=== PATIENT | female | born 1995 | race Caucasian/White ===

== ENCOUNTER → 2018-12-22 | Outpatient (CLI) | payer OTHER ==
[2018-12-22 14:37] VITALS: BP 165/109; PULSE 82; RESP 16; TEMP 98.3; BMI 58.0
--- NOTE | 2018-12-22 17:32 | P.HPBAR ---
Bariatric H&P - History & Physicial H&P Date: 12/22/18 History & Physicial: Visit/CC: Initial Visit Patient initial contact: Initial weight: 130.379 kg Initial weight in pounds: 287.44 Height: 4 ft 11 in Initial BMI: 58.0 Last weight: Current weight: 130.379 kg Current weight in pounds: 287.44 Current BMI: 58.0 [place] body weight (based on NIH guidelines): 43.091 kg Excess body weight loss: 0.0% The patient is a 23 year-old F who presents for Bariatric Assessment. Patient is a pleasant 23-year-old female. She has suffered with obesity for much of her life. She has a history of congenital myelomeningocele. Patient has required operative intervention. Developed a large heel wound from pressure which took over one year to heal. Patient became less and less active as a result of that. Currently wheelchair bound. She is able to transfer on her alone. 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 Last revision in second grade. Catheter enters in the right subcostal location. Patient has a history of bicuspid aortic valve. History of hypertension as well. Patient has gone to at least 3 separate bariatric seminars in the past. She is interested in sleeve gastrectomy. She has not interested in gastric bypass because of the long-term risks she states. No history of DVT or dysphagia in the past. Review of Systems The patient denies any acute changes in vision or hearing, no dysphagia or odynophagia, no chest pain or shortness of breath, no dysuria or hematuria, no headache, no runny nose, no rectal bleeding or melena, no unexplained weight loss Past Medical History Past Medical History: Hypertension, Mitral Valve Prolapse (MVP), Musculoskeletal Disorder, Neurologic Disorder, Supraventricular Tachycardia (SVT) Additional Past Medical History / Comment(s): spinabifida History of Any Multi-Drug Resistant Organisms: None Reported Past Surgical History: Orthopedic Surgery Past Anesthesia/Blood Transfusion Reactions: No Reported Reaction Past Psychological History: No Psychological Hx Reported Smoking Status: Never smoker Past Alcohol Use History: None Reported, Rare Past Drug Use History: None Reported Surgical - Exam Vital Signs Temp Pulse Resp BP 98.3 F 82 16 165/109 12/22/18 14:29 12/22/18 14:29 12/22/18 14:29 12/22/18 14:29 Physical exam: General: Well-developed, well-nourished, wheelchair bound HEENT: Normocephalic, sclerae nonicteric Abdomen: Nontender, nondistended, right subcostal scar noted Extremities: Bilateral lower extremity edema Neuro: Alert and oriented Bariatric Assessment & Plan (1) Morbid obesity with BMI of 50.0-59.9, adult Narrative/Plan: Patient remains interested in sleeve gastrectomy at this time. Will require preoperative EGD, preoperative neurosurgical clearance, preoperative cardiac clearance. Risks and benefits of the procedure were discussed in detail with the patient and her mother. Alternative weight loss methods also reviewed in detail. They will consider will be discussed today. We'll see patient At time of upper endoscopy. Status: Acute Bariatric Checklist Checklist: Plan: Checklist: EGD: 1. Hiatal hernia: 2. H. Pylori: HgbA1c: Vitamin D: Smoking: Never smoker Primary care physician referral: Padma Goddard Psychiatry clearance: Cardiology clearance: Sleep study: Diet journal: VTE risk score: VTE risk level: Rehab needs at discharge:
== END ==
LOC: EDBD 14:00 → BARWHC3 14:05
PROVIDERS: ATTEND Surgery
DX: E66.01 Morbid (severe) obesity due to excess calories (principal); Z68.43 Body mass index [BMI] 50.0-59.9, adult
CPT/HCPCS: 99201

== ENCOUNTER 2019-05-24 12:40 | Day surgery (SDC) | payer OTHER ==
[2019-05-20 15:41] VITALS: BMI 56.5
[~2019-05-24 12:40] MED LIST: LACTATED RINGERS 1,000 ML IV SCH; LIDOCAINE 1% 20 ML VIAL (10MG/ML) FOR IV START INTRADERMA PRN
[2019-05-24 13:23] VITALS: RESP 16; TEMP 97.7
[2019-05-24] MEDS ORDERED: LIDOCAINE 1% INJ 10MG/ML (20 ML MDV) ONE (14:01)
[2019-05-24] MEDS ORDERED: PROPOFOL 10 MG/ML 20 ML VIAL IV ONE (14:01)
[2019-05-24] MEDS ORDERED: GLYCOPYRROLATE 0.2 MG/ML 2 ML VIAL ONE (14:01)
[2019-05-24] MEDS ORDERED: KETAMINE 10 MG/ML 20 ML VIAL ONE (14:01)
--- NOTE | 2019-05-24 14:10 | P.GSHP ---
History of Present Illness H&P Date: 05/24/19 Chief Complaint: GERD, obesity Patient here today for upper endoscopy. Patient with history of morbid obesity. Being worked up for sleeve gastrectomy. Denies DVT or dysphagia. Past Medical History Past Medical History: Hypertension, Musculoskeletal Disorder, Neurologic Disorder Additional Past Medical History / Comment(s): states has a bicuspid aortic valve, spinabifida, uses wheelchair, able to transfer, states hx (over 6 yrs ago) of "staph infection" that had I&D and a month of antibiotics IV, not sure if MRSA History of Any Multi-Drug Resistant Organisms: None Reported Past Surgical History: Orthopedic Surgery Additional Past Surgical History / Comment(s): rt heel cord sx, shunt @ , replaced x2 Past Anesthesia/Blood Transfusion Reactions: No Reported Reaction Past Psychological History: No Psychological Hx Reported Smoking Status: Never smoker Past Alcohol Use History: Rare Past Drug Use History: None Reported - Past Family History Mother Family Medical History: No Reported History Medications and Allergies Home Medications Medication Instructions Recorded Confirmed Type Carvedilol 25 mg PO QAM 05/20/19 05/24/19 History Allergies Allergy/AdvReac Type Severity Reaction Status Date / Time latex Allergy Rash/Hives Verified 05/24/19 13:10 morphine AdvReac "panic Verified 05/24/19 13:10 attack" Surgical - Exam Vital Signs Temp Pulse Resp BP Pulse Ox 97.7 F 72 16 147/103 100 05/24/19 13:20 05/24/19 13:20 05/24/19 13:20 05/24/19 13:20 05/24/19 13:20 Physical exam: General: Well-developed, well-nourished HEENT: Normocephalic, sclerae nonicteric Abdomen: Nontender, nondistended Extremities: No edema Neuro: Alert and oriented Assessment and Plan (1) GERD (gastroesophageal reflux disease) Narrative/Plan: Will proceed with upper endoscopy. Current Visit: Yes Status: Acute Code(s): K21.9 - GASTRO-ESOPHAGEAL REFLUX DISEASE WITHOUT ESOPHAGITIS SNOMED Code(s): 016162974
--- NOTE | 2019-05-24 14:16 | P.PCN ---
Date of Procedure: 05/24/19 Procedure(s) Performed: Preoperative Dx: GERD, obesity Postoperative Dx: Gastritis was small erosions Procedure: EGD with Bx Anesthesia: Sedation Endoscopist: Dr. Key Specimens: Antrum Endoscopic Procedure: The patient was on the endoscopy table in the left decubitus position. The Olympus gastroscope was inserted into the oropharynx and passed under direct visualization to the region of the third portion of the duodenum. From that point the scope was slowly withdrawn inspecting all surfaces carefully. There were no neoplastic inflammatory or polypoid lesions throughout the duodenum. The pylorus was widely patent. The stomach was carefully inspected. There was gastritis present primarily in the antrum with a few small erosions. No large ulcerations were seen.. A biopsy of the antrum took place to rule out H. pylori. Retroflexion revealed a normal hiatus. The esophagus was then carefully examined. There were no neoplastic inflammatory or polypoid lesions throughout the visualized esophagus. The patient was then taken to the recovery room in stable condition per anesthesia guidelines. Recommendations: Await biopsy results. Begin empiric antiacid therapy. Follow- up bariatric clinic 3 weeks.
[2019-05-24 14:56] VITALS: BP 146/94; PULSE 60
== END 2019-05-24 14:57 | disposition home or self-care (01) ==
LOC: ORWHC2ENDO 12:40
PROVIDERS: ATTEND Surgery
DX: K29.50 Unspecified chronic gastritis without bleeding (principal); K21.9 Gastro-esophageal reflux disease without esophagitis; E66.9 Obesity, unspecified; Z68.43 Body mass index [BMI] 50.0-59.9, adult; I10 Essential (primary) hypertension; Q23.1 Congenital insufficiency of aortic valve; Q05.9 Spina bifida, unspecified; Z99.3 Dependence on wheelchair; Z86.19 Personal history of other infectious and parasitic diseases; Z98.2 Presence of cerebrospinal fluid drainage device; Z79.899 Other long term (current) drug therapy; Z88.5 Allergy status to narcotic agent; Z91.040 Latex allergy status
CPT/HCPCS: 81025; 88305; 43239; J2001; J2704

== ENCOUNTER → 2019-08-20 | Outpatient (CLI) | payer OTHER ==
[2019-08-20 12:16] LABS: Basophils % (A) 0 %; Eosinophils # (A) 0.1 k/uL (0-0.7); Eosinophils % (A) 1 %; HCT 43.5 % (34.0-46.0); HGB 13.5 gm/dL (11.4-16.0); Hypochromasia Slight; Lymphocytes # (A) 1.9 k/uL (1.0-4.8); Lymphocytes % (A) 26 %; MCH 26.6 pg (25.0-35.0); Mean Platelet Volume 9.1; Monocytes # (A) 0.3 k/uL (0-1.0); Monocytes % (A) 4 %; Neutrophils # (A) 4.9 k/uL (1.3-7.7); Neutrophils % (A) 68 %; Platelet Count 268 k/uL (150-450); RBC 5.06 m/uL (3.80-5.40); RDW 14.2 % (11.5-15.5); WBC 7.2 k/uL (3.8-10.6)
[2019-08-20 20:23] LABS: African American GFR (CKD) 119.6 (60.0-200.0); Albumin 4.5 g/dL (3.80-4.90); Albumin/Globulin Ratio 1.41 (1.60-3.17); Anion Gap 12.5 mmol/L (4.00-12.00); Calcium 9.8 mg/dL (8.7-10.3); Carbon Dioxide 27.5 mmol/L (21.6-31.8); Globulin 3.2 g/dL (1.6-3.3); Non-African American GFR(CKD) 103.2 (60.0-200.0); Potassium 4.6 mmol/L (3.5-5.5); Total Bilirubin 0.4 mg/dL (0.3-1.2); Total Protein 7.7 g/dL (6.2-8.2)
== END | disposition home or self-care (01) ==
LOC: LABWHC1 09:45
PROVIDERS: ATTEND Surgery
DX: Z01.818 Encounter for other preprocedural examination (principal)
CPT/HCPCS: 36415; 80053; 85025

== ENCOUNTER → 2019-08-20 | Outpatient (CLI) | payer OTHER ==
[2019-08-20 08:30] VITALS: BP 163/90; PULSE 69; RESP 16; TEMP 98.4; BMI 57.1
--- NOTE | 2019-08-20 08:54 | P.BASOAP ---
Subjective Progress Note Date: 08/20/19 Principal diagnosis: Morbid obesity Patient returns for recheck after recent EGD in May. Upper endoscopy demonstrated gastritis with small erosions. Otherwise doing well. Since starting on antiacids her upper abdominal burning pain and gassy pain is improved. Weight has been unchanged. Objective - Vital Signs Vital signs: Vital Signs Temp 98.4 F 08/20/19 08:28 Pulse 69 08/20/19 08:28 Resp 16 08/20/19 08:28 BP 163/90 08/20/19 08:28 Pulse Ox Intake & Output 08/19/19 08/20/19 08/20/19 18:59 06:59 18:59 Weight 128.321 kg - Exam Abdomen: Soft, nontender, nondistended Assessment/Plan (1) Morbid obesity with BMI of 50.0-59.9, adult Narrative/Plan: 23-year-old female with morbid obesity. We'll proceed with elective sleeve gastrectomy 09/02. Surgical consent form reviewed with her and her mother in detail. All questions answered. The risks of bleeding, infection, stenosis, stricture, leak, abscess, fistula formation, peritonitis, poor weight loss, reflux, vomiting, conversion to an open procedure, aborting sleeve gastrectomy, MA, PE, DVT, and were discussed. The patient understands and wishes to proceed. Patient does present as a slightly higher risk of postoperative DVT/PE. May require home anticoagulation post discharge. Plan: Date: 08/20/19 Initial Weight: 130.379 kg Initial BMI: 58.0 Current Weight: 128.321 kg Current BMI: 57.1 Type of Surgery: Vertical Sleeve Gastrectomy Total Volume in Band: Previous Volume: Volume Removed: Volume Added: Band Size:
== END | disposition home or self-care (01) ==
LOC: BARWHC3 08:06
PROVIDERS: ATTEND Surgery
DX: E66.01 Morbid (severe) obesity due to excess calories (principal); Z68.43 Body mass index [BMI] 50.0-59.9, adult
CPT/HCPCS: 99211

== ENCOUNTER → 2019-09-01 | Outpatient (CLI) | payer OTHER | END | disposition home or self-care (01) | LOC: LABWHC1 11:53 | PROVIDERS: ATTEND Surgery | DX: Z11.59 Encounter for screening for other viral diseases (principal) ==

== ENCOUNTER 2019-09-03 07:45 | Inpatient (IN) | payer OTHER ==
[~2019-09-03 07:45] MED LIST changes: +ACETAMINOPHEN TAB 500 MG TAB PO ONE; +DEXAMETHASONE SOD PHOSPHATE 10 MG/ML 1 ML VIAL IV ONE; +ENOXAPARIN 40 MG/0.4 ML SYRINGE SQ ONE; -LACTATED RINGERS 1,000 ML IV SCH; -LIDOCAINE 1% 20 ML VIAL (10MG/ML) FOR IV START INTRADERMA PRN; +MIDAZOLAM 2 MG/2 ML VIAL IV PRN; +ONDANSETRON 4 MG/2 ML VIAL IVP ONE; +SCOPOLAMINE 1.5MG/72HR PATCH TRANSDERM ONE; +ceFAZolin 3 GM in SODIUM CHLORIDE 0.9% 100 ML IVPB ONE; +fentaNYL (PF) 50 MCG/ML 2 ML AMP IV PRN
[2019-09-03] MEDS: LACTATED RINGERS 1,000 ML IV SCH (11:19)
[2019-09-03] MEDS ORDERED: LIDOCAINE 1% (10MG/ML) FOR IV START INTRADERMA ONE (11:23)
--- NOTE | 2019-09-03 11:47 | P.GSHP ---
History of Present Illness H&P Date: 09/03/19 Chief Complaint: Morbid obesity 23-year-old female first evaluated for weight loss surgery November last year. Patient has suffered with morbid obesity for most of her life. She is currently wheelchair bound with a history of congenital myelomeningocele. 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 Last revision while in second grade of elementary school. Catheter enters into the right subcostal location. Patient suffers from hypertension. She has no history of previous DVT or dysphagia. No history of tobacco use. Initial BMI 58 currently 55. Past Medical History Past Medical History: GERD/Reflux, Hypertension, Musculoskeletal Disorder, Neurologic Disorder Additional Past Medical History / Comment(s): states has a bicuspid aortic valve, spinabifida, uses wheelchair, able to transfer, states hx (over 6 yrs ago) of "staph infection" that had I&D and a month of antibiotics IV, not sure if MRSA History of Any Multi-Drug Resistant Organisms: None Reported Past Surgical History: Orthopedic Surgery Additional Past Surgical History / Comment(s): rt heel cord sx, CHARGER OPERATOR HELPER shunt @ , replaced x2, recent EGD Past Anesthesia/Blood Transfusion Reactions: No Reported Reaction Smoking Status: Never smoker - Past Family History Mother Family Medical History: No Reported History Medications and Allergies Home Medications Medication Instructions Recorded Confirmed Type Carvedilol 25 mg PO QAM 05/20/19 09/02/19 History Omeprazole [PriLOSEC] 20 mg PO AC-BRKFST #90 cap 05/24/19 09/02/19 Rx Allergies Allergy/AdvReac Type Severity Reaction Status Date / Time latex Allergy Rash/Hives Verified 09/02/19 10:59 morphine AdvReac "panic Verified 09/02/19 10:59 attack" Surgical - Exam Vital Signs Temp Pulse Resp BP Pulse Ox 97.5 F L 65 16 159/77 99 09/03/19 11:06 09/03/19 11:06 09/03/19 11:09/03/19 11:09/03/19 11:06 Physical exam: General: Well-developed, well-nourished HEENT: Normocephalic, sclerae nonicteric Abdomen: Nontender, nondistended Extremities: No edema Neuro: Alert and oriented Assessment and Plan (1) Morbid obesity with BMI of 50.0-59.9, adult Narrative/Plan: 23-year-old female with morbid obesity. Recent EGD in May shows gastritis with erosions. No hernia seen. Preoperative clearance obtained from her neurosurgeon who I spoke with by phone. We'll proceed with sleeve gastrectomy at this time. The risks of bleeding, infection, stenosis, stricture, leak, abs cess, fistula formation, peritonitis, poor weight loss, reflux, vomiting, conversion to an open procedure, aborting sleeve gastrectomy, DC, PE, DVT, and were discussed. Additional risks of CHARGER OPERATOR HELPER shunt related complications reviewed. The patient understands and wishes to proceed. Current Visit: No Status: Acute Code(s): E66.01 - MORBID (SEVERE) OBESITY DUE TO EXCESS CALORIES; Z68.43 - BODY MASS INDEX (BMI) 50.0-59.9, ADULT SNOMED Code(s): 636456546
[2019-09-03] MEDS ORDERED: NEOSTIGMINE 1 MG/ML 10 ML VIAL ONE (12:20)
[2019-09-03] MEDS ORDERED: fentaNYL (PF) 50 MCG/ML 2 ML AMP ONE (12:20)
[2019-09-03] MEDS ORDERED: GLYCOPYRROLATE 0.2 MG/ML 2 ML VIAL ONE (12:20)
[2019-09-03] MEDS ORDERED: MIDAZOLAM 2 MG/2 ML VIAL ONE (12:20)
[2019-09-03] MEDS ORDERED: LIDOCAINE 1% INJ 10MG/ML (20 ML MDV) ONE (12:20)
[2019-09-03] MEDS ORDERED: HYDROmorphone (PF) 1 MG/ML ONE (12:20)
[2019-09-03] MEDS ORDERED: PROPOFOL 10 MG/ML 20 ML VIAL IV ONE (12:20)
[2019-09-03] MEDS ORDERED: ROCURONIUM BROMIDE 10 MG/ML 5 ML VIAL IV ONE (12:20)
[2019-09-03] MEDS ORDERED: KETOROLAC 30 MG/ML 1 ML VIAL ONE (12:20)
[2019-09-03] MEDS ORDERED: BUPIVACAINE (PF) 0.25% 30 ML VIAL SQ ONE ×2 (12:47)
[2019-09-03] MEDS ORDERED: LACTATED RINGERS 1,000 ML IV ONE (13:47)
[2019-09-03] MEDS ORDERED: HYDROmorphone 1 MG/ML 1 ML SYRINGE IVP ONE ×4 (15:23→16:05)
[2019-09-03] MEDS ORDERED: HYOSCYAMINE ORAL DROPS 1.875 MG/15 ML BOTTLE PO PRN (15:25)
[2019-09-03] MEDS ORDERED: diphenhydrAMINE 50 MG/ML 1 ML VIAL IVP PRN (15:25)
[2019-09-03] MEDS ORDERED: NALOXONE 0.4 MG/ML 1 ML VIAL IV PRN (15:25)
[2019-09-03] MEDS ORDERED: HYDROmorphone 0.5 MG/0.5 ML SYRINGE IVP ONE (15:28)
--- NOTE | 2019-09-03 15:33 | P.OP ---
Date of Procedure: 09/03/19 Procedure(s) Performed: PREOPERATIVE DIAGNOSIS: Morbid obesity, hypertension POSTOPERATIVE DIAGNOSIS: Same, upper abdominal adhesions PROCEDURE: Laparoscopic sleeve gastrectomy SURGEON: Yesi EBL: Minimal ANESTHESIA: General COMPLICATIONS: None OPERATIVE PROCEDURE: Patient was placed in the operating table in the supine position. She was placed under general anesthesia at that time. The abdomen was prepped and draped in sterile fashion after the patient was placed in lithotomy. A 5 mm optical trocar was used to enter the abdominal cavity in the left upper quadrant. Upon entry through the peritoneum we were in an area of adhesions. This was surprising since we were well away from the patient's right upper quadrant MASON APPRENTICE shunt scar. Blunt dissection between the peritoneum and the omentum took place. I was able to then visualize a window in the left upper quadrant. A 5 mm trocar was placed there without difficulty. Following that approximately 45-60 minutes of lysis of adhesions took place involving the upper abdomen. There were some adhesions between the descending colon and the left l ateral abdominal wall. The patient's spleen was fairly large with the lower pole extending beneath the rib margin on the left. A supraumbilical 5 mm trocar was placed to assist with the lysis of adhesions and this was later switched to a 15 mm trocar. We were able to place a 5 mm trocar in the right upper quadrant approximate 5 cm medial to the MASON APPRENTICE shunt entrance site. A subcostal 5 mm trocar was used to help elevate the left lobe of the liver. An additional 5 Munoz trocar was placed in the left midabdomen to assist with retraction. There was no small bowel adhesed to the abdominal wall however the transverse colon was noted to be included in the lysis of adhesions and the omentum. The liver was retracted using a medium Bren liver retractor through the right subxiphoid trocar site. The hiatus was inspected. The patient had no visible hiatal hernia At that point I moved to the mid aspect of the greater curvature the stomach. The short gastric vasculature was divided using a LigaSure device proximally. I then switched and divided the short gastrics distally to a point approximately 6-7 cm from the pylorus. The dissection took place up to the left diaphragmatic crura at that point. The posterior short gastrics were likewise divided using the LigaSure device. Once the stomach was fully mobilized the blunt tipped 40-Slovenian bougie dilator was advanced into the stomach and advanced all the way to the prepyloric location. A black echelon 60 stapler was utilized and fired tangentially across the antrum taking care to avoid narrowing at the incisura angularis. Subsequent firings of the stapler took place. A total of 3 green echelon 60 staplers with seam guard took place proximally staying on the outer edge of our dilator. Once we reached the most proximal portion of the stomach a single firing of the gold echelon 60 stapler without seen guard took place. The oral gastric tube was reinserted. The stomach was insufflated with approximately 100 mL of methylene blue. No evidence of leak or obstruction was seen. The distal aspect of the sleeve was then reapproximated to the gastrosplenic and gastrocolic ligament using a short running 2-0 strata fix s uture. This was done to prevent kinking or twisting of the sleeve. Tisseel fibrin glue was then used along the length of the staple line. The stomach remnant was removed from the 15 mm trocar site without difficulty. The fascia at the 15 more site was closed using interrupted 0 Vicryl sutures with the laparoscopic suture passer and Jesus Nilsa technique. The insufflation was evacuated. The skin at all 6 incisions were closed using 4-0 Monocryl sutures. Skin glue was then applied. DISPOSITION: Stable to recovery room
[2019-09-03] MEDS ORDERED: hydrALAZINE HCL 20 MG/ML 1 ML VIAL IVP ONE ×2 (16:26)
[2019-09-03] MEDS ORDERED: ENALAPRILAT 1.25 MG/ML 1 ML VIAL IVP ONE (17:00)
[2019-09-03] MEDS ORDERED: ACETAMINOPHEN IV (For NPO) 1,000 MG in EMPTY BAG 1 BAG IVPB ONE (18:00)
[2019-09-03] MEDS: 0.9% NACL WITH KCL 20 MEQ/L 1,000 ML IV SCH (18:22)
[2019-09-03] MEDS: SIMETHICONE 40 MG/0.6 ML DROPS 2,000 MG/30 ML BOTTLE PO PRN (20:06)
[2019-09-03] MEDS: HYDROmorphone 0.5 MG/0.5 ML SYRINGE IVP PRN (20:07)
[2019-09-03] MEDS: ALBUTEROL NEBULIZED 2.5 MG/3 ML INHALATION SCH (20:32)
[2019-09-03] MEDS ORDERED: hydrALAZINE HCL 25 MG TAB PO STA (20:54)
[2019-09-03] MEDS ORDERED: hydrALAZINE HCL 20 MG/ML 1 ML VIAL IVP PRN (20:59)
[2019-09-03] MEDS ORDERED: ONDANSETRON 4 MG/2 ML VIAL IVP PRN (23:10)
[2019-09-03] MEDS: hydrALAZINE HCL 25 MG TAB PO SCH (23:15)
[2019-09-04] MEDS: 0.9% NACL WITH KCL 20 MEQ/L 1,000 ML IV SCH ×2 (01:09→10:53)
[2019-09-04] MEDS: HYDROmorphone 0.5 MG/0.5 ML SYRINGE IVP PRN ×5 (01:46→21:39)
[2019-09-04] MEDS ORDERED: ENOXAPARIN 40 MG/0.4 ML SYRINGE SQ SCH (02:00)
[2019-09-04] MEDS: SIMETHICONE 40 MG/0.6 ML DROPS 2,000 MG/30 ML BOTTLE PO PRN (02:05)
--- NOTE | 2019-09-04 03:03 | P.CONS ---
History of Present Illness - Reason for Consult Consult date: 09/03/19 - History of Present Illness The patient is a 23-year-old female with a PMH of morbid obesity, hypertension, bicuspid aortic valve, and GERD who was seen as a consult post laparoscopic sleeve gastrectomy earlier today. The patient notes that her pain is currently at a 7 out of 10, located in the left upper quadrant nonradiating, with no clear alleviating or exacerbating features. She also endorsed mild nausea but denied vomiting, or diarrhea. She further denied chest pain, shortness of breath, fever, chills, or headaches. Review of Systems Pertinent positives and negatives as discussed in HPI, a complete review of systems was performed and all other systems are negative. Past Medical History Past Medical History: GERD/Reflux, Hypertension, Musculoskeletal Disorder, Neurologic Disorder Additional Past Medical History / Comment(s): states has a bicuspid aortic valve, spinabifida, uses wheelchair, able to transfer, states hx (over 6 yrs ago) of "staph infection" that had I&D and a month of antibiotics IV, not sure if MRSA History of Any Multi-Drug Resistant Organisms: None Reported Past Surgical History: Orthopedic Surgery Additional Past Surgical History / Comment(s): rt heel cord sx, LEADERSHIP PROGRAM INTERNSHIP shunt @ , replaced x2, recent EGD Past Anesthesia/Blood Transfusion Reactions: No Reported Reaction Past Psychological History: No Psychological Hx Reported Smoking Status: Never smoker Past Alcohol Use History: Rare Past Drug Use History: None Reported - Past Family History Mother Family Medical History: No Reported History Medications and Allergies Home Medications Medication Instructions Recorded Confirmed Type Carvedilol 25 mg PO QAM 05/20/19 09/02/19 History Omeprazole [PriLOSEC] 20 mg PO AC-BRKFST #90 cap 05/24/19 09/02/19 Rx Allergies Allergy/AdvReac Type Severity Reaction Status Date / Time latex Allergy Rash/Hives Verified 09/02/19 10:59 morphine AdvReac "panic Verified 09/02/19 10:59 attack" Physical Exam Vitals: Vital Signs Temp Pulse Pulse Resp BP Pulse Ox 09/03/19 20:42 52 L 09/03/19 20:32 50 L 09/03/19 20:24 97 09/03/19 17:11 88 18 154/77 92 L 09/03/19 17:03 76 16 185/74 99 09/03/19 17:00 81 18 179/104 92 L 09/03/19 16:45 66 16 192/113 66 L 09/03/19 16:29 48 L 16 182/92 99 09/03/19 16:15 56 L 16 206/108 92 L 09/03/19 16:00 66 14 197/97 99 09/03/19 15:45 50 L 16 221/98 100 09/03/19 15:30 55 L 14 175/99 98 09/03/19 15:10 96.9 F L 64 14 148/93 100 09/03/19 11:06 97.5 F L 65 16 159/77 99 Intake and Output 09/03/19 09/03/19 09/03/19 06:59 14:59 22:59 Intake Total 1200 0 Output Total 10 Balance 1190 0 Intake: IV 1200 0 Output: Estimated Blood Loss 10 Other: Weight 124 kg 124 kg General: non toxic, no distress, appears at stated age, morbidly obese Derm: Bilateral laparoscopic incisions, clean and dry, no unusual ecchymoses, warm Head: atraumatic, normocephalic, symmetric Eyes: EOMI, no lid lag, anicteric sclera, pupils equal round reactive to light ENT: Nose and ears atraumatic, no thrush, no pharyngeal erythema Neck: No thyromegaly, no cervical lymphadenopathy, trachea midline, supple Mouth: no lip lesion, mucus membranes moist Cardiovascular: S1S2 reg, no murmur, positive posterior tibial pulse bilateral, no edema, capillary refill less than 2 seconds Lungs: CTA bilateral, no rhonchi, no rales , no accessory muscle use Abdominal: soft, nontender to palpation, no guarding, no appreciable organomegaly, normal bowel sounds Ext: no gross muscle atrophy, muscle strength 5 out of 5 in all 4 extremities grossly, no contractures, Neuro: CN II-XI grossly intact, light touch intact all 4 extremities, finger to nose within normal limits, Psych: Alert, oriented, appropriate affect Assessment and Plan Plan: Status post sleeve gastrectomy -Defer management including pain control to primary surgical service -Continue with pain control Hypertension -Plan to resume home oral medications once confirmed -Continue with hydralazine IV for now
[2019-09-04] MEDS: ALBUTEROL NEBULIZED 2.5 MG/3 ML INHALATION SCH ×4 (08:17→20:36)
[2019-09-04] MEDS ORDERED: SODIUM CHLORIDE 0.9% 1,000 ML IV ONE (08:30)
[2019-09-04] MEDS ORDERED: LISINOPRIL 5 MG TAB PO SCH (09:00)
[2019-09-04] MEDS: LACTATED RINGERS 1,000 ML IV SCH (09:19)
[2019-09-04 09:20] LABS: Basophils % (A) 0 %; Eosinophils # (A) 0.1 k/uL (0-0.7); Eosinophils % (A) 0 %; HCT 29.9 % (34.0-46.0); Hypochromasia Moderate; Lymphocytes # (A) 1.2 k/uL (1.0-4.8); Lymphocytes % (A) 8 %; MCH 28.6 pg (25.0-35.0); MCHC 32.1 g/dL (31.0-37.0); MCV 89.1 fL (80.0-100.0); Mean Platelet Volume 9.1; Monocytes # (A) 0.6 k/uL (0-1.0); Monocytes % (A) 4 %; Neutrophils # (A) 14.2 k/uL (1.3-7.7); Neutrophils % (A) 88 %; Platelet Count 265 k/uL (150-450); RBC 3.35 m/uL (3.80-5.40); WBC 16.2 k/uL (3.8-10.6)
[2019-09-04 09:31] LABS: HGB 9.6 gm/dL (11.4-16.0)
[2019-09-04 09:40] LABS: ALT 44 U/L (4-34); AST 35 U/L (14-36); African American GFR (CKD) >90 (>60 ml/min/1.73 sqM); Albumin 2.8 g/dL (3.5-5.0); Alkaline Phosphatase 60 U/L (38-126); Anion Gap 8 mmol/L; Blood Urea Nitrogen 15 mg/dL (7-17); Calcium 7.3 mg/dL (8.4-10.2); Carbon Dioxide 15 mmol/L (22-30); Chloride 113 mmol/L (98-107); Glucose 121 mg/dL (74-99); Magnesium 1.6 mg/dL (1.6-2.3); Non-African American GFR(CKD) 83 (>60 ml/min/1.73 sqM); Phosphorus 3.9 mg/dL (2.5-4.5); Potassium 4.3 mmol/L (3.5-5.1); Sodium 136 mmol/L (137-145); Total Bilirubin 0.5 mg/dL (0.2-1.3); Total Protein 5.5 g/dL (6.3-8.2)
[2019-09-04 09:43] LABS: INR 1.3 (<1.2); Prothrombin Time 13.1 sec (9.0-12.0)
--- NOTE | 2019-09-04 10:17 | P.PN ---
Subjective Progress Note Date: 09/04/19 Principal diagnosis: Morbid obesity I was contacted this morning by the nursing staff on the fourth floor that the patient developed hypotension. Systolic blood pressure in the 60s. Heart rate at one point was in the low 100s. Patient was treated with IV resuscitation. Then transferred to the ICU. Patient was seen in the ICU shortly after her arrival. Her color was good. She was laying supine. Complaining of mild upper abdominal discomfort that has waxed and waned overnight. He did have some dry heaves last night and notices small amount of blood in the back of her throat when she was doing that on one occasion. Patient was significantly hypertensive last night with systolic over 200 at one point and diastolic approximately 100. Patient was given hydralazine once. Initially it was unclear if the source of hypotension was related to a combination of antihypertensives and IV narcotics or surgical blood loss. Abdominal examination was benign with only minimal upper abdominal and incisional tenderness. No ecchymosis noted. Hemoglobin was 13 as an outpatient. Today's hemoglobin did come back just recently now at 9.6. Patient after being in the ICU has a heart rate in the 70s. Systolic blood pressure high 90s to low 100s. Feels comfortable. Objective - Vital Signs Vital signs: Vital Signs Temp 94.6 F L 09/04/19 08:30 Pulse 73 09/04/19 09:30 Resp 11 L 09/04/19 09:30 BP 96/62 09/04/19 09:20 Pulse Ox 97 09/04/19 09:30 Intake & Output 09/03/19 09/04/19 09/04/19 18:59 06:59 18:59 Intake Total 1200 1520 1999 Output Total 10 250 Balance 1190 1270 1999 Weight 124 kg Intake: IV 1200 1999 Mvi, Adult No.4 with Vit 0 K 10 ml Thiamine 100 mg Folic Acid 1 mg Potassium Chloride 20 meq In Sodium Chloride 0.9% 1, 000 ml @ 100 mls/hr IV . BY DURATION MARGE Rx#: [id number] Sodium Chloride 0.9% 1, 2000 000 ml @ 999 mls/hr IV . Q1H1M ONE Rx#:[id number] Intake, IV Titration 1500 Amount 0.9% NaCl with KCl 20 Meq 1500 /l 1,000 ml @ 100 mls/hr IV .BY DURATION MARGE Rx#: [id number] Oral 20 Output: Urine 250 Estimated Blood Loss 10 Other: # Voids 2 - Exam Abdomen: Soft, nondistended, mild incisional and upper abdominal tenderness, incisions clean and dry - Labs CBC & Chem 7: 09/04/19 08:58 09/04/19 08:58 Labs: Abnormal Lab Results - Last 24 Hours (Table) 09/04/19 09/04/19 09/04/19 Range/Units 08:58 08:58 08:58 WBC 16.2 H (3.8-10.6) k/uL RBC 3.35 L (3.80-5.40) m/uL Hgb 9.6 L D (11.4-16.0) gm/dL Hct 29.9 L (34.0-46.0) % Neutrophils # 14.2 H (1.3-7.7) k/uL PT 13.1 H (9.0-12.0) sec INR 1.3 H (<1.2) Sodium 136 L (137-145) mmol/L Chloride 113 H (98-107) mmol/L Carbon Dioxide 15 L (22-30) mmol/L Glucose 121 H (74-99) mg/dL Calcium 7.3 L (8.4-10.2) mg/dL ALT 44 H (4-34) U/L Total Protein 5.5 L (6.3-8.2) g/dL Albumin 2.8 L (3.5-5.0) g/dL Assessment and Plan (1) Morbid obesity with BMI of 50.0-59.9, adult Narrative/Plan: 23-year-old female post sleeve gastrectomy. This morning with episode of hyp otension and drop in hemoglobin consistent with acute blood loss. Patient stable at this time. We'll repeat hemoglobin at noon which will be 4 hours after the most recent hemoglobin. Would favor observation versus urgent surgical intervention given the patient's stability at this time. Most common source of bleeding in a situation like this is along the staple line of the sleeve gastrectomy. These many times will the self-limited. Patient may require blood transfusion. Hold Lovenox for now. Continue ICU care with bed rest for now. Hold esophagram that had been ordered. Clinical scenario discussed with the patient and her mother along with her family by phone on multiple occasions this morning. Current Visit: No Status: Acute Code(s): E66.01 - MORBID (SEVERE) OBESITY DUE TO EXCESS CALORIES; Z68.43 - BODY MASS INDEX (BMI) 50.0-59.9, ADULT SNOMED Code(s): 624082343
[2019-09-04] MEDS: 1: MVI, ADULT NO.4 WITH VIT K 10 ML, THIAMINE 100 MG, FOLIC ACID 1 MG, POTASSIUM CHLORID IV SCH ×12 (10:52→22:40)
[2019-09-04] MEDS: hydrALAZINE HCL 25 MG TAB PO SCH ×3 (10:53→18:51)
[2019-09-04] MEDS: PANTOPRAZOLE 40 MG/10 ML VIAL IV SCH (10:55)
--- NOTE | 2019-09-04 12:10 | P.CNPUL ---
History of Present Illness Consult date: 09/04/19 Chief complaint: Acute hypotension History of present illness: A 23-year-old morbidly obese female patient with previous history of meningomyelocele and the patient has a FRUIT GROWER shunt in place in addition to known history of tricuspid aortic valve, came into the hospital and the patient underwent a gastric sleeve procedure. The surgery went well without any complications. Earlier this morning, the patient was found to be hypotensive and for that reason the patient got transferred to the intensive care unit. Currently she is receiving a second liter of IV fluids with normal saline. Her systolic blood pressure dropped to the mid 60s and currently it's up to the 90s. Blood work is pending. No significant signs of GI bleed. No chest pain. No shortness of breath. No palpitations. No hemoptysis. No pleurisy. No significant swelling lower extremities. Surgical with that is dry clean and intact. No abdominal pain or tenderness. The patient is currently receiving normal saline at the rate of 100 mL an hour. Her most recent blood pressure is up to 105/76. No significant tachycardia. This surgery was done laparoscopically with minimal blood loss. The blood work that I obtain on this patient showed a white cell count of 16.2. Correlation profile is within normal limits. The patient had a component of non-anion gap metabolic acidosis with a bicarb level of 15 and a gap of 8. I made to order the serum cortisol level that came at 60. TSH is at 1.2. LFTs done on elevated. Lactic gas level is at 1.4. The patient is for the fitting comfortable. No emesis for now. Review of Systems Constitutional: Denies chills, Denies fever Eyes: denies as per HPI, denies blurred vision, denies bulging eye, denies decreased vision, denies diplopia, denies discharge, denies dry eye, denies irritation, denies itching, denies pain, denies photophobia, denies loss of peripheral vision, denies loss of vision, denies tunnel vision/blind spots Ears: deny: decreased hearing, ear discharge, earache, tinnitus Ears, nose, mouth and throat: Reports as per HPI Breasts: absent: as per HPI, change in shape, gynecomastia, masses, nipple discharge, pain, skin changes, swelling Cardiovascular: Reports as per HPI Respiratory: Reports as per HPI Gastrointestinal: Reports as per HPI Genitourinary: Reports as per HPI Menstruation: Reports as per HPI Musculoskeletal: Reports as per HPI Musculoskeletal: absent: ankle pain, ankle stiffness, ankle swelling Integumentary: Reports as per HPI Neurological: Reports as per HPI Psychiatric: Reports as per HPI Endocrine: Reports as per HPI Hematologic/Lymphatic: Reports as per HPI Allergic/Immunologic: Reports as per HPI Past Medical History Past Medical History: GERD/Reflux, Hypertension, Musculoskeletal Disorder, Neurologic Disorder Additional Past Medical History / Comment(s): states has a bicuspid aortic valve, spinabifida, uses wheelchair, able to transfer, states hx (over 6 yrs ago) of "staph infection" that had I&D and a month of antibiotics IV, not sure if MRSA History of Any Multi-Drug Resistant Organisms: None Reported Past Surgical History: Orthopedic Surgery Additional Past Surgical History / Comment(s): rt heel cord sx, FRUIT GROWER shunt @ , replaced x2, recent EGD Past Anesthesia/Blood Transfusion Reactions: No Reported Reaction Past Psychological History: No Psychological Hx Reported Smoking Status: Never smoker Past Alcohol Use History: Rare Past Drug Use History: None Reported - Past Family History Mother Family Medical History: No Reported History Medications and Allergies Home Medications Medication Instructions Recorded Confirmed Type Carvedilol 25 mg PO QAM 05/20/19 09/02/19 History Omeprazole [PriLOSEC] 20 mg PO AC-BRKFST #90 cap 05/24/19 09/02/19 Rx Allergies Allergy/AdvReac Type Severity Reaction Status Date / Time latex Allergy Rash/Hives Verified 09/02/19 10:59 morphine AdvReac "panic Verified 09/02/19 10:59 attack" Physical Exam Vitals: Vital Signs Temp Pulse Pulse Resp BP BP BP 09/04/19 11:26 14 09/04/19 11:00 89 14 105/76 09/04/19 10:30 77 20 111/81 09/04/19 10:00 79 16 109/61 09/04/19 09:30 73 11 L 09/04/19 09:20 73 19 96/62 09/04/19 09:10 80 13 97/54 09/04/19 09:00 72 16 09/04/19 08:50 85 18 91/60 09/04/19 08:40 80 15 09/04/19 08:30 94.6 F L 82 16 96/58 09/04/19 08:00 97.6 F 63/42 09/04/19 07:43 90 20 61/40 47/41 09/04/19 07:40 94.7 F L 93 20 67/48 09/04/19 02:35 98.3 F 60 20 162/95 09/03/19 23:24 09/03/19 20:42 52 L 09/03/19 20:32 50 L 09/03/19 20:24 09/03/19 20:00 94.6 F L 60 20 173/97 09/03/19 17:11 88 18 154/77 09/03/19 17:03 76 16 185/74 09/03/19 17:00 81 18 179/104 09/03/19 16:45 66 16 192/113 09/03/19 16:29 48 L 16 182/92 09/03/19 16:15 56 L 16 206/108 09/03/19 16:00 66 14 197/97 09/03/19 15:45 50 L 16 221/98 09/03/19 15:30 55 L 14 175/99 09/03/19 15:10 96.9 F L 64 14 148/93 Pulse Ox 09/04/19 11:26 09/04/19 11:00 95 09/04/19 10:30 94 L 09/04/19 10:00 95 09/04/19 09:30 97 09/04/19 09:20 97 09/04/19 09:10 98 09/04/19 09:00 96 09/04/19 08:50 100 09/04/19 08:40 100 09/04/19 08:30 100 09/04/19 08:00 09/04/19 07:43 98 09/04/19 07:40 99 09/04/19 02:35 97 09/03/19 23:24 95 09/03/19 20:42 09/03/19 20:32 09/03/19 20:24 97 09/03/19 20:00 96 09/03/19 17:11 92 L 09/03/19 17:03 99 09/03/19 17:00 92 L 09/03/19 16:45 66 L 09/03/19 16:29 99 09/03/19 16:15 92 L 09/03/19 16:00 99 09/03/19 15:45 100 09/03/19 15:30 98 09/03/19 15:10 100 Intake and Output 09/03/19 09/04/19 09/04/19 22:59 06:59 14:59 Intake Total 20 1500 2100 Output Total 250 0 Balance 20 1250 2100 Intake: IV 0 2100 Mvi, Adult No.4 with Vit 100 K 10 ml Thiamine 100 mg Folic Acid 1 mg Potassium Chloride 20 meq In Sodium Chloride 0.9% 1, 000 ml @ 100 mls/hr IV . BY DURATION [facility] Rx#: [id number] Sodium Chloride 0.9% 1, 2000 000 ml @ 999 mls/hr IV . Q1H1M ONE Rx#:[id number] Intake, IV Titration 1500 Amount 0.9% NaCl with KCl 20 Meq 1500 /l 1,000 ml @ 100 mls/hr IV .BY DURATION [facility] Rx#: [id number] Oral 20 0 0 Output: Urine 250 0 Other: # Voids 2 2 Weight 124 kg Gen. appearance, comfortable likely distress Head exam was generally normal. There was no scleral icterus or corneal arcus. Mucous membranes were moist. Neck was supple and without jugular venous distension, thyromegaly, or carotid bruits. Carotids were easily palpable bilaterally. There was no adenopathy. The patient is a FRUIT GROWER shunt in the left posterior ear area. No neck stiffness. She has a Mallampati class IV. Lungs were clear to auscultation and percussion, and with normal diaphragmatic excursion. No wheezes or rales were noted. Breath sounds are diminished in lung bases bilaterally. Heart sounds are regular, positive S1-S2 and there is a systolic ejection murmur grade 2/6 consistent with her history of bicuspid aortic valve, nor and ventricular heave or thrill. Abdomen is obese soft nontender. No direct tenderness rebound tensile guarding. Laparoscopy sites of dry clean and intact. Extremities reveal trace edema and there is no cyanosis or clubbing. Neurologically the patient is awake and alert and there is no focal neurological deficits. Results - Laboratory Findings CBC and BMP: 09/04/19 08:58 09/04/19 08:58 PT/INR, D-dimer PT 13.1 sec (9.0-12.0) H 09/04/19 08:58 INR 1.3 (<1.2) H 09/04/19 08:58 Abnormal lab findings: Abnormal Labs 09/04/19 09/04/19 09/04/19 08:58 08:58 08:58 WBC 16.2 H RBC 3.35 L Hgb 9.6 L D Hct 29.9 L Neutrophils # 14.2 H PT 13.1 H INR 1.3 H Sodium 136 L Chloride 113 H Carbon Dioxide 15 L Glucose 121 H Calcium 7.3 L ALT 44 H Total Protein 5.5 L Albumin 2.8 L - Diagnostic Findings Chest x-ray: image reviewed Assessment and Plan Plan: 1 morbid obesity with a BMI of 55.2. The patient underwent sleeve gastrectomy, laparoscopically with minimal blood loss. Currently she is postop day #1 2 acute hypotension with a drop in hemoglobin of 9.6. According to his surgical note there is no significant blood loss and amount of blood loss was minimal. This is submitted we need to watch for in rule out any possibility of postoperative blood loss related to the surgery itself. Abdomen is soft. She may be hypovolemic and the patient responded nicely to IV fluids. She has surgeries on the case and Dr. Louis unger is closely watching the patient along with a critically care team for now. Serum cortisol is elevated at 60. TSH is within normal limits 3 bicuspid aortic valve 4 history of spina bifida/meningomyelocele and the patient is a FRUIT GROWER shunt in place 5 non-anion gap metabolic acidosis with a serum bicarb of 15 with a gap of 8 Plan Continue IV fluids with normal saline at the rate of 100 mL an hour Repeat electrodes within the next 8 hours to evaluate her electrolytes status and monitor the serum bicarb. Note that this is a non-anion gap metabolic acidosis and the patient lactic acid level is not elevated. Monitor hemoglobin and repeated every 6 hours Lovenox for DVT prophylaxis for subcu every 12 hours She has adequate pain control Incentive spirometer Pulmonary toileting We'll continue to follow.
[2019-09-04 13:03] LABS: Basophils % (A) 0 %; Eosinophils # (A) 0.1 k/uL (0-0.7); Eosinophils % (A) 0 %; HCT 32.8 % (34.0-46.0); HGB 10.5 gm/dL (11.4-16.0); Hypochromasia Moderate; Lymphocytes # (A) 1.8 k/uL (1.0-4.8); Lymphocytes % (A) 10 %; MCH 28.4 pg (25.0-35.0); MCHC 32.1 g/dL (31.0-37.0); MCV 88.4 fL (80.0-100.0); Mean Platelet Volume 9.2; Monocytes # (A) 0.6 k/uL (0-1.0); Monocytes % (A) 4 %; Neutrophils # (A) 15.6 k/uL (1.3-7.7); Neutrophils % (A) 86 %; Platelet Count 343 k/uL (150-450); RBC 3.71 m/uL (3.80-5.40); WBC 18.3 k/uL (3.8-10.6)
[2019-09-04 14:35] LABS: Appearance,Urine Cloudy (Clear); Bacteria,Urine Many /hpf; Bilirubin,Urine Negative (Negative); Blood,Urine Negative (Negative); Color,Urine Light Yellow; Glucose,Urine (UA) Trace (Negative); Ketones,Urine 2+ (Negative); Leukocyte Esterase,Urine Large (Negative); Mucus,Urine Occasional /hpf; Nitrite,Urine Negative (Negative); Protein,Urine Trace (Negative); Specific Gravity,Urine 1.013 (1.001-1.035); Squamous Epithelial Cell,Urine 1 /hpf (0-4); Urobilinogen,Urine <2.0 mg/dL (<2.0); WBC,Urine 79 /hpf (0-5)
[2019-09-04] MEDS: LEVOFLOXACIN 500MG-D5W PMX 500 MG in DEXTROSE/WATER 1 100ML.BAG IVPB SCH (16:30)
[2019-09-04] MEDS: metroNIDAZOLE-NS PMX 500 MG in SALINE 1 100ML.BAG IVPB SCH (17:39)
[2019-09-04 18:18] LABS: Basophils % (A) 0 %; Eosinophils # (A) 0.1 k/uL (0-0.7); Eosinophils % (A) 0 %; HCT 32.2 % (34.0-46.0); HGB 10.3 gm/dL (11.4-16.0); Hypochromasia Slight; Lymphocytes # (A) 1.6 k/uL (1.0-4.8); Lymphocytes % (A) 10 %; MCHC 32.1 g/dL (31.0-37.0); MCV 87.2 fL (80.0-100.0); Mean Platelet Volume 10.2; Monocytes # (A) 0.8 k/uL (0-1.0); Monocytes % (A) 5 %; Neutrophils # (A) 14.1 k/uL (1.3-7.7); Neutrophils % (A) 85 %; Platelet Count 287 k/uL (150-450); RDW 15.1 % (11.5-15.5); WBC 16.7 k/uL (3.8-10.6)
[2019-09-04] MEDS ORDERED: IOPAMIDOL CONTRAST (ORAL USE) VIAL PO PRN (23:25)
[2019-09-05] MEDS: hydrALAZINE HCL 25 MG TAB PO SCH ×5 (00:14→22:42)
[2019-09-05] MEDS: metroNIDAZOLE-NS PMX 500 MG in SALINE 1 100ML.BAG IVPB SCH ×3 (00:24→12:42)
[2019-09-05] MEDS: HYDROmorphone 0.5 MG/0.5 ML SYRINGE IVP PRN ×7 (00:26→22:09)
[2019-09-05 05:27] LABS: Basophils % (A) 0 %; Eosinophils # (A) 0.1 k/uL (0-0.7); Eosinophils % (A) 1 %; HCT 28.1 % (34.0-46.0); HGB 9.1 gm/dL (11.4-16.0); Hypochromasia Moderate; Lymphocytes # (A) 1.9 k/uL (1.0-4.8); Lymphocytes % (A) 14 %; MCH 28.2 pg (25.0-35.0); MCHC 32.4 g/dL (31.0-37.0); MCV 87.2 fL (80.0-100.0); Mean Platelet Volume 8.7; Monocytes # (A) 0.7 k/uL (0-1.0); Monocytes % (A) 5 %; Neutrophils # (A) 11.1 k/uL (1.3-7.7); Neutrophils % (A) 80 %; Platelet Count 239 k/uL (150-450); RBC 3.23 m/uL (3.80-5.40)
[2019-09-05 05:45] LABS: ALT 36 U/L (4-34); AST 25 U/L (14-36); African American GFR (CKD) >90 (>60 ml/min/1.73 sqM); Albumin 3.5 g/dL (3.5-5.0); Alkaline Phosphatase 84 U/L (38-126); Anion Gap 8 mmol/L; Blood Urea Nitrogen 12 mg/dL (7-17); Calcium 8.6 mg/dL (8.4-10.2); Carbon Dioxide 20 mmol/L (22-30); Chloride 109 mmol/L (98-107); Glucose 102 mg/dL (74-99); Non-African American GFR(CKD) >90 (>60 ml/min/1.73 sqM); Potassium 4.2 mmol/L (3.5-5.1); Sodium 137 mmol/L (137-145); Total Bilirubin 0.6 mg/dL (0.2-1.3); Total Protein 6.4 g/dL (6.3-8.2)
[2019-09-05] MEDS: ALBUTEROL NEBULIZED 2.5 MG/3 ML INHALATION SCH ×4 (07:30→20:18)
[2019-09-05] MEDS: PANTOPRAZOLE 40 MG/10 ML VIAL IV SCH (07:51)
--- NOTE | 2019-09-05 09:16 | CT ---
EXAMINATION TYPE: CT abdomen pelvis w con DATE OF EXAM: 09/05/2019 REFERENCE: NONE HISTORY: post sleeve gastrectomy, drop in hb HISTORY: Pain REFERENCE: NONE CT DLP: 2638.2 mGy Automated exposure control for dose reduction was used. TECHNIQUE: Helical acquisition through the abdomen and pelvis was obtained following the oral ingesti on of with Oral Contrast and following intravenous administration of 100 mL of Isovue 370. The data w as reformatted in axial, coronal and sagittal projections. FINDINGS: There is a small left pleural effusion. There is bilateral areas of atelectasis. The heart is not enlarged. There is a ventriculoperitoneal shunt in place on the right. Its tip is coiled in the right upper gissel drant. There is evidence of ascites. There is evidence of a recent gastric sleeve procedure. Adjacent to the spleen is a 5.4 x 12.4 x 6.3 cm lobulated soft tissue density. This may represent hematoma. There are gallstones within the gallbladder. The liver and spleen are normal. Both adrenal glands are normal. Both kidneys demonstrate function and appear morphologically normal. The pancreas is unremarkable. There is no significant retroperitoneal, inguinal or iliac adenopathy. There is a moderate amount of subcutaneous emphysema in the anterior abdominal wall and also small am ount of intraperitoneal air. There is some fluid in the pelvis. There is a Wetzel catheter within the bladder. The uterus is unremarkable. The ovaries are not visualized with certainty. There is no significant diverticular change and there is no radiographic evidence of diverticulitis. The appendix appears normal. Small bowel loops are of normal caliber. IMPRESSION: 1. STATUS POST GASTRIC SLEEVE SURGERY 2 DAYS AGO. THERE REMAINS SOME RESIDUAL FREE AIR WITHIN THE ABD OMINAL CAVITY WELL SUBCUTANEOUS EMPHYSEMA. 2. PROMINENT SOFT TISSUE MASS ADJACENT TO THE GASTRIC SLEEVE. THIS LIKELY REPRESENTS BLOOD. 3. CHOLELITHIASIS. 4. BIBASILAR ATELECTASIS, WORSE ON THE LEFT THAN THE RIGHT. 5. SMALL LEFT-SIDED EFFUSION. 6. ASCITES.
[2019-09-05] MEDS: 1: MVI, ADULT NO.4 WITH VIT K 10 ML, THIAMINE 100 MG, FOLIC ACID 1 MG, POTASSIUM CHLORID IV SCH ×18 (10:38→22:42)
--- NOTE | 2019-09-05 10:41 | P.PN ---
Subjective Progress Note Date: 09/05/19 Principal diagnosis: Morbid obesity Patient did fairly well overnight. She did develop some tachycardia that persisted however. Hemoglobin went from 9.6-10.5-10.1-9.1 today. Urinalysis suggested possible UTI. Patient states she is prone to these in the past. She was started on antibiotics for that reason. Low-grade temp of 100. CAT scan abdomen and pelvis was obtained this morning. Small volume of oral contrast provided. Patient says she did not drink much of it. Films reviewed with radiologist by phone. Patient does have a moderate to large hematoma adjacent to the mid aspect of the sleeve. No active blush seen. Some free fluid in the right and left abdomen as well. Small amount of intraperitoneal air. Patient does have some more extensive air in the subcutaneous tissues and preperitoneal space. This was related to the intraoperative withdrawal of the trocar that was hooked up to the CO2 insufflator. Patient says her pain is better than yesterday. She wants to be more active. Objective - Vital Signs Vital signs: Vital Signs Temp 100.0 F H 09/05/19 08:00 Pulse 113 H 09/05/19 10:00 Resp 16 09/05/19 10:00 BP 135/98 09/05/19 10:00 Pulse Ox 94 L 09/05/19 10:00 Intake & Output 09/04/19 09/05/19 09/05/19 18:59 06:59 18:59 Intake Total 3100 1300 400 Output Total 1155 1195 755 Balance 1945 105 -355 Weight 127 kg Intake: IV 2900 1100 400 0.9% NaCl with KCl 20 Meq 900 400 /l 1,000 ml @ 100 mls/hr IV .BY DURATION [facility] Rx#: [id number] Mvi, Adult No.4 with Vit 900 200 K 10 ml Thiamine 100 mg Folic Acid 1 mg Potassium Chloride 20 meq In Sodium Chloride 0.9% 1, 000 ml @ 100 mls/hr IV . BY DURATION [facility] Rx#: [id number] Sodium Chloride 0.9% 1, 2000 000 ml @ 999 mls/hr IV . Q1H1M ONE Rx#:[id number] Intake, IV Titration 200 200 Amount Levofloxacin 500Mg-D5w 100 Pmx 500 mg In Dextrose/ Water 1 100ml.bag @ 100 mls/hr IVPB Q24H [facility] Rx#: [id number] metroNIDAZOLE-NS PMX 500 100 200 mg In Saline 1 100ml.bag @ 100 mls/hr IVPB Q6HR [facility] Rx#:[id number] Oral 0 Output: Urine 1155 1195 755 Other: Voiding Method Indwelling Catheter Indwelling Catheter Indwelling Catheter - Exam Abdomen: Soft, nondistended, mild upper abdominal tenderness, no ecchymosis, no rebound or guarding - Labs CBC & Chem 7: 09/05/19 05:06 09/05/19 05:06 Labs: Abnormal Lab Results - Last 24 Hours (Table) 09/04/19 09/04/19 09/04/19 Range/Units 12:37 14:09 18:03 WBC 18.3 H 16.7 H (3.8-10.6) k/uL RBC 3.71 L 3.70 L (3.80-5.40) m/uL Hgb 10.5 L 10.3 L (11.4-16.0) gm/dL Hct 32.8 L 32.2 L (34.0-46.0) % Neutrophils # 15.6 H 14.1 H (1.3-7.7) k/uL Chloride (98-107) mmol/L Carbon Dioxide (22-30) mmol/L Glucose (74-99) mg/dL ALT (4-34) U/L Urine Appearance Cloudy H (Clear) Urine Protein Trace H (Negative) Urine Glucose (UA) Trace H (Negative) Urine Ketones 2+ H (Negative) Ur Leukocyte Esterase Large H (Negative) Urine WBC 79 H (0-5) /hpf Urine Bacteria Many H (None) /hpf Urine Mucus Occasional H (None) /hpf 09/05/19 09/05/19 Range/Units 05:06 05:06 WBC 14.0 H (3.8-10.6) k/uL RBC 3.23 L (3.80-5.40) m/uL Hgb 9.1 L (11.4-16.0) gm/dL Hct 28.1 L (34.0-46.0) % Neutrophils # 11.1 H (1.3-7.7) k/uL Chloride 109 H (98-107) mmol/L Carbon Dioxide 20 L (22-30) mmol/L Glucose 102 H (74-99) mg/dL ALT 36 H (4-34) U/L Urine Appearance (Clear) Urine Protein (Negative) Urine Glucose (UA) (Negative) Urine Ketones (Negative) Ur Leukocyte Esterase (Negative) Urine WBC (0-5) /hpf Urine Bacteria (None) /hpf Urine Mucus (None) /hpf Microbiology - Last 24 Hours (Table) 09/04/19 14:09 Urine Culture - Preliminary Urine,Catheterized Assessment and Plan (1) Morbid obesity with BMI of 50.0-59.9, adult Narrative/Plan: 23-year-old female developed hematoma from the mid aspect of the sleeve postop day 1. Continue to hold Lovenox at this time. Begin clear liquids. Esophagram will be ordered for tomorrow. Antibiotic coverage not unreasonable especially given recent UA. No evidence of leak or intra-abdominal infection at this point. Clinical scenario discussed in detail with the patient and her parents. Current Visit: No Status: Acute Code(s): E66.01 - MORBID (SEVERE) OBESITY DUE TO EXCESS CALORIES; Z68.43 - BODY MASS INDEX (BMI) 50.0-59.9, ADULT SNOMED Code(s): 395497727
--- NOTE | 2019-09-05 12:00 | P.PN ---
Subjective Progress Note Date: 09/05/19 On today's evaluation of 09/05/2019, the patient is being seen in follow-up in the intensive care units. She is doing well. No specific complaints. No abdominal pain or tenderness. No abdominal distention. The hemoglobin is stable. Hemodynamically stable. The patient has not required any pressors and she is holding her own blood pressure. Meanwhile, she remains somewhat tachycardic and her heart rate is somewhat between 110 and 120 sinus. Due to concern of surgical complication, CAT scan of the abdomen and pelvis was done with contrast on the CAT scan showed evidence of any recent gastric sleeve procedure and patient had adjacent to the spleen a 5.4 x 12.4 x 6.3 cm lobe with a soft tissue density which is most likely representing a hematoma. There is also small left-sided pleural effusion and some atelectatic changes in lung bases bilaterally. Both adrenal glands are within normal limits. There are gallstones within the gallbladder. The liver and spleen were also within normal limits. The case was discussed with general surgery. We'll going to continue to monitor. The patient's white cell count is at 40 with a hemoglobin of 9.9. There is been a slight drop in hemoglobin compared to yesterday. Surgical wound site is dry clean and intact. Objective - Vital Signs Vital signs: Vital Signs Temp 100.0 F H 09/05/19 08:00 Pulse 111 H 09/05/19 11:00 Resp 18 09/05/19 11:00 BP 143/87 09/05/19 11:00 Pulse Ox 96 09/05/19 11:00 Intake & Output 09/04/19 09/05/19 09/05/19 18:59 06:59 18:59 Intake Total 3100 2321.2 400 Output Total 1155 1195 755 Balance 1945 1126.2 -355 Weight 127 kg Intake: IV 2900 1100 400 0.9% NaCl with KCl 20 Meq 900 400 /l 1,000 ml @ 100 mls/hr IV .BY DURATION [facility] Rx#: [id number] Mvi, Adult No.4 with Vit 900 200 K 10 ml Thiamine 100 mg Folic Acid 1 mg Potassium Chloride 20 meq In Sodium Chloride 0.9% 1, 000 ml @ 100 mls/hr IV . BY DURATION [facility] Rx#: [id number] Sodium Chloride 0.9% 1, 2000 000 ml @ 999 mls/hr IV . Q1H1M ONE Rx#:[id number] Intake, IV Titration 200 1221.2 Amount Levofloxacin 500Mg-D5w 100 Pmx 500 mg In Dextrose/ Water 1 100ml.bag @ 100 mls/hr IVPB Q24H [facility] Rx#: [id number] Mvi, Adult No.4 with Vit 1021.2 K 10 ml Thiamine 100 mg Folic Acid 1 mg Potassium Chloride 20 meq In Sodium Chloride 0.9% 1, 000 ml @ 100 mls/hr IV . BY DURATION [facility] Rx#: [id number] metroNIDAZOLE-NS PMX 500 100 200 mg In Saline 1 100ml.bag @ 100 mls/hr IVPB Q6HR [facility] Rx#:[id number] Oral 0 Output: Urine 1155 1195 755 Other: Voiding Method Indwelling Catheter Indwelling Catheter Indwelling Catheter - Exam Gen. appearance, comfortable likely distress Head exam was generally normal. There was no scleral icterus or corneal arcus. Mucous membranes were moist. Neck was supple and without jugular venous distension, thyromegaly, or carotid bruits. Carotids were easily palpable bilaterally. There was no adenopathy. The patient is a RESEARCH EXECUTIVE shunt in the left posterior ear area. No neck stiffness. She has a Mallampati class IV. Lungs were clear to auscultation and percussion, and with normal diaphragmatic excursion. No wheezes or rales were noted. Breath sounds are diminished in lung bases bilaterally. Heart sounds are regular, positive S1-S2 and there is a systolic ejection murmur grade 2/6 consistent with her history of bicuspid aortic valve, nor and ventricular heave or thrill. Abdomen is obese soft nontender. No direct tenderness rebound tensile guarding. Laparoscopy sites of dry clean and intact. Extremities reveal trace edema and there is no cyanosis or clubbing. Neurologically the patient is awake and alert and there is no focal neurological deficits. - Labs CBC & Chem 7: 09/05/19 05:06 09/05/19 05:06 Labs: Abnormal Lab Results - Last 24 Hours (Table) 09/04/19 09/04/19 09/04/19 Range/Units 12:37 14:09 18:03 WBC 18.3 H 16.7 H (3.8-10.6) k/uL RBC 3.71 L 3.70 L (3.80-5.40) m/uL Hgb 10.5 L 10.3 L (11.4-16.0) gm/dL Hct 32.8 L 32.2 L (34.0-46.0) % Neutrophils # 15.6 H 14.1 H (1.3-7.7) k/uL Chloride (98-107) mmol/L Carbon Dioxide (22-30) mmol/L Glucose (74-99) mg/dL ALT (4-34) U/L Urine Appearance Cloudy H (Clear) Urine Protein Trace H (Negative) Urine Glucose (UA) Trace H (Negative) Urine Ketones 2+ H (Negative) Ur Leukocyte Esterase Large H (Negative) Urine WBC 79 H (0-5) /hpf Urine Bacteria Many H (None) /hpf Urine Mucus Occasional H (None) /hpf 09/05/19 09/05/19 Range/Units 05:06 05:06 WBC 14.0 H (3.8-10.6) k/uL RBC 3.23 L (3.80-5.40) m/uL Hgb 9.1 L (11.4-16.0) gm/dL Hct 28.1 L (34.0-46.0) % Neutrophils # 11.1 H (1.3-7.7) k/uL Chloride 109 H (98-107) mmol/L Carbon Dioxide 20 L (22-30) mmol/L Glucose 102 H (74-99) mg/dL ALT 36 H (4-34) U/L Urine Appearance (Clear) Urine Protein (Negative) Urine Glucose (UA) (Negative) Urine Ketones (Negative) Ur Leukocyte Esterase (Negative) Urine WBC (0-5) /hpf Urine Bacteria (None) /hpf Urine Mucus (None) /hpf Microbiology - Last 24 Hours (Table) 09/04/19 14:09 Urine Culture - Preliminary Urine,Catheterized Assessment and Plan Plan: 1 morbid obesity with a BMI of 55.2. The patient underwent sleeve gastrectomy, laparoscopically with minimal blood loss. Currently she is postop day #2 2 acute development of intra-abdominal hematoma adjacent to the spleen with dimensions 5.4 x 12.4 x 6.3 cm in size causing an acute hypotension with a drop in hemoglobin. Meanwhile, the patient got resuscitated with IV fluids. Hemodynamically stable. Still having some sinus tachycardia. We'll monitor the hemoglobin. General surgeries on the case. No surgical intervention at this point in time. This is likely a surgical complication occurred following gastric sleeve. The serum cortisol was within normal limits. 3 bicuspid aortic valve 4 history of spina bifida/meningomyelocele and the patient is a RESEARCH EXECUTIVE shunt in place 5 non-anion gap metabolic acidosis, improving 6 sinus tachycardia Plan Continue IV fluids with normal saline at the rate of 100 mL an hour Monitor the hemoglobin Monitor sinus tachycardia [place] of antibiotics is questionable Hold Lovenox for now utilize SCDs for DVT prophylaxis She has adequate pain control Incentive spirometer Pulmonary toileting We'll continue to follow.
--- NOTE | 2019-09-05 12:13 | P.PN ---
Subjective Principal diagnosis: hypotension status post gastric sleeve Early this morning patient was found to feel dizzy and faint and her blood pressure dropped in the 40s and 60s systolic. Patient is postop day 1 laparoscopic sleeve gastrectomy. Patient was alert and awake and was transferred to the ICU for closer monitoring. Patient denied chest pain, shortness of breath, patient's temperature was low at 94.6F. During the night patient was hypertensive and she was given a dose of hydralazine. Objective - Vital Signs Vital signs: Vital Signs Temp 94.6 F L 09/04/19 08:30 Pulse 73 09/04/19 09:30 Resp 11 L 09/04/19 09:30 BP 96/62 09/04/19 09:20 Pulse Ox 97 09/04/19 09:30 Intake & Output 09/03/19 09/04/19 09/04/19 18:59 06:59 18:59 Intake Total 1200 1520 2000 Output Total 10 250 Balance 1190 1270 2000 Weight 124 kg Intake: IV 1200 2000 Mvi, Adult No.4 with Vit 0 K 10 ml Thiamine 100 mg Folic Acid 1 mg Potassium Chloride 20 meq In Sodium Chloride 0.9% 1, 000 ml @ 100 mls/hr IV . BY DURATION [facility] Rx#: [id number] Sodium Chloride 0.9% 1, 2000 000 ml @ 999 mls/hr IV . Q1H1M [facility] Rx#:[id number] Intake, IV Titration 1500 Amount 0.9% NaCl with KCl 20 Meq 1500 /l 1,000 ml @ 100 mls/hr IV .BY DURATION [facility] Rx#: [id number] Oral 20 Output: Urine 250 Estimated Blood Loss 10 Other: # Voids 2 - Exam General: [non toxic], [no distress], [appears at stated age] Derm: [warm], [dry] Head: [atraumatic], [normocephalic], [symmetric] Eyes: [EOMI], [no lid lag], [anicteric sclera] Mouth: [no lip lesion], [mucus membranes moist] Cardiovascular: [S1S2 reg], [no murmur], [positive posterior tibial pulse bilateral], Lungs: [CTA bilateral], [no rhonchi, no rales] , [no accessory muscle use] Abdominal: [soft], [ nontender to palpation], [no guarding], [no appreciable organomegaly] Ext: [no gross muscle atrophy], [no edema], [no contractures] Neuro: [ CN II-XI grossly intact], [no focal neuro deficits] Psych: [Alert], [oriented], [appropriate affect] - Labs CBC & Chem 7: 09/04/19 08:58 09/04/19 08:58 Labs: Abnormal Lab Results - Last 24 Hours (Table) 09/04/19 09/04/19 09/04/19 Range/Units 08:58 08:58 08:58 WBC 16.2 H (3.8-10.6) k/uL RBC 3.35 L (3.80-5.40) m/uL Hgb 9.6 L D (11.4-16.0) gm/dL Hct 29.9 L (34.0-46.0) % Neutrophils # 14.2 H (1.3-7.7) k/uL PT 13.1 H (9.0-12.0) sec INR 1.3 H (<1.2) Sodium 136 L (137-145) mmol/L Chloride 113 H (98-107) mmol/L Carbon Dioxide 15 L (22-30) mmol/L Glucose 121 H (74-99) mg/dL Calcium 7.3 L (8.4-10.2) mg/dL ALT 44 H (4-34) U/L Total Protein 5.5 L (6.3-8.2) g/dL Albumin 2.8 L (3.5-5.0) g/dL Assessment and Plan Assessment: -Hypotension rule out acute blood loss anemia versus medication side effect versus sepsis Hemoglobin is currently 9.6 on 08/20/2019 it was 13.5 Trend CBC monitor BP IV fluids -Leukocytosis likely reactive status post surgery rule out infection Check blood culture and UA monitor white blood cell count - Postop day 1 sleeve gastrectomy pain control Surgery recommendations -GERD PPI DVT prophylaxis AM labs Time with Patient: Greater than 30
--- NOTE | 2019-09-05 13:42 | P.PN ---
Subjective Progress Note Date: 09/05/19 Principal diagnosis: hypotension status post gastric sleeve Patient seen and examined at bedside. Patient is awake and alert. States that she feels much better compared to yesterday. Patient denies chest pain, shortness of breath, lightheadedness, or dizziness. Patient does complain of abdominal discomfort. Patient's white blood cell count has decreased from 16.7 to 14.0 Hemoglobin slightly decreased from 10.3 to 9.1. We'll continue to trend CBC. Patient is tachycardic likely from volume depletion. Objective - Vital Signs Vital signs: Vital Signs Temp 98.9 F 09/05/19 12:00 Pulse 110 H 09/05/19 12:00 Resp 18 09/05/19 12:00 BP 121/94 09/05/19 12:00 Pulse Ox 96 09/05/19 12:00 Intake & Output 09/04/19 09/05/19 09/05/19 18:59 06:59 18:59 Intake Total 3100 2321.2 600 Output Total 1155 1195 1205 Balance 1945 1126.2 -605 Weight 127 kg Intake: IV 2900 1100 600 0.9% NaCl with KCl 20 Meq 900 400 /l 1,000 ml @ 100 mls/hr IV .BY DURATION [facility] Rx#: [id number] Mvi, Adult No.4 with Vit 900 200 200 K 10 ml Thiamine 100 mg Folic Acid 1 mg Potassium Chloride 20 meq In Sodium Chloride 0.9% 1, 000 ml @ 100 mls/hr IV . BY DURATION [facility] Rx#: [id number] Sodium Chloride 0.9% 1, 2000 000 ml @ 999 mls/hr IV . Q1H1M [facility] Rx#:[id number] Intake, IV Titration 200 1221.2 Amount Levofloxacin 500Mg-D5w 100 Pmx 500 mg In Dextrose/ Water 1 100ml.bag @ 100 mls/hr IVPB Q24H [facility] Rx#: [id number] Mvi, Adult No.4 with Vit 1021.2 K 10 ml Thiamine 100 mg Folic Acid 1 mg Potassium Chloride 20 meq In Sodium Chloride 0.9% 1, 000 ml @ 100 mls/hr IV . BY DURATION [facility] Rx#: [id number] metroNIDAZOLE-NS PMX 500 100 200 mg In Saline 1 100ml.bag @ 100 mls/hr IVPB Q6HR [facility] Rx#:[id number] Oral 0 Output: Urine 1155 1195 1205 Other: Voiding Method Indwelling Catheter Indwelling Catheter Indwelling Catheter - Exam General: [non toxic], [no distress], [appears at stated age] Derm: [warm], [dry] Head: [atraumatic], [normocephalic], [symmetric] Eyes: [EOMI], [no lid lag], [anicteric sclera] Mouth: [no lip lesion], [mucus membranes moist] Cardiovascular: [S1S2 reg], [no murmur], [positive posterior tibial pulse bilateral], Lungs: [CTA bilateral], [no rhonchi, no rales] , [no accessory muscle use] Abdominal: [soft], [ mild tenderness to palpation], [no guarding], [no appreciable organomegaly] Ext: [no gross muscle atrophy], [no edema], [no contractures] Neuro: [ CN II-XI grossly intact], [no focal neuro deficits] Psych: [Alert], [oriented], [appropriate affect] - Labs CBC & Chem 7: 09/05/19 05:06 09/05/19 05:06 Labs: Abnormal Lab Results - Last 24 Hours (Table) 09/04/19 09/04/19 09/05/19 Range/Units 14:09 18:03 05:06 WBC 16.7 H 14.0 H (3.8-10.6) k/uL RBC 3.70 L 3.23 L (3.80-5.40) m/uL Hgb 10.3 L 9.1 L (11.4-16.0) gm/dL Hct 32.2 L 28.1 L (34.0-46.0) % Neutrophils # 14.1 H 11.1 H (1.3-7.7) k/uL Chloride (98-107) mmol/L Carbon Dioxide (22-30) mmol/L Glucose (74-99) mg/dL ALT (4-34) U/L Urine Appearance Cloudy H (Clear) Urine Protein Trace H (Negative) Urine Glucose (UA) Trace H (Negative) Urine Ketones 2+ H (Negative) Ur Leukocyte Esterase Large H (Negative) Urine WBC 79 H (0-5) /hpf Urine Bacteria Many H (None) /hpf Urine Mucus Occasional H (None) /hpf 09/05/19 Range/Units 05:06 WBC (3.8-10.6) k/uL RBC (3.80-5.40) m/uL Hgb (11.4-16.0) gm/dL Hct (34.0-46.0) % Neutrophils # (1.3-7.7) k/uL Chloride 109 H (98-107) mmol/L Carbon Dioxide 20 L (22-30) mmol/L Glucose 102 H (74-99) mg/dL ALT 36 H (4-34) U/L Urine Appearance (Clear) Urine Protein (Negative) Urine Glucose (UA) (Negative) Urine Ketones (Negative) Ur Leukocyte Esterase (Negative) Urine WBC (0-5) /hpf Urine Bacteria (None) /hpf Urine Mucus (None) /hpf Microbiology - Last 24 Hours (Table) 09/04/19 14:09 Urine Culture - Preliminary Urine,Catheterized Assessment and Plan Assessment: -Hypotension secondary acute blood loss anemia hb is at 9.1 this AM Trend CBC monitor BP IV fluids -Leukocytosis likely reactive status post surgery with evidence of UTI on urinalysis Continue Levaquin Await Urine culture monitor white blood cell count -Sinus tachycardia secondary to above Continue IV fluids - Postop day 2 sleeve gastrectomy pain control Surgery recommendations -GERD PPI DVT prophylaxis AM labs
[2019-09-05] MEDS: LEVOFLOXACIN 500MG-D5W PMX 500 MG in DEXTROSE/WATER 1 100ML.BAG IVPB SCH (15:48)
[2019-09-06] MEDS: HYDROmorphone 0.5 MG/0.5 ML SYRINGE IVP PRN ×7 (01:13→23:01)
[2019-09-06 05:05] LABS: Basophils % (A) 0 %; Eosinophils % (A) 0 %; HCT 24.7 % (34.0-46.0); HGB 8.1 gm/dL (11.4-16.0); Hypochromasia Moderate; Lymphocytes # (A) 1.9 k/uL (1.0-4.8); Lymphocytes % (A) 21 %; MCH 28.7 pg (25.0-35.0); MCHC 32.7 g/dL (31.0-37.0); MCV 87.7 fL (80.0-100.0); Mean Platelet Volume 8.8; Monocytes # (A) 0.7 k/uL (0-1.0); Monocytes % (A) 7 %; Neutrophils # (A) 6.3 k/uL (1.3-7.7); Neutrophils % (A) 70 %; Platelet Count 192 k/uL (150-450); RBC 2.82 m/uL (3.80-5.40); RDW 15.1 % (11.5-15.5)
[2019-09-06 05:15] LABS: ALT 27 U/L (4-34); AST 21 U/L (14-36); African American GFR (CKD) >90 (>60 ml/min/1.73 sqM); Albumin 3.4 g/dL (3.5-5.0); Alkaline Phosphatase 79 U/L (38-126); Anion Gap 7 mmol/L; Blood Urea Nitrogen 13 mg/dL (7-17); Calcium 8.7 mg/dL (8.4-10.2); Carbon Dioxide 21 mmol/L (22-30); Chloride 109 mmol/L (98-107); Glucose 82 mg/dL (74-99); Non-African American GFR(CKD) >90 (>60 ml/min/1.73 sqM); Potassium 4.4 mmol/L (3.5-5.1); Sodium 137 mmol/L (137-145); Total Bilirubin 0.6 mg/dL (0.2-1.3); Total Protein 6.4 g/dL (6.3-8.2)
[2019-09-06] MEDS ORDERED: ACETAMINOPHEN IV (For NPO) 1,000 MG in EMPTY BAG 1 BAG IVPB ONE (05:43)
[2019-09-06] MEDS: hydrALAZINE HCL 25 MG TAB PO SCH (07:31)
[2019-09-06] MEDS: PANTOPRAZOLE 40 MG/10 ML VIAL IV SCH (07:50)
[2019-09-06] MEDS: ALBUTEROL NEBULIZED 2.5 MG/3 ML INHALATION SCH (08:08)
[2019-09-06] MEDS: 1: MVI, ADULT NO.4 WITH VIT K 10 ML, THIAMINE 100 MG, FOLIC ACID 1 MG, POTASSIUM CHLORID IV SCH ×12 (08:45→19:11)
[2019-09-06] MEDS ORDERED: ALBUTEROL NEBULIZED 2.5 MG/3 ML INHALATION PRN (09:04)
[2019-09-06 09:13] VITALS: BMI 56.3
--- NOTE | 2019-09-06 09:57 | P.PN ---
<Maria Isabel Stern Gage - Last Filed: 09/06/19 09:47> Subjective Progress Note Date: 09/06/19 CHIEF COMPLAINT: Morbid obesity HISTORY OF PRESENT ILLNESS: Patient is status post laparoscopic sleeve gastrectomy performed on 09/03/2019. Patient examined this morning at the bedside. Patient is sitting up in the chair. She reports her pain is tolerable. Blood pressure stable. Heartrate low 100s. Temperature 99.4 this morning. WBC 9.0. Hemoglobin 9.1 yesterday, down to 8.1 today. PHYSICAL EXAM: VITAL SIGNS: Reviewed. GENERAL: Well-developed in no acute distress. HEENT: No sclera icterus. Extraocular movements grossly intact. Moist buccal mucosa. Head is atraumatic, normocephalic. ABDOMEN: Soft. Nondistended. Appropriate surgical tenderness. NEUROLOGIC: Alert and oriented. Cranial nerves II through XII grossly intact. ASSESSMENT: 1. Morbid obesity, status post laparoscopic sleeve gastrectomy 2. Postoperative hematoma from the mid aspect of gastric sleeve, an unexpected but potential complication of surgery PLAN: -Clear liquid diet -Await esophagram ordered this morning -Pain control -Monitor vital signs -Monitor hemoglobin Nurse practitioner note has been reviewed by physician. Signing provider agrees with the documented findings, assessment, and plan of care. Objective - Vital Signs Vital signs: Vital Signs Temp 99.4 F 09/06/19 08:00 Pulse 93 09/06/19 09:00 Resp 14 09/06/19 09:00 BP 108/63 09/06/19 09:00 Pulse Ox 95 09/06/19 09:00 Intake & Output 09/05/19 09/06/19 09/06/19 18:59 06:59 18:59 Intake Total 2200 1821.2 100 Output Total 1770 580 180 Balance 430 1241.2 -80 Weight 126.5 kg 126.5 kg Intake: IV 1200 700 0.9% NaCl with KCl 20 Meq 400 300 /l 1,000 ml @ 100 mls/hr IV .BY DURATION [facility] Rx#: [id number] Levofloxacin 500Mg-D5w 100 Pmx 500 mg In Dextrose/ Water 1 100ml.bag @ 100 mls/hr IVPB Q24H [facility] Rx#: [id number] Mvi, Adult No.4 with Vit 700 400 K 10 ml Thiamine 100 mg Folic Acid 1 mg Potassium Chloride 20 meq In Sodium Chloride 0.9% 1, 000 ml @ 100 mls/hr IV . BY DURATION [facility] Rx#: [id number] Intake, IV Titration 1000 1121.2 100 Amount 0.9% NaCl with KCl 20 Meq 1000 100 /l 1,000 ml @ 100 mls/hr IV .BY DURATION [facility] Rx#: [id number] 0.9% NaCl with KCl 20 Meq 100 /l 1,000 ml @ 100 mls/hr IV .BY DURATION [facility] Rx#: [id number] Mvi, Adult No.4 with Vit 1021.2 K 10 ml Thiamine 100 mg Folic Acid 1 mg Potassium Chloride 20 meq In Sodium Chloride 0.9% 1, 000 ml @ 100 mls/hr IV . BY DURATION [facility] Rx#: [id number] Output: Urine 1770 580 180 Other: Voiding Method Indwelling Catheter Indwelling Catheter Indwelling Catheter - Labs CBC & Chem 7: 09/06/19 04:15 09/06/19 04:15 Labs: Abnormal Lab Results - Last 24 Hours (Table) 09/06/19 09/06/19 Range/Units 04:15 04:15 RBC 2.82 L (3.80-5.40) m/uL Hgb 8.1 L (11.4-16.0) gm/dL Hct 24.7 L (34.0-46.0) % Chloride 109 H (98-107) mmol/L Carbon Dioxide 21 L (22-30) mmol/L Albumin 3.4 L (3.5-5.0) g/dL Microbiology - Last 24 Hours (Table) 09/04/19 14:09 Urine Culture - Preliminary Urine,Catheterized Gram Neg Bacilli 09/04/19 12:37 Blood Culture - Preliminary Blood No Growth after 24 hours <Louis Key - Last Filed: 09/06/19 14:51> Subjective As above. Esophagram shows no passage of contrast all the patient was minimally upright and asymptomatic. Continue sips of clears. Repeat esophagogram tomorrow. May transfer out of ICU. Begin heparin 5000 every 12 for DVT prophylaxis. Objective - Vital Signs Vital signs: Vital Signs Temp 99.4 F 09/06/19 08:00 Pulse 93 09/06/19 09:00 Resp 14 09/06/19 09:00 BP 108/63 09/06/19 09:00 Pulse Ox 95 09/06/19 09:00 Intake & Output 09/05/19 09/06/19 09/06/19 18:59 06:59 18:59 Intake Total 2200 1821.2 100 Output Total 1770 580 180 Balance 430 1241.2 -80 Weight 126.5 kg 126.5 kg Intake: IV 1200 700 0.9% NaCl with KCl 20 Meq 400 300 /l 1,000 ml @ 100 mls/hr IV .BY DURATION [facility] Rx#: [id number] Levofloxacin 500Mg-D5w 100 Pmx 500 mg In Dextrose/ Water 1 100ml.bag @ 100 mls/hr IVPB Q24H [facility] Rx#: [id number] Mvi, Adult No.4 with Vit 700 400 K 10 ml Thiamine 100 mg Folic Acid 1 mg Potassium Chloride 20 meq In Sodium Chloride 0.9% 1, 000 ml @ 100 mls/hr IV . BY DURATION [facility] Rx#: [id number] Intake, IV Titration 1000 1121.2 100 Amount 0.9% NaCl with KCl 20 Meq 1000 100 /l 1,000 ml @ 100 mls/hr IV .BY DURATION [facility] Rx#: [id number] 0.9% NaCl with KCl 20 Meq 100 /l 1,000 ml @ 100 mls/hr IV .BY DURATION [facility] Rx#: [id number] Mvi, Adult No.4 with Vit 1021.2 K 10 ml Thiamine 100 mg Folic Acid 1 mg Potassium Chloride 20 meq In Sodium Chloride 0.9% 1, 000 ml @ 100 mls/hr IV . BY DURATION [facility] Rx#: [id number] Output: Urine 1770 580 180 Other: Voiding Method Indwelling Catheter Indwelling Catheter Indwelling Catheter - Labs CBC & Chem 7: 09/06/19 04:15 09/06/19 04:15 Labs: Abnormal Lab Results - Last 24 Hours (Table) 09/05/19 09/06/19 09/06/19 Range/Units 09:06 04:15 04:15 RBC 2.82 L (3.80-5.40) m/uL Hgb 8.1 L (11.4-16.0) gm/dL Hct 24.7 L (34.0-46.0) % Chloride 109 H (98-107) mmol/L Carbon Dioxide 21 L (22-30) mmol/L Albumin 3.4 L (3.5-5.0) g/dL Procalcitonin 0.16 H (0.02-0.09) ng/mL Microbiology - Last 24 Hours (Table) 09/04/19 14:09 Urine Culture - Preliminary Urine,Catheterized Gram Neg Bacilli 09/04/19 12:37 Blood Culture - Preliminary Blood No Growth after 24 hours Assessment and Plan (1) Morbid obesity with BMI of 50.0-59.9, adult Current Visit: No Status: Acute Code(s): E66.01 - MORBID (SEVERE) OBESITY DUE TO EXCESS CALORIES; Z68.43 - BODY MASS INDEX (BMI) 50.0-59.9, ADULT SNOMED Code(s): 937277823
[2019-09-06] MEDS: ACETAMINOPHEN IV (For NPO) 1,000 MG in EMPTY BAG 1 BAG IVPB SCH ×3 (11:00→23:57)
--- NOTE | 2019-09-06 11:23 | FL ---
EXAMINATION TYPE: FL UGI w esophagus DATE OF EXAM: 09/06/2019 COMPARISON: CT 09/05/2019 HISTORY: Post gastric sleeve TECHNIQUE: A single contrast limited UGI study is performed. FINDINGS: Attention directed to the gastroesophageal junction level. 5 intraoperative images, 1 minute 51 seconds fluoroscopy time. Following ingestion of 25 cc Isovue-370, tension was directed under real-time fluoroscopy. There is n o passage of contrast material into the stomach remnant. Delayed imaging shows esophageal contraction s without passage of contrast distally. Postop changes are noted. IMPRESSION: Obstruction at the level of the surgical site. A Red level critical message alert has been initiated for Louis Key MD via the [employer] Critical Results System on 09/06/2019 11:20 AM. This message alert has been sent to Louis Key MD via the preferences provided by the clinician for the receipt of Radiology Critical Findings. Message ID [id number].
--- NOTE | 2019-09-06 13:03 | P.PN ---
Subjective Progress Note Date: 09/06/19 (Delayed charting seen at 1130) Principal diagnosis: Obesity Patient is a 23-year-old female with spina bifida, hypertension, GERD, and obesity who initially presented for laparoscopic sleeve gastrectomy. Patient was noted to have a postoperative hematoma. Patient seen and examined at bedside. She does report some pain in her right upper quadrant, no nausea, no vomiting, no chest pain, no shortness breath, no diarrhea. Her lower extremity edema is chronic. Objective - Vital Signs Vital signs: Vital Signs Temp 99.4 F 09/06/19 08:00 Pulse 93 09/06/19 09:00 Resp 14 09/06/19 09:00 BP 108/63 09/06/19 09:00 Pulse Ox 95 09/06/19 09:00 Intake & Output 09/05/19 09/06/19 09/06/19 18:59 06:59 18:59 Intake Total 2200 1821.2 100 Output Total 1770 580 180 Balance 430 1241.2 -80 Weight 126.5 kg 126.5 kg Intake: IV 1200 700 0.9% NaCl with KCl 20 Meq 400 300 /l 1,000 ml @ 100 mls/hr IV .BY DURATION [facility] Rx#: [id number] Levofloxacin 500Mg-D5w 100 Pmx 500 mg In Dextrose/ Water 1 100ml.bag @ 100 mls/hr IVPB Q24H [facility] Rx#: [id number] Mvi, Adult No.4 with Vit 700 400 K 10 ml Thiamine 100 mg Folic Acid 1 mg Potassium Chloride 20 meq In Sodium Chloride 0.9% 1, 000 ml @ 100 mls/hr IV . BY DURATION [facility] Rx#: [id number] Intake, IV Titration 1000 1121.2 100 Amount 0.9% NaCl with KCl 20 Meq 1000 100 /l 1,000 ml @ 100 mls/hr IV .BY DURATION [facility] Rx#: [id number] 0.9% NaCl with KCl 20 Meq 100 /l 1,000 ml @ 100 mls/hr IV .BY DURATION [facility] Rx#: [id number] Mvi, Adult No.4 with Vit 1021.2 K 10 ml Thiamine 100 mg Folic Acid 1 mg Potassium Chloride 20 meq In Sodium Chloride 0.9% 1, 000 ml @ 100 mls/hr IV . BY DURATION [facility] Rx#: [id number] Output: Urine 1770 580 180 Other: Voiding Method Indwelling Catheter Indwelling Catheter Indwelling Catheter - Exam General: non toxic, no distress, appears at stated age Derm: warm, dry Head: atraumatic, normocephalic, symmetric Eyes: EOMI, no lid lag, anicteric sclera Mouth: no lip lesion, mucus membranes dry Cardiovascular: S1S2 reg, no murmur, positive posterior tibial pulse bilateral, Lungs: Decreased breath sounds bilateral, no rhonchi, no rales , no accessory muscle use Abdominal: soft, tender to palpation right upper quadrant, no guarding, no appreciable organomegaly Ext: no gross muscle atrophy, 1+ edema bilateral lower extremities, no contractures Neuro: CN II-XI grossly intact, no focal neuro deficits Psych: Alert, oriented, appropriate affect , pleasant - Labs CBC & Chem 7: 09/06/19 04:15 09/06/19 04:15 Labs: Abnormal Lab Results - Last 24 Hours (Table) 09/05/19 09/06/19 09/06/19 Range/Units 09:06 04:15 04:15 RBC 2.82 L (3.80-5.40) m/uL Hgb 8.1 L (11.4-16.0) gm/dL Hct 24.7 L (34.0-46.0) % Chloride 109 H (98-107) mmol/L Carbon Dioxide 21 L (22-30) mmol/L Albumin 3.4 L (3.5-5.0) g/dL Procalcitonin 0.16 H (0.02-0.09) ng/mL Microbiology - Last 24 Hours (Table) 09/04/19 14:09 Urine Culture - Preliminary Urine,Catheterized Gram Neg Bacilli 09/04/19 12:37 Blood Culture - Preliminary Blood No Growth after 24 hours Assessment and Plan Assessment: Acute blood loss anemia secondary to hematoma due to laparoscopic sleeve gastrectomy -Serial hemoglobin -No indication for transfusion at this point in time -Surgery recommendations regarding hematoma Hypotension with history of hypertension -Continue to hold oral hydralazine -Stop IV hydralazine with history of recent hypotension -Continue to follow blood pressures Possible urinary tract infection, present on admission -Continue with Levaquin -Await final urine cultures Laparoscopic sleeve gastrectomy with postoperative hematoma -Management per surgical services -Esophagram demonstrates obstruction level of the surgical site Morbid obesity with BMI 56.3 -Status post sleeve gastrectomy DVT prophylaxis: SCDs secondary to acute blood loss anemia Discussed with: Patient, nursing A total of 35 minutes was spent on the care of this complex patient more than 50% of the time was spent in counseling and care coordination.
--- NOTE | 2019-09-06 13:51 | P.PN ---
Subjective Progress Note Date: 09/06/19 Principal diagnosis: Status post sleeve gastrectomy, postoperative day #3. On today's evaluation of 09/05/2019, the patient is being seen in follow-up in the intensive care units. She is doing well. No specific complaints. No abdominal pain or tenderness. No abdominal distention. The hemoglobin is stable. Hemodynamically stable. The patient has not required any pressors and she is holding her own blood pressure. Meanwhile, she remains somewhat tachycardic and her heart rate is somewhat between 110 and 120 sinus. Due to concern of surgical complication, CAT scan of the abdomen and pelvis was done with contrast on the CAT scan showed evidence of any recent gastric sleeve procedure and patient had adjacent to the spleen a 5.4 x 12.4 x 6.3 cm lobe with a soft tissue density which is most likely representing a hematoma. There is also small left-sided pleural effusion and some atelectatic changes in lung bases bilaterally. Both adrenal glands are within normal limits. There are gallstones within the gallbladder. The liver and spleen were also within normal limits. The case was discussed with general surgery. We'll going to continue to monitor. The patient's white cell count is at 40 with a hemoglobin of 9.9. There is been a slight drop in hemoglobin compared to yesterday. Surgical wound site is dry clean and intact. Patient was reevaluated today on 09/06/19, remains in the ICU, patient is on room air, asymptomatic, doing quite well. Her IV fluids are at 100 mL per hour. Her hemoglobin today is 8.1 compared to 9.1 yesterday. She was evaluated by surgery, and the plan is to continue conservative measures. Patient is relatively asymptomatic, denies any nausea vomiting abdominal pain melena or hematemesis. She has some minimal abdominal discomfort in the left upper quadrant. Objective - Vital Signs Vital signs: Vital Signs Temp 99.4 F 09/06/19 08:00 Pulse 93 09/06/19 09:00 Resp 14 09/06/19 09:00 BP 108/63 09/06/19 09:00 Pulse Ox 95 09/06/19 09:00 Intake & Output 09/05/19 09/06/19 09/06/19 18:59 06:59 18:59 Intake Total 2200 1821.2 100 Output Total 1770 580 180 Balance 430 1241.2 -80 Weight 126.5 kg 126.5 kg Intake: IV 1200 700 0.9% NaCl with KCl 20 Meq 400 300 /l 1,000 ml @ 100 mls/hr IV .BY DURATION [facility] Rx#: [id number] Levofloxacin 500Mg-D5w 100 Pmx 500 mg In Dextrose/ Water 1 100ml.bag @ 100 mls/hr IVPB Q24H [facility] Rx#: [id number] Mvi, Adult No.4 with Vit 700 400 K 10 ml Thiamine 100 mg Folic Acid 1 mg Potassium Chloride 20 meq In Sodium Chloride 0.9% 1, 000 ml @ 100 mls/hr IV . BY DURATION [facility] Rx#: [id number] Intake, IV Titration 1000 1121.2 100 Amount 0.9% NaCl with KCl 20 Meq 1000 100 /l 1,000 ml @ 100 mls/hr IV .BY DURATION [facility] Rx#: [id number] 0.9% NaCl with KCl 20 Meq 100 /l 1,000 ml @ 100 mls/hr IV .BY DURATION [facility] Rx#: [id number] [facility], Adult No.4 with Vit 1021.2 K 10 ml Thiamine 100 mg Folic Acid 1 mg Potassium Chloride 20 meq In Sodium Chloride 0.9% 1, 000 ml @ 100 mls/hr IV . BY DURATION [facility] Rx#: [id number] Output: Urine 1770 580 180 Other: Voiding Method Indwelling Catheter Indwelling Catheter Indwelling Catheter - Exam Gen. appearance, revealed 23-year-old female obese in no distress. Very pleasant. Head exam was generally normal. There was no scleral icterus or corneal arcus. Mucous membranes were moist. Neck was supple and without jugular venous distension, thyromegaly, or carotid bruits. Carotids were easily palpable bilaterally. There was no adenopathy. 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 No neck stiffness. She has a Mallampati class IV. Lungs: Clear throughout no crackles or rhonchi or wheezes.. Heart sounds are regular, positive S1-S2 and there is a systolic ejection murmur grade 2/6 consistent with her history of bicuspid aortic valve, nor and ventricular heave or thrill. Abdomen: Obese, soft, slightly tender in the left upper quadrant, no rebound, no guarding. Extremities reveal trace edema and there is no cyanosis or clubbing. Neurologically the patient is awake and alert and there is no focal neurological deficits. - Labs CBC & Chem 7: 09/06/19 04:15 09/06/19 04:15 Labs: Abnormal Lab Results - Last 24 Hours (Table) 09/05/19 09/06/19 09/06/19 Range/Units 09:06 04:15 04:15 RBC 2.82 L (3.80-5.40) m/uL Hgb 8.1 L (11.4-16.0) gm/dL Hct 24.7 L (34.0-46.0) % Chloride 109 H (98-107) mmol/L Carbon Dioxide 21 L (22-30) mmol/L Albumin 3.4 L (3.5-5.0) g/dL Procalcitonin 0.16 H (0.02-0.09) ng/mL Microbiology - Last 24 Hours (Table) 09/04/19 14:09 Urine Culture - Preliminary Urine,Catheterized Gram Neg Bacilli 09/04/19 12:37 Blood Culture - Preliminary Blood No Growth after 24 hours Assessment and Plan Assessment: Impression: Status post laparoscopic sleeve gastrectomy, postoperative day #3. Suspect iatrogenic abdominal hematoma being closely monitored by surgery. No surgical intervention is recommended at this point. History of bicuspid aortic valve. History of spina bifida and PROCESS DESCRIPTION WRITER shunt in place. Sinus tachycardia mostly secondary to blood losses. Recommendation: Continue IV fluid Continue to monitor hemoglobin. Continue pain control. Continue to hold Lovenox and utilize SCDS for DVT prophylaxis. Continue incentive spirometry. Could be transferred to a regular medical floor. If agreeable with surgery. Time with Patient: Less than 30
[2019-09-06] MEDS: LEVOFLOXACIN 500MG-D5W PMX 500 MG in DEXTROSE/WATER 1 100ML.BAG IVPB SCH (17:27)
[2019-09-06 18:32] LABS: HCT 23.8 % (34.0-46.0); HGB 7.4 gm/dL (11.4-16.0); Hypochromasia Slight; MCH 27.1 pg (25.0-35.0); MCHC 30.9 g/dL (31.0-37.0); MCV 87.6 fL (80.0-100.0); Platelet Count 148 k/uL (150-450); RBC 2.72 m/uL (3.80-5.40); RDW 15.6 % (11.5-15.5); WBC 6.7 k/uL (3.8-10.6)
[2019-09-06] MEDS: HEPARIN SODIUM,PORCINE 5,000 UNIT/ML 1 ML VIAL SQ SCH (20:15)
[2019-09-07] MEDS: HYDROmorphone 0.5 MG/0.5 ML SYRINGE IVP PRN ×5 (02:03→20:37)
[2019-09-07 05:04] LABS: Basophils % (A) 0 %; Eosinophils # (A) 0.1 k/uL (0-0.7); Eosinophils % (A) 2 %; HCT 22.4 % (34.0-46.0); Hypochromasia Moderate; Lymphocytes # (A) 1.9 k/uL (1.0-4.8); Lymphocytes % (A) 30 %; MCH 27.3 pg (25.0-35.0); MCHC 30.9 g/dL (31.0-37.0); MCV 88.1 fL (80.0-100.0); Mean Platelet Volume 8.7; Monocytes # (A) 0.4 k/uL (0-1.0); Monocytes % (A) 6 %; Neutrophils # (A) 3.7 k/uL (1.3-7.7); Neutrophils % (A) 59 %; Platelet Count 163 k/uL (150-450); RBC 2.55 m/uL (3.80-5.40); RDW 15.8 % (11.5-15.5); WBC 6.3 k/uL (3.8-10.6)
[2019-09-07 05:07] LABS: ALT 22 U/L (4-34); AST 23 U/L (14-36); African American GFR (CKD) >90 (>60 ml/min/1.73 sqM); Alkaline Phosphatase 63 U/L (38-126); Anion Gap 8 mmol/L; Blood Urea Nitrogen 10 mg/dL (7-17); Carbon Dioxide 20 mmol/L (22-30); Chloride 111 mmol/L (98-107); Glucose 65 mg/dL (74-99); HGB 6.9 gm/dL (11.4-16.0); Non-African American GFR(CKD) >90 (>60 ml/min/1.73 sqM); Potassium 4.3 mmol/L (3.5-5.1); Sodium 139 mmol/L (137-145); Total Bilirubin 0.6 mg/dL (0.2-1.3); Total Protein 5.8 g/dL (6.3-8.2)
[2019-09-07] MEDS: 1: MVI, ADULT NO.4 WITH VIT K 10 ML, THIAMINE 100 MG, FOLIC ACID 1 MG, POTASSIUM CHLORID IV SCH ×12 (05:41→14:42)
[2019-09-07] MEDS: ACETAMINOPHEN IV (For NPO) 1,000 MG in EMPTY BAG 1 BAG IVPB SCH (05:42)
[2019-09-07 05:53] LABS: Basophils % (A) 0 %; Eosinophils # (A) 0.1 k/uL (0-0.7); Eosinophils % (A) 2 %; HCT 24.3 % (34.0-46.0); HGB 7.5 gm/dL (11.4-16.0); Hypochromasia Marked; Lymphocytes # (A) 1.8 k/uL (1.0-4.8); Lymphocytes % (A) 30 %; MCH 27.9 pg (25.0-35.0); MCHC 30.8 g/dL (31.0-37.0); MCV 90.7 fL (80.0-100.0); Mean Platelet Volume 8.5; Monocytes # (A) 0.4 k/uL (0-1.0); Monocytes % (A) 6 %; Neutrophils # (A) 3.6 k/uL (1.3-7.7); Neutrophils % (A) 59 %; Platelet Count 154 k/uL (150-450); RBC 2.68 m/uL (3.80-5.40); RDW 15.4 % (11.5-15.5); WBC 6.1 k/uL (3.8-10.6)
[2019-09-07] MEDS: PANTOPRAZOLE 40 MG/10 ML VIAL IV SCH (09:27)
[2019-09-07] MEDS: HEPARIN SODIUM,PORCINE 5,000 UNIT/ML 1 ML VIAL SQ SCH ×2 (09:27→20:37)
--- NOTE | 2019-09-07 09:48 | P.PN ---
<Maria Isabel Stern Gage - Last Filed: 09/07/19 09:46> Subjective Progress Note Date: 09/07/19 CHIEF COMPLAINT: Morbid obesity HISTORY OF PRESENT ILLNESS: Patient is status post laparoscopic sleeve gastrectomy performed on 09/03/2019. Patient examined this morning at the bedside. Patient is sitting up in the chair. She reports her pain is tolerable. Esophagram completed yesterday revealed obstruction, however patient is tolerating clear liquids without difficulty. Vital signs stable. Afebrile. Hemoglobin 7.5 PHYSICAL EXAM: VITAL SIGNS: Reviewed. GENERAL: Well-developed in no acute distress. HEENT: No sclera icterus. Extraocular movements grossly intact. Moist buccal mucosa. Head is atraumatic, normocephalic. ABDOMEN: Soft. Nondistended. Appropriate surgical tenderness. NEUROLOGIC: Alert and oriented. Cranial nerves II through XII grossly intact. ASSESSMENT: 1. Morbid obesity, status post laparoscopic sleeve gastrectomy 2. Postoperative hematoma from the mid aspect of gastric sleeve, an unexpected but potential complication of surgery PLAN: -Clear liquid diet -Await repeat esophagram ordered this morning -Pain control -Monitor vital signs -Monitor hemoglobin Nurse practitioner note has been reviewed by physician. Signing provider agrees with the documented findings, assessment, and plan of care. Objective - Vital Signs Vital signs: Vital Signs Temp 98.8 F 09/06/19 16:00 Pulse 72 09/07/19 04:57 Resp 16 09/07/19 04:57 BP 145/95 09/07/19 04:57 Pulse Ox 96 09/06/19 23:00 Intake & Output 09/06/19 09/07/19 09/07/19 18:59 06:59 18:59 Intake Total 2421.2 900 Output Total 430 590 Balance 1991.2 310 Weight 126.5 kg 128 kg Intake: IV 100 900 0.9% NaCl with KCl 20 Meq 100 900 /l 1,000 ml @ 100 mls/hr IV .BY DURATION [facility] Rx#: [id number] Intake, IV Titration 2321.2 Amount 0.9% NaCl with KCl 20 Meq 100 /l 1,000 ml @ 100 mls/hr IV .BY DURATION [facility] Rx#: [id number] ACETAMINOPHEN IV (For NPO 100 ) 1,000 mg In Empty Bag 1 bag @ 400 mls/hr IVPB Q6HR [facility] Rx#:[id number] Levofloxacin 500Mg-D5w 100 Pmx 500 mg In Dextrose/ Water 1 100ml.bag @ 100 mls/hr IVPB Q24H [facility] Rx#: [id number] Mvi, Adult No.4 with Vit 2020.2 K 10 ml Thiamine 100 mg Folic Acid 1 mg Potassium Chloride 20 meq In Sodium Chloride 0.9% 1, 000 ml @ 100 mls/hr IV . BY DURATION [facility] Rx#: [id number] Output: Urine 430 590 Other: Voiding Method Indwelling Catheter Indwelling Catheter - Labs CBC & Chem 7: 09/07/19 05:43 09/07/19 04:00 Labs: Abnormal Lab Results - Last 24 Hours (Table) 09/05/19 09/06/19 09/07/19 Range/Units 09:06 18:08 04:00 RBC 2.72 L 2.55 L (3.80-5.40) m/uL Hgb 7.4 L 6.9 L* (11.4-16.0) gm/dL Hct 23.8 L 22.4 L (34.0-46.0) % MCHC 30.9 L 30.9 L (31.0-37.0) g/dL RDW 15.6 H 15.8 H (11.5-15.5) % Plt Count 148 L (150-450) k/uL Chloride (98-107) mmol/L Carbon Dioxide (22-30) mmol/L Creatinine (0.52-1.04) mg/dL Glucose (74-99) mg/dL Calcium (8.4-10.2) mg/dL Total Protein (6.3-8.2) g/dL Albumin (3.5-5.0) g/dL Procalcitonin 0.16 H (0.02-0.09) ng/mL Crossmatch 09/07/19 09/07/19 09/07/19 Range/Units 04:00 05:43 05:44 RBC 2.68 L (3.80-5.40) m/uL Hgb 7.5 L (11.4-16.0) gm/dL Hct 24.3 L (34.0-46.0) % MCHC 30.8 L (31.0-37.0) g/dL RDW (11.5-15.5) % Plt Count (150-450) k/uL Chloride 111 H (98-107) mmol/L Carbon Dioxide 20 L (22-30) mmol/L Creatinine 0.48 L (0.52-1.04) mg/dL Glucose 65 L (74-99) mg/dL Calcium 8.0 L (8.4-10.2) mg/dL Total Protein 5.8 L (6.3-8.2) g/dL Albumin 3.0 L (3.5-5.0) g/dL Procalcitonin (0.02-0.09) ng/mL Crossmatch See Detail Microbiology - Last 24 Hours (Table) 09/04/19 14:09 Urine Culture - Preliminary Urine,Catheterized Morganella morganii 09/04/19 12:37 Blood Culture - Preliminary Blood No Growth after 48 hours <Louis Key - Last Filed: 09/07/19 15:50> Subjective As above. Patient tolerating clear liquids well. Does not want to have the esophagram repeated because of the challenges she had with positioning during esophagram yesterday. She says it was extremely uncomfortable. She denies any nausea or dysphagia despite being on clear liquids currently. Labs noted. Hemoglobin relatively stable in the 7 range. Pain is down to 1-2 out of 10. Tachycardia improved. Continue clear liquids. No further plans for esophagram at this time. Repeat labs tomorrow. Possible discharge tomorrow if CBC stable. Discussed with medical service regarding need for antibiotics postdischarge given recent urine culture results. Objective - Vital Signs Vital signs: Vital Signs Temp 98.2 F 09/07/19 08:00 Pulse 107 H 09/07/19 08:00 Resp 14 09/07/19 08:00 BP 145/96 09/07/19 08:00 Pulse Ox 97 09/07/19 08:00 Intake & Output 09/06/19 09/07/19 09/07/19 18:59 06:59 18:59 Intake Total 2421.2 1900 450 Output Total 430 590 325 Balance 1991.2 1310 125 Weight 126.5 kg 128 kg Intake: IV 100 900 400 0.9% NaCl with KCl 20 Meq 100 900 400 /l 1,000 ml @ 100 mls/hr IV .BY DURATION [facility] Rx#: [id number] Intake, IV Titration 2321.2 1000 Amount 0.9% NaCl with KCl 20 Meq 100 1000 /l 1,000 ml @ 100 mls/hr IV .BY DURATION [facility] Rx#: [id number] ACETAMINOPHEN IV (For NPO 100 ) 1,000 mg In Empty Bag 1 bag @ 400 mls/hr IVPB Q6HR [facility] Rx#:[id number] Levofloxacin 500Mg-D5w 100 Pmx 500 mg In Dextrose/ Water 1 100ml.bag @ 100 mls/hr IVPB Q24H [facility] Rx#: [id number] Mvi, Adult No.4 with Vit 2021.2 K 10 ml Thiamine 100 mg Folic Acid 1 mg Potassium Chloride 20 meq In Sodium Chloride 0.9% 1, 000 ml @ 100 mls/hr IV . BY DURATION [facility] Rx#: [id number] Oral 50 Output: Urine 430 590 325 Other: Voiding Method Indwelling Catheter Indwelling Catheter Indwelling Catheter - Labs CBC & Chem 7: 09/07/19 05:43 09/07/19 04:00 Labs: Abnormal Lab Results - Last 24 Hours (Table) 09/06/19 09/07/19 09/07/19 Range/Units 18:08 04:00 04:00 RBC 2.72 L 2.55 L (3.80-5.40) m/uL Hgb 7.4 L 6.9 L* (11.4-16.0) gm/dL Hct 23.8 L 22.4 L (34.0-46.0) % MCHC 30.9 L 30.9 L (31.0-37.0) g/dL RDW 15.6 H 15.8 H (11.5-15.5) % Plt Count 148 L (150-450) k/uL Chloride 111 H (98-107) mmol/L Carbon Dioxide 20 L (22-30) mmol/L Creatinine 0.48 L (0.52-1.04) mg/dL Glucose 65 L (74-99) mg/dL Calcium 8.0 L (8.4-10.2) mg/dL Total Protein 5.8 L (6.3-8.2) g/dL Albumin 3.0 L (3.5-5.0) g/dL Crossmatch 09/07/19 09/07/19 Range/Units 05:43 05:44 RBC 2.68 L (3.80-5.40) m/uL Hgb 7.5 L (11.4-16.0) gm/dL Hct 24.3 L (34.0-46.0) % MCHC 30.8 L (31.0-37.0) g/dL RDW (11.5-15.5) % Plt Count (150-450) k/uL Chloride (98-107) mmol/L Carbon Dioxide (22-30) mmol/L Creatinine (0.52-1.04) mg/dL Glucose (74-99) mg/dL Calcium (8.4-10.2) mg/dL Total Protein (6.3-8.2) g/dL Albumin (3.5-5.0) g/dL Crossmatch See Detail Microbiology - Last 24 Hours (Table) 09/04/19 12:37 Blood Culture - Preliminary Blood No Growth after 72 hours 09/04/19 14:09 Urine Culture - Preliminary Urine,Catheterized Morganella morganii Assessment and Plan (1) Morbid obesity with BMI of 50.0-59.9, adult Current Visit: Yes Status: Acute Code(s): E66.01 - MORBID (SEVERE) OBESITY DUE TO EXCESS CALORIES; Z68.43 - BODY MASS INDEX (BMI) 50.0-59.9, ADULT SNOMED Code(s): 582084805
--- NOTE | 2019-09-07 11:33 | P.PN ---
Subjective Progress Note Date: 09/07/19 Principal diagnosis: Abdominal pain Patient is feeling better, she has been getting sips of water without any problems, no dysphagia. No pain with swallowing. No nausea or vomiting. No fevers or chills. No significant abdominal pain. Objective - Vital Signs Vital signs: Vital Signs Temp 98.2 F 09/07/19 08:00 Pulse 107 H 09/07/19 08:00 Resp 14 09/07/19 08:00 BP 145/96 09/07/19 08:00 Pulse Ox 97 09/07/19 08:00 Intake & Output 09/06/19 09/07/19 09/07/19 18:59 06:59 18:59 Intake Total 2421.2 900 450 Output Total 430 590 325 Balance 1991.2 310 125 Weight 126.5 kg 128 kg Intake: IV 100 900 400 0.9% NaCl with KCl 20 Meq 100 900 400 /l 1,000 ml @ 100 mls/hr IV .BY DURATION [facility] Rx#: [id number] Intake, IV Titration 2321.2 Amount 0.9% NaCl with KCl 20 Meq 100 /l 1,000 ml @ 100 mls/hr IV .BY DURATION [facility] Rx#: [id number] ACETAMINOPHEN IV (For NPO 100 ) 1,000 mg In Empty Bag 1 bag @ 400 mls/hr IVPB Q6HR [facility] Rx#:[id number] Levofloxacin 500Mg-D5w 100 Pmx 500 mg In Dextrose/ Water 1 100ml.bag @ 100 mls/hr IVPB Q24H [facility] Rx#: [id number] Mvi, Adult No.4 with Vit 2021.2 K 10 ml Thiamine 100 mg Folic Acid 1 mg Potassium Chloride 20 meq In Sodium Chloride 0.9% 1, 000 ml @ 100 mls/hr IV . BY DURATION [facility] Rx#: [id number] Oral 50 Output: Urine 430 590 325 Other: Voiding Method Indwelling Catheter Indwelling Catheter Indwelling Catheter - Exam General: non toxic, no distress, appears at stated age Derm: warm, dry Head: atraumatic, normocephalic, symmetric Eyes: EOMI, no lid lag, anicteric sclera Mouth: no lip lesion, mucus membranes dry Cardiovascular: S1S2 reg, no murmur, positive posterior tibial pulse bilateral, Lungs: Decreased breath sounds bilateral, no rhonchi, no rales , no accessory muscle use Abdominal: soft, tender to palpation right upper quadrant, no guarding, no appreciable organomegaly Ext: no gross muscle atrophy, 1+ edema bilateral lower extremities, no contractures Neuro: CN II-XI grossly intact, no focal neuro deficits Psych: Alert, oriented, appropriate affect , pleasant - Labs CBC & Chem 7: 09/07/19 05:43 09/07/19 04:00 Labs: Abnormal Lab Results - Last 24 Hours (Table) 09/05/19 09/06/19 09/07/19 Range/Units 09:06 18:08 04:00 RBC 2.72 L 2.55 L (3.80-5.40) m/uL Hgb 7.4 L 6.9 L* (11.4-16.0) gm/dL Hct 23.8 L 22.4 L (34.0-46.0) % MCHC 30.9 L 30.9 L (31.0-37.0) g/dL RDW 15.6 H 15.8 H (11.5-15.5) % Plt Count 148 L (150-450) k/uL Chloride (98-107) mmol/L Carbon Dioxide (22-30) mmol/L Creatinine (0.52-1.04) mg/dL Glucose (74-99) mg/dL Calcium (8.4-10.2) mg/dL Total Protein (6.3-8.2) g/dL Albumin (3.5-5.0) g/dL Procalcitonin 0.16 H (0.02-0.09) ng/mL Crossmatch 09/07/19 09/07/19 09/07/19 Range/Units 04:00 05:43 05:44 RBC 2.68 L (3.80-5.40) m/uL Hgb 7.5 L (11.4-16.0) gm/dL Hct 24.3 L (34.0-46.0) % MCHC 30.8 L (31.0-37.0) g/dL RDW (11.5-15.5) % Plt Count (150-450) k/uL Chloride 111 H (98-107) mmol/L Carbon Dioxide 20 L (22-30) mmol/L Creatinine 0.48 L (0.52-1.04) mg/dL Glucose 65 L (74-99) mg/dL Calcium 8.0 L (8.4-10.2) mg/dL Total Protein 5.8 L (6.3-8.2) g/dL Albumin 3.0 L (3.5-5.0) g/dL Procalcitonin (0.02-0.09) ng/mL Crossmatch See Detail Microbiology - Last 24 Hours (Table) 09/04/19 14:09 Urine Culture - Preliminary Urine,Catheterized Morganella morganii 09/04/19 12:37 Blood Culture - Preliminary Blood No Growth after 48 hours Assessment and Plan Plan: Acute blood loss anemia secondary to hematoma due to laparoscopic sleeve gastrec michelle -Serial hemoglobin stable -No indication for transfusion at this point in time -Surgery recommendations regarding hematoma Hypotension with history of hypertension -Continue to hold oral hydralazine -Stop IV hydralazine with history of recent hypotension -Continue to follow blood pressures Possible urinary tract infection, present on admission -Continue with Levaquin -Urine cultures showing Morganella morganii, sensitive to Levaquin Laparoscopic sleeve gastrectomy with postoperative hematoma -Esophagram demonstrates obstruction level of the surgical site, we'll repeat study today per surgery -PPN Morbid obesity with BMI 56.3 -Status post sleeve gastrectomy
--- NOTE | 2019-09-07 13:26 | P.PN ---
Subjective Progress Note Date: 09/07/19 Principal diagnosis: Status post sleeve gastrectomy, postoperative day #4 On today's evaluation of 09/05/2019, the patient is being seen in follow-up in the intensive care units. She is doing well. No specific complaints. No abdominal pain or tenderness. No abdominal distention. The hemoglobin is stable. Hemodynamically stable. The patient has not required any pressors and she is holding her own blood pressure. Meanwhile, she remains somewhat tachycardic and her heart rate is somewhat between 110 and 120 sinus. Due to concern of surgical complication, CAT scan of the abdomen and pelvis was done with contrast on the CAT scan showed evidence of any recent gastric sleeve procedure and patient had adjacent to the spleen a 5.4 x 12.4 x 6.3 cm lobe with a soft tissue density which is most likely representing a hematoma. There is also small left-sided pleural effusion and some atelectatic changes in lung bases bilaterally. Both adrenal glands are within normal limits. There are gallstones within the gallbladder. The liver and spleen were also within normal limits. The case was discussed with general surgery. We'll going to continue to monitor. The patient's white cell count is at 40 with a hemoglobin of 9.9. There is been a slight drop in hemoglobin compared to yesterday. Surgical wound site is dry clean and intact. Patient was reevaluated today on 09/06/19, remains in the ICU, patient is on room air, asymptomatic, doing quite well. Her IV fluids are at 100 mL per hour. Her hemoglobin today is 8.1 compared to 9.1 yesterday. She was evaluated by surgery, and the plan is to continue conservative measures. Patient is relatively asymptomatic, denies any nausea vomiting abdominal pain melena or hematemesis. She has some minimal abdominal discomfort in the left upper quadrant. Reevaluated today on 09/07/19, patient is doing well, her barium swallow yesterday showed blockage but did not show any leak. Patient is still tolerating clear l iquids. And she is hemodynamically stable. Hemoglobin is stable, 7.5 today. Denies any shortness of breath. Plan is to transfer the patient out of the ICU today. And surgery to address her abnormal barium swallow. Objective - Vital Signs Vital signs: Vital Signs Temp 98.2 F 09/07/19 08:00 Pulse 107 H 09/07/19 08:00 Resp 14 09/07/19 08:00 BP 145/96 09/07/19 08:00 Pulse Ox 97 09/07/19 08:00 Intake & Output 09/06/19 09/07/19 09/07/19 18:59 06:59 18:59 Intake Total 2421.2 900 450 Output Total 430 590 325 Balance 1991.2 310 125 Weight 126.5 kg 128 kg Intake: IV 100 900 400 0.9% NaCl with KCl 20 Meq 100 900 400 /l 1,000 ml @ 100 mls/hr IV .BY DURATION [facility] Rx#: [id number] Intake, IV Titration 2321.2 Amount 0.9% NaCl with KCl 20 Meq 100 /l 1,000 ml @ 100 mls/hr IV .BY DURATION [facility] Rx#: [id number] ACETAMINOPHEN IV (For NPO 100 ) 1,000 mg In Empty Bag 1 bag @ 400 mls/hr IVPB Q6HR [facility] Rx#:[id number] Levofloxacin 500Mg-D5w 100 Pmx 500 mg In Dextrose/ Water 1 100ml.bag @ 100 mls/hr IVPB Q24H [facility] Rx#: [id number] Mvi, Adult No.4 with Vit 1.2 K 10 ml Thiamine 100 mg Folic Acid 1 mg Potassium Chloride 20 meq In Sodium Chloride 0.9% 1, 000 ml @ 100 mls/hr IV . BY DURATION [facility] Rx#: [id number] Oral 50 Output: Urine 430 590 325 Other: Voiding Method Indwelling Catheter Indwelling Catheter Indwelling Catheter - Exam Gen. appearance, revealed 23-year-old female obese in no distress. On room air. Head exam was generally normal. There was no scleral icterus or corneal arcus. Mucous membranes were moist. Neck was supple and without jugular venous distension, thyromegaly, or carotid bruits. Carotids were easily palpable bilaterally. Lungs: Clear throughout no crackles or rhonchi or wheezes.. Heart sounds are regular, positive S1-S2 and there is a systolic ejection murmur grade 2/6 consistent with her history of bicuspid aortic valve, nor and ventricular heave or thrill. Abdomen: Obese, soft, slightly tender in the left upper quadrant, no rebound, no guarding. Extremities reveal trace edema and there is no cyanosis or clubbing. Neurologically the patient is awake and alert and there is no focal neurological deficits. - Labs CBC & Chem 7: 09/07/19 05:43 09/07/19 04:00 Labs: Abnormal Lab Results - Last 24 Hours (Table) 09/06/19 09/07/19 09/07/19 Range/Units 18:08 04:00 04:00 RBC 2.72 L 2.55 L (3.80-5.40) m/uL Hgb 7.4 L 6.9 L* (11.4-16.0) gm/dL Hct 23.8 L 22.4 L (34.0-46.0) % MCHC 30.9 L 30.9 L (31.0-37.0) g/dL RDW 15.6 H 15.8 H (11.5-15.5) % Plt Count 148 L (150-450) k/uL Chloride 111 H (98-107) mmol/L Carbon Dioxide 20 L (22-30) mmol/L Creatinine 0.48 L (0.52-1.04) mg/dL Glucose 65 L (74-99) mg/dL Calcium 8.0 L (8.4-10.2) mg/dL Total Protein 5.8 L (6.3-8.2) g/dL Albumin 3.0 L (3.5-5.0) g/dL Crossmatch 09/07/19 09/07/19 Range/Units 05:43 05:44 RBC 2.68 L (3.80-5.40) m/uL Hgb 7.5 L (11.4-16.0) gm/dL Hct 24.3 L (34.0-46.0) % MCHC 30.8 L (31.0-37.0) g/dL RDW (11.5-15.5) % Plt Count (150-450) k/uL Chloride (98-107) mmol/L Carbon Dioxide (22-30) mmol/L Creatinine (0.52-1.04) mg/dL Glucose (74-99) mg/dL Calcium (8.4-10.2) mg/dL Total Protein (6.3-8.2) g/dL Albumin (3.5-5.0) g/dL Crossmatch See Detail Microbiology - Last 24 Hours (Table) 09/04/19 14:09 Urine Culture - Preliminary Urine,Catheterized Morganella morganii 09/04/19 12:37 Blood Culture - Preliminary Blood No Growth after 48 hours Assessment and Plan Assessment: Impression: Status post laparoscopic sleeve gastrectomy, postoperative day #4 Suspect iatrogenic abdominal hematoma being closely monitored by surgery. No surgical intervention is recommended at this point. History of bicuspid aortic valve. History of spina bifida and [employer] shunt in place. Sinus tachycardia mostly secondary to blood losses. Hemoglobin is now stable and the patient is not having any further episodes of sinus tachycardia. Abnormal barium swallow, being addressed by surgery on the case. Recommendation: Continue IV fluid Continue to monitor hemoglobin. Continue pain control. Continue to hold Lovenox and utilize SCDS for DVT prophylaxis. Continue incentive spirometry. Transferred to a regular medical floor, we'll see on when necessary basis Time with Patient: Less than 30
[2019-09-07] MEDS: LEVOFLOXACIN 500MG-D5W PMX 500 MG in DEXTROSE/WATER 1 100ML.BAG IVPB SCH (16:02)
[2019-09-08] MEDS: HYDROmorphone 0.5 MG/0.5 ML SYRINGE IVP PRN ×2 (00:33→06:00)
[2019-09-08] MEDS: 1: MVI, ADULT NO.4 WITH VIT K 10 ML, THIAMINE 100 MG, FOLIC ACID 1 MG, POTASSIUM CHLORID IV SCH ×12 (01:19→11:18)
[2019-09-08 02:50] VITALS: TEMP 99.1
[2019-09-08] MEDS: HEPARIN SODIUM,PORCINE 5,000 UNIT/ML 1 ML VIAL SQ SCH (07:21)
[2019-09-08] MEDS: PANTOPRAZOLE 40 MG/10 ML VIAL IV SCH (07:21)
[2019-09-08 08:32] VITALS: BP 129/79; PULSE 110; RESP 18
[2019-09-08 08:56] LABS: Anisocytosis Slight; Basophils % (A) 0 %; Eosinophils # (A) 0.2 k/uL (0-0.7); Eosinophils % (A) 2 %; HCT 25.8 % (34.0-46.0); HGB 8.2 gm/dL (11.4-16.0); Hypochromasia Slight; Lymphocytes # (A) 1.5 k/uL (1.0-4.8); Lymphocytes % (A) 21 %; MCH 27.7 pg (25.0-35.0); MCHC 31.6 g/dL (31.0-37.0); MCV 87.5 fL (80.0-100.0); Mean Platelet Volume 8.5; Monocytes # (A) 0.4 k/uL (0-1.0); Monocytes % (A) 5 %; Neutrophils # (A) 5.1 k/uL (1.3-7.7); Neutrophils % (A) 70 %; Platelet Count 234 k/uL (150-450); RBC 2.95 m/uL (3.80-5.40); RDW 16.3 % (11.5-15.5); WBC 7.3 k/uL (3.8-10.6)
[2019-09-08 09:12] LABS: ALT 22 U/L (4-34); AST 27 U/L (14-36); African American GFR (CKD) >90 (>60 ml/min/1.73 sqM); Albumin 3.7 g/dL (3.5-5.0); Alkaline Phosphatase 79 U/L (38-126); Anion Gap 10 mmol/L; Blood Urea Nitrogen 7 mg/dL (7-17); Calcium 8.9 mg/dL (8.4-10.2); Carbon Dioxide 22 mmol/L (22-30); Chloride 105 mmol/L (98-107); Glucose 80 mg/dL (74-99); Magnesium 1.7 mg/dL (1.6-2.3); Non-African American GFR(CKD) >90 (>60 ml/min/1.73 sqM); Phosphorus 2.8 mg/dL (2.5-4.5); Potassium 4.3 mmol/L (3.5-5.1); Sodium 137 mmol/L (137-145); Total Protein 6.8 g/dL (6.3-8.2)
--- NOTE | 2019-09-08 10:17 | P.DS ---
<Maria Isabel Stern - Last Filed: 09/08/19 10:07> Providers Expected date of discharge: 09/08/19 Hospital Course: 23-year-old female who underwent laparoscopic sleeve gastrectomy performed on 09/03/[address] Key. Patient developed a hematoma at the mid aspect of the gastric sleeve postoperatively. She did develop hypotension and was transferred to the ICU for further monitoring. Blood pressure improved with fluid resuscitation. Hemoglobin has since remained stable. Esophagram completed revealed obstruction, however patient is tolerating clear liquids without difficulty. Repeat esophagram was ordered but patient refused secondary to pain with positioning during procedure. Her vital signs have been stable. Pain is controlled on oral medications. She is stable for discharge home today. Please see EMR for further hospital course details. Discharge Diagnosis: 1. Morbid obesity, status post laparoscopic sleeve gastrectomy 2. Postoperative hematoma from the mid aspect of gastric sleeve, an unexpected but potential complication of surgery 3. Urinary tract infection Nurse practitioner note has been reviewed by physician. Signing provider agrees with the documented findings, assessment, and plan of care. Plan - Discharge Summary Discharge Rx Participant: Yes New Discharge Prescriptions: New Bisacodyl [Dulcolax] 5 mg PO DAILY PRN #10 tablet. PRN Reason: Constipation Simethicone 40 mg/0.6 ml Drops [Mylicon Drops] 40 mg PO PCHS PRN #30 ml PRN Reason: Gas Omeprazole [PriLOSEC] 40 mg PO DAILY #30 capsule. Ondansetron Odt [Zofran Odt] 4 mg PO Q8HR PRN #9 tab PRN Reason: Nausea oxyCODONE HCL/ACETAMINOPHEN [oxyCODONE HCL/ACETAMINOPHEN 5-325] 1 tab PO Q6H 3 Days #12 tab Continue Carvedilol 25 mg PO QAM Discontinued Omeprazole [PriLOSEC] 20 mg PO -BRKT #90 cap Discharge Medication List Carvedilol 25 mg PO QAM 05/20/19 [History] Bisacodyl [Dulcolax] 5 mg PO DAILY PRN #10 tablet. 09/08/19 [Rx] Omeprazole [PriLOSEC] 40 mg PO DAILY #30 capsule. 09/08/19 [Rx] Ondansetron Odt [Zofran Odt] 4 mg PO Q8HR PRN #9 tab 09/08/19 [Rx] Simethicone 40 mg/0.6 ml Drops [Mylicon Drops] 40 mg PO PCHS PRN #30 ml 09/08/19 [Rx] oxyCODONE HCL/ACETAMINOPHEN [oxyCODONE HCL/ACETAMINOPHEN 5-325] 1 tab PO Q6H 3 Days #12 tab 09/08/19 [Rx] Follow up Appointment(s)/Referral(s): [place], [place] [NON-STAFF] - 1 Week Patient Instructions/Handouts: Urinary Tract Infection in Women (DC), Nutrition after Bariatric Surgery (DC), Laparoscopic Sleeve Gastrectomy (DC) Activity/Diet/Wound Care/Special Instructions: No lifting over 10 pounds You may shower. No soaking or tub baths Very light activity until you are reevaluated at your follow up appointment with your surgeon <Louis Key - Last Filed: 09/08/19 12:51> Providers Date of admission: 09/03/19 10:36 Attending physician: Louis Key Consults: 09/03/19 15:25 Consult Physician Routine Consulting Provider: July Mcdonough Consult Reason/Comments: Medical management Do you want consulting provider notified?: Yes Primary care physician: Physician Nonstaff - Discharge Diagnosis(es) (1) Morbid obesity with BMI of 50.0-59.9, adult Current Visit: Yes Status: Acute Hospital Course: As above. Patient doing well today. Will plan discharge. Follow-up 48 hours for CBC and bariatric clinic visit.
--- NOTE | 2019-09-10 08:35 | CDI ---
Documentation Clarification Form Date: 09/10/19 From: Ary Gamble CCS Phone: If you have a question about this query, please contact Nikki Watt, [place] [employer] at [phone] between 8am and 5pm. Admit Date: 09/03/19 Discharge Date:09/08/19 Patient Name: Ivy Quevedo Visit Number: [id number] ATTENTION: The Clinical Documentation Specialists (CDI) and [facility] Coding Staff appreciate your assistance in clarifying documentation. Please respond to the clarification below the line at the bottom and electronically sign. The CDI & [facility] Coding staff will review the response and follow-up if needed. Please note: Queries are made part of the Legal Health Record. If you have any questions, please contact the author of this message via ITS. Dear Dr. Key, Documentation in the Operative Report included: Following that approximately 45- 60 minutes of lysis of adhesions took place involving the upper abdomen.There were some adhesions between the descending colon and the left lateral abdominal wall. History/Risk factors: Morbid obesity/ BMI 55, HTN, [employer] shunt Pre-Operative Diagnosis: Morbid obesity, hypertension Postoperative Diagnosis: Same, upper abdominal adhesions In order to capture the severity of condition, please specify the following: Significant/extensive adhesions Adhesions are not significant/extensive Other Unable to determine ___significant adhesions _ MTDD
--- NOTE | 2019-09-10 19:55 | CDI ---
Documentation Clarification Form Date: 09/10/2019 07:24:44 PM From: Clare Manjarrez RN CCDS Admit Date: 09/03/2019 10:36:00 AM Patient Name: Ivy Quevedo Visit Number: [id number] Discharge Date: 09/08/2019 01:53:00 PM ATTENTION: The Clinical Documentation Specialists (CDI) and [facility] Coding Staff appreciate your assistance in clarifying documentation. Please respond to the clarification below the line at the bottom and electronically sign. The CDI & [facility] Coding staff will review the response and follow-up if needed. Please note: Queries are made part of the Legal Health Record. If you have any questions, please contact the author of this message via ITS. Dr. Louis Key Esophagram demonstrates obstruction level of the surgical site. In internal medicine progress note 09/05 Esophagram completed yesterday revealed obstruction, however patient is tolerating clear liquids without difficulty. Patients Admitting Diagnosis: Morbid obesity, HTN Post-Operative Diagnosis: Morbid obesity, HTN, Abdominal Adhesions Procedure performed: Laparoscopic sleeve gastrectomy History/Risk Factors: 23-year-old female presented for elective Gastric Sleeve surgery. Medical history of Morbid Obesity with BMI 56.3, HTN and Spinabifida Clinical Indicators: Per Prototype Model Maker Progress Note 09/06 patient is doing well, her barium swallow yesterday showed blockage but did not show any leak. Patient is still tolerating clear liquids. Per SX Progress note 09/06 Patient is tolerating clear liquids well. Denies nausea or dysphagia. 09/05 Esophagram Obstruction at the level of the surgical site Treatment: Pain control, Monitor vital signs. Ordered repeat esophagram patient didnt want to have it due to pain with positioning during the test. Clear liquid diet In order to accurately reflect this patients severity of illness, please clarify if the Obstruction at the surgical site: Obstruction at the surgical site has been ruled out Obstruction at the surgical site is a complication of surgical procedure Obstruction at the surgical site is an expected outcome of the surgical procedure Obstruction at the surgical site is related to co-morbid condition(s) of Other explanation of clinical findings Unable to determine (no explanation for clinical findings) (Last Revision: June 2017) no clinical signs of obstruction MTDD
== END 2019-09-08 13:53 | disposition home or self-care (01) | DRG 620 ==
LOC: 2ORMAIN 10:36 → 4SSUR 16:45 → 2SICU 09-04 08:30 → 4SSUR 09-07 16:51
PROVIDERS: ADMIT Surgery; ATTEND Surgery
PROC: 0DNM4ZZ Release Descending Colon, Percutaneous Endoscopic Approach (ICD-10-PCS; principal; 2019-09-03 11:50)
PROC: 0DNL4ZZ Release Transverse Colon, Percutaneous Endoscopic Approach (ICD-10-PCS; principal; 2019-09-03 11:50)
PROC: 0DB64Z3 Excision of Stomach, Percutaneous Endoscopic Approach, Vertical (ICD-10-PCS; principal; 2019-09-03 11:50)
PROC: BD11YZZ Fluoroscopy of Esophagus using Other Contrast (ICD-10-PCS; 2019-09-06)
DX: E66.01 Morbid (severe) obesity due to excess calories (principal); E87.2 Acidosis; J90 Pleural effusion, not elsewhere classified; Q23.1 Congenital insufficiency of aortic valve; D62 Acute posthemorrhagic anemia; N39.0 Urinary tract infection, site not specified; K91.870 Postprocedural hematoma of a digestive system organ or structure following a digestive system procedure; K95.89 Other complications of other bariatric procedure; Z68.43 Body mass index [BMI] 50.0-59.9, adult; Q05.9 Spina bifida, unspecified; I95.81 Postprocedural hypotension; K21.9 Gastro-esophageal reflux disease without esophagitis; K29.70 Gastritis, unspecified, without bleeding; I10 Essential (primary) hypertension; R00.0 Tachycardia, unspecified; K80.20 Calculus of gallbladder without cholecystitis without obstruction; K66.0 Peritoneal adhesions (postprocedural) (postinfection); E86.9 Volume depletion, unspecified; R60.0 Localized edema; Y83.8 Other surgical procedures as the cause of abnormal reaction of the patient, or of later complication, without mention of misadventure at the time of the procedure; Z71.3 Dietary counseling and surveillance; Z99.3 Dependence on wheelchair; Z98.2 Presence of cerebrospinal fluid drainage device; Z86.19 Personal history of other infectious and parasitic diseases; Z98.890 Other specified postprocedural states; Z79.899 Other long term (current) drug therapy; Z88.5 Allergy status to narcotic agent; Z91.040 Latex allergy status
CPT/HCPCS: 74177; 74240; 80053; 81001; 81025; 82533; 83605; 83735; 84100; 84145; 84443; 85025; 85027; 85610; 86850; 86900; 86901; 87040; 87077; 87086; 87186; 88307; 94640

== ENCOUNTER → 2019-09-10 | Outpatient (CLI) | payer OTHER ==
[2019-09-10 11:09] LABS: Anisocytosis Slight; HCT 27.5 % (34.0-46.0); HGB 8.8 gm/dL (11.4-16.0); Hypochromasia Moderate; MCH 28.3 pg (25.0-35.0); MCHC 32.1 g/dL (31.0-37.0); MCV 87.9 fL (80.0-100.0); Mean Platelet Volume 8.3; Platelet Count 281 k/uL (150-450); RBC 3.13 m/uL (3.80-5.40); RDW 16.5 % (11.5-15.5); WBC 8.5 k/uL (3.8-10.6)
[2019-09-10 11:14] VITALS: BP 128/86; PULSE 80; TEMP 98.6
== END | disposition home or self-care (01) ==
LOC: BARWHC3 10:22
PROVIDERS: ATTEND Surgery
DX: E66.01 Morbid (severe) obesity due to excess calories (principal); I10 Essential (primary) hypertension; Q23.1 Congenital insufficiency of aortic valve; Z68.43 Body mass index [BMI] 50.0-59.9, adult
CPT/HCPCS: 85027; G0463; 99211

== ENCOUNTER 2019-09-14 12:33 | Inpatient (IN) | payer OTHER ==
[2019-09-14] MEDS ORDERED: ONDANSETRON 4 MG/2 ML VIAL IVP STA (13:08)
[2019-09-14] MEDS: SODIUM CHLORIDE 0.9% 1,000 ML IV SCH ×2 (13:08→14:23)
[2019-09-14 13:28] LABS: Anisocytosis Slight; Basophils # (A) 0.1 k/uL (0-0.2); Basophils % (A) 0 %; Eosinophils # (A) 0.1 k/uL (0-0.7); Eosinophils % (A) 0 %; HCT 32.1 % (34.0-46.0); HGB 9.8 gm/dL (11.4-16.0); Hypochromasia Moderate; Lymphocytes % (A) 4 %; MCH 27.1 pg (25.0-35.0); MCHC 30.7 g/dL (31.0-37.0); MCV 88.3 fL (80.0-100.0); Mean Platelet Volume 8.3; Monocytes # (A) 1.1 k/uL (0-1.0); Monocytes % (A) 5 %; Neutrophils # (A) 22.1 k/uL (1.3-7.7); Neutrophils % (A) 90 %; Platelet Count 395 k/uL (150-450); RBC 3.63 m/uL (3.80-5.40); RDW 16.2 % (11.5-15.5); WBC 24.6 k/uL (3.8-10.6)
[2019-09-14] MEDS ORDERED: NALOXONE 0.4 MG/ML 1 ML VIAL IV PRN (13:51)
[2019-09-14] MEDS ORDERED: ACETAMINOPHEN IV (For NPO) 1,000 MG in EMPTY BAG 1 BAG IVPB ONE (13:51)
[2019-09-14] MEDS ORDERED: IOPAMIDOL CONTRAST (ORAL USE) VIAL PO PRN (13:54)
--- NOTE | 2019-09-14 14:00 | P.GSHP ---
History of Present Illness H&P Date: 09/14/19 Chief Complaint: Postop fever 23-year-old female underwent sleeve gastrectomy 09/02. Morning after surgery patient was found to have a hypotensive episode. Patient developed anemia on CBC following that. CAT scan confirmed what appeared to represent a hematoma adjacent to the staple line. Patient was's charge 5 days postop. Patient was tolerating clear liquids at that time. Since she was doing well up until Friday evening. She felt a bubbling sensation in her upper abdomen and developed nausea. Friday and Friday continue to have vague upper abdominal pain with nausea. She did have a few episodes of vomiting Friday evening and also on Friday. Yesterday thought she was doing better today. Today she developed hematemesis 3 times while at home. Pain was more severe today. She describes it as a 9 out of 10 currently. Presents tachycardic with heart rate 132. T-max 100.9 here in the clinic. CBC was checked which demonstrates a stable hemoglobin however her white blood cell count significantly elevated which previously had been totally normal. Patient admits she has not been drinking much over the last few days. - Review of Systems Comment: The patient denies any acute changes in vision or hearing, no dysphagia or odynophagia, no chest pain or shortness of breath, no dysuria or hematuria, no headache, no runny nose, no rectal bleeding or melena, no unexplained weight loss Past Medical History Past Medical History: Hypertension, Musculoskeletal Disorder, Neurologic Disorder Additional Past Medical History / Comment(s): states has a bicuspid aortic valve, spinabifida, uses wheelchair, able to transfer, states hx (over 6 yrs ago) of "staph infection" that had I&D and a month of antibiotics IV, not sure if MRSA History of Any Multi-Drug Resistant Organisms: None Reported Past Surgical History: Bariatric Surgery, Orthopedic Surgery Additional Past Surgical History / Comment(s): rt heel cord sx, shunt @ , replaced x2 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 Past Anesthesia/Blood Transfusion Reactions: No Reported Reaction Smoking Status: Never smoker - Past Family History Mother Family Medical History: No Reported History Medications and Allergies Home Medications Medication Instructions Recorded Confirmed Type Carvedilol 25 mg PO QAM 05/20/19 09/14/19 History Bisacodyl [Dulcolax] 5 mg PO DAILY PRN #10 tablet. 09/08/19 09/14/19 Rx Omeprazole [PriLOSEC] 40 mg PO DAILY #30 capsule. 09/08/19 09/14/19 Rx Ondansetron Odt [Zofran Odt] 4 mg PO Q8HR PRN #9 tab 09/08/19 09/14/19 Rx Simethicone 40 mg/0.6 ml Drops 40 mg PO PCHS PRN #30 ml 09/08/19 09/14/19 Rx [Mylicon Drops] oxyCODONE HCL/ACETAMINOPHEN 1 tab PO Q6H 3 Days #12 tab 09/08/19 09/14/19 Rx [oxyCODONE HCL/ACETAMINOPHEN 5-325] Allergies Allergy/AdvReac Type Severity Reaction Status Date / Time latex Allergy Rash/Hives Verified 09/14/19 12:58 morphine AdvReac "panic Verified 09/14/19 12:58 attack" Surgical - Exam Vital Signs Temp Pulse Resp BP 100.9 F H 132 H 16 114/80 09/14/19 13:00 09/14/19 13:00 09/14/19 13:00 09/14/19 13:00 Physical exam: General: Well-developed, well-nourished HEENT: Normocephalic, sclerae nonicteric Abdomen: Upper abdominal tenderness, incisions clean and dry, left flank ecchymosis Extremities: Mild edema bilaterally, superficial ulceration left sole of foot Neuro: Alert and oriented Results - Labs 09/14/19 13:05 Abnormal Lab Results - Last 24 Hours (Table) 09/14/19 Range/Units 13:05 WBC 24.6 H (3.8-10.6) k/uL RBC 3.63 L (3.80-5.40) m/uL Hgb 9.8 L (11.4-16.0) gm/dL Hct 32.1 L (34.0-46.0) % MCHC 30.7 L (31.0-37.0) g/dL RDW 16.2 H (11.5-15.5) % Neutrophils # 22.1 H (1.3-7.7) k/uL Monocytes # 1.1 H (0-1.0) k/uL Assessment and Plan (1) Postoperative abdominal pain with fever Narrative/Plan: Patient with fevers and vomiting. Rule out leak at this point. Begin broad- spectrum antibiotics. Consult infectious disease. Will admit to the hospital. CT abdomen and pelvis ordered. Patient and mother were informed as to our plans. All questions answered. Current Visit: Yes Status: Acute Code(s): R10.9 - UNSPECIFIED ABDOMINAL PAIN; R50.82 - POSTPROCEDURAL FEVER; G89.18 - OTHER ACUTE POSTPROCEDURAL PAIN SNOMED Code(s): 85726923
[2019-09-14 14:30] LABS: ALT 34 U/L (4-34); AST 42 U/L (14-36); African American GFR (CKD) 79 (>60 ml/min/1.73 sqM); Albumin 3.5 g/dL (3.5-5.0); Albumin/Globulin Ratio 1.1; Alkaline Phosphatase 84 U/L (38-126); Anion Gap 9 mmol/L; Blood Urea Nitrogen 38 mg/dL (7-17); Calcium 8.7 mg/dL (8.4-10.2); Carbon Dioxide 22 mmol/L (22-30); Chloride 107 mmol/L (98-107); Globulin 3.3 g/dL; Glucose 119 mg/dL (74-99); Non-African American GFR(CKD) 68 (>60 ml/min/1.73 sqM); Potassium 3.5 mmol/L (3.5-5.1); Sodium 138 mmol/L (137-145); Total Bilirubin 1.3 mg/dL (0.2-1.3); Total Protein 6.8 g/dL (6.3-8.2)
[2019-09-14] MEDS: ALBUTEROL NEBULIZED 2.5 MG/3 ML INHALATION SCH ×2 (16:03→20:00)
[2019-09-14] MEDS: PIPERACILLIN-TAZOBACTAM 3.375 GM in SODIUM CHLORIDE 0.9% 100 ML IVPB SCH (16:31)
--- NOTE | 2019-09-14 16:51 | CT ---
EXAMINATION TYPE: CT abdomen pelvis w con DATE OF EXAM: 09/14/2019 COMPARISON: 09/05/2019 INDICATION: Gastric sleeve 2 weeks ago. Postop fever, abdominal pain, rectal bleeding. DLP: 2153.3 mGycm, Automated exposure control for dose reduction was used. CONTRAST: 100 mL of Isovue M300. Study performed with Oral Contrast TECHNIQUE: Axial images were obtained from above the diaphragm to the pubic rami in the axial plane a t 5 mm thick sections. Reconstructed images are reviewed on the computer in the coronal plane. FINDINGS: Limited CT sections are obtained the lung bases. The lung bases are clear. CT ABDOMEN: Anterior to the pancreas and near the left midline there is a heterogenous structure whic h appears to have communication with the upper gastric sleeve area. Multiple air-fluid levels and pun ctate amounts of air are scattered within this area. No definite wall formation is evident. This appe ars to be displacing loops of small bowel. Gastric leak is primary within the differential. A small a mount of free air is adjacent to the spleen. This could be postsurgical. Liver: Normal Spleen: Normal. Minimal fluid is adjacent to the spleen. Pancreas: Slightly atrophic. Adrenal glands: The adrenal glands are normal. Gallbladder: Gallstones are present. Kidneys: No masses are evident. No hydronephrosis is present. No cysts are present. Delayed images were obtained through the kidneys, which remain unremarkable. Aorta: Normal Inferior vena cava: Normal. CT PELVIS: Small bowel loops are slightly prominent and fluid-filled. More distal ileum has a more normal calibe r. Colon contains some fluid. Colon is nondilated. Study is with limited oral contrast Appendix: Not visualized. No suspicious tubular structures or inflammatory changes are evident. Urinary bladder: Normal. Genitourinary structures: Uterus and adnexa appear normal Osseous structures: No suspicious lytic or sclerotic lesions. Hip pins are present on the left. Report attempted to Dr. Key by Dr. Nieto by telephone at 1615 hours 09/14/2019 x2. Called to floor, patient's nurse Courtney, [address] on way to surgery. IMPRESSIONS: 1. 9.8 x 10.5 cm heterogenous collection anterior to the pancreas left of midline communicating with the stomach superiorly compatible with a leak. Abscess formation is not identified. There is scatter ed air within this structure. 2. Small amount of free air is adjacent to the spleen which could be related to the recent gastric [place] rgery. 3. Cholelithiasis. 4. Small bowel ileus. 5. Report was called to Dr. Key by Dr. Nieto by telephone at 1615 hours 09/14/2019
[2019-09-14] MEDS ORDERED: IV FLUID CONTINUATION 990 ML IV ONE (17:04)
--- NOTE | 2019-09-14 17:15 | P.PN ---
Progress Note - Text Progress Note Date: 09/14/19 Patient's CAT scan reviewed. Results reviewed with the patient and family. The hematoma previously identified postoperatively has a significant volume of air within it and there is also evidence of contrast extravasation that appears to be closer to the proximal extent of the sleeve. Options reviewed with the patient and her family. We'll proceed with exploratory laparotomy with drain placement and repair of gastric leak. Risks of bleeding, infection, ongoing leak, fistula, abscess, stricture, peritonitis, possible need for tertiary care evaluation reviewed. They understand and wish to proceed.
[2019-09-14] MEDS ORDERED: ROCURONIUM 10 MG/ML (5 ML VIAL) IV ONE (17:22)
[2019-09-14] MEDS ORDERED: fentaNYL (PF) 50 MCG/ML 2 ML AMP ONE (17:22)
[2019-09-14] MEDS ORDERED: GLYCOPYRROLATE 0.2 MG/ML 2 ML VIAL ONE (17:22)
[2019-09-14] MEDS ORDERED: PROPOFOL 10 MG/ML 20 ML VIAL IV ONE (17:22)
[2019-09-14] MEDS ORDERED: ONDANSETRON 4 MG/2 ML VIAL ONE (17:22)
[2019-09-14] MEDS ORDERED: ACETAMINOPHEN IV (For NPO) 1,000 MG/100 ML VIAL ONE (17:22)
[2019-09-14] MEDS ORDERED: MIDAZOLAM 2 MG/2 ML VIAL ONE (17:22)
[2019-09-14] MEDS ORDERED: HYDROmorphone (PF) 1 MG/ML ONE (17:22)
[2019-09-14] MEDS ORDERED: NEOSTIGMINE 1 MG/ML 10 ML VIAL ONE (17:22)
[2019-09-14] MEDS ORDERED: LACTATED RINGERS 1,000 ML IV ONE ×3 (18:15→19:44)
[2019-09-14] MEDS: HYDROmorphone 1 MG/ML 1 ML SYRINGE IVP ONE ×5 (20:15→21:00)
--- NOTE | 2019-09-14 20:48 | P.OP ---
Date of Procedure: 09/14/19 Procedure(s) Performed: PREOPERATIVE DIAGNOSIS: Gastric sleeve leak with perigastric hematoma POSTOPERATIVE DIAGNOSIS: Same PROCEDURE: Exploratory laparotomy, drainage perigastric infected hematoma, nasogastric tube placement, perigastric drain placement 2 SURGEON: Yesi EBL: See anesthesia records ANESTHESIA: General COMPLICATIONS: None OPERATIVE PROCEDURE: Patient brought in place never table in the supine position. The patient was placed under general anesthesia at that time. Wetzel catheter was placed preoperatively. Abdomen was prepped and draped sterilely. Midline incision was made from the subxiphoid region to the supra umbilical location. We stayed superior to our previous supraumbilical incision scar. Dissection through the subcutaneous tissues took place using blunt dissection and electrocautery. The fascia was divided in the midline using electrocautery. Entrance into the peritoneal cavity occurred. Some of the adhesions that were previously lysed were once again divided using both blunt dissection and cautery. The liver was retracted anteriorly bluntly. I was able to bluntly retract the transverse colon inferiorly and posteriorly. In doing so I identified and encountered a large infected hematoma. Liquid and semisolid old blood was evacuated at that time. Irrigation took place. The fluid pocket was malodorous. Prior to entering into this infected hematoma the patient had some cloudy serous fluid in the remainder of the abdominal cavity. During the procedure a total of 8 L of saline was utilized to irrigate and cleanse the patient's abdomen. I was able to visualize the staple line of the stomach. Unfortunately my view of the apex of our staple line was quite limited. Despite utilizing the Bookwalter retractor there was a very small window of view at the apex of the staple line. I had anesthesia pass a nasogastric tube with my hand at the hiatus. I was able to feed the nasogastric tube into the sleeve to the point that the tip was beyond our staple line in the antrum. This was performed without significant difficulty and no hesitation was identified to suggest significant stricture or narrowing. I then instilled methylene blue through the nasogastric tube. I was able to visualize methylene blue collecting near the angle of His. I could not visualize the exact location given our limited view. After adequate irrigation 2 drains were brought into the abdomen from the left upper quadrant. The more inferior drain was passed along the staple line and then into the hematoma space. The hematoma was actually present along the mid aspect of the sleeve and in the retrocolic location. The superior drain was passed along the length of the sleeve up to the apex of the staple line and was in closest proximity to the leak site. The patient's OVERNIGHT HOUSEPERSON shunt was identified and preserved during the procedure. The midline fascia was then reapproximated using 3 separate double-stranded #1 PDS sutures. The subcutaneous tissues were irrigated with an additional 500 mL of saline. 2-0 Vicryl sutures were used to reapproximate the subcutaneous tissues. The skin was reapproximated using kinjal leaving 3 separate wick site openings. Telfa fab were placed. Sterile dressings were then applied. DISPOSITION: Stable to recovery room. Family was updated as to the patient's current condition and operative findings. Also discussed the case with Dr. Alas and Dr. Mejia postoperatively.
[2019-09-14 22:00] LABS: Glucose,Whole Blood 130 mg/dL (75-99)
[2019-09-14] MEDS: 0.9% NACL WITH KCL 20 MEQ/L 1,000 ML IV SCH ×2 (22:50→23:17)
[2019-09-14] MEDS: HYDROmorphone 1 MG/ML 1 ML SYRINGE IVP PRN (22:51)
[2019-09-14] MEDS: FLUCONAZOLE IN NACL,ISO-OSM 200 MG in SALINE 1 100ML.BAG IVPB SCH (23:17)
--- NOTE | 2019-09-15 00:21 | P.CONS ---
History of Present Illness - Reason for Consult Consult date: 09/14/19 post operative medical management Requesting physician: Louis Key - Chief Complaint abd pain , intraabd hematoma post op - History of Present Illness 23 year old female morbidly obese, s/p recent bariatric surgery Gastric sleeve 09/03/2019 prior to discharge post operatively , patient was diagnosed with CAT scan confirmed what appeared to represent a hematoma adjacent to the staple line. at home, initially she tolerated PO intake with clear liquids but then she started experiencing abd pain in the epigastric region along with nausea and vomiting , pain continued to get progressively worse for which she decided to come to the hospital due to severe pain 9/10 in severity in the epigastric region. patient admits to chills, but denies any fevers. she otherwise denies any chest pain , toruble breathing , or GI bleeding. she feels tired and dehydrated as she has not been eating or drinking anything over past few days. in the ED, she was found to have stable hemoglobin compared to discharge, but significantly elevated white count and elevated creatinine General surgery evaluated the patient and took her to the OR for Ex-lap, based on findings of CT abd suggestive of gastric leak patient tolerated procedure well, hematoma was drained and repair of gastric leak performed patient has not been taking any medication s for about 2 weeks now, she stopped coreg which she has been taking for many years abruptly patient reports skin sloughing and ulceration over the sole of her left foot, that she has been home medicating Review of Systems Pertinent positives as noted in HPI. All other systems were reviewed and are neg ative Past Medical History Past Medical History: Hypertension, Musculoskeletal Disorder, Neurologic Disorder Additional Past Medical History / Comment(s): states has a bicuspid aortic valve, spinabifida, uses wheelchair, able to transfer, states hx (over 6 yrs ago) of "staph infection" that had I&D and a month of antibiotics IV, not sure if MRSA History of Any Multi-Drug Resistant Organisms: None Reported Past Surgical History: Bariatric Surgery, Orthopedic Surgery Additional Past Surgical History / Comment(s): rt heel cord sx, shunt @ , replaced x2 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 Past Anesthesia/Blood Transfusion Reactions: No Reported Reaction Smoking Status: Never smoker - Past Family History Mother Family Medical History: No Reported History Medications and Allergies Home Medications Medication Instructions Recorded Confirmed Type Carvedilol 25 mg PO QAM 05/20/19 09/14/19 History Bisacodyl [Dulcolax] 5 mg PO DAILY PRN #10 tablet. 09/08/19 09/14/19 Rx Omeprazole [PriLOSEC] 40 mg PO DAILY #30 capsule. 09/08/19 09/14/19 Rx Ondansetron Odt [Zofran Odt] 4 mg PO Q8HR PRN #9 tab 09/08/19 09/14/19 Rx Simethicone 40 mg/0.6 ml Drops 40 mg PO PCHS PRN #30 ml 09/08/19 09/14/19 Rx [Mylicon Drops] oxyCODONE HCL/ACETAMINOPHEN 1 tab PO Q6H 3 Days #12 tab 09/08/19 09/14/19 Rx [oxyCODONE HCL/ACETAMINOPHEN 5-325] Allergies Allergy/AdvReac Type Severity Reaction Status Date / Time latex Allergy Rash/Hives Verified 09/14/19 12:58 morphine AdvReac "panic Verified 09/14/19 12:58 attack" Physical Exam Vitals: Vital Signs Temp Pulse Pulse Resp BP BP Pulse Ox 09/14/19 17:06 111 H 20 117/68 97 09/14/19 15:45 114 H 09/14/19 15:00 100.9 F H 114 H 18 114/56 97 09/14/19 14:28 100.9 F H 116 H 16 119/78 96 09/14/19 14:27 99.9 F H 132 H 98/59 09/14/19 13:00 100.9 F H 132 H 16 114/80 Intake and Output 09/14/19 09/14/19 09/14/19 06:59 14:59 22:59 Intake Total 2990 Output Total 640 Balance 2350 Intake: IV 2990 Output: Urine 600 Estimated Blood Loss 40 Other: Voiding Method Toilet Weight 122.016 kg 122.27 kg Constitutional: No acute distress, seems to be tired just arrived from OR 15 min ago, cooperative , NG tube in place Eyes: Anicteric sclerae, moist conjunctiva, Pupils equal round reactive to light ENMT: NC/AT Oropharynx clear, no erythema, or exudates Neck: Supple, FROM, no masses, or JVD No carotid bruits No thyromegaly Lungs: Clear to auscultation Clear to percussion Normal respiratory effort, no accessory muscle use Cardiovascular: Heart regular in rate and rhythm, No murmurs, gallops, or rubs No peripheral edema Abdominal: abd binder in place limiting exam, bowel sounds negative, abd tender to the touch due to post operative, FIDE drains in place Skin: Normal temperature, tone, texture, turgor superficial ulceration of the sole of the left foot , due to pressure ulceration during prior hospitalization , no evidence of infection , no erythema , no induration , no drainage Extremities: No digital cyanosis No clubbing Pedal pulses intact and symmetrical Radial pulses intact and symmetrical No calf tenderness Psychiatric: Alert and oriented to person, place and time Appropriate affect fair judgement Neuro Muscles Strength 5/5 in bialteral upper extremities , however bilateral lower extremities 2-3/5 at baseline Sensation to light touch grossly present throughout Cranial nerves II-XII grossly intact No focal sensory deficits Lymphatics: no palpable cervical or supraclavicular , or inguinal lymph nodes Results CBC & Chem 7: 09/14/19 13:05 09/14/19 14:15 Labs: Abnormal Lab Results - Last 24 Hours (Table) 09/14/19 09/14/19 Range/Units 13:05 14:15 WBC 24.6 H (3.8-10.6) k/uL RBC 3.63 L (3.80-5.40) m/uL Hgb 9.8 L (11.4-16.0) gm/dL Hct 32.1 L (34.0-46.0) % MCHC 30.7 L (31.0-37.0) g/dL RDW 16.2 H (11.5-15.5) % Neutrophils # 22.1 H (1.3-7.7) k/uL Monocytes # 1.1 H (0-1.0) k/uL BUN 38 H (7-17) mg/dL Creatinine 1.13 H (0.52-1.04) mg/dL Glucose 119 H (74-99) mg/dL AST 42 H (14-36) U/L Assessment and Plan Assessment: post gastric sleeve POD 12 , complicated with gastric leak and perigastric hematoma s/p Exploratory laparotomy, drainage perigastric infected hematoma, nasogastric tube placement, perigastric drain placement POD zero management per General surgery currently on zosyn, flagyl, and fluconazol Acute kidney injury , most likely 2/2 prerenal ATN, due to decrease PO intake avoid nephrotoxic meds IVF hydration monitor urine output history of hypertension , controlled now off medication patient stopped Coreg 12 days ago post operative anemia , complicated by hematoma, stable now close monitoring of hemoglobin PPI IV Daily follow up CBC and renal function local wound care of her left foot superficial ulcer follow up blood culture ,and intraoperative cultures Thank you for allowing us to participate in the care of this patient. Do not hesitate to contact us with questions. Someone can be reached from the [facility] hospitalist group at all hours of the day at [phone].
[2019-09-15] MEDS ORDERED: SODIUM CHLORIDE 0.9% 500 ML 500 ML IV ONE ×2 (01:46→01:47)
[2019-09-15] MEDS: HEPARIN SODIUM,PORCINE 5,000 UNIT/ML 1 ML VIAL SQ SCH ×3 (01:51→15:14)
[2019-09-15] MEDS: HYDROmorphone 1 MG/ML 1 ML SYRINGE IVP PRN ×5 (01:51→21:05)
[2019-09-15] MEDS: metroNIDAZOLE-NS PMX 500 MG in SALINE 1 100ML.BAG IVPB SCH ×3 (01:52→15:14)
[2019-09-15] MEDS: ONDANSETRON 4 MG/2 ML VIAL IVP PRN ×2 (02:08→17:56)
[2019-09-15 02:15] LABS: Amorphous Sediment,Urine Rare /hpf; Appearance,Urine Clear (Clear); Bilirubin,Urine 1+ (Negative); Blood,Urine Small (Negative); Color,Urine Yellow; Glucose,Urine (UA) Negative (Negative); Hyaline Casts,Urine 4 /lpf (0-2); Ketones,Urine 1+ (Negative); Leukocyte Esterase,Urine Negative (Negative); Mucus,Urine Rare /hpf; Nitrite,Urine Negative (Negative); Protein,Urine 1+ (Negative); RBC,Urine 5 /hpf (0-5); Squamous Epithelial Cell,Urine <1 /hpf (0-4); WBC,Urine 5 /hpf (0-5)
[2019-09-15 02:16] LABS: Specific Gravity,Urine >1.050 (1.001-1.035)
[2019-09-15] MEDS: PIPERACILLIN-TAZOBACTAM 3.375 GM in SODIUM CHLORIDE 0.9% 100 ML IVPB SCH ×3 (03:29→17:54)
[2019-09-15 05:13] LABS: Basophils % (A) 0 %; Eosinophils # (A) 0.1 k/uL (0-0.7); Eosinophils % (A) 1 %; HCT 33.3 % (34.0-46.0); HGB 10.1 gm/dL (11.4-16.0); Hypochromasia Marked; Lymphocytes # (A) 0.6 k/uL (1.0-4.8); Lymphocytes % (A) 4 %; MCH 27.9 pg (25.0-35.0); MCHC 30.2 g/dL (31.0-37.0); MCV 92.3 fL (80.0-100.0); Mean Platelet Volume 8.6; Monocytes # (A) 0.7 k/uL (0-1.0); Monocytes % (A) 5 %; Neutrophils # (A) 14.3 k/uL (1.3-7.7); Neutrophils % (A) 90 %; Platelet Count 353 k/uL (150-450); RBC 3.61 m/uL (3.80-5.40); RDW 15.9 % (11.5-15.5); WBC 15.8 k/uL (3.8-10.6)
[2019-09-15] MEDS: 0.9% NACL WITH KCL 20 MEQ/L 1,000 ML IV SCH (05:16)
[2019-09-15 05:19] LABS: African American GFR (CKD) >90 (>60 ml/min/1.73 sqM); Anion Gap 10 mmol/L; Blood Urea Nitrogen 33 mg/dL (7-17); Calcium 7.5 mg/dL (8.4-10.2); Carbon Dioxide 16 mmol/L (22-30); Chloride 113 mmol/L (98-107); Magnesium 1.8 mg/dL (1.6-2.3); Non-African American GFR(CKD) 89 (>60 ml/min/1.73 sqM); Potassium 4.2 mmol/L (3.5-5.1); Sodium 139 mmol/L (137-145)
[2019-09-15 05:43] LABS: Glucose,Whole Blood 118 mg/dL (75-99)
[2019-09-15] MEDS ORDERED: SODIUM CHLORIDE 0.9% 1,000 ML IV ONE (05:51)
[2019-09-15] MEDS ORDERED: Magnesium Replacement Protocol 1 EACH MISC MISCELLANE PRN (05:54)
[2019-09-15] MEDS: ACETAMINOPHEN IV (For NPO) 1,000 MG in EMPTY BAG 1 BAG IVPB SCH ×3 (06:12→17:55)
[2019-09-15] MEDS: MAGNESIUM SULFATE-D5W PMX 1 GM in DEXTROSE/WATER 1 100ML.BAG IVPB SCH ×2 (06:49→12:00)
[2019-09-15] MEDS: ALBUTEROL NEBULIZED 2.5 MG/3 ML INHALATION SCH ×4 (08:08→20:20)
[2019-09-15] MEDS: PANTOPRAZOLE 40 MG/10 ML VIAL IV SCH (08:18)
[2019-09-15] MEDS ORDERED: HYDROmorphone 1 MG/ML 1 ML SYRINGE IVP STA (08:26)
[2019-09-15] MEDS: KETOROLAC 30 MG/ML 1 ML VIAL IVP SCH ×2 (09:44→15:14)
[2019-09-15] MEDS: SODIUM CHLORIDE 0.9% 1,000 ML IV SCH ×3 (09:44→21:01)
--- NOTE | 2019-09-15 09:57 | P.PN ---
<Maria Isabel Stern Gage - Last Filed: 09/15/19 09:46> Subjective Progress Note Date: 09/15/19 CHIEF COMPLAINT: fever HISTORY OF PRESENT ILLNESS: 23-year-old female who is status post exploratory laparotomy, drainage of perigastric infected hematoma, NG tube placement, and perigastric drain placement 2. POD #1. Patient examined this morning at the bedside. Mother present. She reports pain 10/10. Her dilaudid was increased this morning to 1mg every 2 hours. She is receiving IV Tylenol. Urine output has been marginal. She received 2L in fluid boluses. Blood pressure stable. HR elevated. She is afebrile this morning. PHYSICAL EXAM: VITAL SIGNS: Reviewed. GENERAL: Well-developed in no acute distress. HEENT: No sclera icterus. Extraocular movements grossly intact. Moist buccal mucosa. Head is atraumatic, normocephalic. ABDOMEN: Soft. Nondistended. Abdominal dressing clean dry and intact. FIDE drains 2 with bilious output. NG to LIS. Abdominal binder noted. NEUROLOGIC: Alert and oriented. Cranial nerves II through XII grossly intact. ASSESSMENT: 1. Gastric sleeve leak with perigastric hematoma, status post exploratory laparotomy, drainage of perigastric infected hematoma, NG tube placement, and perigastric drain placement 2 PLAN: -Continue NG to LIS -Monitor FIDE drain output -Continue IV fluids at 150cc/hr. Monitor urine output. -Pain control. Continue Dilaudid and IV tylenol. Add Toradol 15mg Q6 hours -Continue antibiotics. Monitor WBC Nurse practitioner note has been reviewed by physician. Signing provider agrees with the documented findings, assessment, and plan of care. Objective - Vital Signs Vital signs: Vital Signs Temp 98.6 F 09/15/19 08:00 Pulse 120 H 09/15/19 09:00 Resp 22 09/15/19 09:00 BP 113/76 09/15/19 09:00 Pulse Ox 92 L 09/15/19 09:00 Intake & Output 09/14/19 09/15/19 09/15/19 18:59 06:59 18:59 Intake Total 1989 3325 1475 Output Total 1190 320 Balance 1989 2135 1155 Weight 122.27 kg 124.9 kg Intake: IV 1989 3125 1475 .9 1000 1000 0.9% NaCl with KCl 20 Meq 525 375 /l 1,000 ml @ 150 mls/hr IV .Q6H40M [facility] Rx#: [id number] metroNIDAZOLE-NS PMX 500 100 mg In Saline 1 100ml.bag @ 100 mls/hr IVPB Q8HR [facility] Rx#:[id number] Intake, IV Titration 200 Amount Fluconazole in NaCl,Iso- 100 Osm 200 mg In Saline 1 100ml.bag @ 100 mls/hr IVPB Q24H [facility] Rx#: [id number] Piperacillin-Tazobactam 3 100 .375 gm In Sodium Chloride 0.9% 100 ml @ 25 mls/hr IVPB Q8HR [facility] Rx# :[id number] Output: Drainage 220 190 Left Lower Abdomen 100 120 Left Upper Abdomen 120 70 Urine 930 130 Estimated Blood Loss 40 Other: Voiding Method Toilet Indwelling Catheter - Labs CBC & Chem 7: 09/15/19 04:44 09/15/19 04:44 Labs: Abnormal Lab Results - Last 24 Hours (Table) 09/14/19 09/14/19 09/14/19 Range/Units 13:05 14:15 21:58 WBC 24.6 H (3.8-10.6) k/uL RBC 3.63 L (3.80-5.40) m/uL Hgb 9.8 L (11.4-16.0) gm/dL Hct 32.1 L (34.0-46.0) % MCHC 30.7 L (31.0-37.0) g/dL RDW 16.2 H (11.5-15.5) % Neutrophils # 22.1 H (1.3-7.7) k/uL Lymphocytes # (1.0-4.8) k/uL Monocytes # 1.1 H (0-1.0) k/uL Chloride (98-107) mmol/L Carbon Dioxide (22-30) mmol/L BUN 38 H (7-17) mg/dL Creatinine 1.13 H (0.52-1.04) mg/dL Glucose 119 H (74-99) mg/dL POC Glucose (mg/dL) 130 H (75-99) mg/dL Calcium (8.4-10.2) mg/dL AST 42 H (14-36) U/L Ur Specific [place] (1.001-1.035) Urine Protein (Negative) Urine Ketones (Negative) Urine Blood (Negative) Urine Bilirubin (Negative) Amorphous Sediment (None) /hpf Hyaline Casts (0-2) /lpf Urine Mucus (None) /hpf 09/15/19 09/15/19 09/15/19 Range/Units 02:00 04:44 04:44 WBC 15.8 H (3.8-10.6) k/uL RBC 3.61 L (3.80-5.40) m/uL Hgb 10.1 L (11.4-16.0) gm/dL Hct 33.3 L (34.0-46.0) % MCHC 30.2 L (31.0-37.0) g/dL RDW 15.9 H (11.5-15.5) % Neutrophils # 14.3 H (1.3-7.7) k/uL Lymphocytes # 0.6 L (1.0-4.8) k/uL Monocytes # (0-1.0) k/uL Chloride 113 H (98-107) mmol/L Carbon Dioxide 16 L (22-30) mmol/L BUN 33 H (7-17) mg/dL Creatinine (0.52-1.04) mg/dL Glucose (74-99) mg/dL POC Glucose (mg/dL) (75-99) mg/dL Calcium 7.5 L (8.4-10.2) mg/dL AST (14-36) U/L Ur Specific [place] >1.050 H (1.001-1.035) Urine Protein 1+ H (Negative) Urine Ketones 1+ H (Negative) Urine Blood Small H (Negative) Urine Bilirubin 1+ H (Negative) Amorphous Sediment Rare H (None) /hpf Hyaline Casts 4 H (0-2) /lpf Urine Mucus Rare H (None) /hpf 09/15/19 Range/Units 05:40 WBC (3.8-10.6) k/uL RBC (3.80-5.40) m/uL Hgb (11.4-16.0) gm/dL Hct (34.0-46.0) % MCHC (31.0-37.0) g/dL RDW (11.5-15.5) % Neutrophils # (1.3-7.7) k/uL Lymphocytes # (1.0-4.8) k/uL Monocytes # (0-1.0) k/uL Chloride (98-107) mmol/L Carbon Dioxide (22-30) mmol/L BUN (7-17) mg/dL Creatinine (0.52-1.04) mg/dL Glucose (74-99) mg/dL POC Glucose (mg/dL) 118 H (75-99) mg/dL Calcium (8.4-10.2) mg/dL AST (14-36) U/L Ur Specific [place] (1.001-1.035) Urine Protein (Negative) Urine Ketones (Negative) Urine Blood (Negative) Urine Bilirubin (Negative) Amorphous Sediment (None) /hpf Hyaline Casts (0-2) /lpf Urine Mucus (None) /hpf <Louis Key - Last Filed: 09/15/19 20:26> Subjective As above. Pain improving. FIDE output brownish colored appears like old blood. Slight bile tinge. PICC line placed today begin TPN. Continue antibiotics. Continue analgesics. Urine output improving. Objective - Vital Signs Vital signs: Vital Signs Temp 98.3 F 09/15/19 16:00 Pulse 90 09/15/19 19:00 Resp 20 09/15/19 19:00 BP 118/79 09/15/19 19:00 Pulse Ox 96 09/15/19 19:00 Intake & Output 09/15/19 09/15/19 09/16/19 06:59 18:59 06:59 Intake Total 3325 4325 150 Output Total 1190 905 260 Balance 2135 3420 -110 Weight 124.9 kg 124.9 kg Intake: IV 3125 4325 150 .9 1000 2000 0.9% NaCl with KCl 20 Meq 525 525 /l 1,000 ml @ 150 mls/hr IV .Q6H40M [facility] Rx#: [id number] ACETAMINOPHEN IV (For NPO 100 ) 1,000 mg In Empty Bag 1 bag @ 400 mls/hr IVPB Q6HR [facility] Rx#:[id number] Magnesium Sulfate-D5w Pmx 100 1 gm In Dextrose/Water 1 100ml.bag @ 100 mls/hr IVPB Q1H [facility] Rx#: [id number] Piperacillin-Tazobactam 3 200 .375 gm In Sodium Chloride 0.9% 100 ml @ 25 mls/hr IVPB Q8HR [facility] Rx# :[id number] Sodium Chloride 0.9% 1, 1200 150 000 ml @ 150 mls/hr IV . Q6H40M [facility] Rx#:[id number] metroNIDAZOLE-NS PMX 500 200 mg In Saline 1 100ml.bag @ 100 mls/hr IVPB Q8HR [facility] Rx#:[id number] Intake, IV Titration 200 Amount Fluconazole in NaCl,Iso- 100 Osm 200 mg In Saline 1 100ml.bag @ 100 mls/hr IVPB Q24H [facility] Rx#: [id number] Piperacillin-Tazobactam 3 100 .375 gm In Sodium Chloride 0.9% 100 ml @ 25 mls/hr IVPB Q8HR [facility] Rx# :[id number] Output: Drainage 220 490 230 Left Lower Abdomen 100 225 110 Left Upper Abdomen 120 265 120 Urine 930 415 30 Estimated Blood Loss 40 Other: Voiding Method Indwelling Catheter Indwelling Catheter - Labs CBC & Chem 7: 09/15/19 04:44 09/15/19 04:44 Labs: Abnormal Lab Results - Last 24 Hours (Table) 09/14/19 09/15/19 09/15/19 Range/Units 21:58 02:00 04:44 WBC 15.8 H (3.8-10.6) k/uL RBC 3.61 L (3.80-5.40) m/uL Hgb 10.1 L (11.4-16.0) gm/dL Hct 33.3 L (34.0-46.0) % MCHC 30.2 L (31.0-37.0) g/dL RDW 15.9 H (11.5-15.5) % Neutrophils # 14.3 H (1.3-7.7) k/uL Lymphocytes # 0.6 L (1.0-4.8) k/uL Chloride (98-107) mmol/L Carbon Dioxide (22-30) mmol/L BUN (7-17) mg/dL POC Glucose (mg/dL) 130 H (75-99) mg/dL Calcium (8.4-10.2) mg/dL Ur Specific [place] >1.050 H (1.001-1.035) Urine Protein 1+ H (Negative) Urine Ketones 1+ H (Negative) Urine Blood Small H (Negative) Urine Bilirubin 1+ H (Negative) Amorphous Sediment Rare H (None) /hpf Hyaline Casts 4 H (0-2) /lpf Urine Mucus Rare H (None) /hpf 09/15/19 09/15/19 09/15/19 Range/Units 04:44 05:40 11:56 WBC (3.8-10.6) k/uL RBC (3.80-5.40) m/uL Hgb (11.4-16.0) gm/dL Hct (34.0-46.0) % MCHC (31.0-37.0) g/dL RDW (11.5-15.5) % Neutrophils # (1.3-7.7) k/uL Lymphocytes # (1.0-4.8) k/uL Chloride 113 H (98-107) mmol/L Carbon Dioxide 16 L (22-30) mmol/L BUN 33 H (7-17) mg/dL POC Glucose (mg/dL) 118 H 118 H (75-99) mg/dL Calcium 7.5 L (8.4-10.2) mg/dL Ur Specific [place] (1.001-1.035) Urine Protein (Negative) Urine Ketones (Negative) Urine Blood (Negative) Urine Bilirubin (Negative) Amorphous Sediment (None) /hpf Hyaline Casts (0-2) /lpf Urine Mucus (None) /hpf 09/15/19 Range/Units 17:54 WBC (3.8-10.6) k/uL RBC (3.80-5.40) m/uL Hgb (11.4-16.0) gm/dL Hct (34.0-46.0) % MCHC (31.0-37.0) g/dL RDW (11.5-15.5) % Neutrophils # (1.3-7.7) k/uL Lymphocytes # (1.0-4.8) k/uL Chloride (98-107) mmol/L Carbon Dioxide (22-30) mmol/L BUN (7-17) mg/dL POC Glucose (mg/dL) 102 H (75-99) mg/dL Calcium (8.4-10.2) mg/dL Ur Specific [place] (1.001-1.035) Urine Protein (Negative) Urine Ketones (Negative) Urine Blood (Negative) Urine Bilirubin (Negative) Amorphous Sediment (None) /hpf Hyaline Casts (0-2) /lpf Urine Mucus (None) /hpf Microbiology - Last 24 Hours (Table) 09/14/19 16:27 Blood Culture - Preliminary Blood No Growth after 24 hours Assessment and Plan (1) Postoperative abdominal pain with fever Current Visit: Yes Status: Acute Code(s): R10.9 - UNSPECIFIED ABDOMINAL PAIN; R50.82 - POSTPROCEDURAL FEVER; G89.18 - OTHER ACUTE POSTPROCEDURAL PAIN SNOMED Code(s): 82530572
[2019-09-15] MEDS ORDERED: LIDOCAINE 1% INJ 10MG/ML (20 ML MDV) ONE (10:16)
[2019-09-15] MEDS ORDERED: LIDOCAINE 1% INJ 10MG/ML (20 ML MDV) SQ ONE (10:52)
--- NOTE | 2019-09-15 11:30 | XR ---
EXAMINATION TYPE: XR chest 1V portable DATE OF EXAM: 09/15/2019 COMPARISON: None HISTORY: Status post PICC line placement TECHNIQUE: frontal view of the chest is obtained on 2 images. FINDINGS: Left-sided PICC line is present with the tip near the level of the cavoatrial junction. Ca lcified retroperitoneal shunt tubing is present. Lung volumes are low. Heart is enlarged. There is no evident pneumothorax or pleural effusion. Subsegmental basilar atelectatic changes are present. Drai n is present in the upper abdomen. There are overlying leads. NG tube is in place. Distal tip courses towards left upper quadrant. IMPRESSION: No evident complication status post PICC line placement.
[2019-09-15 11:58] LABS: Glucose,Whole Blood 118 mg/dL (75-99)
--- NOTE | 2019-09-15 12:14 | CONS ---
CONSULTATION PULMONARY/CRITICAL CARE CONSULTATION: DATE OF SERVICE: 09/15/2019 This is a 23-year-old female who underwent a gastric sleeve procedure on September 02. She apparently also had some issues following surgery including hypotension. The patient also had postoperative anemia. Apparently, a CT scan revealed a hematoma adjacent to the staple line. Subsequent to that, the patient was discharged I believe on September 07. Anyway, the patient was readmitted to the hospital on September 13. She underwent surgery and she is postop day #1 status post exploratory laparotomy, drainage of hematoma, the hematoma was perigastric, NG tube placement, and perigastric drain placement. Currently, other than pain, the patient is resting relatively comfortably. She is on 2 L. She is getting saline with 20 of KCl at 150 am an hour. She also received a 1 L fluid bolus overnight because of hypotension. I did speak to Dr. Key on the phone last night and we agreed to house the patient here in the intensive care unit for a day or so. Currently, she does not look too bad and she is again her only complaint is pain. MEDICAL HISTORY: Includes hypertension, she also has a history of bicuspid aortic valve, spina bifida, but she does use a wheelchair. She has had a previous staph infection and some other minor medical issues. SURGICAL HISTORY: Includes bariatric surgery as mentioned above, right heel surgery, and a recent sleeve gastrectomy on September 02. SOCIAL HISTORY: Negative tobacco, alcohol or illicit drug use. FAMILY HISTORY: Noncontributory. Parents are healthy. HOME MEDICATIONS: Include Coreg, Dulcolax, Prilosec, Zofran, Mylicon tablets, and oxycodone/Tylenol. ALLERGIES: LATEX and MORPHINE. REVIEW OF SYSTEMS: CONSTITUTIONAL: Negative. NEUROLOGIC: Negative. HEENT: Negative. CARDIOVASCULAR: Negative. PULMONARY: Negative. GI: Abdominal pain : Negative. RHEUMATOLOGIC: Negative. IMMUNOLOGIC: Negative. ENDOCRINOLOGIC: Negative. DERMATOLOGIC: Negative. Current vital signs reviewed. Temperature 98.8, heart rate 117 and sinus, respiratory rate 20, blood pressure 104/84 mean 90, saturations 96%. Appears in no acute distress. Resting comfortably. No signs or symptoms of respiratory difficulty. HEENT: Examination is grossly unremarkable. Nasal O2 in place. NECK: Supple. CARDIOVASCULAR: Examination reveals tachycardia. Heart rate about 112-115 beats per minute. It is regular. S1, S2 normal. No murmur. LUNGS: Reveal clear breath sounds. She does not take real deep breaths. No distinct wheezes, rhonchi, or crackles. ABDOMEN: Soft. Tender on palpation. No bowel sounds. EXTREMITIES: Reveal some edema. SKIN: Without rash. NEUROLOGIC: Examination is nonfocal. LAB DATA: Reviewed. White count 15.8, hemoglobin 10.1, hematocrit 33.3, platelet count 353,000. Sodium, potassium normal. Chloride is 113, CO2 is 16, anion gap is 10. BUN and creatinine were 33 and 0.91. The pattern here is consistent with a hyperchloremic non- anion gap metabolic acidosis. AST is 42. Urine screen was negative. Urine was yellow and clear, graded specific gravity is greater than 1.050 but 1+ protein, ketones are small positive 1+ bilirubin. This urine is consistent with dehydration. Microbiology is negative. The abdominal, pelvic CT shows 9.8 x 10.5 cm heterogeneous collection anterior to the pancreas left of the midline, communicating with the stomach superiorly compatible with a leak. Abscess formation is not identified. There is scattered air within the structure. There is a small amount of free air which is adjacent to the spleen. There is cholelithiasis, small bowel ileus. This is all reported to Dr. Key which is why he took her back to the operating room. MEDICATIONS: Reviewed. Currently, the patient is on Tylenol IV as needed, albuterol updrafts, Benadryl, fluconazole, subcu heparin, Dilaudid, magnesium replacement, Reglan, metronidazole, Narcan, Zofran, Protonix, and Zosyn. ASSESSMENT: 1. Postoperative day #1 status post exploratory laparotomy with perigastric hematoma drainage, placement of NG tube, perigastric drain placement. This is subsequent to a gastric sleeve procedure on September 02. 2. Rule out peritonitis secondary to gastric sleeve leak. 3. History of spina bifida. 4. History of bicuspid aortic valve. 5. Prior history of staph infection. 6. History of hypertension. PLAN: Currently, the patient is receiving 2 L nasal cannula. She appears to be relatively stable. Blood pressure was low throughout the night. She did receive 2 fluid boluses of 1 L each. She is currently on 0.9 at 20 of KCl at 150 am an hour. She appears relatively stable and has no major complaints today for pain at the surgical site. MMODL / IJN: [id number] /
--- NOTE | 2019-09-15 13:04 | P.PN ---
Subjective Progress Note Date: 09/15/19 Patient is complaining of abdominal pain. She is rating her pain as 10 out of 10 in severity. She denies nausea or vomiting. Objective - Vital Signs Vital signs: Vital Signs Temp 98.6 F 09/15/19 12:00 Pulse 110 H 09/15/19 12:00 Resp 28 H 09/15/19 12:00 BP 110/74 09/15/19 12:00 Pulse Ox 98 09/15/19 12:00 Intake & Output 09/14/19 09/15/19 09/15/19 18:59 06:59 18:59 Intake Total 1989 3325 3125 Output Total 1190 475 Balance 1989 2135 2650 Weight 122.27 kg 124.9 kg Intake: IV 1989 312 3125 .9 1000 2000 0.9% NaCl with KCl 20 Meq 525 525 /l 1,000 ml @ 150 mls/hr IV .Q6H40M [facility] Rx#: [id number] Magnesium Sulfate-D5w Pmx 100 1 gm In Dextrose/Water 1 100ml.bag @ 100 mls/hr IVPB Q1H [facility] Rx#: [id number] Piperacillin-Tazobactam 3 100 .375 gm In Sodium Chloride 0.9% 100 ml @ 25 mls/hr IVPB Q8HR [facility] Rx# :[id number] Sodium Chloride 0.9% 1, 300 000 ml @ 150 mls/hr IV . Q6H40M [facility] Rx#:[id number] metroNIDAZOLE-NS PMX 500 100 mg In Saline 1 100ml.bag @ 100 mls/hr IVPB Q8HR [facility] Rx#:[id number] Intake, IV Titration 200 Amount Fluconazole in NaCl,Iso- 100 Osm 200 mg In Saline 1 100ml.bag @ 100 mls/hr IVPB Q24H [facility] Rx#: [id number] Piperacillin-Tazobactam 3 100 .375 gm In Sodium Chloride 0.9% 100 ml @ 25 mls/hr IVPB Q8HR [facility] Rx# :[id number] Output: Drainage 220 295 Left Lower Abdomen 100 150 Left Upper Abdomen 120 145 Urine 930 180 Estimated Blood Loss 40 Other: Voiding Method Toilet Indwelling Catheter Indwelling Catheter - Exam General: The patient is awake and alert, in no distress Eye: there is normal conjunctiva bilaterally. Neck: The neck is supple, there is no JVD. Cardiovascular: Normal S1-S2, no S3-S4, no murmurs. Respiratory: Lungs clear to auscultation bilaterally Gastrointestinal: Abdomen is severely tender to palpation. Abdominal binder in place. Musculoskeletal: There is no pedal edema. Neurological:. Speech is normal. Skin: Skin is warm and dry - Labs CBC & Chem 7: 09/15/19 04:44 09/15/19 04:44 Labs: Abnormal Lab Results - Last 24 Hours (Table) 09/14/19 09/14/19 09/14/19 Range/Units 13:05 14:15 21:58 WBC 24.6 H (3.8-10.6) k/uL RBC 3.63 L (3.80-5.40) m/uL Hgb 9.8 L (11.4-16.0) gm/dL Hct 32.1 L (34.0-46.0) % MCHC 30.7 L (31.0-37.0) g/dL RDW 16.2 H (11.5-15.5) % Neutrophils # 22.1 H (1.3-7.7) k/uL Lymphocytes # (1.0-4.8) k/uL Monocytes # 1.1 H (0-1.0) k/uL Chloride (98-107) mmol/L Carbon Dioxide (22-30) mmol/L BUN 38 H (7-17) mg/dL Creatinine 1.13 H (0.52-1.04) mg/dL Glucose 119 H (74-99) mg/dL POC Glucose (mg/dL) 130 H (75-99) mg/dL Calcium (8.4-10.2) mg/dL AST 42 H (14-36) U/L Ur Specific [place] (1.001-1.035) Urine Protein (Negative) Urine Ketones (Negative) Urine Blood (Negative) Urine Bilirubin (Negative) Amorphous Sediment (None) /hpf Hyaline Casts (0-2) /lpf Urine Mucus (None) /hpf 09/15/19 09/15/19 09/15/19 Range/Units 02:00 04:44 04:44 WBC 15.8 H (3.8-10.6) k/uL RBC 3.61 L (3.80-5.40) m/uL Hgb 10.1 L (11.4-16.0) gm/dL Hct 33.3 L (34.0-46.0) % MCHC 30.2 L (31.0-37.0) g/dL RDW 15.9 H (11.5-15.5) % Neutrophils # 14.3 H (1.3-7.7) k/uL Lymphocytes # 0.6 L (1.0-4.8) k/uL Monocytes # (0-1.0) k/uL Chloride 113 H (98-107) mmol/L Carbon Dioxide 16 L (22-30) mmol/L BUN 33 H (7-17) mg/dL Creatinine (0.52-1.04) mg/dL Glucose (74-99) mg/dL POC Glucose (mg/dL) (75-99) mg/dL Calcium 7.5 L (8.4-10.2) mg/dL AST (14-36) U/L Ur Specific [place] >1.050 H (1.001-1.035) Urine Protein 1+ H (Negative) Urine Ketones 1+ H (Negative) Urine Blood Small H (Negative) Urine Bilirubin 1+ H (Negative) Amorphous Sediment Rare H (None) /hpf Hyaline Casts 4 H (0-2) /lpf Urine Mucus Rare H (None) /hpf 09/15/19 09/15/19 Range/Units 05:40 11:56 WBC (3.8-10.6) k/uL RBC (3.80-5.40) m/uL Hgb (11.4-16.0) gm/dL Hct (34.0-46.0) % MCHC (31.0-37.0) g/dL RDW (11.5-15.5) % Neutrophils # (1.3-7.7) k/uL Lymphocytes # (1.0-4.8) k/uL Monocytes # (0-1.0) k/uL Chloride (98-107) mmol/L Carbon Dioxide (22-30) mmol/L BUN (7-17) mg/dL Creatinine (0.52-1.04) mg/dL Glucose (74-99) mg/dL POC Glucose (mg/dL) 118 H 118 H (75-99) mg/dL Calcium (8.4-10.2) mg/dL AST (14-36) U/L Ur Specific [place] (1.001-1.035) Urine Protein (Negative) Urine Ketones (Negative) Urine Blood (Negative) Urine Bilirubin (Negative) Amorphous Sediment (None) /hpf Hyaline Casts (0-2) /lpf Urine Mucus (None) /hpf Assessment and Plan Assessment: post gastric sleeve POD 12 , complicated with gastric leak and perigastric hematoma s/p Exploratory laparotomy, drainage perigastric infected hematoma, nasogastric tube placement, perigastric drain placement POD #1 management per General surgery Antibiotic per infectious disease. Acute kidney injury: Resolved with IV fluid hydration, most likely 2/2 prerenal ATN, due to decrease PO intake avoid nephrotoxic meds IVF hydration monitor urine output history of hypertension , controlled now off medication patient stopped Coreg 12 days ago post operative anemia , complicated by hematoma, stable now close monitoring of hemoglobin PPI IV Daily follow up CBC and renal function local wound care of her left foot superficial ulcer follow up blood culture ,and intraoperative cultures
--- NOTE | 2019-09-15 13:34 | CDI ---
Documentation Clarification Form Date: 09/15/2019 01:22:12 PM From: Rupal Gomez CCS, CCDS Admit Date: 09/14/2019 02:51:00 PM Patient Name: Ivy Quevedo Visit Number: [id number] Discharge Date: ATTENTION: The Clinical Documentation Specialists (CDI) and [facility] Coding Staff appreciate your assistance in clarifying documentation. Please respond to the clarification below the line at the bottom and electronically sign. The CDI & [facility] Coding staff will review the response and follow-up if needed. Please note: Queries are made part of the Legal Health Record. If you have any questions, please contact the author of this message via ITS. Dr. Jose G Venegas or Dr. Cynthia Samuels: Postoperative Anemia is documented in the 09/13 Medical Management Consult without further specificity. History/Risk Factors: Morbid obesity, BMI >50, Hypertension, Spinabifida. Clinical indicators: Patient had a gastric sleeve on 09/03/2019, developed a postoperative hematoma which was monitored, patient discharged to home. Developed hematemesis, nausea, vomiting & tachycardia. Readmitted 09/13 with a postoperative infected hematoma requiring exploratory laparotomy, drainage of perigastric infected hematoma, NGT placement & perigastric drain placement. Also diagnosed with anemia & ZACHARY/ATN. Hemoglobin 09/13: 9.8*, 09/14: 10.1* Hematocrit 09/13: 32.1*, 09/14: 33.3* Treatment: Surgery as above, H/H, IV Zofran, IV fluid 1,000 mls @ 999/hr x4, IV Kcl, IV Zosyn, IV Lactated Ringers, IV Dilaudid, IV Fluconazole/NaCl, IV Flagyl, In order to capture the severity of condition, please clarify the type of anemia and etiology if known:. Acute blood loss anemia Acute on chronic blood loss anemia Chronic blood loss anemia, please specify chronic condition: Nutritional anemia Unable to determine Other, please specify (Last Form Revision: May 2019) MTDD
--- NOTE | 2019-09-15 14:37 | IR ---
EXAMINATION TYPE: IR cvc insert >=5 years DATE OF EXAM: 09/15/2019 COMPARISON: NONE HISTORY: Postop gastric leak, infection FINDINGS: Maximal barrier technique was utilized. Hand hygiene obtained with soap and water and alco hol-based hand rub. The skin overlying the left basilic vein was localized with ultrasound and noted to be compressible and patent by ultrasound. An ultrasound image was obtained and submitted on [facility]. Sterile technique utilized with the ultrasound machine. The skin overlying was prepped an d draped and Lidocaine used for local anesthesia. A skin rosalba was made with a scalpel. Access was g ained to the vein under direct ultrasound guidance with a 21-gauge needle and a 0.018 inch wire was a dvanced. Access site was dilated with a peel-away sheath and the catheter tailored to length. María ter advanced centrally and a post procedure chest x-ray verified placement with the tip in the right atrium. Catheter was fixed to the skin and a sterile dressing placed. Hemostasis achieved and the c atheter was aspirated and flushed with sterile saline. The patient remained in stable condition. IMPRESSION: STATUS POST ULTRASOUND GUIDED PICC LINE PLACEMENT, READY FOR USE. THIS PROCEDURE WAS PER FORMED BY THE UNDERSIGNED.
--- NOTE | 2019-09-15 16:04 | CONS ---
CONSULTATION Mrs. Quevedo is a 23-year-old female who underwent gastric sleeve bypass on September 02. Postoperatively she had an episode of hypotension, subsequently improved, went home and came back with severe persistent abdominal pain for about 48 hours with some hematemesis. Cardiology consultation was requested because of episode of tachycardia. The patient has a known history of bicuspid aortic valve. She is followed by Dr. Koehler in that regard, but has no other cardiac history. Her activity is limited because of prior surgery on her leg and deformities. She has usual dyspnea on exertion. She has some peripheral edema. She has no chest pain. No dizziness. No palpitation. No syncope in the past. Reviewing the rhythm strip, she is in sinus mechanism with episode of sinus tachycardia. She has some episodes of hypotension that have resolved. She was taken back to the operating room by Dr. Key and was found to have a perigastric hematoma with gastric sleeve leak, and she had drainage. Her coronary risk factors are positive for hypertension. She is not diabetic. She is not a smoker. MEDICATION: Her medications in the past included carvedilol 25 mg daily, Prilosec, Zofran. PAST MEDICAL HISTORY: Her past medical history is remarkable for history of spina bifida, status post surgical intervention, history of surgery on her lower extremities and JAVA ENGINEER shunt. REVIEW OF SYSTEMS: RESPIRATORY SYSTEM: She has no documented history of asthma, emphysema, bronchitis. GI SYSTEM: She had hematemesis, as noted, and the abdominal pain. SYSTEM: No dysuria or hematuria. NERVOUS SYSTEM: No history of stroke or seizure. PHYSICAL EXAMINATION: She is a 23-year-old female. NG tube in place. Alert, oriented, in no apparent distress. Blood pressure running in the 100 to 110s with a heart rate in the 110s to 120s, sinus. Afebrile. HEAD: Normocephalic. Eyes: Sclerae nonicteric. NECK: Good carotid upstroke. No bruit. No jugular venous distention. LUNGS: Clear to auscultation. HEART: Regular rate and rhythm. S1, S2. No S3, with systolic murmur 2/6 at the left upper sternal border. No diastolic murmur. No rub. ABDOMEN: Soft, obese. Drain in place. Mild tenderness. EXTREMITIES: Deformities noted. Mild edema noted as well. LAB DATA: Lab data revealed a BUN and creatinine of 33 and 0.91, hemoglobin 10.1, white blood cells of 15.8. Chest x-ray performed today revealed no evidence of infiltrate. IMPRESSION: 1. Status post gastric sleeve bypass and subsequent perigastric hematoma and leak. 2. Episode of sinus tachycardia and episode of hypotension related to the infectious process after surgery and pain. 3. History of bicuspid aortic valve with no evidence to suggest a complication. 4. History of spina bifida and subsequent surgery. 5. History of JAVA ENGINEER shunt. RECOMMENDATIONS: From the cardiac standpoint, I will continue observation. I will obtain echocardiogram with Doppler. I do not see any evidence of malignant arrhythmia. Depending on her progress, further recommendations will be made. Thank you for this consult. Will follow with you. VILMAL / IJN: [id number] /
--- NOTE | 2019-09-15 16:17 | P.CONS ---
History of Present Illness - Reason for Consult Consult date: 09/14/19 Abdominal infection Requesting physician: Louis Key - Chief Complaint Fever and vomiting 2 days - History of Present Illness Patient is a 23-year-old female who is status post sleeve gastrectomy on 09/03/2019 patient to apparently did have a hypertensive episode of post surgery and has developed anemia she did have a CT with evidence of hematoma adjacent to the staple line patient subsequently discharged home 5 days postop and was doing okay until a few days ago and the patient started having a abdominal pain which was mostly sudden onset insulin-dependent more often excruciating and shop almost 10 out of 10 in severity with some nausea and did have an episode of hematemesis the patient also having a fever with these symptoms the patient has been evaluated by her surgeon she was noticed to have temperature and tachycardia she has been admitted directly to the hospital, CT of abdominal pelvis has been completed with evidence of 9.8 x 10.5 cm het erogeneous collection anterior to the pancreas community with the stomach superiorly with concern for a leak and abscess formation patient is scheduled for surgical aspiration this afternoon infection disease was consulted for further management of antibiotic therapy, workup so far includes patient white count 24.6 patient also noticed to be tachycardic and a fever 100.9F Review of Systems Positive point has been mentioned in the HPI rest of the systems are negative Past Medical History Past Medical History: Hypertension, Musculoskeletal Disorder, Neurologic Disorder Additional Past Medical History / Comment(s): states has a bicuspid aortic valve, spinabifida, uses wheelchair, able to transfer, states hx (over 6 yrs ago) of "staph infection" that had I&D and a month of antibiotics IV, not sure if MRSA History of Any Multi-Drug Resistant Organisms: None Reported Past Surgical History: Bariatric Surgery, Orthopedic Surgery Additional Past Surgical History / Comment(s): rt heel cord sx, shunt @ , replaced x2 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 Past Anesthesia/Blood Transfusion Reactions: No Reported Reaction Smoking Status: Never smoker - Past Family History Mother Family Medical History: No Reported History Medications and Allergies Home Medications Medication Instructions Recorded Confirmed Type Carvedilol 25 mg PO QAM 05/20/19 09/14/19 History Bisacodyl [Dulcolax] 5 mg PO DAILY PRN #10 tablet. 09/08/19 09/14/19 Rx Omeprazole [PriLOSEC] 40 mg PO DAILY #30 capsule. 09/08/19 09/14/19 Rx Ondansetron Odt [Zofran Odt] 4 mg PO Q8HR PRN #9 tab 09/08/19 09/14/19 Rx Simethicone 40 mg/0.6 ml Drops 40 mg PO PCHS PRN #30 ml 09/08/19 09/14/19 Rx [Mylicon Drops] oxyCODONE HCL/ACETAMINOPHEN 1 tab PO Q6H 3 Days #12 tab 09/08/19 09/14/19 Rx [oxyCODONE HCL/ACETAMINOPHEN 5-325] Allergies Allergy/AdvReac Type Severity Reaction Status Date / Time latex Allergy Rash/Hives Verified 09/14/19 12:58 morphine AdvReac "panic Verified 09/14/19 12:58 attack" Physical Exam Vitals: Vital Signs Temp Pulse Resp BP Pulse Ox 09/14/19 14:28 100.9 F H 116 H 16 119/78 96 09/14/19 14:27 99.9 F H 132 H 98/59 09/14/19 13:00 100.9 F H 132 H 16 114/80 Intake and Output 09/14/19 09/14/19 09/14/19 06:59 14:59 22:59 Other: Weight 122.016 kg GENERAL DESCRIPTION: Young female up in the chair, no distress. No tachypnea or accessory muscle of respiration use. HEENT: Shows Pallor , no scleral icterus. Oral mucous membrane is dry. No pharyngeal erythema or thrush NECK: Trachea central, no thyromegaly. LUNGS: Unlabored breathing. Clear to auscultation anteriorly. No wheeze or crackle. HEART: S1, S2, regular rate and rhythm. No loud murmur ABDOMEN: Soft, mild epigastric tenderness , no guarding or rigidity, no organomegaly EXTREMITIES: No edema of feet. SKIN: No rash, no masses palpable. NEUROLOGICAL: The patient is awake, alert, oriented x3, mood and affect normal. Results CBC & Chem 7: 09/15/19 04:44 09/15/19 04:44 Labs: Abnormal Lab Results - Last 24 Hours (Table) 09/14/19 09/14/19 Range/Units 13:05 14:15 WBC 24.6 H (3.8-10.6) k/uL RBC 3.63 L (3.80-5.40) m/uL Hgb 9.8 L (11.4-16.0) gm/dL Hct 32.1 L (34.0-46.0) % MCHC 30.7 L (31.0-37.0) g/dL RDW 16.2 H (11.5-15.5) % Neutrophils # 22.1 H (1.3-7.7) k/uL Monocytes # 1.1 H (0-1.0) k/uL BUN 38 H (7-17) mg/dL Creatinine 1.13 H (0.52-1.04) mg/dL Glucose 119 H (74-99) mg/dL AST 42 H (14-36) U/L Assessment and Plan Assessment: 1- patient present hospital with sepsis in this patient did have fever tachycardia and elevated white count in this patient who did have recent sleeve gastrectomy and high clinical suspicious for infected hematoma in this patient who did have a postoperative bleed after surgery and will need to cover for the enteric gram-negative more likely aerobes in addition to the yeast (1) Sepsis Current Visit: Yes Status: Acute Code(s): A41.9 - SEPSIS, UNSPECIFIED ORGANISM SNOMED Code(s): 46524621 (2) Intra-abdominal abscess Current Visit: Yes Status: Acute Code(s): K65.1 - PERITONEAL ABSCESS SNOMED Code(s): 54716758 Plan: 1- blood cultures 2 2-Zosyn 3.375 g every 8 hours and Diflucan 200 IV daily 3-IV fluids We will follow on clinical condition and cultures to further adjust medication if needed Thank you for this consultation will follow this patient with you Time with Patient: Greater than 30
[2019-09-15 17:55] LABS: Glucose,Whole Blood 102 mg/dL (75-99)
[2019-09-15 20:37] LABS: Glucose,Whole Blood 102 mg/dL (75-99)
[2019-09-15] MEDS: FLUCONAZOLE IN NACL,ISO-OSM 200 MG in SALINE 1 100ML.BAG IVPB SCH (20:57)
[2019-09-15] MEDS: METOCLOPRAMIDE 5 MG/ML 2 ML VIAL IVP PRN (21:03)
[2019-09-15] MEDS: diphenhydrAMINE 50 MG/ML 1 ML VIAL IVP PRN (22:16)
--- NOTE | 2019-09-15 23:02 | PN ---
PROGRESS NOTE DATE OF SERVICE: 09/15/2019 REASON FOR FOLLOWUP: Intraabdominal abscess. INTERVAL HISTORY: The patient is currently afebrile. The patient is status post extensive surgery last night. The patient has tolerated it. She is admitted to the ICU for a course of observation. No chest pain, shortness of breath or cough. Abdominal pain is currently controlled. No nausea. No vomiting. PHYSICAL EXAMINATION: Blood pressure 125/74 with a pulse of 93, temperature 98.3. She is 96% on 2 L nasal cannula. General description is a young female lying in bed in no distress. RESPIRATORY SYSTEM: Unlabored breathing. Clear to auscultation anteriorly. HEART: S1, S2. Regular rate and rhythm. ABDOMEN: Soft. Mildly tender. No guarding or rigidity. LABS: Hemoglobin is 10.1, white count 15.8. BUN of 33, creatinine 0.91. Blood culture so far negative. DIAGNOSTIC IMPRESSION AND PLAN: Patient with a fever and possibly infected hematoma, status post drainage. The patient is currently covered with Zosyn and Diflucan; to continue while monitoring her clinical course closely. Continue with supportive care. MMODL / IJN: [id number] /
[2019-09-15 23:44] LABS: Glucose,Whole Blood 99 mg/dL (75-99)
[2019-09-16] MEDS: ACETAMINOPHEN IV (For NPO) 1,000 MG in EMPTY BAG 1 BAG IVPB SCH (00:22)
[2019-09-16] MEDS: HEPARIN SODIUM,PORCINE 5,000 UNIT/ML 1 ML VIAL SQ SCH ×3 (00:23→16:26)
[2019-09-16] MEDS: KETOROLAC 30 MG/ML 1 ML VIAL IVP SCH ×4 (00:23→17:58)
[2019-09-16] MEDS: metroNIDAZOLE-NS PMX 500 MG in SALINE 1 100ML.BAG IVPB SCH ×3 (00:24→16:26)
[2019-09-16] MEDS: PIPERACILLIN-TAZOBACTAM 3.375 GM in SODIUM CHLORIDE 0.9% 100 ML IVPB SCH ×3 (00:25→16:00)
[2019-09-16] MEDS: HYDROmorphone 1 MG/ML 1 ML SYRINGE IVP PRN ×6 (02:25→22:18)
[2019-09-16] MEDS: ONDANSETRON 4 MG/2 ML VIAL IVP PRN (02:38)
[2019-09-16] MEDS: METOCLOPRAMIDE 5 MG/ML 2 ML VIAL IVP PRN (04:44)
[2019-09-16] MEDS: SODIUM CHLORIDE 0.9% 1,000 ML IV SCH ×3 (04:45→19:50)
[2019-09-16 05:59] LABS: Glucose,Whole Blood 92 mg/dL (75-99)
[2019-09-16 07:03] LABS: Anisocytosis Slight; HCT 26.2 % (34.0-46.0); Hypochromasia Marked; MCH 26.2 pg (25.0-35.0); MCHC 28.5 g/dL (31.0-37.0); MCV 91.8 fL (80.0-100.0); Platelet Count 271 k/uL (150-450); RBC 2.85 m/uL (3.80-5.40); RDW 16.3 % (11.5-15.5)
[2019-09-16 07:06] LABS: African American GFR (CKD) >90 (>60 ml/min/1.73 sqM); Anion Gap 4 mmol/L; Blood Urea Nitrogen 25 mg/dL (7-17); Calcium 7.1 mg/dL (8.4-10.2); Carbon Dioxide 19 mmol/L (22-30); Chloride 120 mmol/L (98-107); Glucose 82 mg/dL (74-99); Non-African American GFR(CKD) >90 (>60 ml/min/1.73 sqM); Potassium 3.8 mmol/L (3.5-5.1); Sodium 143 mmol/L (137-145)
[2019-09-16 07:29] LABS: HGB 7.5 gm/dL (11.4-16.0)
[2019-09-16] MEDS ORDERED: DEXTROSE 5%-0.45% NACL 1,000 ML IV SCH (07:30)
[2019-09-16] MEDS: PANTOPRAZOLE 40 MG/10 ML VIAL IV SCH (07:41)
--- NOTE | 2019-09-16 08:00 | ECHOF ---
Referral Reason:bicuspid aortic valve MEASUREMENTS -------- HEIGHT: 149.9 cm WEIGHT: 124.7 kg BP: 96/66 RVIDd: 2.9 cm (< 3.3) IVSd: 1.3 cm (0.6 - 1.1) LVIDd: 4.1 cm (3.9 - 5.3) LVPWd: 1.3 cm (0.6 - 1.1) IVSs: 1.9 cm LVIDs: 2.4 cm LVPWs: 1.8 cm LA Diam: 3.2 cm (2.7 - 3.8) Ao Diam: 3.0 cm (2.0 - 3.7) AV Cusp: 2.3 cm (1.5 - 2.6) MV EXCURSION: 20.174 mm (> 18.000) MV EF SLOPE: 47 mm/s (70 - 150) EPSS: 1.1 cm MV E Neftali: 0.81 m/s MV DecT: 218 ms MV A Neftali: 0.95 m/s MV E/A Ratio: 0.85 AV maxP.27 mmHg AV meanP.15 mmHg RAP: 5.00 mmHg RVSP: 30.88 mmHg FINDINGS -------- This was a technically adequate study. The left ventricular size is normal. There is mild concentric left ventricular hypertrophy. Overa ll left ventricular systolic function is normal with, an EF between 60 - 65 %. The right ventricle is normal in size. The left atrial size is normal. The right atrium is normal in size. Interatrial and interventricular septum intact. The aortic valve is bicuspid. Trace amount of aortic regurgitation. Peak/mean gradient across th e Aortic Valve is 17.27mmHg / 12.15mmHg. The mitral valve is normal. Mild tricuspid regurgitation present. Right ventricular systolic pressure is normal at < 35 mmHg. There is no pulmonic regurgitation present. The aortic root size is normal. There is no pericardial effusion. CONCLUSIONS -------- 1. This was a technically adequate study. 2. The left ventricular size is normal. 3. There is mild concentric left ventricular hypertrophy. 4. Overall left ventricular systolic function is normal with, an EF between 60 - 65 %. 5. The right ventricle is normal in size. 6. The left atrial size is normal. 7. The right atrium is normal in size. 8. Interatrial and interventricular septum intact. 9. The aortic valve is bicuspid. 10. Trace amount of aortic regurgitation. 11. Peak/mean gradient across the Aortic Valve is 17.27mmHg / 12.15mmHg. 12. The mitral valve is normal. 13. Mild tricuspid regurgitation present. 14. Right ventricular systolic pressure is normal at < 35 mmHg. 15. There is no pulmonic regurgitation present. 16. The aortic root size is normal. 17. There is no pericardial effusion. ANIMAL CONTROL SUPERVISOR: Johanna Pedroza RDCS
[2019-09-16] MEDS: ALBUTEROL NEBULIZED 2.5 MG/3 ML INHALATION SCH ×4 (08:05→19:29)
--- NOTE | 2019-09-16 09:19 | PN ---
PROGRESS NOTE Mrs. Quevedo is a 23-year-old female who was admitted to the hospital post gastric sleeve surgery done about 10 days ago and had abdominal pain and bleed from the anastomotic site. Cardiology consultation was requested because of episode of tachycardia. The patient has a history of bicuspid aortic valve, but no history of significant aortic regurgitation or stenosis according to her. She is feeling well this morning. Her breathing is stable. She is denying any chest pain. Hemodynamically, she is stable. She is on no vasopressors. She continues to be on her antibiotics and has been seen by the Infectious Disease service. PHYSICAL EXAMINATION: Blood pressure 107/70 with a heart rate in the high 90s, afebrile. LUNGS: Clear. HEART: Regular rate and rhythm, S1, S2. No S3 with systolic murmur heard at the base, ejection type, no diastolic murmur, no rub. ABDOMEN: Soft. The dressing in place. Mild tenderness. EXTREMITIES: Trace to 1+ edema. There were deformities noted. LAB DATA: Revealed BUN and creatinine 25 and 0.71, potassium 3.8. Chloride of 120. IMPRESSION: 1. Status post exploratory laparotomy with evidence of hematoma infection following gastric sleeve surgery. 2. Sinus tachycardia, improved related to the infectious process and the surgery. 3. History of bicuspid aortic valve, stable. 4. History of CURRENCY COUNTER shunt. 5. History of spina bifida. RECOMMENDATION: From the cardiac standpoint, I will review the results for echocardiogram. If there is no significant abnormality, then no further cardiac workup will be needed. MMODL / IJN: [id number] /
--- NOTE | 2019-09-16 09:59 | P.PN ---
<SternMaria Isabel Gage - Last Filed: 09/16/19 09:53> Subjective Progress Note Date: 09/16/19 CHIEF COMPLAINT: fever HISTORY OF PRESENT ILLNESS: 23-year-old female who is status post exploratory laparotomy, drainage of perigastric infected hematoma, NG tube placement, and perigastric drain placement 2. POD #2. Patient examined this morning at the bedside. Mother present. Patient states her pain has improved. Currently rating 2/10. NG with minimal drainage. FIDE drains continue to have significant output. Patient is passing flatus. Patients hemoglobin 7.5 today, down from 10.1. She did receive a few liters in boluses yesterday secondary to decreased urine output. WBC 8.0. PHYSICAL EXAM: VITAL SIGNS: Reviewed. GENERAL: Well-developed in no acute distress. HEENT: No sclera icterus. Extraocular movements grossly intact. Moist buccal mucosa. Head is atraumatic, normocephalic. ABDOMEN: Soft. Nondistended. Abdominal dressing clean dry and intact. FIDE drains 2 with brown bile tinged output. NG to LIS. Abdominal binder noted. NEUROLOGIC: Alert and oriented. Cranial nerves II through XII grossly intact. ASSESSMENT: 1. Gastric sleeve leak with perigastric hematoma, status post exploratory laparotomy, drainage of perigastric infected hematoma, NG tube placement, and perigastric drain placement 2 PLAN: -Continue NG to LIS -Monitor FIDE drain output -Begin TPN today. Continue IVF. Total IVF to equal 125cc/hr -Pain control. Continue current regimen -Continue antibiotics. Monitor WBC -Monitor hemoglobin -Dressing changed at the bedside with RN. Nurse practitioner note has been reviewed by physician. Signing provider agrees with the documented findings, assessment, and plan of care. Objective - Vital Signs Vital signs: Vital Signs Temp 98.3 F 09/16/19 08:00 Pulse 109 H 09/16/19 09:00 Resp 19 09/16/19 09:00 BP 119/79 09/16/19 09:00 Pulse Ox 97 09/16/19 09:00 Intake & Output 09/15/19 09/16/19 09/16/19 18:59 06:59 18:59 Intake Total 4325 2100 600 Output Total 905 1225 110 Balance 3420 875 490 Weight 124.9 kg 130.2 kg Intake: IV 4325 2100 600 .9 2000 0.9% NaCl with KCl 20 Meq 525 /l 1,000 ml @ 150 mls/hr IV .Q6H40M [facility] Rx#: [id number] ACETAMINOPHEN IV (For NPO 100 100 ) 1,000 mg In Empty Bag 1 bag @ 400 mls/hr IVPB Q6HR [facility] Rx#:[id number] Magnesium Sulfate-D5w Pmx 100 1 gm In Dextrose/Water 1 100ml.bag @ 100 mls/hr IVPB Q1H [facility] Rx#: [id number] Piperacillin-Tazobactam 3 200 100 50 .375 gm In Sodium Chloride 0.9% 100 ml @ 25 mls/hr IVPB Q8HR [facility] Rx# :[id number] Sodium Chloride 0.9% 1, 1200 1800 450 000 ml @ 150 mls/hr IV . Q6H40M [facility] Rx#:[id number] metroNIDAZOLE-NS PMX 500 200 100 100 mg In Saline 1 100ml.bag @ 100 mls/hr IVPB Q8HR [facility] Rx#:[id number] Output: Drainage 490 780 10 Left Lower Abdomen 225 260 10 Left Upper Abdomen 265 520 Urine 415 445 100 Other: Voiding Method Indwelling Catheter Indwelling Catheter - Labs CBC & Chem 7: 09/16/19 04:31 09/16/19 04:31 Labs: Abnormal Lab Results - Last 24 Hours (Table) 09/15/19 09/15/19 09/15/19 Range/Units 11:56 17:54 20:35 RBC (3.80-5.40) m/uL Hgb (11.4-16.0) gm/dL Hct (34.0-46.0) % MCHC (31.0-37.0) g/dL RDW (11.5-15.5) % Chloride (98-107) mmol/L Carbon Dioxide (22-30) mmol/L BUN (7-17) mg/dL POC Glucose (mg/dL) 118 H 102 H 102 H (75-99) mg/dL Calcium (8.4-10.2) mg/dL Magnesium (1.6-2.3) mg/dL 09/16/19 09/16/19 09/16/19 Range/Units 04:31 04:31 04:31 RBC 2.85 L (3.80-5.40) m/uL Hgb 7.5 L D (11.4-16.0) gm/dL Hct 26.2 L (34.0-46.0) % MCHC 28.5 L (31.0-37.0) g/dL RDW 16.3 H (11.5-15.5) % Chloride 120 H (98-107) mmol/L Carbon Dioxide 19 L (22-30) mmol/L BUN 25 H (7-17) mg/dL POC Glucose (mg/dL) (75-99) mg/dL Calcium 7.1 L (8.4-10.2) mg/dL Magnesium 2.4 H (1.6-2.3) mg/dL Microbiology - Last 24 Hours (Table) 09/14/19 16:27 Blood Culture - Preliminary Blood No Growth after 24 hours <Louis Key - Last Filed: 09/16/19 17:06> Subjective As above. Patient says her pain is improved. Hemoglobin dropped noted. Likely partly on the basis of fluid resuscitation. Better urine output. Discussed case with advanced GI endoscopy at [facility]. Some of the current endoscopic therapies relayed to the patient and her mother. They are suggesting earlier intervention endoscopically than previous. Discussed options of transfer to [facility] to initiate their involvement. I will discuss further with the bariatric surgeon at [facility] this evening. Continue TPN and antibiotics. Recheck labs tomorrow. Objective - Vital Signs Vital signs: Vital Signs Temp 98.3 F 09/16/19 16:00 Pulse 98 09/16/19 16:00 Resp 12 09/16/19 16:00 BP 123/87 09/16/19 16:00 Pulse Ox 95 09/16/19 16:00 Intake & Output 09/15/19 09/16/19 09/16/19 18:59 06:59 18:59 Intake Total 4325 2100 1905 Output Total 905 1225 925 Balance 3420 875 980 Weight 124.9 kg 130.2 kg 130.2 kg Intake: IV 4325 2100 1905 .9 2000 0.9% NaCl with KCl 20 Meq 525 /l 1,000 ml @ 150 mls/hr IV .Q6H40M [facility] Rx#: [id number] ACETAMINOPHEN IV (For NPO 100 100 ) 1,000 mg In Empty Bag 1 bag @ 400 mls/hr IVPB Q6HR [facility] Rx#:[id number] Magnesium Sulfate-D5w Pmx 100 1 gm In Dextrose/Water 1 100ml.bag @ 100 mls/hr IVPB Q1H [facility] Rx#: [id number] Mvi, Adult No.4 with Vit 180 K 10 ml Trace (Conc-1Ml/ Dose) 1 ml Sodium Acetate 30 meq Potassium Acetate 20 meq Potassium Phosphate 10 mmol Calcium Gluconate 2 gm In Amino Acid 5%-D15w 1,000 ml @ 30 mls/hr IV .Q24H [facility] Rx #:[id number] Piperacillin-Tazobactam 3 200 100 150 .375 gm In Sodium Chloride 0.9% 100 ml @ 25 mls/hr IVPB Q8HR [facility] Rx# :[id number] Potassium Phosphate 10 200 mmol In Sodium Chloride 0 .9% 100 ml @ 50 mls/hr IV Q2H [facility] Rx#:[id number] Sodium Chloride 0.9% 1, 1200 1800 1175 000 ml @ 150 mls/hr IV . Q6H40M [facility] Rx#:[id number] metroNIDAZOLE-NS PMX 500 200 100 200 mg In Saline 1 100ml.bag @ 100 mls/hr IVPB Q8HR [facility] Rx#:[id number] Output: Drainage 490 780 535 Left Lower Abdomen 225 260 150 Left Upper Abdomen 265 520 385 Urine 415 445 390 Other: Voiding Method Indwelling Catheter Indwelling Catheter Indwelling Catheter - Labs CBC & Chem 7: 09/16/19 04:31 09/16/19 04:31 Labs: Abnormal Lab Results - Last 24 Hours (Table) 09/15/19 09/15/19 09/16/19 Range/Units 17:54 20:35 04:31 RBC (3.80-5.40) m/uL Hgb (11.4-16.0) gm/dL Hct (34.0-46.0) % MCHC (31.0-37.0) g/dL RDW (11.5-15.5) % Chloride (98-107) mmol/L Carbon Dioxide (22-30) mmol/L BUN (7-17) mg/dL POC Glucose (mg/dL) 102 H 102 H (75-99) mg/dL Calcium (8.4-10.2) mg/dL Phosphorus (2.5-4.5) mg/dL Magnesium 2.4 H (1.6-2.3) mg/dL 09/16/19 09/16/19 09/16/19 Range/Units 04:31 04:31 04:31 RBC 2.85 L (3.80-5.40) m/uL Hgb 7.5 L D (11.4-16.0) gm/dL Hct 26.2 L (34.0-46.0) % MCHC 28.5 L (31.0-37.0) g/dL RDW 16.3 H (11.5-15.5) % Chloride 120 H (98-107) mmol/L Carbon Dioxide 19 L (22-30) mmol/L BUN 25 H (7-17) mg/dL POC Glucose (mg/dL) (75-99) mg/dL Calcium 7.1 L (8.4-10.2) mg/dL Phosphorus 2.0 L (2.5-4.5) mg/dL Magnesium (1.6-2.3) mg/dL 09/16/19 Range/Units 11:47 RBC (3.80-5.40) m/uL Hgb (11.4-16.0) gm/dL Hct (34.0-46.0) % MCHC (31.0-37.0) g/dL RDW (11.5-15.5) % Chloride (98-107) mmol/L Carbon Dioxide (22-30) mmol/L BUN (7-17) mg/dL POC Glucose (mg/dL) 71 L (75-99) mg/dL Calcium (8.4-10.2) mg/dL Phosphorus (2.5-4.5) mg/dL Magnesium (1.6-2.3) mg/dL Microbiology - Last 24 Hours (Table) 09/14/19 16:27 Blood Culture - Preliminary Blood No Growth after 24 hours Assessment and Plan (1) Postoperative abdominal pain with fever Current Visit: Yes Status: Acute Code(s): R10.9 - UNSPECIFIED ABDOMINAL PAIN; R50.82 - POSTPROCEDURAL FEVER; G89.18 - OTHER ACUTE POSTPROCEDURAL PAIN SNOMED Code(s): 45408541
[2019-09-16 10:13] LABS: Glucose,Whole Blood 81 mg/dL (75-99)
--- NOTE | 2019-09-16 11:07 | PN ---
PROGRESS NOTE This is a very pleasant 23-year-old female with spina bifida. She is postop day #2, status post exploratory laparotomy with perigastric hematoma drainage, placement of an NG tube and perigastric drain placement. This is subsequent to a gastric sleeve procedure she had on September 02. We were concerned about peritonitis from her gastric sleeve leak. In addition, she has a history of hypertension, prior history of staph infection, and bicuspid aortic valve, in addition to her spina bifida. Currently, she is doing well. She is on O2 at 2 L and saline at 150 mL an hour. Feeling much better today than she did yesterday. She really denies all pain and any other complaints. Current vital signs show temperature 98.3, heart rate 100, respiratory rate 18, blood pressure 119/88 mean 98 2 L saturation 96%. There is no acute distress. HEENT: Examination is grossly unremarkable. Nasal O2 noted. NECK: Supple, full range of motion. No adenopathy. Neck veins are flat. CARDIOVASCULAR: Examination reveals regular rhythm and rate. Heart rate 100 beats per minute. S1, S2 normal. LUNGS: Relatively clear. Breath sounds equal. No wheezes, rhonchi, or significant crackles. ABDOMEN: Soft, but obese. EXTREMITIES: Noted to be abnormal and that they are both somewhat edematous with the external rotation of both lower extremities. There is also a nonhealing wound on the left foot. SKIN: Without rash. NEUROLOGIC: Examination is difficult to assess but appears to be stable. LABS: Reviewed. White count 8, hemoglobin 7.5, hematocrit 26.2, platelet count 371,000. Sodium 143, potassium 3.8, chloride 120, CO2 is 19, anion gap is 4. BUN and creatinine were 25 and 0.71. Calcium 7.1, magnesium 2.4. No X-ray to report. Microbiology is negative. Medications are reviewed. ASSESSMENT: 1. Postoperative day #2, status post exploratory laparotomy with perigastric hematoma drainage, placement of NG tube and perigastric drain placement, secondary to leak at a recent gastric sleeve procedure secondary to a leak from a recent gastric sleeve procedure. 2. Gastric sleeve procedure, September 03, 2019. 3. Rule out peritonitis secondary to gastric sleeve leak. 4. History of spina bifida. 5. History of bicuspid aortic valve. 6. History of staph infection. 7. History of hypertension. PLAN: The patient is doing well. Only on a couple L. She is receiving some saline fluids. No pain today. Respiratory status is stable. Blood pressure is better. Heart rate better. We will continue to follow. RENE / LADARIUS: [id number] /
[2019-09-16 11:49] LABS: Glucose,Whole Blood 71 mg/dL (75-99)
[2019-09-16] MEDS: POTASSIUM PHOSPHATE 10 MMOL in SODIUM CHLORIDE 0.9% 100 ML IV SCH ×2 (11:52→14:10)
[2019-09-16] MEDS ORDERED: MVI, ADULT NO.4 WITH VIT K 10 ML, TRACE (CONC-1ML/DOSE) 1 ML, SODIUM ACETATE 30 MEQ, PO... IV ONE ×7 (12:00)
--- NOTE | 2019-09-16 12:46 | P.PN ---
Subjective Patient is doing a lot better today. Pain is well controlled compared to yesterday. NG tube to the case. Objective - Vital Signs Vital signs: Vital Signs Temp 98.5 F 09/16/19 12:00 Pulse 103 H 09/16/19 12:00 Resp 21 09/16/19 12:00 BP 116/81 09/16/19 12:00 Pulse Ox 98 09/16/19 12:00 Intake & Output 09/15/19 09/16/19 09/16/19 18:59 06:59 18:59 Intake Total 4325 2100 1075 Output Total 905 1225 472 Balance 3420 875 603 Weight 124.9 kg 130.2 kg 130.2 kg Intake: IV 4325 2100 1075 .9 2000 0.9% NaCl with KCl 20 Meq 525 /l 1,000 ml @ 150 mls/hr IV .Q6H40M [facility] Rx#: [id number] ACETAMINOPHEN IV (For NPO 100 100 ) 1,000 mg In Empty Bag 1 bag @ 400 mls/hr IVPB Q6HR [facility] Rx#:[id number] Magnesium Sulfate-D5w Pmx 100 1 gm In Dextrose/Water 1 100ml.bag @ 100 mls/hr IVPB Q1H [facility] Rx#: [id number] Mvi, Adult No.4 with Vit 30 K 10 ml Trace (Conc-1Ml/ Dose) 1 ml Sodium Acetate 30 meq Potassium Acetate 20 meq Potassium Phosphate 10 mmol Calcium Gluconate 2 gm In Amino Acid 5%-D15w 1,000 ml @ 30 mls/hr IV .Q24H [facility] Rx #:[id number] Piperacillin-Tazobactam 3 200 100 100 .375 gm In Sodium Chloride 0.9% 100 ml @ 25 mls/hr IVPB Q8HR [facility] Rx# :[id number] Potassium Phosphate 10 50 mmol In Sodium Chloride 0 .9% 100 ml @ 50 mls/hr IV Q2H [facility] Rx#:[id number] Sodium Chloride 0.9% 1, 1200 1800 795 000 ml @ 150 mls/hr IV . Q6H40M [facility] Rx#:[id number] metroNIDAZOLE-NS PMX 500 200 100 100 mg In Saline 1 100ml.bag @ 100 mls/hr IVPB Q8HR [facility] Rx#:[id number] Output: Drainage 490 780 290 Left Lower Abdomen 225 260 140 Left Upper Abdomen 265 520 150 Urine 415 445 182 Other: Voiding Method Indwelling Catheter Indwelling Catheter Indwelling Catheter - Exam General: The patient is awake and alert, in no distress Eye: there is normal conjunctiva bilaterally. Neck: The neck is supple, there is no JVD. Cardiovascular: Normal S1-S2, no S3-S4, no murmurs. Respiratory: Lungs clear to auscultation bilaterally Gastrointestinal: Abdomen is soft and nontender. Abdominal binder in place. Musculoskeletal: There is no pedal edema. Neurological:. Speech is normal. Skin: Skin is warm and dry - Labs CBC & Chem 7: 09/16/19 04:31 09/16/19 04:31 Labs: Abnormal Lab Results - Last 24 Hours (Table) 09/15/19 09/15/19 09/16/19 Range/Units 17:54 20:35 04:31 RBC (3.80-5.40) m/uL Hgb (11.4-16.0) gm/dL Hct (34.0-46.0) % MCHC (31.0-37.0) g/dL RDW (11.5-15.5) % Chloride (98-107) mmol/L Carbon Dioxide (22-30) mmol/L BUN (7-17) mg/dL POC Glucose (mg/dL) 102 H 102 H (75-99) mg/dL Calcium (8.4-10.2) mg/dL Phosphorus (2.5-4.5) mg/dL Magnesium 2.4 H (1.6-2.3) mg/dL 09/16/19 09/16/19 09/16/19 Range/Units 04:31 04:31 04:31 RBC 2.85 L (3.80-5.40) m/uL Hgb 7.5 L D (11.4-16.0) gm/dL Hct 26.2 L (34.0-46.0) % MCHC 28.5 L (31.0-37.0) g/dL RDW 16.3 H (11.5-15.5) % Chloride 120 H (98-107) mmol/L Carbon Dioxide 19 L (22-30) mmol/L BUN 25 H (7-17) mg/dL POC Glucose (mg/dL) (75-99) mg/dL Calcium 7.1 L (8.4-10.2) mg/dL Phosphorus 2.0 L (2.5-4.5) mg/dL Magnesium (1.6-2.3) mg/dL 09/16/19 Range/Units 11:47 RBC (3.80-5.40) m/uL Hgb (11.4-16.0) gm/dL Hct (34.0-46.0) % MCHC (31.0-37.0) g/dL RDW (11.5-15.5) % Chloride (98-107) mmol/L Carbon Dioxide (22-30) mmol/L BUN (7-17) mg/dL POC Glucose (mg/dL) 71 L (75-99) mg/dL Calcium (8.4-10.2) mg/dL Phosphorus (2.5-4.5) mg/dL Magnesium (1.6-2.3) mg/dL Microbiology - Last 24 Hours (Table) 09/14/19 16:27 Blood Culture - Preliminary Blood No Growth after 24 hours Assessment and Plan Assessment: This is a 23-year-old female who underwent gastric sleeve approximately 2 weeks ago who presented from her surgeon office to the hospital with worsening abdominal pain and was found to have complicated gastric leak and perigastric hematoma s/p Exploratory laparotomy, drainage perigastric infected hematoma, nasogastric tube placement, perigastric drain placement POD #2 management per General surgery Antibiotic per infectious disease. - Acute kidney injury: Resolved with IV fluid hydration, most likely 2/2 p rerenal ATN, due to decrease PO intake avoid nephrotoxic meds IVF hydration monitor urine output - history of hypertension , controlled now off medication patient stopped Coreg recently. We will continue to monitor. - Acute on chronic post operative anemia , complicated by hematoma, hemoglobin trending down. Today 7.5. Transfuse as needed for hemoglobin less than 7. PPI IV Daily follow up CBC and renal function local wound care of her left foot superficial ulcer follow up blood culture ,and intraoperative cultures
[2019-09-16 17:51] LABS: Glucose,Whole Blood 88 mg/dL (75-99)
[2019-09-16] MEDS: BENZOCAINE/MENTHOL LOZENG 1 EACH LOZENGE MUCOUS MEM PRN (17:58)
[2019-09-16] MEDS: FLUCONAZOLE IN NACL,ISO-OSM 200 MG in SALINE 1 100ML.BAG IVPB SCH (19:50)
--- NOTE | 2019-09-16 23:11 | PN ---
PROGRESS NOTE DATE OF SERVICE: 09/16/2019 REASON FOR FOLLOWUP: Infected abdominal hematoma/abscess. INTERVAL HISTORY: The patient is currently afebrile. The patient is breathing comfortably. The patient denies having any chest pain or shortness of breath or cough. Abdominal pain is currently controlled, improved. No nausea, no vomiting. Has not passed any gas or bowel movement. PHYSICAL EXAMINATION: Blood pressure 114/77 with a pulse of 107, temperature 98.4. She is 94% on room air. General description is a young female lying in bed in no distress. RESPIRATORY SYSTEM: Unlabored breathing. Clear to auscultation anteriorly. HEART: S1, S2. Regular rate and rhythm. ABDOMEN: Soft. Mildly tender. No guarding or rigidity. LABS: Hemoglobin 7.5, white count 8.0. BUN of 25, creatinine 0.71. Blood culture has been negative. DIAGNOSTIC IMPRESSION AND PLAN: Patient with sepsis. Source is abdominal infected hematoma, status post drainage. Patient seems to be clinically responding to Zosyn and Diflucan; to continue while monitoring her clinical course closely. Continue with supportive care. MMODL / IJN: [id number] /
[2019-09-17 00:04] LABS: Glucose,Whole Blood 107 mg/dL (75-99)
[2019-09-17] MEDS: HEPARIN SODIUM,PORCINE 5,000 UNIT/ML 1 ML VIAL SQ SCH ×4 (00:38→23:43)
[2019-09-17] MEDS: diphenhydrAMINE 50 MG/ML 1 ML VIAL IVP PRN (00:38)
[2019-09-17] MEDS: KETOROLAC 30 MG/ML 1 ML VIAL IVP SCH ×6 (00:39→23:43)
[2019-09-17] MEDS: PIPERACILLIN-TAZOBACTAM 3.375 GM in SODIUM CHLORIDE 0.9% 100 ML IVPB SCH ×4 (00:39→23:38)
[2019-09-17] MEDS: metroNIDAZOLE-NS PMX 500 MG in SALINE 1 100ML.BAG IVPB SCH ×4 (00:39→23:42)
[2019-09-17] MEDS: HYDROmorphone 1 MG/ML 1 ML SYRINGE IVP PRN ×8 (00:40→22:17)
[2019-09-17 05:04] LABS: Anisocytosis Slight; Basophils % (A) 0 %; Eosinophils # (A) 0.2 k/uL (0-0.7); Eosinophils % (A) 3 %; HCT 23.3 % (34.0-46.0); Hypochromasia Marked; Lymphocytes # (A) 1.3 k/uL (1.0-4.8); Lymphocytes % (A) 19 %; MCH 27.4 pg (25.0-35.0); MCHC 30.1 g/dL (31.0-37.0); MCV 90.9 fL (80.0-100.0); Mean Platelet Volume 8.3; Monocytes # (A) 0.2 k/uL (0-1.0); Monocytes % (A) 4 %; Neutrophils # (A) 4.8 k/uL (1.3-7.7); Neutrophils % (A) 73 %; Platelet Count 308 k/uL (150-450); RBC 2.56 m/uL (3.80-5.40); RDW 16.4 % (11.5-15.5); WBC 6.6 k/uL (3.8-10.6)
[2019-09-17 05:07] LABS: Ionized Calcium 5.2 mg/dL (4.5-5.3)
[2019-09-17 05:14] LABS: ALT 23 U/L (4-34); AST 33 U/L (14-36); African American GFR (CKD) >90 (>60 ml/min/1.73 sqM); Albumin 2.1 g/dL (3.5-5.0); Alkaline Phosphatase 55 U/L (38-126); Anion Gap 3 mmol/L; Blood Urea Nitrogen 17 mg/dL (7-17); Calcium 7.7 mg/dL (8.4-10.2); Carbon Dioxide 22 mmol/L (22-30); Chloride 117 mmol/L (98-107); Glucose 105 mg/dL (74-99); Magnesium 2.2 mg/dL (1.6-2.3); Non-African American GFR(CKD) >90 (>60 ml/min/1.73 sqM); Phosphorus 1.8 mg/dL (2.5-4.5); Potassium 3.4 mmol/L (3.5-5.1); Sodium 142 mmol/L (137-145); Total Bilirubin 0.5 mg/dL (0.2-1.3); Total Protein 4.8 g/dL (6.3-8.2)
[2019-09-17] MEDS ORDERED: Phosphorus Replacement Protoco 1 EACH MISC MISCELLANE PRN (05:25)
[2019-09-17] MEDS ORDERED: Potassium Replacement Protocol 1 EACH MISC MISCELLANE PRN (05:26)
[2019-09-17] MEDS: POTASSIUM CHLORIDE 20 MEQ in WATER FOR INJECTION 1 100ML.BAG IVPB SCH ×2 (05:42→08:18)
[2019-09-17] MEDS: POTASSIUM PHOSPHATE 10 MMOL in SODIUM CHLORIDE 0.9% 250 ML IV SCH ×2 (05:57→08:26)
[2019-09-17] MEDS: SODIUM CHLORIDE 0.9% 1,000 ML IV SCH ×2 (05:58→17:47)
[2019-09-17 06:43] LABS: Glucose,Whole Blood 110 mg/dL (75-99)
--- NOTE | 2019-09-17 07:48 | PN ---
PROGRESS NOTE Ms Quevedo is a 23-year-old female with known history of bicuspid aortic valve who underwent a gastric sleeve surgery by Dr. Key, was readmitted with recurrent abdominal pain and had a leak and hematoma. She underwent repeat surgery. She had episode of sinus tachycardia. She is feeling better today. Her breathing has been stable. She denies any dizziness or palpitation. She denies any chest discomfort. She continues to have an NG tube, but she had back status. Her echocardiogram revealed bicuspid aortic valve with a peak gradient of 17 mmHg across the aortic valve and trace aortic regurgitation. She continues to be on TPN and antibiotics. PHYSICAL EXAMINATION: Blood pressure 106/70 with the heart rate in 90s. LUNGS: Clear. HEART: Regular rate and rhythm. S1, S2. No S3 with systolic ejection murmur heard at the base. No diastolic murmur. No rub. ABDOMEN: Soft. Dressing in place. Hypoactive bowel sounds. EXTREMITIES: Trace to 1+ edema. LAB DATA: Lab data revealed hemoglobin of 7. BUN and creatinine of 17 and 0.61. IMPRESSION: 1. Status post gastric sleeve procedure with suture leak with hematoma. 2. History of spina bifida. 3. History of bicuspid aortic valve, stable. RECOMMENDATION: From the cardiac standpoint, she is doing well. I would not recommend any further cardiac workup at this time. I will see on as-needed basis. Please feel free to call us for any question. MMODL / IJN: [id number] /
[2019-09-17] MEDS: PANTOPRAZOLE 40 MG/10 ML VIAL IV SCH (08:23)
[2019-09-17] MEDS: ALBUTEROL NEBULIZED 2.5 MG/3 ML INHALATION SCH ×4 (08:27→19:35)
--- NOTE | 2019-09-17 09:25 | CDI ---
Documentation Clarification Form Date: 09/15/2019 01:22:00 PM From: Rupal Gomez CCS, CCDS Admit Date: 09/14/2019 02:51:00 PM Patient Name: Ivy Quevedo Visit Number: [id number] Discharge Date: ATTENTION: The Clinical Documentation Specialists (CDI) and [facility] Coding Staff appreciate your assistance in clarifying documentation. Please respond to the clarification below the line at the bottom and electronically sign. The CDI & [facility] Coding staff will review the response and follow-up if needed. Please note: Queries are made part of the Legal Health Record. If you have any questions, please contact the author of this message via ITS. Dr. Cynthia Samuels: Postoperative Anemia is documented in the 09/13 Medical Management Consult without further specificity. Per the 09/15 Attending Progress Note: Acute on Chronic Postoperative anemia, complicated by hematoma. History/Risk Factors: Morbid obesity, BMI >50, Hypertension, Spinabifida. Clinical indicators: Patient had a gastric sleeve on 09/03/2019, developed a postoperative hematoma which was monitored, patient discharged to home. Developed hematemesis, nausea, vomiting & tachycardia. Readmitted 09/13 with a postoperative infected hematoma requiring exploratory laparotomy, drainage of perigastric infected hematoma, NGT placement & perigastric drain placement. Also diagnosed with anemia & ZACHARY/ATN. Hemoglobin 09/13: 9.8*, 09/14: 10.1* Hematocrit 09/13: 32.1*, 09/14: 33.3* Treatment: Surgery as above, H/H, IV Zofran, IV fluid 1,000 mls @ 999/hr x4, IV Kcl, IV Zosyn, IV Lactated Ringers, IV Dilaudid, IV Fluconazole/NaCl, IV Flagyl, In order to capture the severity of condition, please clarify the type of anemia and etiology if known:. Acute on chronic blood loss anemia o Chronic blood loss anemia, please specify chronic condition: Unable to determine Other, please specify (Last Form Revision: May 2019) MTDD
[2019-09-17] MEDS: METOCLOPRAMIDE 5 MG/ML 2 ML VIAL IVP PRN (09:47)
--- NOTE | 2019-09-17 10:30 | PN ---
PROGRESS NOTE PULMONARY/CRITICAL CARE PROGRESS NOTE: DATE OF SERVICE: 09/17/2019 This is a 23-year-old female with spina bifida. She is postop day #3, status post exploratory laparotomy with perigastric hematoma drainage, placement of an NG tube, and perigastric drain placement. She is doing well. She had a gastric sleeve procedure done on September 02. There was concern afterwards about a sleeve leak. The patient went to the OR to repair that process. Currently, she is on 2 L nasal cannula. She does not really need it. She uses a nasal O2 to hold in the NG tube. She is getting saline at 95 mL an hour and TPN at 30 mL an hour. The patient could be transferred out to the general medical floor. She has no major complaints. She is feeling much improved. No fever or chills. No chest pain or chest discomfort. Some slight discomfort at the surgical site. Current vital signs are reviewed. Temperature 98.1, heart rate is 92, respiratory rate 19, blood pressure 106/76 mean 86, saturations are 98%. Appears in no acute distress. HEENT: Examination is grossly unremarkable. NECK: Supple. Full range of motion. No adenopathy. Neck veins are flat. CARDIOVASCULAR: Examination reveals regular rhythm and rate. Heart rate about 90 beats per minute. S1, S2 normal. Lungs clear breath sounds equal. She does not take deep breaths. ABDOMEN: Soft. No bowel sounds. EXTREMITIES: Reveal chronic changes consistent with her history of spina bifida. There is a wound on the left foot. SKIN: Without rash. NEUROLOGIC: Examination is brief but nonfocal. LABS: Reviewed. White count 6.6, hemoglobin 7.0, hematocrit 23.3, platelet count 308,000. Sodium 142, potassium 3.4, chloride is 117, CO2 is 22, anion gap is 3. BUN and creatinine were 17 and 0.61. Calcium 7.7, albumin 2.1. Microbiology is negative. No chest x-ray to report. Medications are reviewed. ASSESSMENT: 1. Postoperative day #3, status post exploratory laparotomy with perigastric hematoma drainage, placement of an NG tube and perigastric drain placement secondary to a leak from a recent gastric sleeve secondary procedure done on September 02. 2. Status post gastric sleeve, September 03, 2019. 3. Rule out peritonitis secondary to gastric sleeve leak. 4. History of spina bifida. 5. History of bicuspid aortic valve. 6. History of staph infection. 7. History of hypertension. PLAN: Overall, the patient seems to be doing very well. She is only on 2 L. She is using the nasal O2 primarily to hold the NG tube in place. She is getting her saline IV and also TPN at 30 mL an hour. She deep breathing, coughing, clearing of secretions and using the incentive spirometer every hour. From my perspective, the patient could be discharged to the general medical floor. MMODL / IJN: [id number] /
--- NOTE | 2019-09-17 11:05 | P.PN ---
<Maria Isabel Stern - Last Filed: 09/17/19 11:03> Subjective Progress Note Date: 09/17/19 CHIEF COMPLAINT: fever HISTORY OF PRESENT ILLNESS: 23-year-old female who is status post exploratory laparotomy, drainage of perigastric infected hematoma, NG tube placement, and perigastric drain placement 2. POD #3. Patient examined this morning at the bedside. Mother present. Patient reports her pain is well controlled. Rating 3/10. NG tube with very minimal bilious fluid. FIDE drains have decreased in amount of drainage. Hemoglobin 7.0. Blood pressure stable. HR 90s. PHYSICAL EXAM: VITAL SIGNS: Reviewed. GENERAL: Well-developed in no acute distress. HEENT: No sclera icterus. Extraocular movements grossly intact. Moist buccal mucosa. Head is atraumatic, normocephalic. ABDOMEN: Soft. Nondistended. Abdominal dressing clean dry and intact. FIDE drains 2 with brown bile tinged output. NG to LIS. NEUROLOGIC: Alert and oriented. Cranial nerves II through XII grossly intact. ASSESSMENT: 1. Gastric sleeve leak with perigastric hematoma, status post exploratory laparotomy, drainage of perigastric infected hematoma, NG tube placement, and perigastric drain placement 2 PLAN: -Continue NG to LIS -Monitor FIDE drain output -Continue TPN -Pain control. Continue current regimen -Continue antibiotics. Monitor WBC -Monitor hemoglobin -Possible transfer to [facility] in [place] on Friday Nurse practitioner note has been reviewed by physician. Signing provider agrees with the documented findings, assessment, and plan of care. Objective - Vital Signs Vital signs: Vital Signs Temp 98.1 F 09/17/19 04:00 Pulse 96 09/17/19 09:00 Resp 18 09/17/19 09:00 BP 103/80 09/17/19 09:00 Pulse Ox 95 09/17/19 09:00 Intake & Output 09/16/19 09/17/19 09/17/19 18:59 06:59 18:59 Intake Total 2054 1825 355 Output Total 935 555 325 Balance 1120 1270 30 Weight 130.2 kg 130.5 kg Intake: IV 2054 1625 355 Mvi, Adult No.4 with Vit 210 360 60 K 10 ml Trace (Conc-1Ml/ Dose) 1 ml Sodium Acetate 30 meq Potassium Acetate 20 meq Potassium Phosphate 10 mmol Calcium Gluconate 2 gm In Amino Acid 5%-D15w 1,000 ml @ 30 mls/hr IV .Q24H [facility] Rx #:[id number] Piperacillin-Tazobactam 3 175 25 .375 gm In Sodium Chloride 0.9% 100 ml @ 25 mls/hr IVPB Q8HR [facility] Rx# :[id number] Potassium Phosphate 10 200 100 100 mmol In Sodium Chloride 0 .9% 100 ml @ 50 mls/hr IV Q2H [facility] Rx#:[id number] Sodium Chloride 0.9% 1, 1270 1140 95 000 ml @ 150 mls/hr IV . Q6H40M [facility] Rx#:[id number] metroNIDAZOLE-NS PMX 500 200 100 mg In Saline 1 100ml.bag @ 100 mls/hr IVPB Q8HR [facility] Rx#:[id number] Intake, IV Titration 200 Amount Fluconazole in NaCl,Iso- 100 Osm 200 mg In Saline 1 100ml.bag @ 100 mls/hr IVPB Q24H [facility] Rx#: [id number] Potassium Chloride 20 meq 100 In Water For Injection 1 100ml.bag @ 50 mls/hr IVPB Q2H [facility] Rx#: [id number] Output: Drainage 535 140 Left Lower Abdomen 150 60 Left Upper Abdomen 385 80 Urine 400 555 185 Other: Voiding Method Indwelling Catheter Indwelling Catheter - Labs CBC & Chem 7: 09/17/19 04:50 09/17/19 04:50 Labs: Abnormal Lab Results - Last 24 Hours (Table) 09/16/19 09/17/19 09/17/19 Range/Units 11:47 00:02 04:50 RBC 2.56 L (3.80-5.40) m/uL Hgb 7.0 L (11.4-16.0) gm/dL Hct 23.3 L (34.0-46.0) % MCHC 30.1 L (31.0-37.0) g/dL RDW 16.4 H (11.5-15.5) % Potassium (3.5-5.1) mmol/L Chloride (98-107) mmol/L Glucose (74-99) mg/dL POC Glucose (mg/dL) 71 L 107 H (75-99) mg/dL Calcium (8.4-10.2) mg/dL Phosphorus (2.5-4.5) mg/dL Total Protein (6.3-8.2) g/dL Albumin (3.5-5.0) g/dL 09/17/19 09/17/19 Range/Units 04:50 06:41 RBC (3.80-5.40) m/uL Hgb (11.4-16.0) gm/dL Hct (34.0-46.0) % MCHC (31.0-37.0) g/dL RDW (11.5-15.5) % Potassium 3.4 L (3.5-5.1) mmol/L Chloride 117 H (98-107) mmol/L Glucose 105 H (74-99) mg/dL POC Glucose (mg/dL) 110 H (75-99) mg/dL Calcium 7.7 L (8.4-10.2) mg/dL Phosphorus 1.8 L (2.5-4.5) mg/dL Total Protein 4.8 L (6.3-8.2) g/dL Albumin 2.1 L (3.5-5.0) g/dL Microbiology - Last 24 Hours (Table) 09/14/19 16:27 Blood Culture - Preliminary Blood No Growth after 48 hours <Louis Key - Last Filed: 09/17/19 12:32> Subjective As above. Patient still having upper abdominal pain although since improved from preop and about the same as yesterday. Says she is comfortable. White blood cell count remains normal. Hemodynamically stable. Hemoglobin 7.0. Continue to watch hemoglobin. He discussed the case with Dr. Bryan at [facility] yesterday evening. Family and I reviewed that conversation this morning. Tentatively plan transfer to [facility] Friday or Friday with the plan for bariatric endoscopy team to evaluate for possible endoscopic interv ention. Continue antibiotics. Continue TPN. Continue nasogastric tube. Reevaluate in a.m. Objective - Vital Signs Vital signs: Vital Signs Temp 98.1 F 09/17/19 04:00 Pulse 96 09/17/19 09:00 Resp 18 09/17/19 09:00 BP 103/80 09/17/19 09:00 Pulse Ox 95 09/17/19 09:00 Intake & Output 09/16/19 09/17/19 09/17/19 18:59 06:59 18:59 Intake Total 20545 355 Output Total 935 555 325 Balance 1120 1270 30 Weight 130.2 kg 130.5 kg Intake: IV 2054 1625 355 Mvi, Adult No.4 with Vit 210 360 60 K 10 ml Trace (Conc-1Ml/ Dose) 1 ml Sodium Acetate 30 meq Potassium Acetate 20 meq Potassium Phosphate 10 mmol Calcium Gluconate 2 gm In Amino Acid 5%-D15w 1,000 ml @ 30 mls/hr IV .Q24H [facility] Rx #:[id number] Piperacillin-Tazobactam 3 175 25 .375 gm In Sodium Chloride 0.9% 100 ml @ 25 mls/hr IVPB Q8HR [facility] Rx# :[id number] Potassium Phosphate 10 200 100 100 mmol In Sodium Chloride 0 .9% 100 ml @ 50 mls/hr IV Q2H [facility] Rx#:[id number] Sodium Chloride 0.9% 1, 1270 1140 95 000 ml @ 150 mls/hr IV . Q6H40M [facility] Rx#:[id number] metroNIDAZOLE-NS PMX 500 200 100 mg In Saline 1 100ml.bag @ 100 mls/hr IVPB Q8HR [facility] Rx#:[id number] Intake, IV Titration 200 Amount Fluconazole in NaCl,Iso- 100 Osm 200 mg In Saline 1 100ml.bag @ 100 mls/hr IVPB Q24H [facility] Rx#: [id number] Potassium Chloride 20 meq 100 In Water For Injection 1 100ml.bag @ 50 mls/hr IVPB Q2H [facility] Rx#: [id number] Output: Drainage 535 140 Left Lower Abdomen 150 60 Left Upper Abdomen 385 80 Urine 400 555 185 Other: Voiding Method Indwelling Catheter Indwelling Catheter Indwelling Catheter - Labs CBC & Chem 7: 09/17/19 04:50 09/17/19 04:50 Labs: Abnormal Lab Results - Last 24 Hours (Table) 09/17/19 09/17/19 09/17/19 Range/Units 00:02 04:50 04:50 RBC 2.56 L (3.80-5.40) m/uL Hgb 7.0 L (11.4-16.0) gm/dL Hct 23.3 L (34.0-46.0) % MCHC 30.1 L (31.0-37.0) g/dL RDW 16.4 H (11.5-15.5) % Potassium 3.4 L (3.5-5.1) mmol/L Chloride 117 H (98-107) mmol/L Glucose 105 H (74-99) mg/dL POC Glucose (mg/dL) 107 H (75-99) mg/dL Calcium 7.7 L (8.4-10.2) mg/dL Phosphorus 1.8 L (2.5-4.5) mg/dL Total Protein 4.8 L (6.3-8.2) g/dL Albumin 2.1 L (3.5-5.0) g/dL 09/17/19 09/17/19 Range/Units 06:41 12:27 RBC (3.80-5.40) m/uL Hgb (11.4-16.0) gm/dL Hct (34.0-46.0) % MCHC (31.0-37.0) g/dL RDW (11.5-15.5) % Potassium (3.5-5.1) mmol/L Chloride (98-107) mmol/L Glucose (74-99) mg/dL POC Glucose (mg/dL) 110 H 112 H (75-99) mg/dL Calcium (8.4-10.2) mg/dL Phosphorus (2.5-4.5) mg/dL Total Protein (6.3-8.2) g/dL Albumin (3.5-5.0) g/dL Microbiology - Last 24 Hours (Table) 09/14/19 16:27 Blood Culture - Preliminary Blood No Growth after 48 hours Assessment and Plan (1) Postoperative abdominal pain with fever Current Visit: Yes Status: Acute Code(s): R10.9 - UNSPECIFIED ABDOMINAL PAIN; R50.82 - POSTPROCEDURAL FEVER; G89.18 - OTHER ACUTE POSTPROCEDURAL PAIN SNOMED Code(s): 93373286
[2019-09-17] MEDS ORDERED: MVI, ADULT NO.4 WITH VIT K 10 ML, TRACE (CONC-1ML/DOSE) 1 ML, SODIUM ACETATE 30 MEQ, PO... IV SCH ×7 (12:00)
[2019-09-17] MEDS ORDERED: FAT EMULSION 20% 250 ML IV SCH (12:00)
[2019-09-17 12:29] LABS: Glucose,Whole Blood 112 mg/dL (75-99)
[2019-09-17 13:19] VITALS: BMI 58.1
--- NOTE | 2019-09-17 13:30 | P.PN ---
Subjective Progress Note Date: 09/17/19 Patient was seen and examined in the ICU at the bedside on 09/16. She reported excellent control of her pain, with only 1 out of 10 discomfort brought on with moving. She otherwise denied any additional complaints including fever, chills, chest pain, shortness of breath, nausea, or vomiting. Objective - Vital Signs Vital signs: Vital Signs Temp 98.1 F 09/17/19 04:00 Pulse 96 09/17/19 09:00 Resp 18 09/17/19 09:00 BP 103/80 09/17/19 09:00 Pulse Ox 95 09/17/19 09:00 Intake & Output 09/16/19 09/17/19 09/17/19 18:59 06:59 18:59 Intake Total 2054 1825 355 Output Total 935 555 325 Balance 1120 1270 30 Weight 130.2 kg 130.5 kg Intake: IV 2054 1625 355 Mvi, Adult No.4 with Vit 210 360 60 K 10 ml Trace (Conc-1Ml/ Dose) 1 ml Sodium Acetate 30 meq Potassium Acetate 20 meq Potassium Phosphate 10 mmol Calcium Gluconate 2 gm In Amino Acid 5%-D15w 1,000 ml @ 30 mls/hr IV .Q24H [facility] Rx #:[id number] Piperacillin-Tazobactam 3 175 25 .375 gm In Sodium Chloride 0.9% 100 ml @ 25 mls/hr IVPB Q8HR [facility] Rx# :[id number] Potassium Phosphate 10 200 100 100 mmol In Sodium Chloride 0 .9% 100 ml @ 50 mls/hr IV Q2H [facility] Rx#:[id number] Sodium Chloride 0.9% 1, 1270 1140 95 000 ml @ 150 mls/hr IV . Q6H40M [facility] Rx#:[id number] metroNIDAZOLE-NS PMX 500 200 100 mg In Saline 1 100ml.bag @ 100 mls/hr IVPB Q8HR [facility] Rx#:[id number] Intake, IV Titration 200 Amount Fluconazole in NaCl,Iso- 100 Osm 200 mg In Saline 1 100ml.bag @ 100 mls/hr IVPB Q24H [facility] Rx#: [id number] Potassium Chloride 20 meq 100 In Water For Injection 1 100ml.bag @ 50 mls/hr IVPB Q2H [facility] Rx#: [id number] Output: Drainage 535 140 Left Lower Abdomen 150 60 Left Upper Abdomen 385 80 Urine 400 555 185 Other: Voiding Method Indwelling Catheter Indwelling Catheter - Exam General: Non-toxic, in no acute distress, appears stated age, morbidly obese HEENT: NC/AT, anicteric sclerae, moist conjunctiva, no lid-lag, PERRLA Cardiovascular: S1/S2 wnl, no murmurs, rubs, or gallops Lungs: Clear to auscultation, normal respiratory effort, no accessory muscle use Abdominal: Soft, abdominal binder in place, mid-line incision clean and dry with drains in place, non-tender, no guarding Skin: Warm, dry Extremities: vandana 3+ pedal edema to knees Psychiatric: Alert and oriented to person, place and time, appropriate affect Neuro: CN II-XII grossly intact, no focal deficits noted - Labs CBC & Chem 7: 09/17/19 04:50 09/17/19 04:50 Labs: Abnormal Lab Results - Last 24 Hours (Table) 09/16/19 09/16/19 09/17/19 Range/Units 04:31 11:47 00:02 RBC (3.80-5.40) m/uL Hgb (11.4-16.0) gm/dL Hct (34.0-46.0) % MCHC (31.0-37.0) g/dL RDW (11.5-15.5) % Potassium (3.5-5.1) mmol/L Chloride (98-107) mmol/L Glucose (74-99) mg/dL POC Glucose (mg/dL) 71 L 107 H (75-99) mg/dL Calcium (8.4-10.2) mg/dL Phosphorus 2.0 L (2.5-4.5) mg/dL Total Protein (6.3-8.2) g/dL Albumin (3.5-5.0) g/dL 09/17/19 09/17/19 09/17/19 Range/Units 04:50 04:50 06:41 RBC 2.56 L (3.80-5.40) m/uL Hgb 7.0 L (11.4-16.0) gm/dL Hct 23.3 L (34.0-46.0) % MCHC 30.1 L (31.0-37.0) g/dL RDW 16.4 H (11.5-15.5) % Potassium 3.4 L (3.5-5.1) mmol/L Chloride 117 H (98-107) mmol/L Glucose 105 H (74-99) mg/dL POC Glucose (mg/dL) 110 H (75-99) mg/dL Calcium 7.7 L (8.4-10.2) mg/dL Phosphorus 1.8 L (2.5-4.5) mg/dL Total Protein 4.8 L (6.3-8.2) g/dL Albumin 2.1 L (3.5-5.0) g/dL Microbiology - Last 24 Hours (Table) 09/14/19 16:27 Blood Culture - Preliminary Blood No Growth after 48 hours Assessment and Plan Plan: Status post exploratory laparotomy with drainage of perigastric infected hematoma, perigastric drain placement in setting of gastric sleeve surgery -Management including pain control as per the general surgery service -Infectious disease following: Currently on Zosyn, Flagyl, fluconazole Acute on chronic anemia, likely acutely worsened in setting of hematoma -Monitor hemoglobin for now -Likely transfuse if less than 7 Hypokalemia and hypophosphatemia -Replace and monitor Hypertension -Patient currently off Coreg with normal BP -Continue to monitor ZACHARY, now resolved
[2019-09-17] MEDS: MVI, ADULT NO.4 WITH VIT K 10 ML, TRACE (CONC-1ML/DOSE) 1 ML, SODIUM ACETATE 30 MEQ, PO... IV SCH ×7 (14:57)
--- NOTE | 2019-09-17 16:29 | PN ---
PROGRESS NOTE DATE OF SERVICE: 09/17/2019 REASON FOR FOLLOWUP: Abdominal abscess. INTERVAL HISTORY: The patient is currently afebrile. The patient is breathing comfortably. The patient denies having any chest pain or shortness of breath or cough. No nausea, vomiting. Abdominal pain is currently controlled. Still has the NG and did not have any bowel movement. PHYSICAL EXAMINATION: Blood pressure 100/80 with a pulse of 96, temperature 98.1. She is 95% on room air. General description is a young female lying in bed in no distress. RESPIRATORY SYSTEM: Unlabored breathing. Clear to auscultation anteriorly. HEART: S1, S2. Regular rate and rhythm. ABDOMEN: Soft. No tenderness. LABS: Hemoglobin is 7, white count 6.6, BUN of 17, creatinine 0.61. Blood culture has been negative. DIAGNOSTIC IMPRESSION AND PLAN: Patient with an abdominal abscess/infected hematoma, status post surgical drainage. Patient is covered with Zosyn and Diflucan; to continue. She is afebrile. White count normal. Will monitor clinical course closely. Continue with supportive care. MMODL / IJN: [id number] /
[2019-09-17 17:09] LABS: Glucose,Whole Blood 116 mg/dL (75-99)
[2019-09-17] MEDS: FLUCONAZOLE IN NACL,ISO-OSM 200 MG in SALINE 1 100ML.BAG IVPB SCH (21:38)
[2019-09-18] MEDS: HYDROmorphone 1 MG/ML 1 ML SYRINGE IVP PRN ×10 (00:02→23:33)
[2019-09-18 00:53] LABS: Glucose,Whole Blood 135 mg/dL (75-99)
[2019-09-18] MEDS: diphenhydrAMINE 50 MG/ML 1 ML VIAL IVP PRN (05:34)
[2019-09-18 05:38] LABS: Glucose,Whole Blood 130 mg/dL (75-99)
[2019-09-18] MEDS: KETOROLAC 30 MG/ML 1 ML VIAL IVP SCH ×4 (05:54→23:31)
[2019-09-18] MEDS: SODIUM CHLORIDE 0.9% 1,000 ML IV SCH ×2 (05:55→15:54)
[2019-09-18] MEDS: PANTOPRAZOLE 40 MG/10 ML VIAL IV SCH (07:47)
[2019-09-18] MEDS: PIPERACILLIN-TAZOBACTAM 3.375 GM in SODIUM CHLORIDE 0.9% 100 ML IVPB SCH ×3 (07:47→23:32)
[2019-09-18] MEDS: HEPARIN SODIUM,PORCINE 5,000 UNIT/ML 1 ML VIAL SQ SCH ×3 (07:47→23:31)
[2019-09-18] MEDS: metroNIDAZOLE-NS PMX 500 MG in SALINE 1 100ML.BAG IVPB SCH ×3 (07:47→23:32)
[2019-09-18] MEDS: ALBUTEROL NEBULIZED 2.5 MG/3 ML INHALATION SCH ×4 (08:37→19:47)
[2019-09-18 09:13] LABS: ALT 22 U/L (4-34); AST 34 U/L (14-36); African American GFR (CKD) >90 (>60 ml/min/1.73 sqM); Albumin 2.2 g/dL (3.5-5.0); Alkaline Phosphatase 57 U/L (38-126); Anion Gap 4 mmol/L; Blood Urea Nitrogen 10 mg/dL (7-17); Calcium 7.4 mg/dL (8.4-10.2); Carbon Dioxide 24 mmol/L (22-30); Chloride 114 mmol/L (98-107); Glucose 113 mg/dL (74-99); Magnesium 1.8 mg/dL (1.6-2.3); Non-African American GFR(CKD) >90 (>60 ml/min/1.73 sqM); Phosphorus 2.4 mg/dL (2.5-4.5); Potassium 3.5 mmol/L (3.5-5.1); Sodium 142 mmol/L (137-145); Total Bilirubin 0.4 mg/dL (0.2-1.3); Total Protein 5.1 g/dL (6.3-8.2)
[2019-09-18 09:42] LABS: Anisocytosis Slight; Basophils % (A) 1 %; Eosinophils # (A) 0.2 k/uL (0-0.7); Eosinophils % (A) 3 %; HCT 23.5 % (34.0-46.0); HGB 7.1 gm/dL (11.4-16.0); Hypochromasia Marked; Lymphocytes # (A) 1.5 k/uL (1.0-4.8); Lymphocytes % (A) 21 %; MCH 27.5 pg (25.0-35.0); MCHC 30.1 g/dL (31.0-37.0); MCV 91.1 fL (80.0-100.0); Mean Platelet Volume 8.3; Monocytes # (A) 0.3 k/uL (0-1.0); Monocytes % (A) 5 %; Neutrophils # (A) 4.7 k/uL (1.3-7.7); Neutrophils % (A) 68 %; Platelet Count 335 k/uL (150-450); RBC 2.58 m/uL (3.80-5.40); RDW 16.5 % (11.5-15.5); WBC 6.9 k/uL (3.8-10.6)
[2019-09-18] MEDS ORDERED: POTASSIUM PHOSPHATE 10 MMOL in SODIUM CHLORIDE 0.9% 100 ML IV ONE (11:00)
[2019-09-18 11:52] LABS: Glucose,Whole Blood 119 mg/dL (75-99)
--- NOTE | 2019-09-18 12:49 | P.PN ---
Subjective Progress Note Date: 09/18/19 23 yo female admitted fir gastric sleeve leak with hematoma POD#4. No significant events overnight, pain is well controlled, no nausea or vomiting, remains NPO, NGT in place with minimal output. No bowel movements since surgery but is passing gas. No fevers or chills. Hgb dropped to 7.0 yesterday, no active bleeding Objective - Vital Signs Vital signs: Vital Signs Temp 99.7 F H 09/18/19 07:00 Pulse 108 H 09/18/19 08:00 Resp 16 09/18/19 08:00 BP 117/82 09/18/19 07:00 Pulse Ox 96 09/18/19 07:00 Intake & Output 09/17/19 09/18/19 09/18/19 18:59 06:59 18:59 Intake Total 385 1150 Output Total 575 300 300 Balance -190 850 -300 Weight 130.5 kg Intake: IV 385 Mvi, Adult No.4 with Vit 90 K 10 ml Trace (Conc-1Ml/ Dose) 1 ml Sodium Acetate 30 meq Potassium Acetate 20 meq Potassium Phosphate 10 mmol Calcium Gluconate 2 gm In Amino Acid 5%-D15w 1,000 ml @ 30 mls/hr IV .Q24H [facility] Rx #:[id number] Potassium Phosphate 10 100 mmol In Sodium Chloride 0 .9% 100 ml @ 50 mls/hr IV Q2H [facility] Rx#:[id number] Sodium Chloride 0.9% 1, 95 000 ml @ 150 mls/hr IV . Q6H40M [facility] Rx#:[id number] metroNIDAZOLE-NS PMX 500 100 mg In Saline 1 100ml.bag @ 100 mls/hr IVPB Q8HR [facility] Rx#:[id number] Intake, IV Titration 1150 Amount Fluconazole in NaCl,Iso- 100 Osm 200 mg In Saline 1 100ml.bag @ 100 mls/hr IVPB Q24H [facility] Rx#: [id number] Piperacillin-Tazobactam 3 100 .375 gm In Sodium Chloride 0.9% 100 ml @ 25 mls/hr IVPB Q8HR [facility] Rx# :[id number] Sodium Chloride 0.9% 1, 950 000 ml @ 95 mls/hr IV . [id number] [facility] Rx#:[id number] Output: Drainage 140 Left Lower Abdomen 60 Left Upper Abdomen 80 Urine 435 300 300 Other: Voiding Method Indwelling Catheter Indwelling Catheter Indwelling Catheter - Exam General: Non-toxic, in no acute distress, appears stated age, morbidly obese HEENT: NC/AT, anicteric sclerae, moist conjunctiva, no lid-lag, PERRLA Cardiovascular: S1/S2 wnl, no murmurs, rubs, or gallops Lungs: Clear to auscultation, normal respiratory effort, no accessory muscle use Abdominal: minimal tenderness to surgical site, soft, abdominal binder in place, mid-line incision clean and dry with drains in place, no guarding Skin: Warm, dry Extremities: vandana 2+ pedal edema to knees Psychiatric: Alert and oriented to person, place and time, appropriate affect Neuro: CN II-XII grossly intact, no focal deficits noted - Labs CBC & Chem 7: 09/18/19 08:33 09/18/19 08:33 Labs: Abnormal Lab Results - Last 24 Hours (Table) 09/17/19 09/18/19 09/18/19 Range/Units 17:06 00:52 05:37 RBC (3.80-5.40) m/uL Hgb (11.4-16.0) gm/dL Hct (34.0-46.0) % MCHC (31.0-37.0) g/dL RDW (11.5-15.5) % Chloride (98-107) mmol/L Creatinine (0.52-1.04) mg/dL Glucose (74-99) mg/dL POC Glucose (mg/dL) 116 H 135 H 130 H (75-99) mg/dL Calcium (8.4-10.2) mg/dL Phosphorus (2.5-4.5) mg/dL Total Protein (6.3-8.2) g/dL Albumin (3.5-5.0) g/dL 09/18/19 09/18/19 09/18/19 Range/Units 08:33 08:33 11:50 RBC 2.58 L (3.80-5.40) m/uL Hgb 7.1 L (11.4-16.0) gm/dL Hct 23.5 L (34.0-46.0) % MCHC 30.1 L (31.0-37.0) g/dL RDW 16.5 H (11.5-15.5) % Chloride 114 H (98-107) mmol/L Creatinine 0.47 L (0.52-1.04) mg/dL Glucose 113 H (74-99) mg/dL POC Glucose (mg/dL) 119 H (75-99) mg/dL Calcium 7.4 L (8.4-10.2) mg/dL Phosphorus 2.4 L (2.5-4.5) mg/dL Total Protein 5.1 L (6.3-8.2) g/dL Albumin 2.2 L (3.5-5.0) g/dL Microbiology - Last 24 Hours (Table) 09/14/19 16:27 Blood Culture - Preliminary Blood No Growth after 72 hours Assessment and Plan Plan: # Status post exploratory laparotomy with drainage of infected hematoma -POD#4, pain is well controlled -Management including pain control as per the general surgery service -Infectious disease following: Currently on Flagyl and fluconazole # Acute on chronic anemia -secondary to acute blood loss secondary to post surgical hematoma -Hgb 7.0-->7.1 today -no signs of active bleeding, continue to monitor # Hypokalemia and hypophosphatemia -Replace and monitor # Hypertension -Patient currently off Coreg with normal BP -Continue to monitor ZACHARY, now resolved
--- NOTE | 2019-09-18 13:01 | P.PN ---
Subjective Progress Note Date: 09/18/19 Principal diagnosis: Perigastric hematoma The patient is seen today 09/18/2019 in follow-up on the regular medical floor. She is currently resting comfortably in bed. Awake and alert in no acute distress. States her surgical pain is improved today compared to yesterday. She had undergone a gastric the procedure on September 02. She returned here with ongoing abdominal discomfort and is now status post exploratory laparotomy. Gastric hematoma drainage, placement of an NG tube and perigastric drain placement. Postoperative day #4. No pulmonary complaints. She is maintaining O2 saturations in the 90s on room air. Temp 99.7. Slightly tachycardic at 116. Blood pressure stable. The cultures reveal no growth. White count 6.9. Hemoglobin 7.1. Sodium 142. Potassium 3.5. Creatinine 0.47. She remains on PPN and lipids. She remains on fluconazole and metronidazole along with Zosyn. Objective - Vital Signs Vital signs: Vital Signs Temp 99.7 F H 09/18/19 07:00 Pulse 108 H 09/18/19 08:00 Resp 16 09/18/19 08:00 BP 117/82 09/18/19 07:00 Pulse Ox 96 09/18/19 07:00 Intake & Output 09/17/19 09/18/19 09/18/19 18:59 06:59 18:59 Intake Total 385 1150 Output Total 575 300 300 Balance -190 850 -300 Weight 130.5 kg Intake: IV 385 Mvi, Adult No.4 with Vit 90 K 10 ml Trace (Conc-1Ml/ Dose) 1 ml Sodium Acetate 30 meq Potassium Acetate 20 meq Potassium Phosphate 10 mmol Calcium Gluconate 2 gm In Amino Acid 5%-D15w 1,000 ml @ 30 mls/hr IV .Q24H [facility] Rx #:[id number] Potassium Phosphate 10 100 mmol In Sodium Chloride 0 .9% 100 ml @ 50 mls/hr IV Q2H [facility] Rx#:[id number] Sodium Chloride 0.9% 1, 95 000 ml @ 150 mls/hr IV . Q6H40M [facility] Rx#:[id number] metroNIDAZOLE-NS PMX 500 100 mg In Saline 1 100ml.bag @ 100 mls/hr IVPB Q8HR [facility] Rx#:[id number] Intake, IV Titration 1150 Amount Fluconazole in NaCl,Iso- 100 Osm 200 mg In Saline 1 100ml.bag @ 100 mls/hr IVPB Q24H [facility] Rx#: [id number] Piperacillin-Tazobactam 3 100 .375 gm In Sodium Chloride 0.9% 100 ml @ 25 mls/hr IVPB Q8HR [facility] Rx# :[id number] Sodium Chloride 0.9% 1, 950 000 ml @ 95 mls/hr IV . [id number] [facility] Rx#:[id number] Output: Drainage 140 Left Lower Abdomen 60 Left Upper Abdomen 80 Urine 435 300 300 Other: Voiding Method Indwelling Catheter Indwelling Catheter Indwelling Catheter - Exam GENERAL EXAM: Alert, very pleasant 23-year-old female patient, on room air, comfortable in no apparent distress. HEAD: Normocephalic. EYES: Normal reaction of pupils, equal size. NOSE: NG tube to low intermittent suction Clear with pink turbinates. THROAT: No erythema or exudates. NECK: No masses, no JVD. CHEST: No chest wall deformity. LUNGS: Equal air entry with no crackles, wheeze, rhonchi or dullness. CVS: S1 and S2 normal with no audible murmur, regular rhythm. ABDOMEN: Soft, nondistended. Abdominal dressing clean dry and intact. FIDE drains in place 2. Brown tinged output, normal bowel sounds, no guarding or rigidity. SPINE: No scoliosis or deformity SKIN: No rashes CENTRAL NERVOUS SYSTEM: No focal deficits, tone is normal in all 4 extremities. EXTREMITIES: Chronic changes of spina bifida. There is a wound to the left foot. Pulses intact. - Labs CBC & Chem 7: 09/18/19 08:33 09/18/19 08:33 Labs: Abnormal Lab Results - Last 24 Hours (Table) 09/17/19 09/18/19 09/18/19 Range/Units 17:06 00:52 05:37 RBC (3.80-5.40) m/uL Hgb (11.4-16.0) gm/dL Hct (34.0-46.0) % MCHC (31.0-37.0) g/dL RDW (11.5-15.5) % Chloride (98-107) mmol/L Creatinine (0.52-1.04) mg/dL Glucose (74-99) mg/dL POC Glucose (mg/dL) 116 H 135 H 130 H (75-99) mg/dL Calcium (8.4-10.2) mg/dL Phosphorus (2.5-4.5) mg/dL Total Protein (6.3-8.2) g/dL Albumin (3.5-5.0) g/dL 09/18/19 09/18/19 09/18/19 Range/Units 08:33 08:33 11:50 RBC 2.58 L (3.80-5.40) m/uL Hgb 7.1 L (11.4-16.0) gm/dL Hct 23.5 L (34.0-46.0) % MCHC 30.1 L (31.0-37.0) g/dL RDW 16.5 H (11.5-15.5) % Chloride 114 H (98-107) mmol/L Creatinine 0.47 L (0.52-1.04) mg/dL Glucose 113 H (74-99) mg/dL POC Glucose (mg/dL) 119 H (75-99) mg/dL Calcium 7.4 L (8.4-10.2) mg/dL Phosphorus 2.4 L (2.5-4.5) mg/dL Total Protein 5.1 L (6.3-8.2) g/dL Albumin 2.2 L (3.5-5.0) g/dL Microbiology - Last 24 Hours (Table) 09/14/19 16:27 Blood Culture - Preliminary Blood No Growth after 72 hours Assessment and Plan Assessment: 1 Perigastric hematoma, status post exploratory laparotomy with perigastric hematoma drainage, placement of NG tube, perigastric drain placement secondary to a leak from a recent gastric sleeve surgery. 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 Mejia She is stable from the pulmonary and critical care standpoint Continue current antibiotics The plan is for transfer to [facility] possibly tomorrow for bariatric specialist team I, the cosigning physician, performed a history & physical examination of the patient. Lungs sounds are clear. Maintaining good O2 saturations in the 90s on room air. I discussed the assessment and plan of care with my nurse practitioner, Lilian Leyva. I attest to the above note as dictated by her.
--- NOTE | 2019-09-18 14:12 | P.PN ---
Subjective Progress Note Date: 09/18/19 Principal diagnosis: Gastric leak Patient doing better today. She was able to shower yesterday. T-max 99.7. White blood cell count normal at 6.9, hemoglobin 7.1. She does feel tired at times. FIDE drains both slightly bilious stained and low volume. Says her pain is improving. Objective - Vital Signs Vital signs: Vital Signs Temp 99.7 F H 09/18/19 07:00 Pulse 108 H 09/18/19 08:00 Resp 16 09/18/19 08:00 BP 117/82 09/18/19 07:00 Pulse Ox 96 09/18/19 07:00 Intake & Output 09/17/19 09/18/19 09/18/19 18:59 06:59 18:59 Intake Total 385 1150 1285 Output Total 575 300 310 Balance -190 850 975 Weight 130.5 kg Intake: IV 385 200 Mvi, Adult No.4 with Vit 90 K 10 ml Trace (Conc-1Ml/ Dose) 1 ml Sodium Acetate 30 meq Potassium Acetate 20 meq Potassium Phosphate 10 mmol Calcium Gluconate 2 gm In Amino Acid 5%-D15w 1,000 ml @ 30 mls/hr IV .Q24H [facility] Rx #:[id number] Piperacillin-Tazobactam 3 100 .375 gm In Sodium Chloride 0.9% 100 ml @ 25 mls/hr IVPB Q8HR [facility] Rx# :[id number] Potassium Phosphate 10 100 mmol In Sodium Chloride 0 .9% 100 ml @ 50 mls/hr IV Q2H [facility] Rx#:[id number] Sodium Chloride 0.9% 1, 95 000 ml @ 150 mls/hr IV . Q6H40M [facility] Rx#:[id number] metroNIDAZOLE-NS PMX 500 100 100 mg In Saline 1 100ml.bag @ 100 mls/hr IVPB Q8HR [facility] Rx#:[id number] Intake, IV Titration 1150 1085 Amount Fluconazole in NaCl,Iso- 100 Osm 200 mg In Saline 1 100ml.bag @ 100 mls/hr IVPB Q24H [facility] Rx#: [id number] Mvi, Adult No.4 with Vit 320 K 10 ml Trace (Conc-1Ml/ Dose) 1 ml Potassium Phosphate 30 mmol In Amino Acid 5%-D15w+Lytes* E* 1,000 ml @ 40 mls/hr IV .Q24H [facility] Rx#: [id number] Piperacillin-Tazobactam 3 100 .375 gm In Sodium Chloride 0.9% 100 ml @ 25 mls/hr IVPB Q8HR [facility] Rx# :[id number] Potassium Phosphate 10 100 mmol In Sodium Chloride 0 .9% 100 ml @ 50 mls/hr [facility] Rx#:[id number] Sodium Chloride 0.9% 1, 950 665 000 ml @ 95 mls/hr IV . [id number] [facility] Rx#:[id number] Oral 0 Output: Drainage 140 10 Left Lower Abdomen 60 5 Left Upper Abdomen 80 5 Urine 435 300 300 Other: Voiding Method Indwelling Catheter Indwelling Catheter Indwelling Catheter - Exam Abdomen: Soft, nondistended, mild left upper quadrant tenderness, dressing clean and dry - Labs CBC & Chem 7: 09/18/19 08:33 09/18/19 08:33 Labs: Abnormal Lab Results - Last 24 Hours (Table) 09/17/19 09/18/19 09/18/19 Range/Units 17:06 00:52 05:37 RBC (3.80-5.40) m/uL Hgb (11.4-16.0) gm/dL Hct (34.0-46.0) % MCHC (31.0-37.0) g/dL RDW (11.5-15.5) % Chloride (98-107) mmol/L Creatinine (0.52-1.04) mg/dL Glucose (74-99) mg/dL POC Glucose (mg/dL) 116 H 135 H 130 H (75-99) mg/dL Calcium (8.4-10.2) mg/dL Phosphorus (2.5-4.5) mg/dL Total Protein (6.3-8.2) g/dL Albumin (3.5-5.0) g/dL 09/18/19 09/18/19 09/18/19 Range/Units 08:33 08:33 11:50 RBC 2.58 L (3.80-5.40) m/uL Hgb 7.1 L (11.4-16.0) gm/dL Hct 23.5 L (34.0-46.0) % MCHC 30.1 L (31.0-37.0) g/dL RDW 16.5 H (11.5-15.5) % Chloride 114 H (98-107) mmol/L Creatinine 0.47 L (0.52-1.04) mg/dL Glucose 113 H (74-99) mg/dL POC Glucose (mg/dL) 119 H (75-99) mg/dL Calcium 7.4 L (8.4-10.2) mg/dL Phosphorus 2.4 L (2.5-4.5) mg/dL Total Protein 5.1 L (6.3-8.2) g/dL Albumin 2.2 L (3.5-5.0) g/dL Microbiology - Last 24 Hours (Table) 09/14/19 16:27 Blood Culture - Preliminary Blood No Growth after 72 hours Assessment and Plan (1) Postoperative abdominal pain with fever Narrative/Plan: Patient overall doing fairly well. Continue broad-spectrum antibiotics. Continue TPN. Repeat labs tomorrow. Proceed with transfer to [facility] tomorrow. Current Visit: Yes Status: Acute Code(s): R10.9 - UNSPECIFIED ABDOMINAL PAIN; R50.82 - POSTPROCEDURAL FEVER; G89.18 - OTHER ACUTE POSTPROCEDURAL PAIN SNOMED Code(s): 53849221
[2019-09-18] MEDS: [UNRECOGNIZED DRUG - REMARK] IV SCH ×4 (15:50)
[2019-09-18 16:47] LABS: Glucose,Whole Blood 115 mg/dL (75-99)
[2019-09-18] MEDS: MVI, ADULT NO.4 WITH VIT K 10 ML, TRACE (CONC-1ML/DOSE) 1 ML, SODIUM ACETATE 30 MEQ, PO... IV SCH ×7 (19:52)
[2019-09-18] MEDS: FLUCONAZOLE IN NACL,ISO-OSM 200 MG in SALINE 1 100ML.BAG IVPB SCH (20:22)
--- NOTE | 2019-09-18 23:28 | PN ---
PROGRESS NOTE DATE OF SERVICE: 09/18/2019. REASON FOR FOLLOWUP: Abdominal wall infected hematoma. INTERVAL HISTORY: Patient is currently afebrile. The patient is breathing comfortably. The patient denies having any chest pain or shortness of breath. Abdominal pain is currently controlled. No nausea, no vomiting or diarrhea. PHYSICAL EXAMINATION: Blood pressure 125/84 with a pulse of 93. Temperature is 97.9. She is 100% on room air. General description: The patient is a young female up in the bed in no distress. Respiratory system: Unlabored breathing, clear to auscultation anteriorly. HEART S1, S2. Regular rate and rhythm. Abdomen soft, no tenderness. LABS: Hemoglobin 7.1, white count 6.8. BUN of 20, creatinine 0.47. Blood culture has been negative. DIAGNOSTIC IMPRESSION AND PLAN: Patient with infected abdominal hematoma, status post drainage. The patient is currently on Zosyn and Diflucan. Continue possible transfer to tertiary care for endoscopic repair of the gastric leak. Questions and concerns were answered. MMODL / IJN: [id number] / [id number]
[2019-09-18 23:50] LABS: Glucose,Whole Blood 112 mg/dL (75-99)
[2019-09-19] MEDS: HYDROmorphone 1 MG/ML 1 ML SYRINGE IVP PRN ×9 (01:31→22:07)
[2019-09-19] MEDS: SODIUM CHLORIDE 0.9% 1,000 ML IV SCH ×2 (02:53→12:15)
[2019-09-19] MEDS: METOCLOPRAMIDE 5 MG/ML 2 ML VIAL IVP PRN ×2 (03:13→22:05)
[2019-09-19 05:25] LABS: Glucose,Whole Blood 126 mg/dL (75-99)
[2019-09-19] MEDS: KETOROLAC 30 MG/ML 1 ML VIAL IVP SCH ×2 (05:48→12:14)
[2019-09-19] MEDS: metroNIDAZOLE-NS PMX 500 MG in SALINE 1 100ML.BAG IVPB SCH ×2 (08:10→17:38)
[2019-09-19] MEDS: PIPERACILLIN-TAZOBACTAM 3.375 GM in SODIUM CHLORIDE 0.9% 100 ML IVPB SCH ×2 (08:10→17:39)
[2019-09-19] MEDS: BENZOCAINE/MENTHOL LOZENG 1 EACH LOZENGE MUCOUS MEM PRN (08:10)
[2019-09-19] MEDS: PANTOPRAZOLE 40 MG/10 ML VIAL IV SCH (08:11)
[2019-09-19] MEDS: HEPARIN SODIUM,PORCINE 5,000 UNIT/ML 1 ML VIAL SQ SCH ×2 (08:11→17:38)
[2019-09-19] MEDS: diphenhydrAMINE 50 MG/ML 1 ML VIAL IVP PRN ×2 (08:11→22:06)
[2019-09-19 08:17] LABS: ALT 19 U/L (4-34); AST 30 U/L (14-36); African American GFR (CKD) >90 (>60 ml/min/1.73 sqM); Albumin 2.2 g/dL (3.5-5.0); Alkaline Phosphatase 57 U/L (38-126); Anion Gap 3 mmol/L; Blood Urea Nitrogen 8 mg/dL (7-17); Calcium 7.7 mg/dL (8.4-10.2); Carbon Dioxide 26 mmol/L (22-30); Chloride 112 mmol/L (98-107); Glucose 121 mg/dL (74-99); Magnesium 1.8 mg/dL (1.6-2.3); Non-African American GFR(CKD) >90 (>60 ml/min/1.73 sqM); Phosphorus 3.2 mg/dL (2.5-4.5); Potassium 3.6 mmol/L (3.5-5.1); Sodium 141 mmol/L (137-145); Total Bilirubin 0.3 mg/dL (0.2-1.3); Total Protein 5.1 g/dL (6.3-8.2)
[2019-09-19] MEDS: ALBUTEROL NEBULIZED 2.5 MG/3 ML INHALATION SCH ×4 (08:48→21:03)
[2019-09-19 08:53] LABS: Anisocytosis Slight; Basophils % (A) 0 %; Eosinophils # (A) 0.2 k/uL (0-0.7); Eosinophils % (A) 4 %; HCT 23.3 % (34.0-46.0); Hypochromasia Marked; Lymphocytes # (A) 1.3 k/uL (1.0-4.8); Lymphocytes % (A) 22 %; MCHC 29.9 g/dL (31.0-37.0); MCV 90.3 fL (80.0-100.0); Mean Platelet Volume 8.1; Monocytes # (A) 0.4 k/uL (0-1.0); Monocytes % (A) 7 %; Neutrophils # (A) 3.9 k/uL (1.3-7.7); Neutrophils % (A) 64 %; Platelet Count 337 k/uL (150-450); RBC 2.58 m/uL (3.80-5.40); RDW 16.3 % (11.5-15.5); WBC 6.1 k/uL (3.8-10.6)
--- NOTE | 2019-09-19 10:22 | P.DS ---
Providers Date of admission: 09/14/19 14:51 Expected date of discharge: 09/19/19 Attending physician: Louis Key Consults: 09/14/19 13:51 Consult Physician Routine Consulting Provider: Blanche Alas Consult Reason/Comments: Postop fever Do you want consulting provider notified?: Yes 09/14/19 13:54 Consult Physician Routine Consulting Provider: Fabrizio Weinstein Consult Reason/Comments: Medical management Do you want consulting provider notified?: Yes 09/14/19 20:36 Consult Physician Routine Consulting Provider: Jeyson Mejia Consult Reason/Comments: ICU management Do you want consulting provider notified?: Yes 09/15/19 11:31 Consult Physician Routine Consulting Provider: Ofelia San Consult Reason/Comments: SVT, hypotensive episodes Do you want consulting provider notified?: Yes Primary care physician: Physician Nonstaff - Discharge Diagnosis(es) (1) Postoperative abdominal pain with fever 23-year-old female underwent sleeve gastrectomy on 09/02. Evening of surgery patient developed significant hypertension and subsequent hypotension the following morning. Patient was found to have a significant drop in hemoglobin. CAT scan showed a perigastric hematoma. Patient was monitored in the ICU and was surgically discharged home 5 days postop. Patient did not require blood transfusion. Patient had been doing well at home was tolerating a proximally 16 ounces of liquids daily and was feeling better. 2 days prior to this admission patient said she felt a gas bubble in her upper abdomen with subsequent sharp pain. The 2 days prior to this admission she says her pain was steadily increasing. The morning of this admission the patient had episodes of very foul-smelling hematemesis. Patient was also having some melanotic stools. In the clinic the patient was tachycardic and febrile. White blood cell count significantly elevated. Hemoglobin was stable. Patient went for a CAT scan which demonstrated air and its contrast within her hematoma cavity. He was taken the operating room for exploration. At the time of surgery patient had a leak identified at the apex of her staple line. This could not be well visualized and unfortunately we were unable to surgically repair this leak. The hematoma was evacuated. 2 drains were left. Nasogastric tube was left within the stomach. Nasogastric tube was able to be passed into the stomach without difficulty. Postoperatively the patient was initially watched in the ICU. Pain was controlled. Drains were initially bloody brown in color. They are now more purulent with some bilious stained fluid. Nasogastric tube draining minimal if any output. Patient's white blood cell count returned to normal. No fevers during the postoperative period. Has been maintained on broad-spectrum antibiotics by infectious disease. Has been on TPN through a PICC line and starting postop day 1. Pain has gradually improved. Hemoglobin has trended downwards although has been stable in the low sevens for the last few days. We have been trying to avoid transfusion if possible. Patient has a significant history of spina bifida and is wheelchair bound. Patient has a FUR POLISHER shunt in place as well in the right side of her abdomen with significant abdominal adhesions that made the initial sleeve gastrectomy and the reexploration challenging. Patient's family has been very involved and staying with the patient. They have been informed as to the patient's progress on a daily basis. Last week I spoke with Dr. Bryan and Morro at [facility]. Arrangements have been made for the patient to be transferred there for endoscopic evaluation and management of her sleeve leak. Anticipate discharge today with transfer to [facility]. Current Visit: Yes Status: Acute Plan - Discharge Summary Discharge Rx Participant: Yes New Discharge Prescriptions: No Action Carvedilol 25 mg PO QAM Bisacodyl [Dulcolax] 5 mg PO DAILY PRN #10 tablet. PRN Reason: Constipation Simethicone 40 mg/0.6 ml Drops [Mylicon Drops] 40 mg PO PCHS PRN #30 ml PRN Reason: Gas Omeprazole [PriLOSEC] 40 mg PO DAILY #30 capsule. Ondansetron Odt [Zofran Odt] 4 mg PO Q8HR PRN #9 tab PRN Reason: Nausea oxyCODONE HCL/ACETAMINOPHEN [oxyCODONE HCL/ACETAMINOPHEN 5-325] 1 tab PO Q6H 3 Days #12 tab Discharge Medication List Carvedilol 25 mg PO QAM 05/20/19 [History] Bisacodyl [Dulcolax] 5 mg PO DAILY PRN #10 tablet. 09/08/19 [Rx] Omeprazole [PriLOSEC] 40 mg PO DAILY #30 capsule. 09/08/19 [Rx] Ondansetron Odt [Zofran Odt] 4 mg PO Q8HR PRN #9 tab 09/08/19 [Rx] Simethicone 40 mg/0.6 ml Drops [Mylicon Drops] 40 mg PO PCHS PRN #30 ml 09/08/19 [Rx] oxyCODONE HCL/ACETAMINOPHEN [oxyCODONE HCL/ACETAMINOPHEN 5-325] 1 tab PO Q6H 3 Days #12 tab 09/08/19 [Rx]
[2019-09-19 11:55] LABS: Glucose,Whole Blood 119 mg/dL (75-99)
[2019-09-19] MEDS ORDERED: POTASSIUM CHLORIDE 20 MEQ in WATER FOR INJECTION 1 100ML.BAG IVPB ONE (12:00)
--- NOTE | 2019-09-19 14:19 | P.PN ---
Subjective Progress Note Date: 09/19/19 Principal diagnosis: Perigastric hematoma The patient is seen today 09/18/2019 in follow-up on the regular medical floor. She is currently resting comfortably in bed. Awake and alert in no acute distress. States her surgical pain is improved today compared to yesterday. She had undergone a gastric the procedure on September 02. She returned here with ongoing abdominal discomfort and is now status post exploratory laparotomy. Gastric hematoma drainage, placement of an NG tube and perigastric drain placement. Postoperative day #4. No pulmonary complaints. She is maintaining O2 saturations in the 90s on room air. Temp 99.7. Slightly tachycardic at 116. Blood pressure stable. The cultures reveal no growth. White count 6.9. Hemoglobin 7.1. Sodium 142. Potassium 3.5. Creatinine 0.47. She remains on PPN and lipids. She remains on fluconazole and metronidazole along with Zosyn. The patient is seen today 09/19/2019 in follow-up on the regular medical floor. She is currently sitting up in a chair at the bedside. Awake and alert in no acute distress. Her pain is better controlled. She continues working well with the incentive spirometer. Denies any worsening shortness of breath, cough or congestion. Maintaining good O2 saturations in the upper 90s on room air. She's been afebrile. Hemodynamically stable. Blood culture reveals no growth. White count 6.1. Hemoglobin 7.0. Sodium 141. Potassium 3.6. Creatinine 0.44. Objective - Vital Signs Vital signs: Vital Signs Temp 98.8 F 09/19/19 07:00 Pulse 95 09/19/19 07:05 Resp 18 09/19/19 07:05 BP 126/74 09/19/19 07:00 Pulse Ox 98 09/19/19 07:00 Intake & Output 09/18/19 09/19/19 09/19/19 18:59 06:59 18:59 Intake Total 1285 1380 0 Output Total 390 740 90 Balance 895 640 -90 Weight 130.5 kg Intake: IV 200 200 Piperacillin-Tazobactam 3 100 100 .375 gm In Sodium Chloride 0.9% 100 ml @ 25 mls/hr IVPB Q8HR [facility] Rx# :[id number] metroNIDAZOLE-NS PMX 500 100 100 mg In Saline 1 100ml.bag @ 100 mls/hr IVPB Q8HR [facility] Rx#:[id number] Intake, IV Titration 1085 1180 Amount Fluconazole in NaCl,Iso- 100 Osm 200 mg In Saline 1 100ml.bag @ 100 mls/hr IVPB Q24H [facility] Rx#: [id number] Mvi, Adult No.4 with Vit 320 320 K 10 ml Trace (Conc-1Ml/ Dose) 1 ml Potassium Phosphate 30 mmol In Amino Acid 5%-D15w+Lytes* E* 1,000 ml @ 40 mls/hr IV .Q24H [facility] Rx#: [id number] Potassium Phosphate 10 100 mmol In Sodium Chloride 0 .9% 100 ml @ 50 mls/hr IV ONCE ONE Rx#:[id number] Sodium Chloride 0.9% 1, 665 760 000 ml @ 95 mls/hr IV . [id number] [facility] Rx#:[id number] Oral 0 0 Output: Drainage 90 40 90 Left Lower Abdomen 15 40 90 Left Upper Abdomen 75 Urine 300 700 Other: Voiding Method Indwelling Catheter Indwelling Catheter Indwelling Catheter - Exam GENERAL EXAM: Alert, very pleasant 23-year-old female patient, on room air, comfortable in no apparent distress. HEAD: Normocephalic. EYES: Normal reaction of pupils, equal size. NOSE: NG tube to low intermittent suction Clear with pink turbinates. THROAT: No erythema or exudates. NECK: No masses, no JVD. CHEST: No chest wall deformity. LUNGS: Equal air entry with no crackles, wheeze, rhonchi or dullness. CVS: S1 and S2 normal with no audible murmur, regular rhythm. ABDOMEN: Soft, nondistended. Abdominal dressing clean dry and intact. FIDE drains in place 2. Brown tinged output, normal bowel sounds, no guarding or rigidity. SPINE: No scoliosis or deformity SKIN: No rashes CENTRAL NERVOUS SYSTEM: No focal deficits, tone is normal in all 4 extremities. EXTREMITIES: Chronic changes of spina bifida. There is a wound to the left foot. Pulses intact. - Labs CBC & Chem 7: 09/19/19 08:00 09/19/19 08:00 Labs: Abnormal Lab Results - Last 24 Hours (Table) 09/18/19 09/18/19 09/19/19 Range/Units 16:45 23:48 05:24 RBC (3.80-5.40) m/uL Hgb (11.4-16.0) gm/dL Hct (34.0-46.0) % MCHC (31.0-37.0) g/dL RDW (11.5-15.5) % Chloride (98-107) mmol/L Creatinine (0.52-1.04) mg/dL Glucose (74-99) mg/dL POC Glucose (mg/dL) 115 H 112 H 126 H (75-99) mg/dL Calcium (8.4-10.2) mg/dL Total Protein (6.3-8.2) g/dL Albumin (3.5-5.0) g/dL 09/19/19 09/19/19 09/19/19 Range/Units 08:00 08:00 11:52 RBC 2.58 L (3.80-5.40) m/uL Hgb 7.0 L (11.4-16.0) gm/dL Hct 23.3 L (34.0-46.0) % MCHC 29.9 L (31.0-37.0) g/dL RDW 16.3 H (11.5-15.5) % Chloride 112 H (98-107) mmol/L Creatinine 0.44 L (0.52-1.04) mg/dL Glucose 121 H (74-99) mg/dL POC Glucose (mg/dL) 119 H (75-99) mg/dL Calcium 7.7 L (8.4-10.2) mg/dL Total Protein 5.1 L (6.3-8.2) g/dL Albumin 2.2 L (3.5-5.0) g/dL Microbiology - Last 24 Hours (Table) 09/14/19 16:27 Blood Culture - Preliminary Blood No Growth after 96 hours Assessment and Plan Assessment: 1 Perigastric hematoma, status post exploratory laparotomy with perigastric hematoma drainage, placement of NG tube, perigastric drain placement secondary to a leak from a recent gastric sleeve surgery. 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 Mejia She is stable from the pulmonary and critical care standpoint Continue current antibiotics The plan is for transfer to [facility] for bariatric specialist team I, the cosigning physician, performed a history & physical examination of the patient. Lungs sounds are clear. Maintaining good O2 saturations in the 90s on room air. I discussed the assessment and plan of care with my nurse practitioner, Lilian Leyva. I attest to the above note as dictated by her.
[2019-09-19] MEDS: [UNRECOGNIZED DRUG - REMARK] IV SCH ×4 (14:49)
--- NOTE | 2019-09-19 16:54 | P.PN ---
Subjective Progress Note Date: 09/19/19 23 yo female admitted fir gastric sleeve leak with hematoma POD#5. Pain is well controlled today, denies any nausea or vomiting, no fevers or chills. Remains NPO, on TPN, no bowel movements since surgery but she is passing gas. Hgb has been stable at around 7, with no signs of active bleeding. Objective - Vital Signs Vital signs: Vital Signs Temp 98.5 F 09/19/19 14:44 Pulse 82 09/19/19 14:44 Resp 20 09/19/19 14:44 BP 110/76 09/19/19 14:44 Pulse Ox 98 09/19/19 14:44 Intake & Output 09/18/19 09/19/19 09/19/19 18:59 06:59 18:59 Intake Total 1285 1380 1219.333 Output Total 390 740 260 Balance 895 640 959.333 Weight 130.5 kg Intake: IV 200 200 200 Piperacillin-Tazobactam 3 100 100 100 .375 gm In Sodium Chloride 0.9% 100 ml @ 25 mls/hr IVPB Q8HR [facility] Rx# :[id number] metroNIDAZOLE-NS PMX 500 100 100 100 mg In Saline 1 100ml.bag @ 100 mls/hr IVPB Q8HR [facility] Rx#:[id number] Intake, IV Titration 1085 1180 1019.333 Amount Fluconazole in NaCl,Iso- 100 Osm 200 mg In Saline 1 100ml.bag @ 100 mls/hr IVPB Q24H [facility] Rx#: [id number] Mvi, Adult No.4 with Vit 320 320 919.333 K 10 ml Trace (Conc-1Ml/ Dose) 1 ml Potassium Phosphate 30 mmol In Amino Acid 5%-D15w+Lytes* E* 1,000 ml @ 40 mls/hr IV .Q24H [facility] Rx#: [id number] Potassium Chloride 20 meq 100 In Water For Injection 1 100ml.bag @ 50 mls/hr IVPB ONCE ONE Rx#: [id number] Potassium Phosphate 10 100 mmol In Sodium Chloride 0 .9% 100 ml @ 50 mls/hr IV ONCE ONE Rx#:[id number] Sodium Chloride 0.9% 1, 665 760 000 ml @ 95 mls/hr IV . [id number] [facility] Rx#:[id number] Oral 0 0 Output: Drainage 90 40 260 Left Lower Abdomen 15 40 115 Left Upper Abdomen 75 145 Urine 300 700 Other: Voiding Method Indwelling Catheter Indwelling Catheter Indwelling Catheter - Exam General: Non-toxic, in no acute distress, appears stated age, morbidly obese HEENT: NC/AT, anicteric sclerae, moist conjunctiva, no lid-lag, PERRLA Cardiovascular: S1/S2 wnl, no murmurs, rubs, or gallops Lungs: Clear to auscultation, normal respiratory effort, no accessory muscle use Abdominal: minimal tenderness to surgical site, soft, abdominal binder in place, mid-line incision clean and dry with drains in place, no guarding Skin: Warm, dry Extremities: vandana 2+ pedal edema to knees Psychiatric: Alert and oriented to person, place and time, appropriate affect Neuro: CN II-XII grossly intact, no focal deficits noted - Labs CBC & Chem 7: 09/19/19 08:00 09/19/19 08:00 Labs: Abnormal Lab Results - Last 24 Hours (Table) 09/18/19 09/18/19 09/19/19 Range/Units 16:45 23:48 05:24 RBC (3.80-5.40) m/uL Hgb (11.4-16.0) gm/dL Hct (34.0-46.0) % MCHC (31.0-37.0) g/dL RDW (11.5-15.5) % Chloride (98-107) mmol/L Creatinine (0.52-1.04) mg/dL Glucose (74-99) mg/dL POC Glucose (mg/dL) 115 H 112 H 126 H (75-99) mg/dL Calcium (8.4-10.2) mg/dL Total Protein (6.3-8.2) g/dL Albumin (3.5-5.0) g/dL 09/19/19 09/19/19 09/19/19 Range/Units 08:00 08:00 11:52 RBC 2.58 L (3.80-5.40) m/uL Hgb 7.0 L (11.4-16.0) gm/dL Hct 23.3 L (34.0-46.0) % MCHC 29.9 L (31.0-37.0) g/dL RDW 16.3 H (11.5-15.5) % Chloride 112 H (98-107) mmol/L Creatinine 0.44 L (0.52-1.04) mg/dL Glucose 121 H (74-99) mg/dL POC Glucose (mg/dL) 119 H (75-99) mg/dL Calcium 7.7 L (8.4-10.2) mg/dL Total Protein 5.1 L (6.3-8.2) g/dL Albumin 2.2 L (3.5-5.0) g/dL Microbiology - Last 24 Hours (Table) 09/14/19 16:27 Blood Culture - Preliminary Blood No Growth after 96 hours Assessment and Plan Plan: # Status post exploratory laparotomy with drainage of infected hematoma -POD#5, pain is well controlled -no growth on cultures to date, recommend stopping antibiotics tomorrow -remains NPO, continue TPN for now -diet per surgery recommendation # Acute on chronic anemia -secondary to acute blood loss secondary to post surgical hematoma -Hgb has been stable at around 7.0 -no signs of active bleeding, continue to monitor # Hypokalemia and hypophosphatemia -resolved # Hypertension -Patient currently off Coreg with normal BP -Continue to monitor # ZACHARY -resolved # Morbid Obesity -lifestyle changes
[2019-09-19 18:16] LABS: Glucose,Whole Blood 118 mg/dL (75-99)
[2019-09-19 19:49] VITALS: RESP 18
[2019-09-19] MEDS: FLUCONAZOLE IN NACL,ISO-OSM 200 MG in SALINE 1 100ML.BAG IVPB SCH (19:54)
[2019-09-20] MEDS: HYDROmorphone 1 MG/ML 1 ML SYRINGE IVP PRN ×6 (00:14→09:49)
[2019-09-20] MEDS: metroNIDAZOLE-NS PMX 500 MG in SALINE 1 100ML.BAG IVPB SCH ×2 (00:15→09:22)
[2019-09-20] MEDS: PIPERACILLIN-TAZOBACTAM 3.375 GM in SODIUM CHLORIDE 0.9% 100 ML IVPB SCH ×2 (00:15→09:19)
[2019-09-20] MEDS: HEPARIN SODIUM,PORCINE 5,000 UNIT/ML 1 ML VIAL SQ SCH ×2 (00:43→07:32)
[2019-09-20 00:44] LABS: Glucose,Whole Blood 124 mg/dL (75-99)
[2019-09-20] MEDS: SODIUM CHLORIDE 0.9% 1,000 ML IV SCH (00:44)
[2019-09-20] MEDS ORDERED: ACETAMINOPHEN IV (For NPO) 1,000 MG in EMPTY BAG 1 BAG IVPB PRN (03:19)
[2019-09-20] MEDS ORDERED: ACETAMINOPHEN IV (For NPO) 1,000 MG in EMPTY BAG 1 BAG IVPB SCH (06:00)
[2019-09-20 06:19] LABS: Glucose,Whole Blood 126 mg/dL (75-99)
--- NOTE | 2019-09-20 06:55 | PN ---
PROGRESS NOTE DATE OF SERVICE: 09/19/2019 REASON FOR FOLLOWUP: Infected abdominal hematoma. INTERVAL HISTORY: Patient is currently afebrile. The patient is breathing comfortably. Patient denies having any chest pain. No shortness of breath or cough. Abdominal pain is currently controlled. Still has the NG. No diarrhea. PHYSICAL EXAMINATION: Blood pressure is 127/84 with a pulse of 92, temperature 98.7. She is 100% on room air. General description is a middle-aged female up in the bed in no distress. RESPIRATORY SYSTEM: Unlabored breathing clear to auscultation anteriorly. HEART: S1, S2. Regular rate and rhythm. ABDOMEN: Soft, no tenderness. LABS: Hemoglobin 7, white count 6.1. BUN of 8, creatinine 0.44. DIAGNOSTIC IMPRESSION AND PLAN: Patient with infected abdominal hematoma, status post drainage. Patient to be transferred to tertiary care for repair of the leak. Covered with Zosyn and Diflucan. Afebrile. White count is currently normal. Continue with supportive care. MMODL / IJN: [id number] /
[2019-09-20] MEDS: ALBUTEROL NEBULIZED 2.5 MG/3 ML INHALATION SCH (07:29)
[2019-09-20] MEDS: PANTOPRAZOLE 40 MG/10 ML VIAL IV SCH (07:32)
[2019-09-20 08:08] VITALS: BP 128/68; PULSE 97; TEMP 98.5
--- NOTE | 2019-09-20 08:33 | CDI ---
Documentation Clarification Form Date: 09/21/2019 08:13:06 AM From: Rupal Gomez CCS, CCDS Admit Date: 09/14/2019 02:51:00 PM Patient Name: Ivy Quevedo Visit Number: [id number] Discharge Date: ATTENTION: The Clinical Documentation Specialists (CDI) and [facility] Coding Staff appreciate your assistance in clarifying documentation. Please respond to the clarification below the line at the bottom and electronically sign. The CDI & [facility] Coding staff will review the response and follow-up if needed. Please note: Queries are made part of the Legal Health Record. If you have any questions, please contact the author of this message via ITS. Dr. Louis Key: Per the Infectious Disease Consult on 09/13: "patient presented to the hospital with sepsis in this patient who did have fever tachycardia and elevated white count..." "Intra-abdominal abscess." Subsequent ID Progress Note on 09/15: Sepsis is documented. Per the 09/14 Pulmonary/Critical Care Consult: "Rule out peritonitis." History/Risk Factors: Wheelchair bound with Spinabifida, Hypertension, Bucuspid aortic valve. Clinical Indicators: 09/13 General Surgery H/P: "The patient presented with the following: "Postoperative abdominal pain with fever, 23-year-old female underwent sleeve gastrectomy on 09/02. Evening of surgery patient developed significant hypertension and subsequent hypotension the following morning. Patient was found to have a significant drop in hemoglobin. CAT scan showed a perigastric hematoma. ...discharged home 5 days postop. The morning of this admission the patient had episodes of very foul-smelling hematemesis. Patient was also having some melanotic stools. In the clinic the patient was tachycardic and febrile. White blood cell count significantly elevated." VS 09/13: T 100.9^, P 132^, BP 98/59 09/13 LAB: WBC 24.6^, Hgb 9.8*, Neut 22.1^, BUN 38^, Cr 1.13^, UA: clear, sp gr >1.050^, 1+ protein, 1+ ketones, 1+ bilirubin. Lactic acid: not done Blood cultures 09/13: negative. Treatment: IV Zofran, IV fluid bolus 1,000 mls @ 999/hr, IV Dilaudid, IV Kcl, IV Zosyn, IV Diflucan, IV Lactated Ringers x3, IV Flagyl. In your professional opinion, please clarify if these findings signify one of the following conditions, whether the condition is POA, and cause, if known: Sepsis ruled out Sepsis, please specify cause: Severe Sepsis Septic Shock Other, please specify Unable to determine Present on Admission: Yes or No Link or clarify if there is associated (due to/with): o Organ failure o Shock (Last Revision: June 2017) _Patient with sepsis related to gastric sleeve leak, not severe in nature, no shock or organ failure, was present on admission MTDD
--- NOTE | 2019-09-20 08:46 | P.PN ---
Subjective Progress Note Date: 09/20/19 Principal diagnosis: Infected Hematoma Patient seen and examined at bedside. Abdominal pain is improving. patient continued to continues to pass flatus without a BM. A fever was noted early in the morning, however this was attributed to patient having too many blankets on her Objective - Vital Signs Vital signs: Vital Signs Temp 98.5 F 09/20/19 07:00 Pulse 97 09/20/19 07:00 Resp 18 09/20/19 07:00 BP 128/68 09/20/19 07:00 Pulse Ox 96 09/20/19 07:00 Intake & Output 09/19/19 09/20/19 09/20/19 18:59 06:59 18:59 Intake Total 5736.143 0163 Output Total 900 3390 600 Balance 319.333 -1890 -600 Weight 130.5 kg Intake: IV 200 300 Piperacillin-Tazobactam 3 100 200 .375 gm In Sodium Chloride 0.9% 100 ml @ 25 mls/hr IVPB Q8HR [facility] Rx# :[id number] metroNIDAZOLE-NS PMX 500 100 100 mg In Saline 1 100ml.bag @ 100 mls/hr IVPB Q8HR [facility] Rx#:[id number] Intake, IV Titration 8269.975 6221 Amount ACETAMINOPHEN IV (For NPO 400 ) 1,000 mg In Empty Bag 1 bag @ 400 mls/hr IVPB Q6HR [facility] Rx#:[id number] ACETAMINOPHEN IV (For NPO 800 ) 1,000 mg In Empty Bag 1 bag @ 400 mls/hr IVPB Q6HR [facility] Rx#:[id number] Mvi, Adult No.4 with Vit 919.333 K 10 ml Trace (Conc-1Ml/ Dose) 1 ml Potassium Phosphate 30 mmol In Amino Acid 5%-D15w+Lytes* E* 1,000 ml @ 40 mls/hr IV .Q24H [facility] Rx#: [id number] Potassium Chloride 20 meq 100 In Water For Injection 1 100ml.bag @ 50 mls/hr IVPB ONCE ONE Rx#: [id number] Oral 0 0 Output: Drainage 600 40 Left Lower Abdomen 165 10 Left Upper Abdomen 435 30 Urine 300 3350 600 Uretheral (Wetzel) 1900 Other: Voiding Method Indwelling Catheter Indwelling Catheter - Exam General: [non toxic], [no distress], [appears at stated age] Derm: [warm], [dry] Head: [atraumatic], [normocephalic], [symmetric] Eyes: [EOMI], [no lid lag], [anicteric sclera] Mouth: [no lip lesion], [mucus membranes moist] Cardiovascular: [S1S2 reg], [no murmur], [positive posterior tibial pulse bilateral], Lungs: [CTA bilateral], [no rhonchi, no rales] , [no accessory muscle use] Abdominal: [soft], [ tender to palpation no rebound no guarding], [no guarding], [no appreciable organomegaly] Ext: [no gross muscle atrophy], [no edema], [no contractures] Neuro: [ CN II-XI grossly intact], [no focal neuro deficits] Psych: [Alert], [oriented], [appropriate affect] - Labs CBC & Chem 7: 09/19/19 08:00 09/19/19 08:00 Labs: Abnormal Lab Results - Last 24 Hours (Table) 09/19/19 09/19/19 09/19/19 Range/Units 08:00 11:52 18:14 RBC 2.58 L (3.80-5.40) m/uL Hgb 7.0 L (11.4-16.0) gm/dL Hct 23.3 L (34.0-46.0) % MCHC 29.9 L (31.0-37.0) g/dL RDW 16.3 H (11.5-15.5) % POC Glucose (mg/dL) 119 H 118 H (75-99) mg/dL 09/20/19 09/20/19 Range/Units 00:42 06:18 RBC (3.80-5.40) m/uL Hgb (11.4-16.0) gm/dL Hct (34.0-46.0) % MCHC (31.0-37.0) g/dL RDW (11.5-15.5) % POC Glucose (mg/dL) 124 H 126 H (75-99) mg/dL Microbiology - Last 24 Hours (Table) 09/14/19 16:27 Blood Culture - Preliminary Blood No Growth after 120 hours Assessment and Plan Assessment: 1. Status post exploratory laparotomy with drainage of infected hematoma -POD#6, pain is well controlled -no growth on cultures to date Abx per ID -remains NPO, continue TPN for now -diet per surgery recommendation 2. Acute on chronic anemia -secondary to acute blood loss secondary to post surgical hematoma -Hgb has been stable at around 7.0. AM lCBC pending -no signs of active bleeding, continue to monitor 3. Hypokalemia and hypophosphatemia -resolved 4. Hypertension -Patient currently off Coreg with normal BP -Continue to monitor 5. ZACHARY -resolved 6. Morbid Obesity -lifestyle changes
--- NOTE | 2019-09-20 11:17 | P.PN ---
Progress Note - Text Progress Note Date: 09/20/19 Patient doing about the same today. Low-grade temp last night 100.2 although the patient states that she was covered with multiple blankets and did not feel febrile. Labs were not drawn this morning. Patient was seen as EMS was present in the room preparing her for discharge/transfer to [facility]. No change in pain. Drain output minimal. Still with some air out of the one drain. Feels tired. Please refer to yesterday's discharge summary. No changes since that time.
== END 2019-09-20 09:51 | disposition short-term general hospital (02) | DRG 326 ==
LOC: BARWHC3 12:33 → 4SSUR 14:51 → 2SICU 19:34 → 4SSUR 09-17 15:41
PROVIDERS: ADMIT Surgery; ATTEND Surgery
PROC: 0D9600Z Drainage of Stomach with Drainage Device, Open Approach (ICD-10-PCS; principal; 2019-09-14 16:19)
PROC: 02H633Z Insertion of Infusion Device into Right Atrium, Percutaneous Approach (ICD-10-PCS; 2019-09-15)
DX: K95.81 Infection due to other bariatric procedure (principal); K66.1 Hemoperitoneum; K65.1 Peritoneal abscess; N17.0 Acute kidney failure with tubular necrosis; R65.20 Severe sepsis without septic shock; A41.9 Sepsis, unspecified organism; K91.840 Postprocedural hemorrhage of a digestive system organ or structure following a digestive system procedure; D62 Acute posthemorrhagic anemia; K92.0 Hematemesis; Q23.1 Congenital insufficiency of aortic valve; T80.818A Extravasation of other vesicant agent, initial encounter; T81.49XA Infection following a procedure, other surgical site, initial encounter; K95.89 Other complications of other bariatric procedure; E66.01 Morbid (severe) obesity due to excess calories; E83.39 Other disorders of phosphorus metabolism; E87.6 Hypokalemia; I10 Essential (primary) hypertension; K66.0 Peritoneal adhesions (postprocedural) (postinfection); L97.529 Non-pressure chronic ulcer of other part of left foot with unspecified severity; Q05.9 Spina bifida, unspecified; Z11.59 Encounter for screening for other viral diseases; Y83.2 Surgical operation with anastomosis, bypass or graft as the cause of abnormal reaction of the patient, or of later complication, without mention of misadventure at the time of the procedure; Z79.899 Other long term (current) drug therapy; Z86.19 Personal history of other infectious and parasitic diseases; Z98.2 Presence of cerebrospinal fluid drainage device; Z98.84 Bariatric surgery status; Z99.3 Dependence on wheelchair; Z88.5 Allergy status to narcotic agent; Z91.040 Latex allergy status
CPT/HCPCS: 36415; 36573; 71045; 74177; 80048; 80051; 80053; 81001; 82310; 82330; 82565; 83735; 84100; 84443; 84478; 84520; 84703; 85025; 85027; 86850; 86900; 86901; 87040; 93306; 96360; 96361; 96375; 99211

== ENCOUNTER → 2020-01-04 | Outpatient (CLI) | payer OTHER ==
[2020-01-04 14:43] VITALS: BP 146/92; PULSE 75; RESP 16; TEMP 98.3; BMI 45.4
[2020-01-04 15:57] LABS: HCT 37.9 % (34.0-46.0); HGB 11.8 gm/dL (11.4-16.0); Hypochromasia Moderate; MCH 27.3 pg (25.0-35.0); MCHC 31.3 g/dL (31.0-37.0); MCV 87.2 fL (80.0-100.0); Mean Platelet Volume 8.5; Platelet Count 246 k/uL (150-450); RBC 4.34 m/uL (3.80-5.40); RDW 14.9 % (11.5-15.5); WBC 5.6 k/uL (3.8-10.6)
--- NOTE | 2020-01-04 16:19 | P.BASOAP ---
Subjective Progress Note Date: 01/04/20 Principal diagnosis: Morbid obesity Patient returns today after sleeve gastrectomy 09/02. Postoperatively the patient had evidence of bleeding with hematoma formation and subsequent leak from the staple line proximally. Patient was transferred to [facility] after exploratory laparotomy and drain placement with evacuation hematoma. At [facility] was able to have her sleeve leak controlled endoscopically with subsequent healing. The patient had mild dysphagia following that requiring 2 separate EGDs with dilation. Currently doing well. Tolerating solid foods including meats. Has had good weight loss. Preoperative weight 282, current weight 225. Has heartburn only when she is eating tomato-based foods. No recent labs. Objective - Vital Signs Vital signs: Vital Signs Temp 98.3 F 01/04/20 14:41 Pulse 75 01/04/20 14:41 Resp 16 01/04/20 14:41 BP 146/92 01/04/20 14:41 Pulse Ox Intake & Output 01/03/20 01/04/20 01/04/20 18:59 06:59 18:59 Weight 102.058 kg - Exam Abdomen: Soft, nondistended, midline incision well healed, scars noted, nontender - Labs CBC & Chem 7: 01/04/20 15:32 Assessment/Plan (1) Morbid obesity with BMI of 50.0-59.9, adult Narrative/Plan: Patient has done exceptionally well after transferred to [facility] with minimally invasive treatment of her sleeve leak. Continue increasing activity levels. She remains in a wheelchair currently. She has not tried ambulating with her braces thus far. We'll check a 3 month labs at this time. Follow-up visit 4-6 weeks. Plan: Date: 01/04/20 Initial Weight: 130.379 kg Initial BMI: 58.0 Current Weight: 102.058 kg Current BMI: 45.4 Type of Surgery: Total Volume in Band: Previous Volume: Volume Removed: Volume Added: Band Size:
[2020-01-05 07:06] LABS: Folate, Serum 8.6 ng/mL
[2020-01-05 07:37] LABS: African American GFR (CKD) 118.8 (60.0-200.0); Albumin 4.2 g/dL (3.80-4.90); Albumin/Globulin Ratio 1.62 (1.60-3.17); Anion Gap 14.8 mmol/L (4.00-12.00); BUN/Creat Ratio 17.5 Ratio (12.00-20.00); Calcium 9.1 mg/dL (8.7-10.3); Carbon Dioxide 22.2 mmol/L (21.6-31.8); Globulin 2.6 g/dL (1.6-3.3); Non-African American GFR(CKD) 102.5 (60.0-200.0); Potassium 4.1 mmol/L (3.5-5.5); Total Bilirubin 0.3 mg/dL (0.3-1.2); Total Protein 6.8 g/dL (6.2-8.2)
== END | disposition home or self-care (01) ==
LOC: BARWHC3 14:06
PROVIDERS: ATTEND Surgery
DX: Z48.815 Encounter for surgical aftercare following surgery on the digestive system (principal); E66.01 Morbid (severe) obesity due to excess calories; K90.89 Other intestinal malabsorption; E55.9 Vitamin D deficiency, unspecified; Z98.84 Bariatric surgery status; Z68.42 Body mass index [BMI] 45.0-49.9, adult
CPT/HCPCS: 84425; 80053; 82607; 82746; 83540; 85027; 82306; 36415; G0463; 99211

== ENCOUNTER 2021-04-13 17:47 | Emergency (ER) | payer OTHER ==
[2021-04-13 19:33] VITALS: BP 168/111; RESP 20; TEMP 100.2
[2021-04-13 19:44] VITALS: PULSE 120
--- NOTE | 2021-04-13 19:51 | ED ---
Recheck HPI - General Chief Complaint: Recheck/Abnormal Lab/Rx Stated Complaint: Covid Exposure Time Seen by Provider: 04/13/21 19:37 Source: patient Mode of arrival: wheelchair Limitations: physical limitation - History of Present Illness Initial Comments: 25-year-old female patient presented to the emergency department today requesting COVID test. Rates that her father was recently diagnosed and she is exposed. She denies any current symptoms. States she feels well. Denies cough, congestion, weakness, fatigue, or bodyaches. She has not been va ccinated. Denies any other concerns or need for testing. - Related Data Home Medications Medication Instructions Recorded Confirmed Acetaminophen 40 mg/1.25 ml 40 mg PO DIRECTED PRN 01/04/20 01/04/20 [Tylenol 40 mg/1.25 ml Oral Syringe] Multivitamins, Thera Liquid 5 ml PO DAILY 01/04/20 01/04/20 [Theragran Liquid (formulary)] Omeprazole [PriLOSEC] 20 mg PO DAILY 01/04/20 01/04/20 Ondansetron [Zofran] 4 mg PO Q12HR PRN 01/04/20 01/04/20 Warfarin [Coumadin] 1 mg PO DAILY 01/04/20 01/04/20 diphenhydrAMINE [Benadryl] 25 mg PO QID PRN 01/04/20 01/04/20 Allergies Allergy/AdvReac Type Severity Reaction Status Date / Time latex Allergy Rash/Hives Verified 04/13/21 19:33 morphine AdvReac "panic Verified 04/13/21 19:33 attack" Review of Systems ROS Statement: Those systems with pertinent positive or pertinent negative responses have been documented in the HPI. ROS Other: All systems not noted in ROS Statement are negative. Past Medical History Past Medical History: Hypertension, Musculoskeletal Disorder, Neurologic Disorder Additional Past Medical History / Comment(s): states has a bicuspid aortic valve, spinabifida, uses wheelchair, able to transfer, states hx (over 6 yrs ago) of "staph infection" that had I&D and a month of antibiotics IV, not sure if MRSA History of Any Multi-Drug Resistant Organisms: None Reported Past Surgical History: Bariatric Surgery, Orthopedic Surgery Additional Past Surgical History / Comment(s): rt heel cord sx, shunt @ , replaced x2 sleeve gastrectomy 6-5-20 Past Anesthesia/Blood Transfusion Reactions: No Reported Reaction Past Psychological History: No Psychological Hx Reported Smoking Status: Never smoker Past Alcohol Use History: Rare Past Drug Use History: None Reported - Past Family History Mother Family Medical History: No Reported History General Exam Limitations: physical limitation General appearance: alert, in no apparent distress Respiratory exam: Present: normal lung sounds bilaterally. Absent: respiratory distress, wheezes, rales, rhonchi, stridor Cardiovascular Exam: Present: regular rate, normal rhythm, normal heart sounds. Absent: systolic murmur, diastolic murmur, rubs, gallop, clicks GI/Abdominal exam: Present: soft, normal bowel sounds. Absent: distended, tenderness, guarding, rebound, rigid Neurological exam: Present: alert, oriented X3, CN II-XII intact Psychiatric exam: Present: normal affect, normal mood Skin exam: Present: warm, dry, intact, normal color. Absent: rash Course Vital Signs 04/13/21 19:30 Temperature 100.2 F H Pulse Rate 120 H Respiratory 20 Rate Blood Pressure 168/111 O2 Sat by Pulse 100 Oximetry Medical Decision Making - Medical Decision Making 25 year-old female patient presented to the emergency department for COVID-19 testing. His any symptoms. Declines any other testing. She tested negative. She is discharged from the doctor as needed. Return parameters were discussed in detail. She verbalizes understanding and agrees with this plan. My a ttending is Dr. Caraballo. - Lab Data Lab Results 04/13/21 Range/Units 19:43 Coronavirus (PCR) Not Detected (Not Detectd) Disposition Clinical Impression: Exposure to COVID-19 virus, Encounter for screening laboratory testing for COVID-19 virus Disposition: HOME SELF-CARE Condition: Good Instructions (If sedation given, give patient instructions): Coronavirus Disease 2019 (COVID-19) Additional Instructions: I will call you with your COVID result. If you are positive, review tips below to help you feel better. Tips to help you feel better: -Maintain adequate fluid intake - especially water. -Rest, you are healing your body will require extra sleep. -Eat even if you do not feel like it - broth, jello, toast are fine if you cannot eat full meals. -Take tylenol and motrin alternating (if you have no allergies or have not been instructed to avoid these medications) to help with body aches and fevers. -Obtain over the counter vitamin C, zinc, and vitamin D3. -Take medications as prescribed. Follow-up with your primary care physician for recheck in 1-2 days. Return for any new, worsening, or concerning symptoms. Is patient prescribed a controlled substance at d/c from ED?: No Referrals: Nonstaff,Physician [Primary Care Provider] - 1-2 days Time of Disposition: 19:51
== END 2021-04-13 20:16 | disposition home or self-care (01) ==
LOC: EC 17:47
DX: Z20.822 Contact with and (suspected) exposure to COVID-19 (principal); I10 Essential (primary) hypertension; Z72.89 Other problems related to lifestyle
CPT/HCPCS: 87635; 99282

== ENCOUNTER 2022-01-10 17:42 | Inpatient (IN) | payer OTHER ==
[2022-01-10] MEDS ORDERED: SODIUM CHLORIDE 0.9% 1,000 ML IV ONE ×2 (18:51→20:26)
[2022-01-10] MEDS ORDERED: ONDANSETRON 4 MG/2 ML VIAL IVP STA (18:59)
[2022-01-10] MEDS ORDERED: ACETAMINOPHEN TAB 325 MG TAB PO STA (19:00)
--- NOTE | 2022-01-10 19:03 | ED ---
General Adult HPI - General Chief complaint: Vaginal Bleeding Stated complaint: 9 Weeks,Possible miscarage Time Seen by Provider: 01/10/22 18:48 Source: patient Mode of arrival: ambulatory Limitations: no limitations - History of Present Illness Initial comments: Patient is a 26-year-old female presenting with chief complaint of vaginal bleeding and cramping. Patient is currently 6 weeks . This is her first . She states that symptoms started yesterday, she noted several large clots. She states that today the bleeding is consistent with a normal menstrual cycle. She admits to nausea, no vomiting. She denies any dysuria. She admits to lower back pain and cramping. She has been taking Tylenol which helped with the pain somewhat. She denies any fever, chills, upper abdominal pain, chest pain, difficulty breathing. - Related Data Home Medications Medication Instructions Recorded Confirmed Multivitamins, Thera Liquid 5 ml PO DAILY 01/04/20 01/10/22 [Theragran Liquid (formulary)] Omeprazole [PriLOSEC] 20 mg PO DAILY 01/04/20 01/10/22 Acetaminophen [Tylenol Extra 1,000 mg PO Q6H PRN 01/10/22 01/10/22 Strength] Simethicone [Gas-X] 125 mg PO BID PRN 01/10/22 01/10/22 Previous Rx's Medication Instructions Recorded Acetaminophen-Codeine 300-30mg 2 each PO Q6H PRN #24 tab 01/13/22 [Tylenol w/codeine #3] Allergies Allergy/AdvReac Type Severity Reaction Status Date / Time latex Allergy Rash/Hives Verified 01/10/22 22:37 morphine AdvReac "panic Verified 01/10/22 22:37 attack" Review of Systems ROS Statement: Those systems with pertinent positive or pertinent negative responses have been documented in the HPI. ROS Other: All systems not noted in ROS Statement are negative. Past Medical History Past Medical History: Hypertension, Musculoskeletal Disorder, Neurologic Disorde r Additional Past Medical History / Comment(s): states has a bicuspid aortic valve, spinabifida, uses wheelchair, able to transfer, states hx (over 6 yrs ago) of "staph infection" that had I&D and a month of antibiotics IV, not sure if MRSA History of Any Multi-Drug Resistant Organisms: None Reported Past Surgical History: Bariatric Surgery, Orthopedic Surgery Additional Past Surgical History / Comment(s): rt heel cord sx, shunt @ , replaced x2 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 Past Anesthesia/Blood Transfusion Reactions: No Reported Reaction Past Psychological History: No Psychological Hx Reported Smoking Status: Never smoker Past Alcohol Use History: Rare Past Drug Use History: Marijuana - Past Family History Mother Family Medical History: No Reported History General Exam Limitations: no limitations General appearance: alert, in no apparent distress Head exam: Present: atraumatic, normocephalic, normal inspection Eye exam: Present: normal appearance, PERRL, EOMI. Absent: scleral icterus, c onjunctival injection, periorbital swelling Neck exam: Present: normal inspection Respiratory exam: Present: normal lung sounds bilaterally. Absent: respiratory distress, wheezes, rales, rhonchi, stridor Cardiovascular Exam: Present: regular rate, normal rhythm, normal heart sounds. Absent: systolic murmur, diastolic murmur, rubs, gallop, clicks GI/Abdominal exam: Present: soft, tenderness (pelvic). Absent: distended, guarding, rebound, rigid Neurological exam: Present: alert, oriented X3, CN II-XII intact Psychiatric exam: Present: normal affect, normal mood Skin exam: Present: warm, dry, intact, normal color. Absent: rash Course Vital Signs 01/10/22 01/10/22 01/10/22 18:12 20:36 21:20 Temperature 99.3 F 99.1 F Pulse Rate 111 H 103 H 114 H Respiratory 20 18 16 Rate Blood Pressure 182/103 177/121 204/114 O2 Sat by Pulse 100 99 100 Oximetry 01/10/22 01/10/22 21:42 22:21 Temperature Pulse Rate 110 H 100 Respiratory 16 18 Rate Blood Pressure 175/106 182/111 O2 Sat by Pulse 100 99 Oximetry Medical Decision Making - Medical Decision Making Patient is a 26-year-old female presenting with chief complaint of pelvic pain and vaginal bleeding. Patient is about 6 weeks , this is her first . Patient has history of hypertension, is currently not on medication for this. Patient is found to have ectopic on ultrasound. Hemoglobin is 10.8. HCG Quant 155.4. I discussed this case with Dr. Funes, patient will be admitted for surgery this evening. Patient is agreeable with this plan. I discussed this case with my attending Dr. Aragon. - Lab Data Result diagrams: 01/14/22 05:38 01/14/22 05:38 Lab Results 01/10/22 01/10/22 01/10/22 Range/Units 19:15 19:15 19:15 WBC 11.4 H (3.8-10.6) k/uL RBC 4.30 (3.80-5.40) m/uL Hgb 10.8 L (11.4-16.0) gm/dL Hct 33.8 L (34.0-46.0) % MCV 78.5 L (80.0-100.0) fL MCH 25.1 (25.0-35.0) pg MCHC 32.0 (31.0-37.0) g/dL RDW 14.2 (11.5-15.5) % Plt Count 310 (150-450) k/uL MPV 8.3 Neutrophils % 79 % Lymphocytes % 14 % Monocytes % 4 % Eosinophils % 0 % Basophils % 0 % Neutrophils # 9.1 H (1.3-7.7) k/uL Lymphocytes # 1.6 (1.0-4.8) k/uL Monocytes # 0.5 (0-1.0) k/uL Eosinophils # 0.0 (0-0.7) k/uL Basophils # 0.0 (0-0.2) k/uL Hypochromasia Moderate PT (9.0-12.0) sec INR (<1.2) APTT (22.0-30.0) sec Sodium 141 (137-145) mmol/L Potassium 3.1 L (3.5-5.1) mmol/L Chloride 104 (98-107) mmol/L Carbon Dioxide 21 L (22-30) mmol/L Anion Gap 16 mmol/L BUN 14 (7-17) mg/dL Creatinine 1.82 H (0.52-1.04) mg/dL Est GFR (CKD-EPI)AfAm 43 (>60 ml/min/1.73 sqM) Est GFR (CKD-EPI)NonAf 38 (>60 ml/min/1.73 sqM) Glucose 95 (74-99) mg/dL Calcium 8.7 (8.4-10.2) mg/dL Total Bilirubin 0.3 (0.2-1.3) mg/dL AST 22 (14-36) U/L ALT 19 (4-34) U/L Alkaline Phosphatase 119 (38-126) U/L Total Protein 7.8 (6.3-8.2) g/dL Albumin 4.4 (3.5-5.0) g/dL HCG, Quant 155.4 mIU/mL Urine Color Light Yellow Urine Appearance Turbid H (Clear) Urine pH 7.0 (5.0-8.0) Ur Specific [place] 1.009 (1.001-1.035) Urine Protein 1+ H (Negative) Urine Glucose (UA) Negative (Negative) Urine Ketones Negative (Negative) Urine Blood Large H (Negative) Urine Nitrite Negative (Negative) Urine Bilirubin Negative (Negative) Urine Urobilinogen <2.0 (<2.0) mg/dL Ur Leukocyte Esterase Large H (Negative) Urine RBC 33 H (0-5) /hpf Urine WBC >182 H (0-5) /hpf Urine WBC Clumps Many H (None) /hpf Urine Bacteria Moderate H (None) /hpf Urine Mucus Rare H (None) /hpf Blood Type Blood Type Recheck Bld Type Recheck Status 01/10/22 01/10/22 Range/Units 19:15 19:15 WBC (3.8-10.6) k/uL RBC (3.80-5.40) m/uL Hgb (11.4-16.0) gm/dL Hct (34.0-46.0) % MCV (80.0-100.0) fL MCH (25.0-35.0) pg MCHC (31.0-37.0) g/dL RDW (11.5-15.5) % Plt Count (150-450) k/uL MPV Neutrophils % % Lymphocytes % % Monocytes % % Eosinophils % % Basophils % % Neutrophils # (1.3-7.7) k/uL Lymphocytes # (1.0-4.8) k/uL Monocytes # (0-1.0) k/uL Eosinophils # (0-0.7) k/uL Basophils # (0-0.2) k/uL Hypochromasia PT 11.1 (9.0-12.0) sec INR 1.0 (<1.2) APTT 28.9 (22.0-30.0) sec Sodium (137-145) mmol/L Potassium (3.5-5.1) mmol/L Chloride (98-107) mmol/L Carbon Dioxide (22-30) mmol/L Anion Gap mmol/L BUN (7-17) mg/dL Creatinine (0.52-1.04) mg/dL Est GFR (CKD-EPI)AfAm (>60 ml/min/1.73 sqM) Est GFR (CKD-EPI)NonAf (>60 ml/min/1.73 sqM) Glucose (74-99) mg/dL Calcium (8.4-10.2) mg/dL Total Bilirubin (0.2-1.3) mg/dL AST (14-36) U/L ALT (4-34) U/L Alkaline Phosphatase (38-126) U/L Total Protein (6.3-8.2) g/dL Albumin (3.5-5.0) g/dL HCG, Quant mIU/mL Urine Color Urine Appearance (Clear) Urine pH (5.0-8.0) Ur Specific [place] (1.001-1.035) Urine Protein (Negative) Urine Glucose (UA) (Negative) Urine Ketones (Negative) Urine Blood (Negative) Urine Nitrite (Negative) Urine Bilirubin (Negative) Urine Urobilinogen (<2.0) mg/dL Ur Leukocyte Esterase (Negative) Urine RBC (0-5) /hpf Urine WBC (0-5) /hpf Urine WBC Clumps (None) /hpf Urine Bacteria (None) /hpf Urine Mucus (None) /hpf Blood Type B Positive Blood Type Recheck B Pos Bld Type Recheck Status No Disposition Clinical Impression: Ectopic Disposition: ADMITTED IP TO THIS [facility] Condition: Serious Time of Disposition: 22:23 Decision to Admit Reason: Admit from EC Decision Date: 01/10/22 Decision Time: 22:23
[2022-01-10 19:25] LABS: Basophils % (A) 0 %; Eosinophils % (A) 0 %; HCT 33.8 % (34.0-46.0); HGB 10.8 gm/dL (11.4-16.0); Hypochromasia Moderate; Lymphocytes # (A) 1.6 k/uL (1.0-4.8); Lymphocytes % (A) 14 %; MCH 25.1 pg (25.0-35.0); MCV 78.5 fL (80.0-100.0); Mean Platelet Volume 8.3; Monocytes # (A) 0.5 k/uL (0-1.0); Monocytes % (A) 4 %; Neutrophils # (A) 9.1 k/uL (1.3-7.7); Neutrophils % (A) 79 %; Platelet Count 310 k/uL (150-450); RDW 14.2 % (11.5-15.5); WBC 11.4 k/uL (3.8-10.6)
[2022-01-10 19:29] LABS: Appearance,Urine Turbid (Clear); Bacteria,Urine Moderate /hpf; Bilirubin,Urine Negative (Negative); Blood,Urine Large (Negative); Color,Urine Light Yellow; Glucose,Urine (UA) Negative (Negative); Ketones,Urine Negative (Negative); Leukocyte Esterase,Urine Large (Negative); Mucus,Urine Rare /hpf; Nitrite,Urine Negative (Negative); Protein,Urine 1+ (Negative); RBC,Urine 33 /hpf (0-5); Specific Gravity,Urine 1.009 (1.001-1.035); Urobilinogen,Urine <2.0 mg/dL (<2.0); WBC,Urine >182 /hpf (0-5)
[2022-01-10 19:34] LABS: Partial Thromboplastin Time 28.9 sec (22.0-30.0); Prothrombin Time 11.1 sec (9.0-12.0)
[2022-01-10 19:41] LABS: Albumin 4.4 g/dL (3.5-5.0); Calcium 8.7 mg/dL (8.4-10.2); Potassium 3.1 mmol/L (3.5-5.1); Total Bilirubin 0.3 mg/dL (0.2-1.3); Total Protein 7.8 g/dL (6.3-8.2)
[2022-01-10 19:58] LABS: HCG,Quantitative Serum 155.4 mIU/mL
[2022-01-10] MEDS ORDERED: Potassium Replacement Protocol 1 EACH MISC MISCELLANE PRN (20:26)
[2022-01-10] MEDS ORDERED: cefTRIAXone IN SWFI 1,000 MG/10 ML SYRINGE IVP STA (20:36)
[2022-01-10] MEDS: POTASSIUM CHLORIDE ER 20 MEQ TAB.ER PO SCH ×2 (20:59→22:17)
--- NOTE | 2022-01-10 21:08 | US ---
EXAMINATION TYPE: Transabdominal DATE OF EXAM: 01/10/2022 8:14 PM COMPARISON: NONE CLINICAL HISTORY: 6 weeks preg, bleeding. bleeding with clots and pain that started today. Spotting a bout 4 days ago EXAM PERFORMED: Transvaginal (TV) and Transabdominal (TA) EXAM MEASUREMENTS: GESTATIONAL AGE / DATING Physician Established: Not yet established Dates by LMP: 11/21/21 (7 weeks/1 days) EDC: 08/28/22 Dates by First Scan: No previous this is first scan Dates by Current Scan for: No IUP seen at this time MATERNAL ANATOMY Uterus: 8.2 x 5.1 x 3.9cm Right Ovary: 3.8 x 2.6 x 1.7cm Left Ovary: Not vis Post CDS / Adnexa: Large complex mass see midline to rt adnexa measuring 8.2 x 7.1 x 11.1cm Presence of free fluid: Yes Presence of corpus luteal cyst: No Presence of subchorionic bleed: No GESTATION / SURVEY IUP: No IUP seen at this time Date of LMP: 11/21/21 Beta HcG (if available): 155.4 IMPRESSION: 1. No IUP seen at this time. 2. 11 x 8 x 7 cm right adnexal complex mass. 3. Cul-de-sac fluid. Short interval follow-up beta hCG and ultrasound can further characterize if clinically indicated.
[2022-01-10] MEDS ORDERED: LABETALOL 5 MG/ML VIAL MDV IVP STA (21:14)
[2022-01-10] MEDS: SODIUM CHLORIDE 0.9% 1,000 ML IV SCH (21:42)
[2022-01-10] MEDS ORDERED: NALOXONE 0.4 MG/ML 1 ML VIAL IV PRN (22:18)
--- NOTE | 2022-01-10 22:38 | P.HPOB ---
History of Present Illness H&P Date: 01/10/22 Chief Complaint: vaginal bleeding in 6-year-old presents around 6 weeks gestation complaining of some vaginal bleeding today. She is also having some low pelvic discomfort and pressure. Beta-hCG was 155. Hemoglobin 10.8. Ultrasound showed no intrauterine . There is a 11 x 8 cm complex pelvic mass in the left, likely a blood clot from a ruptured ectopic . Review of Systems All systems: negative Constitutional: Denies chills, Denies fever Eyes: denies blurred vision, denies pain Ears, nose, mouth and throat: Denies headache, Denies sore throat Cardiovascular: Denies chest pain, Denies shortness of breath Respiratory: Denies cough Gastrointestinal: Denies abdominal pain, Denies diarrhea, Denies nausea, Denies vomiting Genitourinary: Denies dysuria, Denies hematuria Musculoskeletal: Denies myalgias Integumentary: Denies pruritus, Denies rash Neurological: Denies numbness, Denies weakness Psychiatric: Denies anxiety, Denies depression Endocrine: Denies fatigue, Denies weight change Past Medical History Past Medical History: Hypertension, Musculoskeletal Disorder, Neurologic Disorder Additional Past Medical History / Comment(s): states has a bicuspid aortic valve, spinabifida, uses wheelchair, able to transfer, states hx (over 6 yrs ago) of "staph infection" that had I&D and a month of antibiotics IV, not sure if MRSA History of Any Multi-Drug Resistant Organisms: None Reported Past Surgical History: Bariatric Surgery, Orthopedic Surgery Additional Past Surgical History / Comment(s): rt heel cord sx, shunt @ , replaced x2 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 Past Anesthesia/Blood Transfusion Reactions: No Reported Reaction Past Psychological History: No Psychological Hx Reported Smoking Status: Never smoker Past Alcohol Use History: Rare Past Drug Use History: Marijuana - Past Family History Mother Family Medical History: No Reported History Medications and Allergies Home Medications Medication Instructions Recorded Confirmed Type Multivitamins, Thera Liquid 5 ml PO DAILY 01/04/20 01/10/22 History [Theragran Liquid (formulary)] Omeprazole [PriLOSEC] 20 mg PO DAILY 01/04/20 01/10/22 History Allergies Allergy/AdvReac Type Severity Reaction Status Date / Time latex Allergy Rash/Hives Verified 01/10/22 18:14 morphine AdvReac "panic Verified 01/10/22 18:14 attack" Exam Osteopathic Statement: *. No significant issues noted on an osteopathic structural exam other than those noted in the History and Physical/Consult. Vital Signs Temp Pulse Resp BP Pulse Ox 01/10/22 22:21 100 18 182/111 99 01/10/22 21:42 110 H 16 175/106 100 01/10/22 21:20 99.1 F 114 H 16 204/114 100 01/10/22 20:36 103 H 18 177/121 99 01/10/22 18:12 99.3 F 111 H 20 182/103 100 Intake and Output 01/10/22 01/10/22 01/10/22 06:59 14:59 22:59 Other: Weight 72.575 kg Heart regular rate and rhythm Lungs: Clear to auscultation bilaterally abdomen: Soft, nontender. Several scars on her abdomen Extremities: Negative Homans sign, significant swelling in her bilateral lower extremities below the knee which she states is normal for her Results Result Diagrams: 01/10/22 19:15 01/10/22 19:15 Abnormal Lab Results - Last 24 Hours (Table) 01/10/22 01/10/22 01/10/22 Range/Units 19:15 19:15 19:15 WBC 11.4 H (3.8-10.6) k/uL Hgb 10.8 L (11.4-16.0) gm/dL Hct 33.8 L (34.0-46.0) % MCV 78.5 L (80.0-100.0) fL Neutrophils # 9.1 H (1.3-7.7) k/uL Potassium 3.1 L (3.5-5.1) mmol/L Carbon Dioxide 21 L (22-30) mmol/L Creatinine 1.82 H (0.52-1.04) mg/dL Urine Appearance Turbid H (Clear) Urine Protein 1+ H (Negative) Urine Blood Large H (Negative) Ur Leukocyte Esterase Large H (Negative) Urine RBC 33 H (0-5) /hpf Urine WBC >182 H (0-5) /hpf Urine WBC Clumps Many H (None) /hpf Urine Bacteria Moderate H (None) /hpf Urine Mucus Rare H (None) /hpf Assessment and Plan (1) Ectopic Current Visit: Yes Status: Acute Code(s): O00.90 - UNSPECIFIED ECTOPIC WITHOUT INTRAUTERINE SNOMED Code(s): 52243918 Plan: 1. Exploratory laparotomy with removal of ectopic , possible unilateral salpingectomy, possible oophorectomy.
[2022-01-10] MEDS ORDERED: ceFAZolin 1,000 MG VIAL ONE (23:09)
[2022-01-10] MEDS ORDERED: SODIUM CHLORIDE 0.9% 100 ML BAG ONE (23:09)
[2022-01-10] MEDS ORDERED: ONDANSETRON 4 MG/2 ML VIAL ONE ×2 (23:09)
[2022-01-10] MEDS ORDERED: NEOSTIGMINE 1 MG/ML 10 ML VIAL ONE (23:09)
[2022-01-10] MEDS ORDERED: GLYCOPYRROLATE 0.2 MG/ML 2 ML VIAL ONE (23:09)
[2022-01-10] MEDS ORDERED: MIDAZOLAM 2 MG/2 ML VIAL ONE (23:09)
[2022-01-10] MEDS ORDERED: PROPOFOL 10 MG/ML 20 ML VIAL IV ONE (23:09)
[2022-01-10] MEDS ORDERED: HYDROmorphone (PF) 1 MG/ML ONE (23:09)
[2022-01-10] MEDS ORDERED: fentaNYL (PF) 50 MCG/ML 2 ML AMP ONE (23:09)
[2022-01-10] MEDS ORDERED: ROCURONIUM 10 MG/ML (5 ML VIAL) IV ONE (23:09)
[2022-01-10] MEDS ORDERED: diphenhydrAMINE 50 MG/ML 1 ML VIAL ONE (23:09)
[2022-01-11] MEDS ORDERED: LABETALOL 200 MG TAB PO ONE (02:35)
[2022-01-11] MEDS ORDERED: SIMETHICONE 80 MG CHEWABLE PO PRN (05:58)
[2022-01-11] MEDS ORDERED: METOCLOPRAMIDE 5 MG/ML 2 ML VIAL IVP PRN (06:01)
[2022-01-11] MEDS ORDERED: Acetaminophen-Codeine 300-30mg TAB PO PRN (06:04)
[2022-01-11] MEDS ORDERED: LACTATED RINGERS 1,000 ML IV SCH (06:15)
[2022-01-11] MEDS: KETOROLAC 15 MG/ML 1 ML VIAL IVP PRN ×3 (06:55→20:15)
--- NOTE | 2022-01-11 08:21 | P.OP ---
Date of Procedure: 01/11/22 (This is a late entry due to computer having down time at time of surgery.) Preoperative Diagnosis: 1. ruptured ectopic Postoperative Diagnosis: 1. pelvic adhesions 2. bladder mass Procedure(s) Performed: Exploratory laparotomy with lysis of adhesions Anesthesia: JOSE MANUEL Surgeon: Shivani Funes Estimated Blood Loss (ml): 20 IV fluids (ml): 500 Urine output (ml): 200 Pathology: none sent Condition: stable Disposition: PACU Operative Findings: The pelvis and abdomen were full of dense bowel adhesions. The left ovary and fallopian tube were covered with adhesions the left cornea rest has adhesions to the left sigmoid colon. The bladder filled quite thickened and a firm 2 cm mass was felt from the superior edge of the bladder. There was no hemoperitoneum. Both adnexa appeared intact. Description of Procedure: Patient is taken the operating room where general anesthesia was obtained without difficulty. She was prepped and draped in normal sterile fashion dorsal supine position. Pfannenstiel skin incision was made the scalpel carried through to the underlying layer fascia with the scalpel. Fascia was incised in midline and carried bilaterally with Michael scissors. The superior aspect of the fascial incision was grasped with [place] clamps elevated and the underlying rectus muscles dissected off with the Mayos. Attention was then turned to inferior aspect of the same incision which in a similar fashion was grasped tented up and the underlying rectus muscles dissected off with the Mayos. The rectus muscles were in the midline with some difficulty the peritoneum was identified and tented up and entered sharply on the right side with the scalpel. This incision was extended superiorly and inferiorly. The [place]ie retractor was then placed. The bowels were attempted to be packed away with moist laparotomy sponges but there was several adhesions. The posterior cul-de-sac was cleaned of adhesions. The right adnexa does have some adhesions to the ovary and fallopian tube but they appeared normal. The left side was very difficult to identify the adnexa at first with the peritoneal and bowel adhesions there. I did call Dr. Corcoran, the general surgeon, to the room for assistance. She assisted in dissecting out the left adnexa area. There was no masses on either side the ovaries and fallopian tubes appeared normal. There is still extensive scar tissue on both sides. Due to the discrepancy between the ultrasound and lab finding in the pelvis I wanted to review the films myself again. The computer system was on downtime and I was unable to do this in the operating room. Dr. Corcoran and I explored the pelvis and did feel that the bladder was quite thickened and hard with a probable 2 cm mass within it. The decision was made to close the pelvis. The fascia was reapproximated with 0 Vicryl in a running fashion. Subcutaneous tissue was closed with 3-0 Vicryl in running fashion and the skin was closed kinjal. Patient tolerated procedure well. Sponge and instrument counts are correct 2. She was taken to recovery in stable condition.
[2022-01-11] MEDS ORDERED: LABETALOL 200 MG TAB PO SCH (09:00)
[2022-01-11] MEDS: SENNOSIDES-DOCUSATE SODIUM 1 EACH TAB PO SCH ×2 (09:18→20:14)
[2022-01-11] MEDS: diphenhydrAMINE 50 MG/ML 1 ML VIAL IVP PRN ×2 (09:19→20:14)
[2022-01-11] MEDS: HYDROmorphone 1 MG/ML 1 ML SYRINGE IVP PRN ×3 (10:23→23:00)
[2022-01-11 10:35] LABS: HCT 26.3 % (34.0-46.0); Hypochromasia Marked; MCH 24.8 pg (25.0-35.0); MCHC 30.7 g/dL (31.0-37.0); MCV 80.9 fL (80.0-100.0); Mean Platelet Volume 8.2; Platelet Count 243 k/uL (150-450); RBC 3.26 m/uL (3.80-5.40); RDW 14.3 % (11.5-15.5); WBC 11.9 k/uL (3.8-10.6)
[2022-01-11 10:40] LABS: HGB 8.1 gm/dL (11.4-16.0)
--- NOTE | 2022-01-11 11:59 | P.GSCN ---
History of Present Illness Consult date: 01/11/22 History of present illness: 26-year-old female in the hospital for abnormal vaginal bleeding. The patient by testing was 6 weeks . According ultrasound there is no intrauterine . According ultrasound there appeared to be an adnexal mass consistent with an ectopic . Last night Dr. Funes explore the patient thinking she had a ruptured ectopic and none was identified. She had a lot of adhesions that required Dr. Nilo Greenberg surgery to assist in lysis. Eventually got down on the bladder and thought they could feel something in the bladder. Or this reason we are asked see the patient. The patient is known to spina bifida closed at . She does have fairly good bladder function however. She has not seen a urologist in years. She is partially wheelchair dependent. She does not have a lot of recurrent infections. She has not had hematuria. There is no history of bladder surgery. As an indwelling catheter with clear urine. The urine on admission look somewhat inflamed but how much of this was vaginal fluid versus urine is indeterminate. Review of Systems All systems: negative - Constitutional Denies fever, Denies weight loss - EENT Eyes: denies blurred vision Ears, nose, mouth and throat: Denies dysphagia - Cardiovascular Denies chest pain, Denies shortness of breath - Respiratory Denies cough, Denies 7 - Gastrointestinal Reports as per HPI - Genitourinary Genitourinary: Denies dysuria, Denies hematuria - Integumentary Denies rash, Denies unusual bruising - Neurological Denies headaches, Denies syncope - Hematologic/Lymphatic Denies easy bleeding, Denies easy bruising Past Medical History Past Medical History: Hypertension, Musculoskeletal Disorder, Neurologic Disorder Additional Past Medical History / Comment(s): states has a bicuspid aortic valve, spinabifida, uses wheelchair, able to transfer, states hx (over 6 yrs ago) of "staph infection" that had I&D and a month of antibiotics IV, not sure if MRSA. History of Any Multi-Drug Resistant Organisms: None Reported Past Surgical History: Bariatric Surgery, Orthopedic Surgery Additional Past Surgical History / Comment(s): rt heel cord sx, shunt @ , replaced x2 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 Past Anesthesia/Blood Transfusion Reactions: No Reported Reaction Past Psychological History: No Psychological Hx Reported Smoking Status: Never smoker Past Alcohol Use History: Rare Past Drug Use History: Marijuana - Past Family History Mother Family Medical History: No Reported History Medications and Allergies Home Medications Medication Instructions Recorded Confirmed Type Multivitamins, Thera Liquid 5 ml PO DAILY 01/04/20 01/10/22 History [Theragran Liquid (formulary)] Omeprazole [PriLOSEC] 20 mg PO DAILY 01/04/20 01/10/22 History Acetaminophen [Tylenol Extra 1,000 mg PO Q6H PRN 01/10/22 01/10/22 History Strength] Simethicone [Gas-X] 125 mg PO BID PRN 01/10/22 01/10/22 History Allergies Allergy/AdvReac Type Severity Reaction Status Date / Time latex Allergy Rash/Hives Verified 01/10/22 22:37 morphine AdvReac "panic Verified 01/10/22 22:37 attack" Surgical - Exam Vital Signs Temp Pulse Resp BP Pulse Ox 99.3 F 111 H 20 182/103 100 01/10/22 18:12 01/10/22 18:12 01/10/22 18:12 01/10/22 18:12 01/10/22 18:12 - General well developed, well nourished, no distress - Eyes PERRL - ENT no hearing loss - Neck trachea midline - Respiratory normal expansion, normal respiratory effort - Cardiovascular Rhythm: regular - Abdomen Abdomen: soft, non tender - Genitourinary Indwelling catheter with clear urine - Integumentary no rash, no growths - Neurologic The patient has diminished lower extremity function, closed lower spinal surgery incision. This is consistent with spina bifida - Musculoskeletal Gait with a walker, also uses wheelchair - Psychiatric oriented to time, oriented to person, oriented to place, speech is normal, memory intact Results - Labs 01/11/22 10:11 01/10/22 19:15 Abnormal Lab Results - Last 24 Hours (Table) 01/10/22 01/10/22 01/10/22 Range/Units 19:15 19:15 19:15 WBC 11.4 H (3.8-10.6) k/uL RBC (3.80-5.40) m/uL Hgb 10.8 L (11.4-16.0) gm/dL Hct 33.8 L (34.0-46.0) % MCV 78.5 L (80.0-100.0) fL MCH (25.0-35.0) pg MCHC (31.0-37.0) g/dL Neutrophils # 9.1 H (1.3-7.7) k/uL Potassium 3.1 L (3.5-5.1) mmol/L Carbon Dioxide 21 L (22-30) mmol/L Creatinine 1.82 H (0.52-1.04) mg/dL Urine Appearance Turbid H (Clear) Urine Protein 1+ H (Negative) Urine Blood Large H (Negative) Ur Leukocyte Esterase Large H (Negative) Urine RBC 33 H (0-5) /hpf Urine WBC >182 H (0-5) /hpf Urine WBC Clumps Many H (None) /hpf Urine Bacteria Moderate H (None) /hpf Urine Mucus Rare H (None) /hpf 01/11/22 Range/Units 10:11 WBC 11.9 H (3.8-10.6) k/uL RBC 3.26 L (3.80-5.40) m/uL Hgb 8.1 L D (11.4-16.0) gm/dL Hct 26.3 L (34.0-46.0) % MCV (80.0-100.0) fL MCH 24.8 L (25.0-35.0) pg MCHC 30.7 L (31.0-37.0) g/dL Neutrophils # (1.3-7.7) k/uL Potassium (3.5-5.1) mmol/L Carbon Dioxide (22-30) mmol/L Creatinine (0.52-1.04) mg/dL Urine Appearance (Clear) Urine Protein (Negative) Urine Blood (Negative) Ur Leukocyte Esterase (Negative) Urine RBC (0-5) /hpf Urine WBC (0-5) /hpf Urine WBC Clumps (None) /hpf Urine Bacteria (None) /hpf Urine Mucus (None) /hpf Microbiology - Last 24 Hours (Table) 01/10/22 19:15 Urine Culture - Preliminary Urine,Clean Catch Diabetes panel 01/10/22 Range/Units 19:15 Sodium 141 (137-145) mmol/L Potassium 3.1 L (3.5-5.1) mmol/L Chloride 104 (98-107) mmol/L Carbon Dioxide 21 L (22-30) mmol/L BUN 14 (7-17) mg/dL Creatinine 1.82 H (0.52-1.04) mg/dL Glucose 95 (74-99) mg/dL Calcium 8.7 (8.4-10.2) mg/dL AST 22 (14-36) U/L ALT 19 (4-34) U/L Alkaline Phosphatase 119 (38-126) U/L Total Protein 7.8 (6.3-8.2) g/dL Albumin 4.4 (3.5-5.0) g/dL Calcium panel 01/10/22 Range/Units 19:15 Calcium 8.7 (8.4-10.2) mg/dL Albumin 4.4 (3.5-5.0) g/dL Pituitary panel 01/10/22 Range/Units 19:15 Sodium 141 (137-145) mmol/L Potassium 3.1 L (3.5-5.1) mmol/L Chloride 104 (98-107) mmol/L Carbon Dioxide 21 L (22-30) mmol/L BUN 14 (7-17) mg/dL Creatinine 1.82 H (0.52-1.04) mg/dL Glucose 95 (74-99) mg/dL Calcium 8.7 (8.4-10.2) mg/dL Adrenal panel 01/10/22 Range/Units 19:15 Sodium 141 (137-145) mmol/L Potassium 3.1 L (3.5-5.1) mmol/L Chloride 104 (98-107) mmol/L Carbon Dioxide 21 L (22-30) mmol/L BUN 14 (7-17) mg/dL Creatinine 1.82 H (0.52-1.04) mg/dL Glucose 95 (74-99) mg/dL Calcium 8.7 (8.4-10.2) mg/dL Total Bilirubin 0.3 (0.2-1.3) mg/dL AST 22 (14-36) U/L ALT 19 (4-34) U/L Alkaline Phosphatase 119 (38-126) U/L Total Protein 7.8 (6.3-8.2) g/dL Albumin 4.4 (3.5-5.0) g/dL - Imaging US - pelvic: report reviewed, image reviewed Assessment and Plan Assessment: Impression: Questionable ectopic . Questionable abnormality in bladder. Recommendations: I reviewed the ultrasound with radiology and we are not convinced that the abnormality seen is something in the bladder. The bladder felt sick and direct palpation but this is fortunately nonspecific. These areas were to clarify whether there is something in the bladder would be do a quick cystoscope at the bedside which can be done later this afternoon. This has been discussed with the patient.
[2022-01-11] MEDS ORDERED: cloNIDine HCL 0.1 MG TAB PO PRN (12:19)
--- NOTE | 2022-01-11 13:57 | P.OP ---
Date of Procedure: 01/10/22 Preoperative Diagnosis: Ruptured ectopic Postoperative Diagnosis: Intraabdominal adhesions Anesthesia: GETA Tile Designer #1: Cindy Corcoran Pathology: none sent Condition: stable Disposition: PACU Description of Procedure: I was asked to assist Dr Funes due to intraabdominal adhesions. The patient was entered throught a pfannenstiel incision with retractor in place. There were dense adhesions noted to the left adnexa. These consisted primarily of epiploic fat from the sigmoid colon. These were taken down. The right adnexa had already been evaluated and found to be unremarkable. There was no abnormal complex mass noted in the left adnexa either. The uterus was smooth and unremarkable. The space between the bladder and pelvis had been dissected earlier in the case. The bladder itself felt very thicked and inflamed. Although the patient had an indwelling elliott, the balloon was not palpable. The OR nurse deflated the balloon and reinflated. I could feel fluid emma g into the balloon, but still did not appreciate the balloon very well by palpation. There was no concerning mass in the pelvis as described by radiology. My recommendation was to have urology evaluate the patient further. See Dr Street dictation for the rest of the procedure
--- NOTE | 2022-01-11 16:06 | P.PCN ---
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 During the exploration Dr. Funes and more a question whether there may be some bladder abnormalities. They wished to bladder evaluation and urologic consultation upon reviewing the films it is indeterminate whether there is any anything going on in the bladder however to clarify this cystoscopy can be done at the bedside which is easiest method to clarify whether there is a bladder mass Description of Procedure: the patient's Wetzel catheters removed. she is placed in a frog position andshe was prepped and draped sterilely. The flexible scope is introduced into the b ladder. The bladder was inspected in its entirety. The ureteral orifices normal. 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 The patient does admit to symptoms consistent with detrusor sphincter dyssynergia. No tumors are seen. At the end of procedure the cystoscope was removed and the patient tolerated procedure well. Impression neurogenic bladder consistent with myelomeningocele without evidence of bladder mass Recommendations: Patient has tolerated her bladder very well over the years. She has minimal incontinence. Nothing further urologic needs to be done during this hospital admission.
--- NOTE | 2022-01-11 16:52 | P.CONS ---
History of Present Illness - Reason for Consult Consult date: 01/11/22 HTN Requesting physician: Shivani Funes - Chief Complaint abd pain - History of Present Illness Patient is a 26-year-old female with a history of spina bifida, hydrocephalus requiring LABORER SHAFT SINKING shunt, prior hypertension not on medicines, and gastric sleeve who presented with abdominal pain. She was ultimately admitted to structures in gynecology as there was concern for possible ectopic . Exploratory laparotomy which did not show any signs of ectopic but did show to give can adhesions, there was concerns for bladder abnormality. Urology was consulted. Throughout the night and today she did have significantly elevated blood pressures with a max of 204/114. She has had issues with hypertension past that have been related. Her sister who is a registered nurse reports that when she had her gastric sleeve her blood pressure was exceedingly high and they had to give her pain medications and blood pressure medications and then she became hypotensive. Patient seen and examined at bedside. She is feeling well. She denies any headaches, shortness of breath, nausea, vomiting. She states that they were not attending to get on this happened. She does not have any intention of attempting to get again anytime soon. We discussed that she has not been monitoring her blood pressures at home, but hadn't taken off her blood pressure medications about 2.5 years ago prior to her gastric sleeve. She is having some urinary frequency at home over the last week. She does have spina bifida and is wheelchair bound at baseline. She has decreased sensation in her lower extremities. Pertinent positives and negatives as discussed in HPI, a complete review of systems was performed and all other systems are negative. Vital signs reviewed General: nontoxic, no distress, appears at stated age Derm: warm, dry Head: atraumatic, normocephalic, symmetric Eyes: EOMI, no lid lag, anicteric sclera, pupils equal round reactive to light ENT: Nose and ears atraumatic, no thrush, no pharyngeal erythema Neck: No thyromegaly, no cervical lymphadenopathy, trachea midline, supple Mouth: no lip lesion, mucus membranes moist Cardiovascular: S1S2 reg, no murmur, positive posterior tibial pulse bilateral, no edema, capillary refill less than 2 seconds Lungs: clear to auscultation bilateral, no rhonchi, no rales, no wheeze, no acc essory muscle use Abdominal: soft, tender to palpation diffusely, no guarding, no appreciable organomegaly, normal bowel sounds Ext: no gross muscle atrophy, no contractures Neuro: CN II-XII grossly intact, Psych: Alert, oriented, appropriate affect Assessment/Plan: Elevated blood pressures with history of hypertension -Patient has been off medications for the last 2-1/2 years. We'll continue to monitor blood pressures. Will use Catapres as needed. Hold labetalol. Pulse is discharge home without any oral medications. - Probable exaggerage HTN response to pain with spinal cord impairment Probable UTI - Rocephin X1 last night - Await culture Probable bladder abnormality - urology recs: plan is for beside cystoscopy today Spontaneous - Management by E[employer]ER Thank you for allowing us to participate in the care of this pleasant patient. Do not hesitate to contact us with questions. Someone can be reached from the [facility] [place] hospitalist group all hours of the day at [phone] or via [employer]. Past Medical History Past Medical History: Hypertension, Musculoskeletal Disorder, Neurologic Disorder Additional Past Medical History / Comment(s): states has a bicuspid aortic valve, spinabifida, uses wheelchair, able to transfer, states hx (over 6 yrs ago) of "staph infection" that had I&D and a month of antibiotics IV, not sure if MRSA, DVT and pulmonary embolism History of Any Multi-Drug Resistant Organisms: None Reported Past Surgical History: Bariatric Surgery, Orthopedic Surgery Additional Past Surgical History / Comment(s): rt heel cord sx, shunt @ , replaced x2 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, multiple leg surgeries Past Anesthesia/Blood Transfusion Reactions: No Reported Reaction Past Psychological History: No Psychological Hx Reported Smoking Status: Never smoker Past Alcohol Use History: Rare Past Drug Use History: Marijuana - Past Family History Mother Family Medical History: No Reported History Medications and Allergies Home Medications Medication Instructions Recorded Confirmed Type Multivitamins, Thera Liquid 5 ml PO DAILY 01/04/20 01/10/22 History [Theragran Liquid (formulary)] Omeprazole [PriLOSEC] 20 mg PO DAILY 01/04/20 01/10/22 History Acetaminophen [Tylenol Extra 1,000 mg PO Q6H PRN 01/10/22 01/10/22 History Strength] Simethicone [Gas-X] 125 mg PO BID PRN 01/10/22 01/10/22 History Allergies Allergy/AdvReac Type Severity Reaction Status Date / Time latex Allergy Rash/Hives Verified 01/10/22 22:37 morphine AdvReac "panic Verified 01/10/22 22:37 attack" Physical Exam Osteopathic Statement: *. No significant issues noted on an osteopathic structural exam other than those noted in the History and Physical/Consult. Vitals: Vital Signs Temp Pulse Pulse Resp BP BP Pulse Ox 01/11/22 14:28 98.7 F 92 16 136/76 01/11/22 13:00 98.7 F 92 16 136/76 01/11/22 03:40 98.1 F 82 16 115/78 99 01/11/22 03:10 83 126/75 100 01/11/22 02:40 95 192/126 100 01/11/22 02:25 89 173/105 100 01/11/22 01:55 98.1 F 91 18 169/124 100 01/11/22 01:50 98.1 F 91 18 100 01/10/22 22:21 100 18 182/111 99 01/10/22 21:42 110 H 16 175/106 100 01/10/22 21:20 99.1 F 114 H 16 204/114 100 01/10/22 20:36 103 H 18 177/121 99 01/10/22 18:12 99.3 F 111 H 20 182/103 100 Intake and Output 01/11/22 01/11/22 01/11/22 06:59 14:59 22:59 Output Total 1500 500 Balance -1500 -500 Output: Urine 1500 500 Uretheral (Wetzel) 500 Other: Voiding Method Toilet Diaper Incontinent Weight 72.575 kg Results CBC & Chem 7: 01/11/22 10:11 01/10/22 19:15 Labs: Abnormal Lab Results - Last 24 Hours (Table) 01/10/22 01/10/22 01/10/22 Range/Units 19:15 19:15 19:15 WBC 11.4 H (3.8-10.6) k/uL RBC (3.80-5.40) m/uL Hgb 10.8 L (11.4-16.0) gm/dL Hct 33.8 L (34.0-46.0) % MCV 78.5 L (80.0-100.0) fL MCH (25.0-35.0) pg MCHC (31.0-37.0) g/dL Neutrophils # 9.1 H (1.3-7.7) k/uL Potassium 3.1 L (3.5-5.1) mmol/L Carbon Dioxide 21 L (22-30) mmol/L Creatinine 1.82 H (0.52-1.04) mg/dL Urine Appearance Turbid H (Clear) Urine Protein 1+ H (Negative) Urine Blood Large H (Negative) Ur Leukocyte Esterase Large H (Negative) Urine RBC 33 H (0-5) /hpf Urine WBC >182 H (0-5) /hpf Urine WBC Clumps Many H (None) /hpf Urine Bacteria Moderate H (None) /hpf Urine Mucus Rare H (None) /hpf 01/11/22 Range/Units 10:11 WBC 11.9 H (3.8-10.6) k/uL RBC 3.26 L (3.80-5.40) m/uL Hgb 8.1 L D (11.4-16.0) gm/dL Hct 26.3 L (34.0-46.0) % MCV (80.0-100.0) fL MCH 24.8 L (25.0-35.0) pg MCHC 30.7 L (31.0-37.0) g/dL Neutrophils # (1.3-7.7) k/uL Potassium (3.5-5.1) mmol/L Carbon Dioxide (22-30) mmol/L Creatinine (0.52-1.04) mg/dL Urine Appearance (Clear) Urine Protein (Negative) Urine Blood (Negative) Ur Leukocyte Esterase (Negative) Urine RBC (0-5) /hpf Urine WBC (0-5) /hpf Urine WBC Clumps (None) /hpf Urine Bacteria (None) /hpf Urine Mucus (None) /hpf Microbiology - Last 24 Hours (Table) 01/10/22 19:15 Urine Culture - Preliminary Urine,Clean Catch
[2022-01-11] MEDS ORDERED: VANCOMYCIN IV PER PHARMACY 1 EACH MISC MISCELLANE PRN (22:10)
[2022-01-11] MEDS ORDERED: VANCOMYCIN 1,500 MG in SODIUM CHLORIDE 0.9% 250 ML IVPB ONE (23:00)
[2022-01-11] MEDS: ONDANSETRON 4 MG/2 ML VIAL IVP PRN (23:39)
[2022-01-12] MEDS: diphenhydrAMINE 50 MG/ML 1 ML VIAL IVP PRN ×4 (02:25→23:44)
[2022-01-12] MEDS: KETOROLAC 15 MG/ML 1 ML VIAL IVP PRN (02:25)
[2022-01-12] MEDS: HYDROmorphone 1 MG/ML 1 ML SYRINGE IVP PRN ×3 (05:15→22:28)
--- NOTE | 2022-01-12 08:14 | P.PN ---
Progress Note - Text Progress Note Date: 01/12/22 Postoperative day #1. Patient is resting without new complaints. Vital signs are stable and she is afebrile. Patient was seen by urology yesterday and did have a bedside cystoscopy which showed no evidence of a bladder mass. Patient's blood pressures markedly improved. Her incision is intact and dry. Beta hCG did decrease significantly yesterday consistent with a spontaneous . Repeat beta hCG today is pending. I impression is that she is doing well postoperatively and appears that this is a spontaneous miscarriage and not an ectopic . When she is cleared from medicine she'll most likely be able to go home tomorrow or the following day from a surgical standpoint.
[2022-01-12 08:28] LABS: Calcium 7.9 mg/dL (8.4-10.2); Potassium 3.5 mmol/L (3.5-5.1)
[2022-01-12 08:45] LABS: HCG,Quantitative Serum 39.6 mIU/mL
[2022-01-12 08:58] LABS: HCT 26.7 % (34.0-46.0); HGB 8.2 gm/dL (11.4-16.0); Hypochromasia Marked; MCH 24.8 pg (25.0-35.0); MCHC 30.8 g/dL (31.0-37.0); MCV 80.6 fL (80.0-100.0); Mean Platelet Volume 8.5; Platelet Count 258 k/uL (150-450); RBC 3.31 m/uL (3.80-5.40); RDW 14.3 % (11.5-15.5); WBC 11.1 k/uL (3.8-10.6)
[2022-01-12] MEDS: SENNOSIDES-DOCUSATE SODIUM 1 EACH TAB PO SCH ×2 (09:41→23:26)
[2022-01-12] MEDS: ONDANSETRON 4 MG/2 ML VIAL IVP PRN ×2 (09:42→22:32)
--- NOTE | 2022-01-12 10:18 | P.PN ---
Subjective Progress Note Date: 01/12/22 the patient underwent urologic evaluation at Dr. Funes's request yesterday. No masses identified in the bladder. Her bladder showed acute and chronic cystitis with severe trabeculation cellule formation. This is consistent with a neurogenic bladder from myelomeningocele. She does have a positive urine culture and is on antibiotics pending culture and sensitivity results. Objective - Vital Signs Vital signs: Vital Signs Temp 98.5 F 01/12/22 09:51 Pulse 93 01/12/22 09:51 Resp 16 01/12/22 09:51 BP 139/81 01/12/22 09:51 Pulse Ox 99 01/12/22 05:00 FiO2 Intake & Output 01/11/22 01/12/22 01/12/22 18:59 06:59 18:59 Output Total 1999 100 Balance -1999 - Output: Urine 1999 100 Uretheral (Wetzel) 500 Other: Voiding Method Toilet Diaper Incontinent # Voids 1 - Labs CBC & Chem 7: 01/12/22 08:05 01/12/22 08:05 Labs: Abnormal Lab Results - Last 24 Hours (Table) 01/11/22 01/12/22 01/12/22 Range/Units 10:11 08:05 08:05 WBC 11.9 H 11.1 H (3.8-10.6) k/uL RBC 3.26 L 3.31 L (3.80-5.40) m/uL Hgb 8.1 L D 8.2 L (11.4-16.0) gm/dL Hct 26.3 L 26.7 L (34.0-46.0) % MCH 24.8 L 24.8 L (25.0-35.0) pg MCHC 30.7 L 30.8 L (31.0-37.0) g/dL Chloride 109 H (98-107) mmol/L Carbon Dioxide 20 L (22-30) mmol/L Creatinine 1.93 H (0.52-1.04) mg/dL Calcium 7.9 L (8.4-10.2) mg/dL Microbiology - Last 24 Hours (Table) 01/10/22 21:20 Blood Culture Gram Stain - Preliminary Blood Blood Culture - Preliminary Coagulase Negative Staph 01/10/22 21:00 Blood Culture Gram Stain - Preliminary Blood 01/10/22 19:15 Urine Culture - Final Urine,Clean Catch 01/10/22 21:20 Blood Culture - Final Blood 01/10/22 21:00 Blood Culture - Final Blood
--- NOTE | 2022-01-12 12:33 | P.PN ---
Subjective Progress Note Date: 01/12/22 Principal diagnosis: abdominal pain Hospital Course: Patient is a 26-year-old female with a history of spina bifida, hydrocephalus requiring DESKTOP ADMINISTRATOR shunt, prior hypertension not on medicines, and gastric sleeve who presented with abdominal pain. She was ultimately admitted to gynecology as there was concern for possible ectopic . Exploratory laparotomy did not show any signs of ectopic but did show to give can adhesions, there was concerns for bladder abnormality. Urology was consulted. Cystoscopy did not show any bladder masses. Patient does have acute on chronic cystitis likely secondary to neurogenic bladder. Medicine was consulted for management of hypertension. Patient had elevated blood pressure up to 204/114. She was given labetalol once, and has when necessary clonidine. Patient was also found to have + 2/2 blood cultures growing coag was negative staph. Since patient has prosthesis in legs and DESKTOP ADMINISTRATOR shunt, we'll repeat blood cultures, keep her on antibiotics and consult infectious disease. Subjective: Patient seen and examined at bedside. No acute events overnight. She continues to have some abdominal tenderness, passing gas, occasional nausea, no vomiting, no bowel movements. She denies any urinary complaints at the moment. Pertinent positives and negatives as discussed above, a complete review of sy stems was performed and all other systems are negative. Vitals Signs Reviewed. General: nontoxic, no distress, appears at stated age Derm: warm, dry Head: atraumatic, normocephalic, symmetric Eyes: EOMI, no lid lag, anicteric sclera, pupils equal round reactive to light ENT: Nose and ears atraumatic Neck: No thyromegaly, Mouth: no lip lesion, mucus membranes moist Cardiovascular: S1S2 reg, no murmur, no edema Lungs: clear to auscultation bilateral, no rhonchi, no rales, no wheeze, no accessory muscle use Abdominal: soft, tender to palpation diffusely, no guarding, no appreciable organomegaly, normal bowel sounds Ext: no gross muscle atrophy, no contractures Neuro: CN II-XII grossly intact, Psych: Alert, oriented, appropriate affect Assessment and Plan: Bacteremia, coag-negative staph -Continue Cefzolin -Since patient has DESKTOP ADMINISTRATOR shunt, prosthesis in legs, consult ID -Repeat cultures pending Elevated blood pressures with history of hypertension -Patient has been off medications for the last 2-1/2 years. We'll continue to monitor blood pressures. Will use Catapres as needed. Hold labetalol. - Probable exaggerage HTN response to pain with spinal cord impairment Probable UTI Acute on chronic cystitis in setting of neurogenic bladder -Urine culture grew >100,000 CFU/mL apparent skin and genital kirsty Probable bladder abnormality, not present -Urology was consulted, cystoscopy showed possible acute on chronic cystitis Spontaneous - Management by DIGITAL DIRECTOR Thank you for allowing us to participate in the care of this pleasant patient. Do not hesitate to contact us with questions. Someone can be reached from the [facility] hospitalist group all hours of the day at [phone] or via [employer]. Objective - Vital Signs Vital signs: Vital Signs Temp 98.5 F 01/12/22 09:51 Pulse 93 01/12/22 09:51 Resp 16 01/12/22 09:51 BP 139/81 01/12/22 09:51 Pulse Ox 99 01/12/22 05:00 FiO2 Intake & Output 01/11/22 01/12/22 01/12/22 18:59 06:59 18:59 Output Total 2000 100 Balance -2000 -100 Output: Urine 1999 100 Uretheral (Wetzel) 500 Other: Voiding Method Toilet Diaper Incontinent # Voids 1 - Labs CBC & Chem 7: 01/12/22 08:05 01/12/22 08:05 Labs: Abnormal Lab Results - Last 24 Hours (Table) 01/12/22 01/12/22 Range/Units 08:05 08:05 WBC 11.1 H (3.8-10.6) k/uL RBC 3.31 L (3.80-5.40) m/uL Hgb 8.2 L (11.4-16.0) gm/dL Hct 26.7 L (34.0-46.0) % MCH 24.8 L (25.0-35.0) pg MCHC 30.8 L (31.0-37.0) g/dL Chloride 109 H (98-107) mmol/L Carbon Dioxide 20 L (22-30) mmol/L Creatinine 1.93 H (0.52-1.04) mg/dL Calcium 7.9 L (8.4-10.2) mg/dL Microbiology - Last 24 Hours (Table) 01/10/22 21:20 Blood Culture Gram Stain - Preliminary Blood Blood Culture - Preliminary Coagulase Negative Staph 01/10/22 21:00 Blood Culture Gram Stain - Preliminary Blood 01/10/22 19:15 Urine Culture - Final Urine,Clean Catch 01/10/22 21:20 Blood Culture - Final Blood 01/10/22 21:00 Blood Culture - Final Blood
[2022-01-12] MEDS: Acetaminophen-Codeine 300-30mg TAB PO PRN (14:58)
[2022-01-12] MEDS ORDERED: VANCOMYCIN 1,500 MG in SODIUM CHLORIDE 0.9% 250 ML IVPB SCH (22:00)
[2022-01-12] MEDS: PANTOPRAZOLE 40 MG TABLET PO SCH (23:45)
[2022-01-13] MEDS: Acetaminophen-Codeine 300-30mg TAB PO PRN ×2 (04:49→21:44)
[2022-01-13] MEDS: diphenhydrAMINE 50 MG/ML 1 ML VIAL IVP PRN ×3 (05:24→20:50)
[2022-01-13] MEDS: ONDANSETRON 4 MG/2 ML VIAL IVP PRN (05:24)
--- NOTE | 2022-01-13 07:22 | P.CONS ---
History of Present Illness - Reason for Consult Consult date: 01/12/22 - History of Present Illness Patient is a 26-year-old female with a past medical he significant for spina bifida hypertension bicuspid aortic valve patient did have a history of the patient at and apparently the patient did have a hardware in both her lower extremity she presented to the ER on 01/10/2022 for evaluation of vaginal bleeding and cramping in this patient is currently 6 weeks patient on presentation to the hospital was if febrile and no fever has been recorded subsequently patient did have white count of 11.4 with repeat is 11.1 today bulimic normal creatinine is mildly elevated urine has been positive patient did have a obstetrical ultrasound no IUP seen at this point 11 X8X 7 cm right adnexal complex mass with question of possible ectopic patient did have exposure report to me concerning for her showed ectopic patient was noticed to have a pelvic condition bladder mass status post lysis of adhesion also has cystoscopy with concern for possible bladder mass patient was noted to have neurogenic bladder secondary to myelo meningocele with mild hypertrophy patient did have a positive blood cultures coming positive with coagulase-negative staph patient was initially on vancomycin antibiotic switched over to cefazolin on the basis sensitivity infectious disease was consulted because of this positive blood culture patient currently denies having any headache or URI symptoms no chest pain or shortness of breath or cough abdominal pain has improved no further cramping no diarrhea Past Medical History Past Medical History: Hypertension, Musculoskeletal Disorder, Neurologic Disorder Additional Past Medical History / Comment(s): states has a bicuspid aortic valve, spinabifida, uses wheelchair, able to transfer, states hx (over 6 yrs ago) of "staph infection" that had I&D and a month of antibiotics IV, not sure if MRSA, DVT and pulmonary embolism History of Any Multi-Drug Resistant Organisms: None Reported Past Surgical History: Bariatric Surgery, Orthopedic Surgery Additional Past Surgical History / Comment(s): rt heel cord sx, shunt @ , replaced x2 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, multiple leg surgeries Past Anesthesia/Blood Transfusion Reactions: No Reported Reaction Past Psychological History: No Psychological Hx Reported Smoking Status: Never smoker Past Alcohol Use History: Rare Past Drug Use History: Marijuana - Past Family History Mother Family Medical History: No Reported History Medications and Allergies Home Medications Medication Instructions Recorded Confirmed Type Multivitamins, Thera Liquid 5 ml PO DAILY 01/04/20 01/10/22 History [Theragran Liquid (formulary)] Omeprazole [PriLOSEC] 20 mg PO DAILY 01/04/20 01/10/22 History Acetaminophen [Tylenol Extra 1,000 mg PO Q6H PRN 01/10/22 01/10/22 History Strength] Simethicone [Gas-X] 125 mg PO BID PRN 01/10/22 01/10/22 History Allergies Allergy/AdvReac Type Severity Reaction Status Date / Time latex Allergy Rash/Hives Verified 01/10/22 22:37 morphine AdvReac "panic Verified 01/10/22 22:37 attack" Physical Exam Vitals: Vital Signs Temp Pulse Resp BP Pulse Ox 01/12/22 14:57 99.1 F 101 H 16 140/83 01/12/22 09:51 98.5 F 93 16 139/81 01/12/22 05:00 98.5 F 94 16 138/88 99 01/11/22 20:15 98.8 F 101 H 16 118/71 100 Intake and Output 01/12/22 01/12/22 01/12/22 06:59 14:59 22:59 Other: Voiding Method Toilet Diaper Incontinent # Voids 1 1 Results CBC & Chem 7: 01/12/22 08:05 01/12/22 08:05 Labs: Abnormal Lab Results - Last 24 Hours (Table) 01/12/22 01/12/22 Range/Units 08:05 08:05 WBC 11.1 H (3.8-10.6) k/uL RBC 3.31 L (3.80-5.40) m/uL Hgb 8.2 L (11.4-16.0) gm/dL Hct 26.7 L (34.0-46.0) % MCH 24.8 L (25.0-35.0) pg MCHC 30.8 L (31.0-37.0) g/dL Chloride 109 H (98-107) mmol/L Carbon Dioxide 20 L (22-30) mmol/L Creatinine 1.93 H (0.52-1.04) mg/dL Calcium 7.9 L (8.4-10.2) mg/dL Microbiology - Last 24 Hours (Table) 10/13/22 21:20 Blood Culture Gram Stain - Preliminary Blood Blood Culture - Preliminary Coagulase Negative Staph 01/10/22 21:00 Blood Culture Gram Stain - Preliminary Blood 01/10/22 19:15 Urine Culture - Final Urine,Clean Catch 01/10/22 21:20 Blood Culture - Final Blood 01/10/22 21:00 Blood Culture - Final Blood Assessment and Plan Plan: 1patient presented to hospital with abdominal cramping and vaginal bleeding this patient has been 6 weeks patient is status post laparotomy status post lysis of adhesion no evidence of any perforation she did have a positive UA and a positive blood cultures with coagulase-negative staph question of possible skin contamination patient to have a hardware in her body especially patient however denies having any headache and no evidence of any inflammation noticed on bilateral lower extremity examination. 2blood culture has been repeated to document clearance of her bacteremia. 3continue with the cefazolin while waiting for repeat blood culture to finalize. 4we will check inflammatory markers. We will follow on clinical condition and cultures to further adjust medication if needed Thank you for this consultation will follow this patient along with you Time with Patient: Greater than 30
[2022-01-13 07:50] LABS: HCG,Quantitative Serum 23.9 mIU/mL
--- NOTE | 2022-01-13 08:04 | P.PN ---
Progress Note - Text Progress Note Date: 01/13/22 Postoperative day #2. Patient continues to do well without new complaints. Vital signs are stable she is afebrile. Her vaginal bleeding has slowed down significantly and her beta hCG is now down to 23. This most definitely is consistent with a spontaneous miscarriage. Patient appears to be tolerating regular diet. She is being followed by medicine for a positive blood culture however this might be a contamination. From a surgical standpoint she is stable for discharge home. If cleared by medicine she may be discharged home today to follow up with Dr. Funes at the end of the week for an incision check and a repeat beta hCG. I did discuss her vaginal bleeding she understands this may continue on and off for the next week or 2 however it appears that her hCG has fallen significantly consistent with a complete .
[2022-01-13] MEDS: SENNOSIDES-DOCUSATE SODIUM 1 EACH TAB PO SCH ×2 (09:06→20:49)
[2022-01-13] MEDS: PANTOPRAZOLE 40 MG TABLET PO SCH (09:07)
[2022-01-13] MEDS: amLODIPine 5 MG TAB PO SCH (10:34)
--- NOTE | 2022-01-13 11:17 | P.PN ---
Subjective Progress Note Date: 01/13/22 Principal diagnosis: abdominal pain Hospital Course: Patient is a 26-year-old female with a history of spina bifida, hydrocephalus requiring CHEMICAL DEPENDENCY NURSE shunt, prior hypertension not on medicines, and gastric sleeve who presented with abdominal pain. She was ultimately admitted to gynecology as there was concern for possible ectopic . Exploratory laparotomy did not show any signs of ectopic but did show to give can adhesions, there was concerns for bladder abnormality. Urology was consulted. Cystoscopy did not show any bladder masses. Patient does have acute on chronic cystitis likely secondary to neurogenic bladder. Medicine was consulted for management of hypertension. Patient had elevated blood pressure up to 204/114. She was given labetalol once, and has when necessary clonidine. Now started on amlodipine. Patient was also found to have + 2/2 blood cultures growing coag was negative staph. ID consulted. Remains on abx. Repeat cultures pending. Cr and Renal function worsening. Renal consulted. Subjective: Patient seen and examined at bedside. No acute events overnight. She continues to have some abdominal tenderness, no vomiting, no bowel movements. She denies any urinary complaints at the moment. She claims that she is making adequate amount of urine. Pertinent positives and negatives as discussed above, a complete review of systems was performed and all other systems are negative. Vitals Signs Reviewed. General: nontoxic, no distress, appears at stated age Derm: warm, dry Head: atraumatic, normocephalic, symmetric Eyes: EOMI, no lid lag, anicteric sclera, pupils equal round reactive to light ENT: Nose and ears atraumatic Neck: No thyromegaly, Mouth: no lip lesion, mucus membranes moist Cardiovascular: S1S2 reg, no murmur, no edema Lungs: clear to auscultation bilateral, no rhonchi, no rales, no wheeze, no accessory muscle use Abdominal: soft, tender to palpation diffusely, no guarding, no appreciable organomegaly, normal bowel sounds Ext: no gross muscle atrophy, no contractures Neuro: CN II-XII grossly intact, Psych: Alert, oriented, appropriate affect Assessment and Plan: ZACHARY - FeNa was 1% - possible pre-renal and intrinstic, possible ATN - I&Os - urine eosinophils pending - renal consult Bacteremia, coag-negative staph -Continue Cefzolin -Since patient has CHEMICAL DEPENDENCY NURSE shunt, prosthesis in legs, consult ID -Repeat cultures pending, NGTD in 24 hours -inflammatory markers pending Elevated blood pressures with history of hypertension -Patient has been off medications for the last 2-1/2 years. - Probable exaggerage HTN response to pain with spinal cord impairment - started on amlodpine Probable UTI Acute on chronic cystitis in setting of neurogenic bladder -Urine culture grew >100,000 CFU/mL apparent skin and genital kirsty Probable bladder abnormality, not present -Urology was consulted, cystoscopy showed possible acute on chronic cystitis Spontaneous - Management by MACHINE ROOM OPERATOR Patient not yet ready for discharge. Thank you for allowing us to participate in the care of this pleasant patient. Do not hesitate to contact us with questions. Someone can be reached from the [facility] hospitalist group all hours of the day at [phone] or via [employer]. Objective - Vital Signs Vital signs: Vital Signs Temp 98 F 01/13/22 09:04 Pulse 79 01/13/22 09:04 Resp 16 01/13/22 09:04 BP 150/88 01/13/22 09:04 Pulse Ox 98 01/13/22 04:00 FiO2 Intake & Output 01/12/22 01/13/22 01/13/22 18:59 06:59 18:59 Output Total 275 Balance -275 Output: Urine 275 Other: # Voids 1 1 1 - Labs CBC & Chem 7: 01/12/22 08:05 01/13/22 07:00 Labs: Abnormal Lab Results - Last 24 Hours (Table) 01/13/22 01/13/22 Range/Units 07:00 07:00 Creatinine 2.48 H (0.52-1.04) mg/dL C-Reactive Protein 18.0 H (<1.0) mg/dL Procalcitonin 0.27 H (0.02-0.09) ng/mL Microbiology - Last 24 Hours (Table) 01/12/22 08:20 Blood Culture - Preliminary Blood No Growth after 24 hours 01/12/22 08:20 Blood Culture - Preliminary Blood No Growth after 24 hours 01/10/22 21:20 Blood Culture Gram Stain - Preliminary Blood Blood Culture - Preliminary Coagulase Negative Staph
[2022-01-13 11:35] LABS: Appearance,Urine Cloudy (Clear); Bacteria,Urine Few /hpf; Bilirubin,Urine Negative (Negative); Blood,Urine Moderate (Negative); Color,Urine Light Yellow; Glucose,Urine (UA) Negative (Negative); Ketones,Urine Negative (Negative); Leukocyte Esterase,Urine Large (Negative); Nitrite,Urine Negative (Negative); PH, Urine 6.5 (5.0-8.0); Protein,Urine 1+ (Negative); RBC,Urine 33 /hpf (0-5); Specific Gravity,Urine 1.011 (1.001-1.035); Squamous Epithelial Cell,Urine 4 /hpf (0-4); Urobilinogen,Urine <2.0 mg/dL (<2.0); WBC,Urine >182 /hpf (0-5)
[2022-01-13] MEDS: IBUPROFEN 600 MG TAB PO PRN (16:37)
[2022-01-13] MEDS: ONDANSETRON 4 MG TAB PO PRN (16:37)
[2022-01-13] MEDS: SODIUM CHLORIDE 0.9% 1,000 ML IV SCH (20:14)
[2022-01-14] MEDS: ONDANSETRON 4 MG TAB PO PRN (00:10)
[2022-01-14] MEDS: diphenhydrAMINE 50 MG/ML 1 ML VIAL IVP PRN ×4 (02:26→21:33)
[2022-01-14] MEDS: ZOLPIDEM 5 MG TAB PO PRN ×2 (02:26→21:34)
[2022-01-14] MEDS: IBUPROFEN 600 MG TAB PO PRN (02:26)
--- NOTE | 2022-01-14 05:03 | P.PN ---
Progress Note - Text Progress Note Date: 01/14/22 Postoperative day #3. Patient continues to rest without new complaints. She is afebrile. Blood pressures still are intermittently elevated. Her incision is intact and dry. Medicine is following her for a worsening kidney function with elevated creatinine. From a surgical standpoint she continues to well stable for discharge. Patient will continue inpatient for non-MOBILE DEVELOPER concerns and until medicine feels she is stable for discharge. Per previous notes beta-hCG continues to trend appropriately and will repeat one more time today.
[2022-01-14 06:19] LABS: Basophils % (A) 1 %; Eosinophils # (A) 0.3 k/uL (0-0.7); Eosinophils % (A) 5 %; HCT 24.2 % (34.0-46.0); HGB 7.3 gm/dL (11.4-16.0); Hypochromasia Marked; Lymphocytes # (A) 1.5 k/uL (1.0-4.8); Lymphocytes % (A) 24 %; MCH 24.5 pg (25.0-35.0); MCHC 30.1 g/dL (31.0-37.0); MCV 81.4 fL (80.0-100.0); Mean Platelet Volume 7.9; Monocytes # (A) 0.4 k/uL (0-1.0); Monocytes % (A) 6 %; Neutrophils # (A) 3.8 k/uL (1.3-7.7); Neutrophils % (A) 61 %; Platelet Count 249 k/uL (150-450); RBC 2.97 m/uL (3.80-5.40); RDW 13.8 % (11.5-15.5); WBC 6.3 k/uL (3.8-10.6)
[2022-01-14 07:09] LABS: HCG,Quantitative Serum 15.4 mIU/mL
[2022-01-14] MEDS: PANTOPRAZOLE 40 MG TABLET PO SCH (08:32)
[2022-01-14] MEDS: amLODIPine 5 MG TAB PO SCH (08:32)
[2022-01-14] MEDS: SENNOSIDES-DOCUSATE SODIUM 1 EACH TAB PO SCH ×2 (08:33→20:22)
[2022-01-14] MEDS: Acetaminophen-Codeine 300-30mg TAB PO PRN ×2 (08:51→21:32)
[2022-01-14] MEDS ORDERED: HYDROmorphone 2 MG TAB PO PRN (09:36)
--- NOTE | 2022-01-14 09:59 | US ---
EXAMINATION TYPE: US kidneys/renal and bladder DATE OF EXAM: 01/14/2022 COMPARISON: NONE CLINICAL HISTORY: ZACHARY. Recent exploratory pelvic surgery. EXAM MEASUREMENTS: Right Kidney: 10.4 x 5.2 x 5.7 cm Left Kidney: 11.9 x 5.9 x 5.7 cm Right Kidney: Hydronephrosis with increased cortical echogenicity Left Kidney: Hydronephrosis is moderate. Echogenic focus superior pole with irregular shadowing not similar to stone shadowing. 1.5 x 1.2 x 2.2cm Bladder: Limited but no abnormalities visualized. Patient had recent horizontal cut surgery to pelvi s which is covered currently, limiting visualization. Bilateral Jets seen: No IMPRESSION: There are some limitations present bilateral hydronephrosis is moderate. There may be underlying medi bradley renal disease. Indeterminate echogenic focus upper pole left kidney, CT scan could be performed f or better evaluation.
[2022-01-14] MEDS ORDERED: LACTATED RINGERS 1,000 ML IV SCH (10:00)
--- NOTE | 2022-01-14 10:49 | P.PN ---
Subjective Progress Note Date: 01/14/22 Principal diagnosis: abdominal pain Hospital Course: Patient is a 26-year-old female with a history of spina bifida, hydrocephalus requiring SLD EDUCATIONAL AIDE shunt, prior hypertension not on medicines, and gastric sleeve who presented with abdominal pain. She was ultimately admitted to gynecology as there was concern for possible ectopic . Exploratory laparotomy did not show any signs of ectopic but did show to give can adhesions, there was concerns for bladder abnormality. Urology was consulted. Cystoscopy did not show any bladder masses. Patient does have acute on chronic cystitis likely secondary to neurogenic bladder. Medicine was consulted for management of hypertension. Patient had elevated blood pressure up to 204/114. She was given labetalol once, and has when necessary clonidine. Now started on amlodipine. Patient was also found to have + 2/2 blood cultures growing coag was negative staph. ID consulted. Remains on abx. Repeat cultures NGTD. Cr and Renal function worsening. Renal consulted. Renal ultrasound shows moderate bilateral hydronephrosis. Subjective: Patient seen and examined at bedside. No acute events overnight. She continues to have some abdominal tenderness, no vomiting, no bowel movements. She denies any urinary complaints at the moment. She claims that she is making adequate amount of urine. Pertinent positives and negatives as discussed above, a complete review of systems was performed and all other systems are negative. Vitals Signs Reviewed. General: nontoxic, no distress, appears at stated age Derm: warm, dry Head: atraumatic, normocephalic, symmetric Eyes: EOMI, no lid lag, anicteric sclera, pupils equal round reactive to light ENT: Nose and ears atraumatic Neck: No thyromegaly, Mouth: no lip lesion, mucus membranes moist Cardiovascular: S1S2 reg, no murmur, no edema Lungs: clear to auscultation bilateral, no rhonchi, no rales, no wheeze, no accessory muscle use Abdominal: soft, tender to palpation diffusely, no guarding, no appreciable organomegaly, normal bowel sounds Ext: no gross muscle atrophy, no contractures Neuro: CN II-XII grossly intact, Psych: Alert, oriented, appropriate affect Assessment and Plan: ZACHARY - FeNa was 1% - possible pre-renal and intrinstic, possible ATN -Renal ultrasound shows bilateral hydronephrosis, moderate -ZACHARY felt to have a post obstructive component - I&Os - urine eosinophils negative - renal consult -Currently on lactated Ringer to match I's and O's Bacteremia, coag-negative staph -Continue Cefzolin -Since patient has SLD EDUCATIONAL AIDE shunt, prosthesis in legs, consult ID -Repeat cultures pending, NGTD so far -inflammatory markers elevated Hypertension -Patient has been off medications for the last 2-1/2 years. - Probable exaggerage HTN response to pain with spinal cord impairment - started on amlodpine Probable UTI Acute on chronic cystitis in setting of neurogenic bladder -Urine culture grew >100,000 CFU/mL apparent skin and genital kirsty Probable bladder abnormality, not present -Urology was consulted, cystoscopy showed possible acute on chronic cystitis Spontaneous - Management by CEMENTER MACHINE JOINER Patient not yet ready for discharge. Thank you for allowing us to participate in the care of this pleasant patient. Do not hesitate to contact us with questions. Someone can be reached from the [facility] [place] hospitalist group all hours of the day at [phone] or via [employer]. Objective - Vital Signs Vital signs: Vital Signs Temp 97.9 F 01/14/22 08:00 Pulse 103 H 01/14/22 08:00 Resp 16 01/14/22 08:00 BP 158/90 01/14/22 08:00 Pulse Ox 98 01/13/22 04:00 FiO2 Intake & Output 01/13/22 01/14/22 01/14/22 18:59 06:59 18:59 Intake Total 200 900 Output Total 900 950 Balance -700 -50 Intake: Oral 200 900 Output: Urine 900 950 Other: # Voids 1 - Labs CBC & Chem 7: 01/14/22 05:38 01/14/22 05:38 Labs: Abnormal Lab Results - Last 24 Hours (Table) 01/13/22 01/13/22 01/14/22 Range/Units 07:00 10:30 05:38 RBC (3.80-5.40) m/uL Hgb (11.4-16.0) gm/dL Hct (34.0-46.0) % MCH (25.0-35.0) pg MCHC (31.0-37.0) g/dL Creatinine 2.66 H (0.52-1.04) mg/dL Procalcitonin 0.27 H (0.02-0.09) ng/mL Urine Appearance Cloudy H (Clear) Urine Protein 1+ H (Negative) Urine Blood Moderate H (Negative) Ur Leukocyte Esterase Large H (Negative) Urine RBC 33 H (0-5) /hpf Urine WBC >182 H (0-5) /hpf Urine WBC Clumps Moderate H (None) /hpf Urine Bacteria Few H (None) /hpf 01/14/22 Range/Units 05:38 RBC 2.97 L (3.80-5.40) m/uL Hgb 7.3 L (11.4-16.0) gm/dL Hct 24.2 L (34.0-46.0) % MCH 24.5 L (25.0-35.0) pg MCHC 30.1 L (31.0-37.0) g/dL Creatinine (0.52-1.04) mg/dL Procalcitonin (0.02-0.09) ng/mL Urine Appearance (Clear) Urine Protein (Negative) Urine Blood (Negative) Ur Leukocyte Esterase (Negative) Urine RBC (0-5) /hpf Urine WBC (0-5) /hpf Urine WBC Clumps (None) /hpf Urine Bacteria (None) /hpf Microbiology - Last 24 Hours (Table) 01/12/22 08:20 Blood Culture - Preliminary Blood No Growth after 48 hours 01/12/22 08:20 Blood Culture - Preliminary Blood No Growth after 48 hours 01/13/22 07:00 Blood Culture - Preliminary Blood No Growth after 24 hours 01/10/22 21:00 Blood Culture Gram Stain - Final Blood Blood Culture - Final Aerococcus species 01/10/22 21:20 Blood Culture Gram Stain - Final Blood Blood Culture - Final Coagulase Negative Staph Aerococcus species 01/13/22 10:30 Urine Culture - Preliminary Urine,Clean Catch
[2022-01-14] MEDS: AMPICILLIN-SULBACTAM 3 GM in SODIUM CHLORIDE 0.9% 100 ML IVPB SCH ×2 (12:20→23:34)
--- NOTE | 2022-01-14 12:25 | P.NPCON ---
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 Patient was admitted to the hospital with complaints of abdominal pain and possible miscarriage. There was concern for possible ectopic and patient had explorative laparotomy on 01/10/2022. There was no evidence of ectopic however patient had significant agitation switch were lysed. A possible bladder mass was noted and therefore urology was consulted. Patient had a cystoscopy performed on 01/11/2022 which showed no mass. Patient was noted to have a neurogenic bladder with marketed hypertrophy and diverticular formation. Patient had a Wetzel catheter initially postoperatively but this was removed after 2 days. Patient states she has been voiding. Blood pressure has not been low, in fact it is on the high side. Review of medications shows patient had been on Toradol and Motrin which are now discontinued. Patient was also on vancomycin which is also currently discontinued. Urine culture did not grow any specific organism. Serum creatinine was 1.8 on initial admission and increased to 2.6 today. Previous creatinine 0.8 on 01/04/2020. Patient has not received any IV contrast during this admission. Urine eosinophils was positive and reported as 2 This morning patient states she feels quite well. She denies any significant complaints. She is complaining of some nausea but no significant vomiting or diarrhea. Review of Systems As per HPI, other systems negative Past Medical History Past Medical History: Hypertension, Musculoskeletal Disorder, Neurologic Disorder Additional Past Medical History / Comment(s): states has a bicuspid aortic valve, spinabifida, uses wheelchair, able to transfer, states hx (over 6 yrs ago) of "staph infection" that had I&D and a month of antibiotics IV, not sure if MRSA, DVT and pulmonary embolism History of Any Multi-Drug Resistant Organisms: None Reported Past Surgical History: Bariatric Surgery, Orthopedic Surgery Additional Past Surgical History / Comment(s): rt heel cord sx, shunt @ , replaced x2 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, multiple leg surgeries Past Anesthesia/Blood Transfusion Reactions: No Reported Reaction Past Psychological History: No Psychological Hx Reported Smoking Status: Never smoker Past Alcohol Use History: Rare Past Drug Use History: Marijuana - Past Family History Mother Family Medical History: No Reported History Medications and Allergies Home Medications Medication Instructions Recorded Confirmed Type Multivitamins, Thera Liquid 5 ml PO DAILY 01/04/20 01/10/22 History [Theragran Liquid (formulary)] Omeprazole [PriLOSEC] 20 mg PO DAILY 01/04/20 01/10/22 History Acetaminophen [Tylenol Extra 1,000 mg PO Q6H PRN 01/10/22 01/10/22 History Strength] Simethicone [Gas-X] 125 mg PO BID PRN 01/10/22 01/10/22 History Acetaminophen-Codeine 300-30mg 2 each PO Q6H PRN #24 tab 01/13/22 Rx [Tylenol w/codeine #3] Allergies Allergy/AdvReac Type Severity Reaction Status Date / Time latex Allergy Rash/Hives Verified 01/10/22 22:37 morphine AdvReac "panic Verified 01/10/22 22:37 attack" Physical Exam Vitals: Vital Signs Temp Pulse Resp BP 01/14/22 08:00 97.9 F 103 H 16 158/90 01/13/22 22:05 98.9 F 99 18 143/88 01/13/22 16:00 98.6 F 96 16 159/101 Intake and Output 01/13/22 01/14/22 01/14/22 22:59 06:59 14:59 Intake Total 900 Output Total 875 450 200 Balance 25 -450 -200 Intake: Oral 900 Output: Urine 875 450 200 Other: # Voids 1 Patient is comfortable awake alert oriented 3. Not in any acute distress Examination of the heart S1 and S2 Examination of the lungs bilateral breath sounds are heard Abdomen is soft nontender Examination lower extremities shows trace edema bilaterally Mild weakness of the lower extremities noted. Results - Lab Results Most recent lab results Calcium 7.9 mg/dL (8.4-10.2) L 01/12/22 08:05 Magnesium 2.0 mg/dL (1.6-2.3) 01/12/22 08:05 01/14/22 05:38 01/14/22 05:38 Assessment and Plan Assessment: 1. Acute kidney injury currently nonoliguric, associated with obstructive uropathy as well as at this time I would replace the Wetzel catheter possible acute interstitial nephritis related to NSAIDs. Urine eosinophils was positive however patient does have significant pyuria. Ultrasound shows bilateral hydronephrosis which is moderate. At this time I would replace the Wetzel catheter and if renal function does not improve patient will need a short course of steroids for possible acute interstitial nephritis. Her vancomycin level has been ordered as patient had been maintained on vancomycin. Possible underlying component of vancomycin toxicity. 2. Bilateral hydronephrosis with history of spina bifida with tendency towards some difficulty in emptying the bladder. Urology is on consult 3. Hypertension currently maintained on amlodipine 4. Coagulase-negative staph bacteremia, possible contamination 5. Spontaneous Plan: Re insert Wetzel catheter Repeat labs in a.m. Check vancomycin level Continue off of IV fluids Continue with current dose of amlodipine Avoid any nephrotoxic agents Accurate I's and O's next Thank you for the consultation. We'll continue to follow the patient with you during her hospitalization
--- NOTE | 2022-01-14 12:34 | CT ---
EXAMINATION TYPE: CT abdomen pelvis wo con DATE OF EXAM: 01/14/2022 HISTORY: abnormal kidney US CT DLP: 1060.1 mGycm. Automated Exposure Control for Dose Reduction was Utilized. TECHNIQUE: CT scan of the abdomen and pelvis is performed without oral or IV contrast. COMPARISON: Renal ultrasound January 14, 2022. CT abdomen and pelvis 2019. FINDINGS: Within the limitations of a non-contrast study, the following observations are made. LUNG BASES: No significant abnormality is appreciated. LIVER/GB: No significant abnormality is appreciated. PANCREAS: No significant abnormality is seen. SPLEEN: No significant abnormality is seen. ADRENALS: No significant abnormality is seen. KIDNEYS: Confirmation of moderate to severe bilateral hydronephrosis with nondependent air in the william dder and along the left ureter into the left collecting system. Mild to moderately distended bladder with lobulated contour and presence of outpouchings or diverticulum inferiorly. BOWEL: Gastric sleeve changes in the epigastric region are redemonstrated. No suspicious small or lar ge bowel dilatation. Focal eventration in the anterior abdominal wall along the course of a vertical oriented scar. No hernia defect. Normal appendix. GENITAL ORGANS: Anteverted uterus. LYMPH NODES: No greater than 1cm abdominal or pelvic lymph nodes are appreciated. OSSEOUS STRUCTURES: Persistent spina bifida defect in the lower lumbar spine with posterior CSF exten maya having peripheral calcification measuring 7.0 x 3.7 cm size image 61 consistent with at least my elocele. OTHER: Horizontal fat stranding and subcutaneous air consistent with recent laparotomy overlies the a nterior pelvic wall. IMPRESSION: 1. Moderate to severe bilateral hydronephrosis confirmed. No renal calculi bilaterally. Nondependent air likely causes echogenic focus on ultrasound. Air is presumed position product of recent catheteri zation. Correlate clinically. 2. Underlying spinal dysraphism. At least Lumbosacral myelocele is felt present. Abnormal distention of bladder suspicious for dysfunction noted. Correlate clinically advised. Lumbosacral MRI follow-up should be considered based on clinical correlation.
[2022-01-14] MEDS: ONDANSETRON 4 MG/2 ML VIAL IVP PRN ×2 (15:32→21:33)
[2022-01-15] MEDS: ONDANSETRON 4 MG/2 ML VIAL IVP PRN ×3 (03:20→23:30)
[2022-01-15] MEDS: diphenhydrAMINE 50 MG/ML 1 ML VIAL IVP PRN ×4 (03:20→22:36)
--- NOTE | 2022-01-15 06:30 | P.PN ---
Progress Note - Text Progress Note Date: 01/15/22 Postoperative day #4. Continues to well from a surgical standpoint. Plan is to continue to follow with medicine and we'll repeat hCG tomorrow morning if still inpatient.
--- NOTE | 2022-01-15 07:11 | P.PN ---
Subjective Progress Note Date: 01/13/22 Principal diagnosis: Bacteremia Patient is a 26-year-old female past medical history significant for spina bifid presenting to the hospital with abdominal cramping and did have vaginal bleeding, patient also have a significantly positive UA with subsequent blood cultures coming positive with coagulase-negative staph patient also have a history of the patient and hardware in the lower extremity. On today's evaluation that is 01/13/2022, the patient denies having any fever or any chills patient is breathing comfortably on room air patient lower abdominal pain has decreased in intensity denies having any nausea no vomiting or diarrhea Objective - Vital Signs Vital signs: Vital Signs Temp 98 F 01/13/22 09:04 Pulse 79 01/13/22 09:04 Resp 16 01/13/22 09:04 BP 150/88 01/13/22 09:04 Pulse Ox 98 01/13/22 04:00 FiO2 Intake & Output 01/12/22 01/13/22 01/13/22 18:59 06:59 18:59 Other: # Voids 1 1 - Exam GENERAL DESCRIPTION: Middle-aged female lying in bed, no distress. No tachypnea or accessory muscle of respiration use. LUNGS: Unlabored breathing. Clear to auscultation anteriorly. No wheeze or crackle. HEART: S1, S2, regular rate and rhythm. No loud murmur ABDOMEN: Soft, no tenderness , guarding or rigidity, no organomegaly EXTREMITIES: No edema of feet. - Labs CBC & Chem 7: 01/14/22 05:38 01/15/22 06:12 Labs: Abnormal Lab Results - Last 24 Hours (Table) 01/13/22 Range/Units 07:00 Creatinine 2.48 H (0.52-1.04) mg/dL C-Reactive Protein 18.0 H (<1.0) mg/dL Microbiology - Last 24 Hours (Table) 01/10/22 21:20 Blood Culture Gram Stain - Preliminary Blood Blood Culture - Preliminary Coagulase Negative Staph 01/10/22 21:00 Blood Culture Gram Stain - Preliminary Blood Assessment and Plan (1) Bacteremia Current Visit: Yes Status: Acute Code(s): R78.81 - BACTEREMIA SNOMED Code(s): 5975725 Plan: 1patient presented to hospital with abdominal cramping and vaginal bleeding this patient has been 6 weeks patient is status post laparotomy status post lysis of adhesion no evidence of any perforation she did have a positive UA and a positive blood cultures with coagulase-negative staph question of possible skin contamination patient to have a hardware in her body especially BANANA HANDLER shunt patient however denies having any headache and no evidence of any inflammation noticed on bilateral lower extremity examination. 2blood culture has been repeated to document clearance of her bacteremia. 3Pt to continue with the cefazolin while waiting for repeat blood culture to finalize. 4repeat UA and cultures Time with Patient: Less than 30
--- NOTE | 2022-01-15 07:14 | P.PN ---
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 Blood cultures now changed to Aerococus On today's evaluation that is 01/14/2022, the patient remains to be afebrile patient complaining of some lower abdominal cramping and did have some vaginal bleeding patient denies having any chest pain or shortness of breath or cough no headache and no flank pain Objective - Vital Signs Vital signs: Vital Signs Temp 97.9 F 01/14/22 08:00 Pulse 103 H 01/14/22 08:00 Resp 16 01/14/22 08:00 BP 158/90 01/14/22 08:00 Pulse Ox 98 01/13/22 04:00 FiO2 Intake & Output 01/13/22 01/14/22 01/14/22 18:59 06:59 18:59 Intake Total 200 900 Output Total 900 950 Balance -700 -50 Intake: Oral 200 900 Output: Urine 900 950 Other: # Voids 1 - Exam GENERAL DESCRIPTION: Middle-aged female lying in bed, no distress. No tachypnea or accessory muscle of respiration use. LUNGS: Unlabored breathing. Clear to auscultation anteriorly. No wheeze or certified master safecracker ckle. HEART: S1, S2, regular rate and rhythm. No loud murmur ABDOMEN: Soft, no tenderness , guarding or rigidity, no organomegaly EXTREMITIES: No edema of feet. - Labs CBC & Chem 7: 01/14/22 05:38 01/15/22 06:12 Labs: Abnormal Lab Results - Last 24 Hours (Table) 01/13/22 01/14/22 01/14/22 Range/Units 10:30 05:38 05:38 RBC 2.97 L (3.80-5.40) m/uL Hgb 7.3 L (11.4-16.0) gm/dL Hct 24.2 L (34.0-46.0) % MCH 24.5 L (25.0-35.0) pg MCHC 30.1 L (31.0-37.0) g/dL Creatinine 2.66 H (0.52-1.04) mg/dL Urine Appearance Cloudy H (Clear) Urine Protein 1+ H (Negative) Urine Blood Moderate H (Negative) Ur Leukocyte Esterase Large H (Negative) Urine RBC 33 H (0-5) /hpf Urine WBC >182 H (0-5) /hpf Urine WBC Clumps Moderate H (None) /hpf Urine Bacteria Few H (None) /hpf Microbiology - Last 24 Hours (Table) 01/12/22 08:20 Blood Culture - Preliminary Blood No Growth after 48 hours 01/12/22 08:20 Blood Culture - Preliminary Blood No Growth after 48 hours 01/13/22 07:00 Blood Culture - Preliminary Blood No Growth after 24 hours 01/10/22 21:00 Blood Culture Gram Stain - Final Blood Blood Culture - Final Aerococcus species 01/10/22 21:20 Blood Culture Gram Stain - Final Blood Blood Culture - Final Coagulase Negative Staph Aerococcus species 01/13/22 10:30 Urine Culture - Preliminary Urine,Clean Catch Assessment and Plan (1) Bacteremia Current Visit: Yes Status: Acute Code(s): R78.81 - BACTEREMIA SNOMED Code(s): 6133929 Plan: 1patient with Aerococcus bacteremia source is likely urinary unfortunately initially identified as coagulase-negative staph, patient did have a s ignificantly positive UA and also have evidence of bilateral hydronephrosis likely complicated UTI. 2we will discontinue cefazolin. 3switch antibiotic therapy to Unasyn 3 g every 6 hours 4-blood culture has been repeated which are negative so far. Time with Patient: Less than 30
[2022-01-15] MEDS: amLODIPine 5 MG TAB PO SCH (08:57)
[2022-01-15] MEDS: PANTOPRAZOLE 40 MG TABLET PO SCH (08:57)
[2022-01-15] MEDS: SENNOSIDES-DOCUSATE SODIUM 1 EACH TAB PO SCH ×2 (08:57→22:41)
[2022-01-15 09:16] LABS: Calcium 8.5 mg/dL (8.4-10.2); Potassium 3.8 mmol/L (3.5-5.1)
--- NOTE | 2022-01-15 10:03 | P.PN ---
Subjective Progress Note Date: 01/15/22 The patient has a neurogenic bladder with urinary retention. A elliott catheter has been inserted. Recommend leaving the elliott catheter in for one week. If retention persists, teach patient CIC techniques 3-4 times daily and to record amount. Plan is to monitor renal function and anticipate discharge in the next 24-48 hours. Patient is being treated with antibiotics for a UTI, ID following. Objective - Vital Signs Vital signs: Vital Signs Temp 98.2 F 01/15/22 00:00 Pulse 104 H 01/15/22 00:00 Resp 16 01/15/22 00:00 BP 147/57 01/15/22 06:21 Pulse Ox 99 01/15/22 00:00 FiO2 Intake & Output 01/14/22 01/15/22 01/15/22 18:59 06:59 18:59 Intake Total 3100 Output Total 2000 5400 200 Balance -1999 -2300 -200 Intake: Intake, IV Titration 100 Amount Ampicillin-Sulbactam 3 gm 100 In Sodium Chloride 0.9% 100 ml @ 200 mls/hr IVPB Q12H [facility] Rx#:[id number] Oral 3000 Output: Urine 2000 5400 200 Uretheral (Elliott) 1000 5400 200 Other: Voiding Method Indwelling Catheter Indwelling Catheter - Exam - General no distress - Eyes normal ocular movement - ENT normal nares, normal mucosa - Respiratory normal expansion, normal respiratory effort - Abdomen soft, no tenderness - Labs CBC & Chem 7: 01/14/22 05:38 01/15/22 06:12 Labs: Abnormal Lab Results - Last 24 Hours (Table) 01/15/22 Range/Units 06:12 Chloride 108 H (98-107) mmol/L Carbon Dioxide 20 L (22-30) mmol/L Creatinine 2.09 H (0.52-1.04) mg/dL Glucose 103 H (74-99) mg/dL Microbiology - Last 24 Hours (Table) 01/13/22 07:00 Blood Culture - Preliminary Blood No Growth after 48 hours 01/13/22 10:30 Urine Culture - Final Urine,Clean Catch 01/12/22 08:20 Blood Culture - Preliminary Blood No Growth after 48 hours 01/12/22 08:20 Blood Culture - Preliminary Blood No Growth after 48 hours Assessment and Plan (1) Neurogenic bladder Current Visit: Yes Status: Acute Code(s): N31.9 - NEUROMUSCULAR DYSFUNCTION OF BLADDER, UNSPECIFIED SNOMED Code(s): 988237957 (2) Urinary retention Current Visit: Yes Status: Acute Code(s): R33.9 - RETENTION OF URINE, UNSPECIFIED SNOMED Code(s): 602834263 Plan: Impression and plan of care have been directed as dictated by the signing physician. Yennifer Zamudio nurse practitioner acting as scribe for signing physician. Yennifer Zamudio [facility] Palliative Care/Urology [facility] [id number] Email: [email or web address] I personally performed and participated in history, physical Exam and decision making. I agree with the assessment and plan of the MEETING MANAGER. I personally performed and participated in the history, physical, the decision making, I agree with the assessment and plan of MEETING MANAGER chronic retention, secondary to her myelomeningocele, Elliott can be removed prior to discharge, the patient's son retention recommend performing CIC 3-4 X Time with Patient: Less than 30
--- NOTE | 2022-01-15 12:24 | P.PN ---
Subjective Progress Note Date: 01/15/22 Patient seen and examined at bedside. Patient denied chest pain or shortness of breath. Patient admits to some nausea and itching from antibiotics. Benadryl and Zofran are helping. Objective - Vital Signs Vital signs: Vital Signs Temp 98.2 F 01/15/22 00:00 Pulse 104 H 01/15/22 00:00 Resp 16 01/15/22 00:00 BP 147/57 01/15/22 06:21 Pulse Ox 99 01/15/22 00:00 FiO2 Intake & Output 01/14/22 01/15/22 01/15/22 18:59 06:59 18:59 Intake Total 3100 Output Total 1999 5400 1000 Balance -1999 -2300 -1000 Intake: Intake, IV Titration 100 Amount Ampicillin-Sulbactam 3 gm 100 In Sodium Chloride 0.9% 100 ml @ 200 mls/hr IVPB Q12H [facility] Rx#:[id number] Oral 3000 Output: Urine 1999 5400 1000 Uretheral (Elliott) 1000 5400 1000 Other: Voiding Method Indwelling Catheter Indwelling Catheter - Exam General: [non toxic], [no distress], [appears at stated age] Derm: [warm], [dry] Head: [atraumatic], [normocephalic], [symmetric] Eyes: [EOMI], [no lid lag], [anicteric sclera] Mouth: [no lip lesion], [mucus membranes moist] Cardiovascular: [S1S2 reg], [no murmur], [positive posterior tibial pulse bilateral], Lungs: [CTA bilateral], [no rhonchi, no rales] , [no accessory muscle use] Abdominal: [soft], [ nontender to palpation], [no guarding], [no appreciable organomegaly] Ext: [no gross muscle atrophy], [no edema], [no contractures] Neuro: [ CN II-XI grossly intact], [no focal neuro deficits] Psych: [Alert], [oriented], [appropriate affect] - Labs CBC & Chem 7: 01/14/22 05:38 01/15/22 06:12 Labs: Abnormal Lab Results - Last 24 Hours (Table) 01/15/22 Range/Units 06:12 Chloride 108 H (98-107) mmol/L Carbon Dioxide 20 L (22-30) mmol/L Creatinine 2.09 H (0.52-1.04) mg/dL Glucose 103 H (74-99) mg/dL Microbiology - Last 24 Hours (Table) 01/12/22 08:20 Blood Culture - Preliminary Blood No Growth after 72 hours 01/12/22 08:20 Blood Culture - Preliminary Blood No Growth after 72 hours 01/13/22 07:00 Blood Culture - Preliminary Blood No Growth after 48 hours 01/13/22 10:30 Urine Culture - Final Urine,Clean Catch Assessment and Plan Assessment: ZACHARY improving -Renal ultrasound shows bilateral hydronephrosis, moderate -ZACHARY felt to have a post obstructive component - I&Os - urine eosinophils negative - urology following as well and nephrology - patient currently has a elliott Bacteremia, coag-negative staph -Continue Cefzolin -Since 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 - Probable exaggerage HTN response to pain with spinal cord impairment - started on amlodpine Probable UTI Acute on chronic cystitis in setting of neurogenic bladder -Urine culture grew >100,000 CFU/mL apparent skin and genital kirsty Probable bladder abnormality, not present -Urology was consulted, cystoscopy showed possible acute on chronic cystitis Spontaneous - Management by CREDIT COMPLIANCE OFFICER DC planning tomorrow Thank you for allowing us to participate in the care of this pleasant patient. Do not hesitate to contact us with questions. Someone can be reached from the [facility] hospitalist group all hours of the day at [phone] or via perfect serve.
--- NOTE | 2022-01-15 12:40 | P.PN ---
Subjective Patient is seen for follow-up for acute kidney injury. It appears to be mostly obstructive in nature as ultrasound from yesterday showed evidence of significant hydronephrosis bilaterally. A Wetzel catheter was placed and 1000 mL of urine was obtained. CAT scan was also done which showed SEVERE bilateral hydronephrosis. Serum creatinine has improved to 2.0 from 2.6 yesterday. Patient has had good urine output. Overall she states she is feeling better with possible plans for discharge today. Objective - Vital Signs Vital signs: Vital Signs Temp 98.2 F 01/15/22 00:00 Pulse 104 H 01/15/22 00:00 Resp 16 01/15/22 00:00 BP 147/57 01/15/22 06:21 Pulse Ox 99 01/15/22 00:00 FiO2 Intake & Output 01/14/22 01/15/22 01/15/22 18:59 06:59 18:59 Intake Total 3100 Output Total 2000 5400 1000 Balance -2000 -2300 -1000 Intake: Intake, IV Titration 100 Amount Ampicillin-Sulbactam 3 gm 100 In Sodium Chloride 0.9% 100 ml @ 200 mls/hr IVPB Q12H [facility] Rx#:[id number] Oral 3000 Output: Urine 2000 5400 1000 Uretheral (Wetzel) 1000 5400 1000 Other: Voiding Method Indwelling Catheter Indwelling Catheter - Exam Patient is awake, comfortable, not in any acute distress Examination of the heart S1 and S2 Examination of the lungs bilateral breath sounds are heard Abdomen is soft nontender Examination of the lower extremities shows no significant edema - Labs CBC & Chem 7: 01/14/22 05:38 01/15/22 06:12 Labs: Abnormal Lab Results - Last 24 Hours (Table) 01/15/22 Range/Units 06:12 Chloride 108 H (98-107) mmol/L Carbon Dioxide 20 L (22-30) mmol/L Creatinine 2.09 H (0.52-1.04) mg/dL Glucose 103 H (74-99) mg/dL Microbiology - Last 24 Hours (Table) 01/12/22 08:20 Blood Culture - Preliminary Blood No Growth after 72 hours 01/12/22 08:20 Blood Culture - Preliminary Blood No Growth after 72 hours 01/13/22 07:00 Blood Culture - Preliminary Blood No Growth after 48 hours 01/13/22 10:30 Urine Culture - Final Urine,Clean Catch Assessment and Plan Assessment: 1. Acute kidney injury currently nonoliguric, associated with obstructive uropathy. There was concern for possible acute interstitial nephritis as urine eosinophils was positive however given the significant obstructive uropathy and improvement in renal function with Wetzel catheter placement I will hold off on steroids. Continue to avoid nonsteroidal anti-inflammatory agents as well. 2. Bilateral hydronephrosis with history of spina bifida with tendency towards some difficulty in emptying the bladder. Urology is on consult 3. Hypertension currently maintained on amlodipine 4. Aerococcus species bacteremia 5. Spontaneous Plan: Patient can be discharged from nephrology standpoint with self-catheterization at least 4 times per day. She will need to follow-up with urology as outpatient as well as nephrology. Repeat labs as outpatient in 2-3 days post discharge. Continue to avoid NSAIDs. Follow-up as outpatient in 4-5 days
[2022-01-15] MEDS: AMPICILLIN-SULBACTAM 3 GM in SODIUM CHLORIDE 0.9% 100 ML IVPB SCH ×2 (14:00→23:30)
[2022-01-15] MEDS: Acetaminophen-Codeine 300-30mg TAB PO PRN (23:30)
[2022-01-16] MEDS: ZOLPIDEM 5 MG TAB PO PRN (01:19)
[2022-01-16] MEDS: diphenhydrAMINE 50 MG/ML 1 ML VIAL IVP PRN (04:16)
[2022-01-16 05:30] LABS: Basophils % (A) 1 %; Eosinophils # (A) 0.4 k/uL (0-0.7); Eosinophils % (A) 5 %; HCT 27.5 % (34.0-46.0); HGB 8.4 gm/dL (11.4-16.0); Hypochromasia Marked; Lymphocytes # (A) 2.3 k/uL (1.0-4.8); Lymphocytes % (A) 30 %; MCH 24.3 pg (25.0-35.0); MCHC 30.6 g/dL (31.0-37.0); MCV 79.5 fL (80.0-100.0); Mean Platelet Volume 7.9; Monocytes # (A) 0.4 k/uL (0-1.0); Monocytes % (A) 5 %; Neutrophils # (A) 4.3 k/uL (1.3-7.7); Neutrophils % (A) 57 %; Platelet Count 417 k/uL (150-450); RBC 3.46 m/uL (3.80-5.40); RDW 13.7 % (11.5-15.5); WBC 7.5 k/uL (3.8-10.6)
[2022-01-16 05:40] LABS: Albumin 3.2 g/dL (3.5-5.0); Calcium 8.3 mg/dL (8.4-10.2); Potassium 3.5 mmol/L (3.5-5.1); Total Bilirubin 0.4 mg/dL (0.2-1.3); Total Protein 6.2 g/dL (6.3-8.2)
[2022-01-16 05:57] LABS: HCG,Quantitative Serum 7.3 mIU/mL
--- NOTE | 2022-01-16 06:23 | P.PN ---
Progress Note - Text Progress Note Date: 01/16/22 Postoperative day #5. Patient is tolerating regular diet, incision is intact and dry, from a surgical standpoint is having normal postoperative course. The hCG today is 7 just need 1 more done as an outpatient when she sees Dr. Funes. Creatinine is markedly improved and she does still have an indwelling catheter but apparently the plan today is to teach her self-catheterization. If she is able to master this then she should be able to be discharged home on assuming from the medicine standpoint. Plan today is to continue routine postoperative care and follow with medicine.
[2022-01-16] MEDS: PANTOPRAZOLE 40 MG TABLET PO SCH (08:57)
--- NOTE | 2022-01-16 09:49 | P.PN ---
Subjective Progress Note Date: 01/16/22 Patient seen for follow up regarding her neurogenic bladder with urinary retention and hydronephrosis. A elliott catheter has been placed and she as had good urine output. Her serum creatinine has improved markedly and is 1.48 today. She reports feeling well and ready to be discharged. Her significant oth er is at the bedside. They are both agreeable to be taught how to self catherterize by nursing staff. Objective - Vital Signs Vital signs: Vital Signs Temp 97.9 F 01/16/22 04:00 Pulse 100 01/16/22 04:00 Resp 16 01/16/22 04:00 BP 141/79 01/16/22 04:00 Pulse Ox 99 01/16/22 04:00 FiO2 Intake & Output 01/15/22 01/16/22 01/16/22 18:59 06:59 18:59 Output Total 1500 800 400 Balance -1500 -800 -400 Output: Urine 1500 800 400 Uretheral (Elliott) 1500 400 Other: Voiding Method Indwelling Catheter Indwelling Catheter Indwelling Catheter - Exam - General no distress - Eyes normal ocular movement - ENT normal nares, normal mucosa - Respiratory normal expansion, normal respiratory effort - Abdomen soft, no tenderness - Genitourinary Genitourinary Comment(s): Elliott Catheter present draining clear, yellow urine - Labs CBC & Chem 7: 01/16/22 05:06 01/16/22 05:06 Labs: Abnormal Lab Results - Last 24 Hours (Table) 01/16/22 01/16/22 Range/Units 05:06 05:06 RBC 3.46 L (3.80-5.40) m/uL Hgb 8.4 L (11.4-16.0) gm/dL Hct 27.5 L (34.0-46.0) % MCV 79.5 L (80.0-100.0) fL MCH 24.3 L (25.0-35.0) pg MCHC 30.6 L (31.0-37.0) g/dL Creatinine 1.48 H (0.52-1.04) mg/dL Calcium 8.3 L (8.4-10.2) mg/dL Alkaline Phosphatase 131 H (38-126) U/L Total Protein 6.2 L (6.3-8.2) g/dL Albumin 3.2 L (3.5-5.0) g/dL Microbiology - Last 24 Hours (Table) 01/13/22 07:00 Blood Culture - Preliminary Blood No Growth after 72 hours 01/12/22 08:20 Blood Culture - Preliminary Blood No Growth after 72 hours 01/12/22 08:20 Blood Culture - Preliminary Blood No Growth after 72 hours Assessment and Plan (1) Neurogenic bladder Status: Acute Code(s): N31.9 - NEUROMUSCULAR DYSFUNCTION OF BLADDER, UNSPECIFIED SNOMED Code(s): 439751548 (2) Urinary retention Status: Acute Code(s): R33.9 - RETENTION OF URINE, UNSPECIFIED SNOMED Code(s ): 334830947 Plan: The patient is cleared from a urology stand point to be discharged home today. Nursing staff has been instructed to remove the elliott catheter and teach the patient and her significant other how to self CIC before discharge. The patient was instructed to self catheterize herself four times a day and to record the amount of urine drained. She is to follow up with Dr. Head in the office in two weeks. Impression and plan of care have been directed as dictated by the signing physician. Yennifer Zamudio nurse practitioner acting as scribe for signing physician. Thank you for this consultation Yennifer Zamudio [facility] Palliative Care/Urology [facility] [id number] Email: [email or web address] I personally performed and participated in history, physical Exam and decision making. I agree with the assessment and plan of the HAIRSPRING SETTER. I personally performed and participated in the history, physical, the decision making, I agree with the assessment and plan of HAIRSPRING SETTER Time with Patient: Less than 30
[2022-01-16] MEDS: amLODIPine 5 MG TAB PO SCH (09:57)
[2022-01-16] MEDS: SENNOSIDES-DOCUSATE SODIUM 1 EACH TAB PO SCH (09:57)
[2022-01-16 11:01] VITALS: BP 137/87; PULSE 95; RESP 17; TEMP 98.4
--- NOTE | 2022-01-16 13:51 | P.PN ---
Subjective Patient seen and examined at bedside. Patient denied chest pain or shortness of breath. Patient admits to some nausea and itching from antibiotics. Benadryl and Zofran are helping. No acute changes overnight. Elliott removed. Objective - Vital Signs Vital signs: Vital Signs Temp 98.4 F 01/16/22 08:00 Pulse 95 01/16/22 08:00 Resp 17 01/16/22 08:00 BP 137/87 01/16/22 08:00 Pulse Ox 100 01/16/22 08:00 FiO2 Intake & Output 01/15/22 01/16/22 01/16/22 18:59 06:59 18:59 Output Total 1500 800 800 Balance -1500 -800 -800 Output: Urine 1500 800 800 Uretheral (Elliott) 1500 400 Other: Voiding Method Indwelling Catheter Indwelling Catheter Indwelling Catheter - Exam General: [non toxic], [no distress], [appears at stated age] Derm: [warm], [dry] Head: [atraumatic], [normocephalic], [symmetric] Eyes: [EOMI], [no lid lag], [anicteric sclera] Mouth: [no lip lesion], [mucus membranes moist] Cardiovascular: [S1S2 reg], [no murmur], [positive posterior tibial pulse bilateral], Lungs: [CTA bilateral], [no rhonchi, no rales] , [no accessory muscle use] Abdominal: [soft], [ nontender to palpation], [no guarding], [no appreciable organomegaly] Ext: [no gross muscle atrophy], [no edema], [no contractures] Neuro: [ CN II-XI grossly intact], [no focal neuro deficits] Psych: [Alert], [oriented], [appropriate affect]. - Labs CBC & Chem 7: 01/16/22 05:06 01/16/22 05:06 Labs: Abnormal Lab Results - Last 24 Hours (Table) 01/16/22 01/16/22 Range/Units 05:06 05:06 RBC 3.46 L (3.80-5.40) m/uL Hgb 8.4 L (11.4-16.0) gm/dL Hct 27.5 L (34.0-46.0) % MCV 79.5 L (80.0-100.0) fL MCH 24.3 L (25.0-35.0) pg MCHC 30.6 L (31.0-37.0) g/dL Creatinine 1.48 H (0.52-1.04) mg/dL Calcium 8.3 L (8.4-10.2) mg/dL Alkaline Phosphatase 131 H (38-126) U/L Total Protein 6.2 L (6.3-8.2) g/dL Albumin 3.2 L (3.5-5.0) g/dL Microbiology - Last 24 Hours (Table) 01/12/22 08:20 Blood Culture - Preliminary Blood No Growth after 96 hours 01/12/22 08:20 Blood Culture - Preliminary Blood No Growth after 96 hours 01/13/22 07:00 Blood Culture - Preliminary Blood No Growth after 72 hours Assessment and Plan Assessment: ZACHARY improving -Renal ultrasound shows bilateral hydronephrosis, moderate -ZACHARY felt to have a post obstructive component - I&Os - urine eosinophils negative - urology following as well and nephrology - patient currently has a elliott Bacteremia, coag-negative staph -Continue Cefzolin -Since patient has VIDEO MANAGER shunt, prosthesis in legs -Repeat cultures NGTD so far -inflammatory markers elevated -antibiotics per ID recs Hypertension -Patient has been off medications for the last 2-1/2 years. - Probable exaggerage HTN response to pain with spinal cord impairment - started on amlodpine Probable UTI Acute on chronic cystitis in setting of neurogenic bladder -Urine culture grew >100,000 CFU/mL apparent skin and genital kirsty Probable bladder abnormality, not present -Urology was consulted, cystoscopy showed possible acute on chronic cystitis Spontaneous - Management by ACCOUNTS EXECUTIVE DC planning today Patient is medically stable for discharge Thank you for allowing us to participate in the care of this pleasant patient. Do not hesitate to contact us with questions. Someone can be reached from the [facility] Phys[facility] hospitalist group all hours of the day at [phone] or via perfect serve.
--- NOTE | 2022-01-16 17:13 | P.PN ---
Subjective Patient is seen for follow-up for acute kidney injury. It appears to be mostly obstructive in nature as ultrasound from yesterday showed evidence of significant hydronephrosis bilaterally. A Wetzel catheter was placed and 1000 mL of urine was obtained. CAT scan was also done which showed SEVERE bilateral hydronephrosis. Serum creatinine has improved to 1.4 from 2.6 yesterday. Patient has had good urine output. Overall she states she is feeling better with possible plans for discharge today. Patient will be trained for self-catheterization at home. Objective - Vital Signs Vital signs: Vital Signs Temp 98.4 F 01/16/22 08:00 Pulse 95 01/16/22 08:00 Resp 17 01/16/22 08:00 BP 137/87 01/16/22 08:00 Pulse Ox 100 01/16/22 08:00 FiO2 Intake & Output 01/15/22 01/16/22 01/16/22 18:59 06:59 18:59 Output Total 1500 800 800 Balance -1500 -800 -800 Output: Urine 1500 800 800 Uretheral (Wetzel) 1500 400 Other: Voiding Method Indwelling Catheter Indwelling Catheter Indwelling Catheter - Exam Patient is awake, comfortable, not in any acute distress Examination of the heart S1 and S2 Examination of the lungs bilateral breath sounds are heard Abdomen is soft nontender Examination of the lower extremities shows no significant edema CHEMIST INORGANIC exam shows patient is moving all 4 extremities. Some weakness noted in bilateral lower extremities. - Labs CBC & Chem 7: 01/16/22 05:06 01/16/22 05:06 Labs: Abnormal Lab Results - Last 24 Hours (Table) 01/16/22 01/16/22 Range/Units 05:06 05:06 RBC 3.46 L (3.80-5.40) m/uL Hgb 8.4 L (11.4-16.0) gm/dL Hct 27.5 L (34.0-46.0) % MCV 79.5 L (80.0-100.0) fL MCH 24.3 L (25.0-35.0) pg MCHC 30.6 L (31.0-37.0) g/dL Creatinine 1.48 H (0.52-1.04) mg/dL Calcium 8.3 L (8.4-10.2) mg/dL Alkaline Phosphatase 131 H (38-126) U/L Total Protein 6.2 L (6.3-8.2) g/dL Albumin 3.2 L (3.5-5.0) g/dL Microbiology - Last 24 Hours (Table) 01/12/22 08:20 Blood Culture - Preliminary Blood No Growth after 96 hours 01/12/22 08:20 Blood Culture - Preliminary Blood No Growth after 96 hours 01/13/22 07:00 Blood Culture - Preliminary Blood No Growth after 72 hours Assessment and Plan Assessment: 1. Acute kidney injury currently nonoliguric, associated with obstructive uropathy. There was concern for possible acute interstitial nephritis as urine eosinophils was positive however given the significant obstructive uropathy and improvement in renal function with Wetzel catheter placement I will hold off on steroids. Continue to avoid nonsteroidal anti-inflammatory agents as well. 2. Bilateral hydronephrosis with history of spina bifida with tendency towards some difficulty in emptying the bladder. Urology is on consult 3. Hypertension currently maintained on amlodipine 4. Aerococcus species bacteremia 5. Spontaneous Plan: Patient can be discharged from nephrology standpoint with self-catheterization at least 4 times per day. She will need to follow-up with urology as outpatient as well as nephrology. Repeat labs as outpatient in 2-3 days post discharge. Continue to avoid NSAIDs. Follow-up as outpatient in 4-5 days
--- NOTE | 2022-01-18 07:52 | P.DS ---
Providers Date of admission: 01/10/22 22:19 Expected date of discharge: 01/16/22 Attending physician: Shivani Funes Consults: 01/11/22 08:29 Consult Physician Routine Consulting Provider: Perez Head Consult Reason/Comments: bladder mass Do you want consulting provider notified?: Already Contacted 01/11/22 09:40 Consult Physician Routine Consulting Provider: Rocael Gomez Consult Reason/Comments: elevated blood pressure Do you want consulting provider notified?: Yes 01/12/22 08:22 Consult Physician Routine Consulting Provider: Blanche Alas Consult Reason/Comments: Coag negative staph bacteremia, 2/2 bottles, patient has a DICTAPHONE TRANSCRIBER shunt Do you want consulting provider notified?: Yes 01/13/22 09:25 Consult Physician Routine Consulting Provider: Santosh Holland Consult Reason/Comments: ZACHARY Do you want consulting provider notified?: Yes Primary care physician: Tere Breaux MD Hospital Course: Please see dictated H&P and operative note per Dr. Funes on this patient's admission. In brief summary this is a 26-year-old 1 para 0 female admitted to the emergency department with abdominal pain, beta hCG of 155, and a large complex mass on imaging. Patient subsequently underwent a exploratory laparotomy for suspected ectopic . Again please see dictated operative note for this surgery. Findings at the time of surgery did not show an evidence of an ectopic , however she did have dense pelvic and abdominal adhesions required intraoperative consultation with general surgery. No evidence of an ectopic was found. Patient was also having vaginal bleeding. She subsequently was admitted and beta hCG was followed serially and beta hCG fell down to almost 0 prior to discharge. These findings were consistent with probable complete . Medicine was consult to do the patient's complex medical problems and please see their progress notes and consultations. Patient did have some acute renal injury that required urology and nephrology. This appeared to be resolving at the time of discharge. Patient was felt to be stable for discharge home follow up with Dr. Funes for an incision check in about 1 week. Procedures: Exploratory laparotomy with lysis of adhesions. Patient also had a bedside cystoscopy per Dr. Mclean Patient Condition at Discharge: Good Plan - Discharge Summary Discharge Rx Participant: Yes New Discharge Prescriptions: New Acetaminophen-Codeine 300-30mg [Tylenol w/codeine #3] 2 each PO Q6H PRN #24 tab PRN Reason: SEVERE PAIN Amoxic-Pot Clav 875-125Mg [Augmentin 875-125] 1 tab PO BID 10 Days #20 tab No Action Omeprazole [PriLOSEC] 20 mg PO DAILY Multivitamins, Thera Liquid [Theragran Liquid (formulary)] 5 ml PO DAILY Simethicone [Gas-X] 125 mg PO BID PRN PRN Reason: Gi Upset Acetaminophen [Tylenol Extra Strength] 1,000 mg PO Q6H PRN PRN Reason: Fever And/ Or Pain Discharge Medication List Multivitamins, Thera Liquid [Theragran Liquid (formulary)] 5 ml PO DAILY 01/03 [History] Omeprazole [PriLOSEC] 20 mg PO DAILY 01/04/20 [History] Acetaminophen [Tylenol Extra Strength] 1,000 mg PO Q6H PRN 01/10/22 [History] Simethicone [Gas-X] 125 mg PO BID PRN 01/10/22 [History] Acetaminophen-Codeine 300-30mg [Tylenol w/codeine #3] 2 each PO Q6H PRN #24 tab 01/13/22 [Rx] Amoxic-Pot Clav 875-125Mg [Augmentin 875-125] 1 tab PO BID 10 Days #20 tab 01/16/22 [Rx] Follow up Appointment(s)/Referral(s): Shivani Funes DO [Doctor of Osteopathic Medicine] - 1 Week Nonstaff,Physician [REFERRING] - 1-2 days Perez Head MD [STAFF PHYSICIAN] - 2 Weeks Patient Instructions/Handouts: Miscarriage (DC), How to Catheterize Yourself (Woman) (GEN), Exploratory Laparotomy (DC) Activity/Diet/Wound Care/Special Instructions: No heavy lifting or strenuous activity for 6 weeks. No intercourse or anything per vagina for 7 days. Please call if any fever, chills, excessive vaginal bleeding, and/or abdominal pain. Please see Dr. Funes the end of next week for an incision check and repeat beta hCG. Discharge Disposition: HOME SELF-CARE Plan of Treatment: Self catheterize (CIC) four times a day and record amount of urine drained
== END 2022-01-16 12:56 | disposition home or self-care (01) | DRG 818 ==
LOC: EC 17:42 → 4FBP 22:19
PROVIDERS: ADMIT Obstetrics & Gynecology; ATTEND Obstetrics & Gynecology
PROC: 0DNW0ZZ Release Peritoneum, Open Approach (ICD-10-PCS; principal; 2022-01-11)
PROC: 0TJB8ZZ Inspection of Bladder, Via Natural or Artificial Opening Endoscopic (ICD-10-PCS; 2022-01-11)
DX: O20.8 Other hemorrhage in early pregnancy (principal); N17.9 Acute kidney failure, unspecified; R78.81 Bacteremia; O16.1 Unspecified maternal hypertension, first trimester; Q23.1 Congenital insufficiency of aortic valve; Q05.4 Unspecified spina bifida with hydrocephalus; N30.00 Acute cystitis without hematuria; R35.0 Frequency of micturition; O99.841 Bariatric surgery status complicating pregnancy, first trimester; O99.891 Other specified diseases and conditions complicating pregnancy; N73.6 Female pelvic peritoneal adhesions (postinfective); N31.9 Neuromuscular dysfunction of bladder, unspecified; N30.20 Other chronic cystitis without hematuria; N36.44 Muscular disorders of urethra; N39.3 Stress incontinence (female) (male); B95.7 Other staphylococcus as the cause of diseases classified elsewhere; R33.8 Other retention of urine; R79.89 Other specified abnormal findings of blood chemistry; Z3A.01 Less than 8 weeks gestation of pregnancy; Z79.899 Other long term (current) drug therapy; Z91.040 Latex allergy status; Z88.5 Allergy status to narcotic agent; Z98.2 Presence of cerebrospinal fluid drainage device; Z99.3 Dependence on wheelchair; Z86.14 Personal history of Methicillin resistant Staphylococcus aureus infection; Z86.711 Personal history of pulmonary embolism; Z86.718 Personal history of other venous thrombosis and embolism; Z28.310 Unvaccinated for COVID-19
CPT/HCPCS: 36415; 74176; 76770; 76801; 76817; 80048; 80053; 80202; 81001; 82565; 82570; 83735; 84145; 84300; 84702; 85025; 85027; 85610; 85730; 86140; 86900; 86901; 87040; 87086; 87205; 96361; 96374; 96375; 99285

== ENCOUNTER 2024-09-07 13:03 | Inpatient (IN) | payer OTHER ==
[2024-09-07] MEDS: SODIUM CHLORIDE 0.9% 500 ML 500 ML IV ONE (13:40)
[2024-09-07] MEDS: HYDROmorphone 0.5 MG/0.5 ML SYRINGE IVP STA (13:43)
[2024-09-07 14:24] LABS: ALT 10 U/L (4-34); AST 18 U/L (14-36); African American GFR (CKD) >90 (>60 ml/min/1.73 sqM); Albumin 3.6 g/dL (3.5-5.0); Alkaline Phosphatase 148 U/L (38-126); Anion Gap 18 mmol/L; Blood Urea Nitrogen 14 mg/dL (7-17); Calcium 9.2 mg/dL (8.4-10.2); Carbon Dioxide 20 mmol/L (22-30); Chloride 100 mmol/L (98-107); Glucose 55 mg/dL (74-99); Non-African American GFR(CKD) 80 (>60 ml/min/1.73 sqM); Potassium 3.7 mmol/L (3.5-5.1); Sodium 138 mmol/L (137-145); Total Bilirubin 0.5 mg/dL (0.2-1.3); Total Protein 7.3 g/dL (6.3-8.2)
[2024-09-07 14:32] LABS: Basophils # (A) 0.04 10*3/uL (0.00-0.10); Basophils % (A) 0.2 %; Eosinophils # (A) 0.01 10*3/uL (0.04-0.35); Eosinophils % (A) 0.1 %; Lymphocytes # (A) 1.42 10*3/uL (0.90-5.00); Lymphocytes % (A) 7.9 %; MCH 24.4 pg (27.0-32.0); MCHC 30.9 g/dL (32.0-37.0); Mean Platelet Volume 10.3 fL (9.5-12.2); Monocytes # (A) 0.88 10*3/uL (0.20-1.00); Monocytes % (A) 4.9 %; Neutrophils # (A) 15.59 10*3/uL (1.80-7.70); Neutrophils % (A) 86.4 %; Platelet Count 483 10*3/uL (140-440); RBC 4.05 10*6/uL (4.10-5.20); RDW 18.6 % (11.5-14.5); WBC 18.03 10*3/uL (4.50-10.00)
--- NOTE | 2024-09-07 14:35 | XR ---
EXAMINATION TYPE: XR ankle complete RT DATE OF EXAM: 09/07/2024 2:14 PM COMPARISON: None. CLINICAL INDICATION: Female, 28 years old with history of FALL/PAIN, pain TECHNIQUE: 3 view(s) obtained. FINDINGS: Ankle mortise is intact. No acute fracture or dislocation is evident. There is an old open reduction internal fixation of the distal tibia. Soft tissues appear normal. Follow up exams can be performed 7-10 days from acute trauma for continued pain. IMPRESSION: 1. No acute osseous abnormality right ankle [facility], , 09/07/2024 2:33 PM
[2024-09-07 14:38] LABS: HGB 9.9 g/dL (12.0-15.0)
--- NOTE | 2024-09-07 14:49 | XR ---
EXAMINATION TYPE: XR Hip Complete RT DATE OF EXAM: 09/07/2024 2:14 PM COMPARISON: None. CLINICAL INDICATION: Female, 28 years old with history of FALL/PAIN, pain TECHNIQUE: 2 view(s) obtained. FINDINGS: Femoral head articulates with the acetabulum. Joint space is preserved. No acute fracture or dislocat ion evident. Follow up exams can be performed 7-10 days from acute trauma for continued pain. IMPRESSION: 1. No acute osseous abnormality right hip [facility], , 09/07/2024 2:46 PM
--- NOTE | 2024-09-07 14:50 | XR ---
EXAMINATION TYPE: XR knee complete RT DATE OF EXAM: 09/07/2024 2:14 PM COMPARISON: None. CLINICAL INDICATION: Female, 28 years old with history of FALL/PAIN, pain TECHNIQUE: 3 view(s) obtained. FINDINGS: Tibial plateau and femoral condylar spurring is present laterally. Mild spurring is present medial ti bial plateau and femoral condyle. There is mild diffuse narrowing of the medial lateral compartment j oint spaces. Patellofemoral joint space narrowing is present. Posterior superior spurring is present. Minimal joint effusion is not excluded. No large joint effusion is identified. No acute fracture or dislocation evident. Follow up exams can be performed 7-10 days from acute traum a for continued pain. IMPRESSION: 1. There may be a minimal joint effusion present. 2. Moderate degenerative joint changes. [facility], , 09/07/2024 2:48 PM
[2024-09-07] MEDS ORDERED: VANCOMYCIN IV PER PHARMACY 1 EACH MISC MISCELLANE PRN (16:10)
[2024-09-07] MEDS ORDERED: NALOXONE 0.4 MG/ML 1 ML VIAL IV PRN (16:12)
[2024-09-07] MEDS ORDERED: ACETAMINOPHEN TAB 325 MG TAB PO PRN (16:12)
[2024-09-07] MEDS ORDERED: HYDROmorphone 0.5 MG/0.5 ML SYRINGE IVP PRN (16:12)
--- NOTE | 2024-09-07 16:27 | ED ---
General Adult HPI - General Chief complaint: Extremity Injury, Lower Stated complaint: Fall-R knee/ankle injury Time Seen by Provider: 09/07/24 13:17 Source: patient, RN notes reviewed, old records reviewed Mode of arrival: wheelchair Limitations: physical limitation - History of Present Illness Initial comments: 28-year-old female history of spina bifida and recent admission for sacral decubitus ulcer and cutaneous lesions. Patient is presenting with fall with right lower extremity injury, right hip knee and ankle injury she also states that she has had some subjective fever and chills. She is currently on oral antibiotics after recent admission to this hospital. - Related Data Home Medications Medication Instructions Recorded Confirmed Acetaminophen [Tylenol Extra 1,000 mg PO Q6H PRN 01/10/22 08/18/24 Strength] Previous Rx's Medication Instructions Recorded Ascorbic Acid [Vitamin C] 500 mg PO DAILY 14 Days #14 tab 08/24/24 Cephalexin [Keflex] 500 mg PO Q8HR 14 Days #42 cap 08/24/24 Ferrous Sulfate [Iron (65 MG 325 mg PO BID-W/MEALS 14 Days #28 08/24/24 Elemental)] tab metroNIDAZOLE [Flagyl] 500 mg PO TID 14 Days #42 tab 08/24/24 Allergies Allergy/AdvReac Type Severity Reaction Status Date / Time latex Allergy Rash/Hives Verified 09/07/24 13:13 morphine AdvReac "panic Verified 09/07/24 13:13 attack" Review of Systems ROS Statement: Those systems with pertinent positive or pertinent negative responses have been documented in the HPI. ROS Other: All systems not noted in ROS Statement are negative. Past Medical History Past Medical History: Deep Vein Thrombosis (DVT), Hypertension, Musculoskeletal Disorder, Neurologic Disorder Additional Past Medical History / Comment(s): states has a bicuspid aortic valve, spinabifida, uses wheelchair, able to transfer, states hx (over 6 yrs ago) of "staph infection" that had I&D and a month of antibiotics IV, not sure if MRSA, DVT and pulmonary embolism History of Any Multi-Drug Resistant Organisms: None Reported Past Surgical History: Bariatric Surgery, Orthopedic Surgery Additional Past Surgical History / Comment(s): rt heel cord sx, shunt @ , replaced x2, 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, multiple leg surgeries Past Anesthesia/Blood Transfusion Reactions: No Reported Reaction Past Psychological History: No Psychological Hx Reported Smoking Status: Never smoker Past Alcohol Use History: None Reported Past Drug Use History: Marijuana - Past Family History Mother Family Medical History: No Reported History General Exam Limitations: physical limitation General appearance: alert, in distress Head exam: Present: atraumatic, normocephalic Eye exam: Present: normal appearance, PERRL ENT exam: Present: mucous membranes dry Respiratory exam: Present: normal lung sounds bilaterally. Absent: respiratory distress, wheezes Cardiovascular Exam: Present: normal rhythm, tachycardia GI/Abdominal exam: Present: soft. Absent: distended, tenderness Extremities exam: Present: pedal edema Back exam: Present: other (Right gluteal sacral decub stage IV) Neurological exam: Present: alert, oriented X3 Psychiatric exam: Present: anxious Course Vital Signs 09/07/24 13:11 Temperature 98.9 F Pulse Rate 117 H Respiratory 18 Rate Blood Pressure 147/88 O2 Sat by Pulse 100 Oximetry Medical Decision Making - Medical Decision Making Was pt. sent in by a medical professional or institution (, PA, SENIOR ART DIRECTOR, urgent care, hospital, or assisted...) When possible be specific @ -No Did you speak to anyone other than the patient for history (EMS, parent, family, police, friend...)? What history was obtained from this source @ -No Did you review nursing and triage notes (agree or disagree)? Why? @ -I reviewed and agree with nursing and triage notes Were old charts reviewed (outside hosp., previous admission, EMS record, old EKG, old radiological studies, urgent care reports/EKG's, assisted records)? Report findings @ -No old charts were reviewed Differential Weakness: Hypoglycemia, shock, sepsis, hyponatremia, anemia, infection, AR, ETOH, adverse medicine reaction, overdose, stroke, this is not meant to be an all-inclusive list. EKG interpreted by me (3pts min.). @ -As above X-rays interpreted by me (1pt min.). @ -X-ray of the right hip right knee and right ankle are negative for CT interpreted by me (1pt min.). @ -None done U/S interpreted by me (1pt. min.). @ -None done What testing was considered but not performed or refused? (CT, X-rays, U/S, labs)? Why? @ -None What meds were considered but not given or refused? Why? @ -None Did you discuss the management of the patient with other professionals (professionals i.e. , PA, SENIOR ART DIRECTOR, lab, RT, psych nurse, social director, mold tooler, teacher, navy airspace officer, skilled nursing case manager)? Give summary @Case discussed with sound physician group, will admit Was smoking cessation discussed for >3mins.? @ -No Was critical care preformed (if so, how long)? @ -No Were there social determinants of health that impacted care today? How? (Homelessness, low income, unemployed, alcoholism, drug addiction, transportation, low edu. Level, literacy, decrease access to med. care, retirement, rehab)? @ -No Was there de-escalation of care discussed even if they declined (Discuss DNR or withdrawal of care, Hospice)? DNR status @ -No What co-morbidities impacted this encounter? (DM, HTN, Smoking, COPD, CAD, Cancer, CVA, ARF, Chemo, Hep., AIDS, mental health diagnosis, sleep apnea, morbid obesity)? @ -None Was patient admitted / discharged? Hospital course, mention meds given and route, prescriptions, significant lab abnormalities, going to OR and other pertinent info. @ -[Patient readmitted for IV antibiotics for right gluteal sacral ulcer, leukocytosis, tachycardia. Undiagnosed new problem with uncertain prognosis? @ -No Drug Therapy requiring intensive monitoring for toxicity (Heparin, Nitro, Insulin, Cardizem)? @ -No Were any procedures done? @ -No Diagnosis/symptom? @Sacral decubitus ulcer Acute, or Chronic, or Acute on Chronic? @Acute Uncomplicated (without systemic symptoms) or Complicated (systemic symptoms)? @ -Complicated Side effects of treatment? @ -No Exacerbation, Progression, or Severe Exacerbation? @ -No Poses a threat to life or bodily function? How? (Chest pain, USA, AR, pneumonia, PE, COPD, DKA, ARF, appy, cholecystitis, CVA, Diverticulitis, Homicidal, Suicidal, threat to staff... and all critical care pts) @ -Yes, sepsis - Lab Data Result diagrams: 09/07/24 13:37 09/07/24 13:37 Lab Results 09/07/24 09/07/24 09/07/24 Range/Units 13:37 13:37 15:12 WBC 18.03 H (4.50-10.00) 10*3/uL RBC 4.05 L (4.10-5.20) 10*6/uL Hgb 9.9 L D (12.0-15.0) g/dL Hct 32.0 L (37.2-46.3) % MCV 79.0 L (80.0-97.0) fL MCH 24.4 L (27.0-32.0) pg MCHC 30.9 L (32.0-37.0) g/dL Plt Count 483 H (140-440) 10*3/uL MPV 10.3 (9.5-12.2) fL Immature Gran % (Auto) 0.5 % Neutrophils % 86.4 % Lymphocytes % 7.9 % Monocytes % 4.9 % Eosinophils % 0.1 % Basophils % 0.2 % Immature Gran # 0.09 H (0.00-0.04) 10*3/uL Neutrophils # 15.59 H (1.80-7.70) 10*3/uL Lymphocytes # 1.42 (0.90-5.00) 10*3/uL Monocytes # 0.88 (0.20-1.00) 10*3/uL Eosinophils # 0.01 L (0.04-0.35) 10*3/uL Basophils # 0.04 (0.00-0.10) 10*3/uL Sodium 138 (137-145) mmol/L Potassium 3.7 (3.5-5.1) mmol/L Chloride 100 (98-107) mmol/L Carbon Dioxide 20 L (22-30) mmol/L Anion Gap 18 mmol/L BUN 14 (7-17) mg/dL Creatinine 0.97 (0.52-1.04) mg/dL Est GFR (CKD-EPI)AfAm >90 (>60 ml/min/1.73 sqM) Est GFR (CKD-EPI)NonAf 80 (>60 ml/min/1.73 sqM) Glucose 55 L (74-99) mg/dL Plasma Lactic Acid Ulices 1.3 (0.7-2.0) mmol/L Calcium 9.2 (8.4-10.2) mg/dL Total Bilirubin 0.5 (0.2-1.3) mg/dL AST 18 (14-36) U/L ALT 10 (4-34) U/L Alkaline Phosphatase 148 H (38-126) U/L Total Protein 7.3 (6.3-8.2) g/dL Albumin 3.6 (3.5-5.0) g/dL Disposition Clinical Impression: Pressure ulcer of buttock, Sepsis Disposition: ADMITTED IP TO THIS HOSP Condition: Stable Is patient prescribed a controlled substance at d/c from ED?: No Referrals: None,Stated [Primary Care Provider] - 1-2 days Time of Disposition: 16:27
[2024-09-07] MEDS ORDERED: DEXTROSE 50% SYRINGE 50 ML IVP PRN ×2 (17:37)
--- NOTE | 2024-09-07 17:53 | P.HPIM ---
History of Present Illness H&P Date: 09/07/24 Chief Complaint: Fall Patient is a 28 year old female with past medical history of spina bifida, hypertension, bicuspid aortic valve presented to the ED after a fall. She repo rts that her right leg just gave out and she fell. She denies hitting her head or losing consciosuness. She reports injuring her right lower extremity during the fall with pain on right hip, knee and ankle.Associated with that she also experienced subjective fever and chills. Patient was recently admitted to this hospital for sepsis secondary to infected right gluteal decubitus ulcer and undergone sharp excisional debridement and was discharged on metronidazole and cephalexin for 14 days. She is currently on oral antibiotics prescribed upon discharge. She has not been followed up with wound care center after her discharge. She states that she has not eaten properly today and she has also had surgery in the past to help with weight loss. Denies shortness of breath, cough, chest pain, palpitations, abdominal pain, nausea, vomiting, hematuria, dysuria, hematochezia, melena, headache, slurred speech, numbness, tingling, dizziness, lightheadedness, blurred vision, double vision. ED documentation reviewed. In the ED patient was treated with Dilaudid and 0.9 normal saline. Vitals on admission T 98.9 F, NE 117 bpm, RR 18, BP 147/88, SpO2 100% on room air Right ankle x-ray shows no acute osseous abnormality Right hip x-ray shows no acute osseous abnormality Right knee x-ray shows there may be minimal joint effusion present, moderate degenerative joint changes Labs on admission show WBC 18.03, hemoglobin 9.9, platelet count 483, sodium 138, potassium 3.7, bicarb 23, glucose 55, ALP 148 Review of systems: Pertinent positives and negatives as discussed in HPI, a complete review of systems was performed and all other systems are negative. Physical examination: Vital signs reviewed General: nontoxic, no distress, appears at stated age Derm: coin shaped pressure sore on right stubbs with slight erythema and swelling, no active drainage. About 5 to 6 cm diameter pressure ulcer on the right buttock with erythema, swelling and pus Head: atraumatic, normocephalic, symmetric Eyes: EOMI, anicteric sclera Mouth: no lip lesion, mucus membranes moist Cardiovascular: S1 S2 reg, no murmur Lungs: CTA bilateral, no rhonchi, no rales, no accessory muscle use Abdominal: soft, non-tender to palpation Extremities: Right knee and ankle tender Neuro: Alert, Oriented, Gross neurological examination did not reveal any focal deficits. Psych: well appearing, appropriate affect Assessment/Plan: Patient is a 28 year old female with past medical history of spina bifida, hypertension, bicuspid aortic valve presented to the ED after a fall. Patient admitted to internal medicine service. Active: #. Sepsis #. Infected right gluteal decubitus ulcer #. S/p Sharp excisional debridement on 08/22/24 Received one dose of Rocephin and Vancomycin in the ED Continue Vancomycin Start Zosyn 0.9 normal saline at 75 ml/hr Obtain blood culture Consult wound care Consult ID Consult General surgery #. Hypoglycemia glucose 55 Dextrose PRN Accuchecks Monitor for hypoglycemia Continue telemetry monitoring #. Normocytic anemia Hemoglobin 7.3, MCV 80.3, iron < 6, TIBC 176, percent saturation < 3.41, transferrin 110, ferritin 130, RDW 16.5 Continue home meds ferrous sulfate and ascorbic acid Monitor CBC Transfuse for Hb<7 Chronic: #. Spina bifida #. Hypertension #. Bicuspid aortic valve F: 0.9 normal saline at 75 ml/hr E: Replete as required N: Regular diet A: wheelchair DVT prophylaxis: Lovenox 40 mg SQ daily The patient is admitted with an anticipated more than 2 midnight stay for evaluation of sepsis CODE STATUS: FULL CODE Discussed with: Patient Anticipated discharge place: Pending clinical course Dictation was produced using [employer] dictation software. please excuse any grammatical, word or spelling errors. Ayana Nunez MD PGY-1 IM I have seen and evaluated the patient today. Discussed with the resident and agree with the residents finding and plan as documented in the resident's note. Changes highlighted in blue font. Consider repeat imaging of decubitus ulcer. Past Medical History Past Medical History: Deep Vein Thrombosis (DVT), Hypertension, Musculoskeletal Disorder, Neurologic Disorder Additional Past Medical History / Comment(s): states has a bicuspid aortic valve, spinabifida, uses wheelchair, able to transfer, states hx (over 6 yrs ago) of "staph infection" that had I&D and a month of antibiotics IV, not sure if MRSA, DVT and pulmonary embolism History of Any Multi-Drug Resistant Organisms: None Reported Past Surgical History: Bariatric Surgery, Orthopedic Surgery Additional Past Surgical History / Comment(s): rt heel cord sx, shunt @ , replaced x2, sleeve gastrectomy 6--20, multiple leg surgeries Past Anesthesia/Blood Transfusion Reactions: No Reported Reaction Past Psychological History: No Psychological Hx Reported Smoking Status: Never smoker Past Alcohol Use History: None Reported Past Drug Use History: Marijuana - Past Family History Mother Family Medical History: No Reported History Medications and Allergies Home Medications Medication Instructions Recorded Confirmed Type Omeprazole Magnesium [PriLOSEC OTC] 20 mg PO DAILY 09/07/24 09/07/24 History Simethicone [Gas-X] 125 mg PO HS 09/07/24 09/07/24 History Allergies Allergy/AdvReac Type Severity Reaction Status Date / Time latex Allergy Rash/Hives Verified 09/07/24 17:41 morphine AdvReac "panic Verified 09/07/24 17:41 attack/paranoia" Physical Exam Vitals: Vital Signs Temp Pulse Resp BP Pulse Ox 09/07/24 13:11 98.9 F 117 H 18 147/88 100 Intake and Output 09/07/24 09/07/24 09/07/24 06:59 14:59 22:59 Other: Weight 68.039 kg Results CBC & Chem 7: 09/07/24 13:37 09/07/24 13:37 Labs: Abnormal Lab Results - Last 24 Hours (Table) 09/07/24 09/07/24 Range/Units 13:37 13:37 WBC 18.03 H (4.50-10.00) 10*3/uL RBC 4.05 L (4.10-5.20) 10*6/uL Hgb 9.9 L D (12.0-15.0) g/dL Hct 32.0 L (37.2-46.3) % MCV 79.0 L (80.0-97.0) fL MCH 24.4 L (27.0-32.0) pg MCHC 30.9 L (32.0-37.0) g/dL Plt Count 483 H (140-440) 10*3/uL Immature Gran # 0.09 H (0.00-0.04) 10*3/uL Neutrophils # 15.59 H (1.80-7.70) 10*3/uL Eosinophils # 0.01 L (0.04-0.35) 10*3/uL Carbon Dioxide 20 L (22-30) mmol/L Glucose 55 L (74-99) mg/dL Alkaline Phosphatase 148 H (38-126) U/L
[2024-09-07] MEDS: SODIUM CHLORIDE 0.9% 1,000 ML IV SCH (18:38)
[2024-09-07] MEDS: HYDROmorphone 1 MG/ML 1 ML SYRINGE IVP STA (18:46)
[2024-09-07] MEDS: VANCOMYCIN 1,250 MG in SODIUM CHLORIDE 0.9% 250 ML IVPB ONE (19:16)
[2024-09-07 20:08] LABS: Glucose,Whole Blood 54 mg/dL (70-110)
[2024-09-07 21:06] LABS: Glucose,Whole Blood 79 mg/dL (70-110)
--- NOTE | 2024-09-07 22:09 | P.CONS ---
History of Present Illness - Reason for Consult Consult date: 09/07/24 Sacral decubiti Requesting physician: Jeyson Ribeiro - Chief Complaint Fall pain to the right knee and ankle x 1 day - History of Present Illness Patient is a 28-year-old female with a past medical history sniffing for spina bifida she was recently admitted at this facility with an infected right gluteal pressure ulcer status post surgical debridement culture at that time were positive for Bacteroides Streptococcus and MSSA for the patient was advised to do course of oral Keflex and Flagyl with the patient mention has completed patient now presenting to [facility] with fall and right lower extremity injury patient been complaining of pain to the right knee and ankle area describing the pain to be show moderate intensity without ra diation he did have some chills with the symptoms the patient has been evaluated on presentation to the hospital patient was afebrile he was tachycardic but not hypotensive or hypoxic patient did have white count of 15,000 with a left shift creatinine 0.97 patient did have a x-ray of the knee minimal joint effusion present moderate degenerative changes hip x-ray did not show any bony abnormality ankle x-ray no acute abnormality to the right ankle area patient has been admitted to the hospital she was started on Zosyn and vancomycin infectious disease was consulted for further management of antibiotic therapy Review of Systems Positive point and negatives has been mentioned in the HPI, complete review of systems was performed and all other systems are negative Past Medical History Past Medical History: Deep Vein Thrombosis (DVT), Hypertension, Musculoskeletal Disorder, Neurologic Disorder Additional Past Medical History / Comment(s): states has a bicuspid aortic valve, spinabifida, uses wheelchair, able to transfer, states hx (over 6 yrs ago) of "staph infection" that had I&D and a month of antibiotics IV, not sure if MRSA, DVT and pulmonary embolism History of Any Multi-Drug Resistant Organisms: None Reported Past Surgical History: Bariatric Surgery, Orthopedic Surgery Additional Past Surgical History / Comment(s): rt heel cord sx, shunt @ , replaced x2, 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, multiple leg surgeries Past Anesthesia/Blood Transfusion Reactions: No Reported Reaction Past Psychological History: No Psychological Hx Reported Smoking Status: Never smoker Past Alcohol Use History: None Reported Past Drug Use History: Marijuana - Past Family History Mother Family Medical History: No Reported History Medications and Allergies Home Medications Medication Instructions Recorded Confirmed Type Omeprazole Magnesium [PriLOSEC OTC] 20 mg PO DAILY 09/07/24 09/07/24 History Simethicone [Gas-X] 125 mg PO HS 09/07/24 09/07/24 History Allergies Allergy/AdvReac Type Severity Reaction Status Date / Time latex Allergy Rash/Hives Verified 09/07/24 17:41 morphine AdvReac "panic Verified 09/07/24 17:41 attack/paranoia" Physical Exam Vitals: Vital Signs Temp Pulse Resp BP Pulse Ox 09/07/24 13:11 98.9 F 117 H 18 147/88 100 Intake and Output 09/07/24 09/07/24 09/07/24 06:59 14:59 22:59 Other: Weight 68.039 kg GENERAL DESCRIPTION: Middle-age female lying in bed, no distress. No tachypnea or accessory muscle of respiration use. HEENT: Shows Pallor , no scleral icterus. Oral mucous membrane is dry. NECK: Trachea central, no thyromegaly. LUNGS: Unlabored breathing. Clear to auscultation anteriorly. No wheeze or crackle. HEART: S1, S2, regular rate and rhythm. No loud murmur ABDOMEN: Soft, no tenderness , guarding or rigidity, no organomegaly EXTREMITIES: No edema of feet. SKIN: Right gluteal did have a stage III pressure ulcer wound base looks clean with no slough tissue surrounding redness NEUROLOGICAL: The patient is awake, alert, oriented x3, mood and affect normal. Results CBC & Chem 7: 09/07/24 13:37 09/07/24 13:37 Labs: Abnormal Lab Results - Last 24 Hours (Table) 09/07/24 09/07/24 Range/Units 13:37 13:37 WBC 18.03 H (4.50-10.00) 10*3/uL RBC 4.05 L (4.10-5.20) 10*6/uL Hgb 9.9 L D (12.0-15.0) g/dL Hct 32.0 L (37.2-46.3) % MCV 79.0 L (80.0-97.0) fL MCH 24.4 L (27.0-32.0) pg MCHC 30.9 L (32.0-37.0) g/dL Plt Count 483 H (140-440) 10*3/uL Immature Gran # 0.09 H (0.00-0.04) 10*3/uL Neutrophils # 15.59 H (1.80-7.70) 10*3/uL Eosinophils # 0.01 L (0.04-0.35) 10*3/uL Carbon Dioxide 20 L (22-30) mmol/L Glucose 55 L (74-99) mg/dL Alkaline Phosphatase 148 H (38-126) U/L Assessment and Plan (1) Leukocytosis Current Visit: Yes Status: Acute Code(s): D72.829 - ELEVATED WHITE BLOOD CELL COUNT, UNSPECIFIED SNOMED Code(s): 036127535 (2) Stage III pressure ulcer of buttock Current Visit: No Status: Acute Code(s): L89.303 - PRESSURE ULCER OF UNSPECIFIED BUTTOCK, STAGE 3 SNOMED Code(s): 86047677212723625 Plan: 1patient presented the hospital with a fall injury and pain to the right knee and ankle area x-ray did show some right knee effusion but no abnormality to the right ankle and hip area, patient was recently admitted at this facility with a right total infected pressure ulcer status post surgical debridement culture that was positive for MSSA strep and Bacteroides for the patient has completed her oral antibiotic therapy, currently the right gluteal pressure ulcer base looks clean with no slough tissue surrounding redness 2-patient did have elevated white count but no fever did have tachycardia though meet criteria for SIRS but not very clear focus of infection at this point as mentioned earlier the right gluteal pressure ulcer looks clean questionable urine with versus other etiology 3-we will obtain a UA and a culture and inflammatory markers 4-continue with the vancomycin however switch Zosyn to Unasyn to decrease risk of nephrotoxicity We will follow on clinical condition and cultures to further adjust medication if needed Thank you for this consultation we will follow the patient along with you Dictation was produced using [employer] software. please excuse any grammatical, word or spelling errors. Time with Patient: Greater than 30
[2024-09-07] MEDS: HYDROmorphone 1 MG/ML 1 ML SYRINGE IVP PRN (23:58)
[2024-09-07] MEDS: AMPICILLIN-SULBACTAM 3 GM in SODIUM CHLORIDE 0.9% 100 ML IVPB SCH (23:59)
[2024-09-08] MEDS ORDERED: PIPERACILLIN-TAZOBACTAM 3.375 GM in SODIUM CHLORIDE 0.9% 100 ML IVPB SCH
[2024-09-08] MEDS: diphenhydrAMINE 25 MG CAP PO PRN (02:26)
[2024-09-08 05:20] LABS: HCT 26.5 % (37.2-46.3); MCH 24.4 pg (27.0-32.0); MCHC 30.6 g/dL (32.0-37.0); MCV 79.8 fL (80.0-97.0); Mean Platelet Volume 10.1 fL (9.5-12.2); Platelet Count 350 10*3/uL (140-440); RBC 3.32 10*6/uL (4.10-5.20); RDW 18.6 % (11.5-14.5)
[2024-09-08 05:31] LABS: African American GFR (CKD) >90 (>60 ml/min/1.73 sqM); Anion Gap 10 mmol/L; Blood Urea Nitrogen 9 mg/dL (7-17); Calcium 8.4 mg/dL (8.4-10.2); Carbon Dioxide 21 mmol/L (22-30); Chloride 106 mmol/L (98-107); Non-African American GFR(CKD) 90 (>60 ml/min/1.73 sqM); Potassium 3.7 mmol/L (3.5-5.1); Sodium 137 mmol/L (137-145)
[2024-09-08 05:33] LABS: Glucose 47 mg/dL (74-99)
[2024-09-08 05:36] LABS: HGB 8.1 g/dL (12.0-15.0)
[2024-09-08 05:46] LABS: Glucose,Whole Blood 60 mg/dL (70-110)
[2024-09-08 06:15] LABS: Glucose,Whole Blood 77 mg/dL (70-110)
[2024-09-08 07:30] LABS: Glucose,Whole Blood 75 mg/dL (70-110)
[2024-09-08] MEDS: ENOXAPARIN 40 MG/0.4 ML SYRINGE SQ SCH (08:18)
[2024-09-08] MEDS: ASCORBIC ACID 500 MG TAB PO SCH (08:18)
[2024-09-08] MEDS: FERROUS SULFATE 325 MG TAB PO SCH (08:18)
[2024-09-08] MEDS ORDERED: MINERAL OIL-WHITE PETROLATUM 120 GM JAR TOPICAL PRN (09:59)
--- NOTE | 2024-09-08 10:41 | P.CONS ---
History of Present Illness - Reason for Consult Consult date: 09/08/24 Wound care - History of Present Illness This is a 28-year-old female with history of spina bifida who was recently hospitalized for a infected pressure ulcer to the right buttocks that she underwent a surgical debridement. They have been utilizing absorptive silver to the site. Patient came in for this hospitalization related to a fall. She is not complaining of any discomfort or increased drainage to the right buttocks ulceration. Patient has a stage III pressure ulcer to the right buttocks. With undermining and tunneling noted. The ulceration measures approximately 3 x 6 x 5 cm granulation seen throughout the wound bed with slough and nonviable tissue present. Patient also has a nonhealing ulceration to the right lower extremity that is limited to skin breakdown measuring approximately 2 x 2 x 0.1 cm multi ple open ulcerations to the abdomen and anterior chest that are limited to skin breakdown with slough and nonviable tissue present. Review Of Systems: Constitutional: No fever, no chills, no night sweats. No weight change. No weakness, fatigue or lethargy. No daytime sleepiness. Integumentary:reports wounds, no lesions. No rash or pruritus. No unusual bruising. No change in hair or nails. Physical exam: General Appearance: Alert, cooperative, no distress, appears stated age. Skin: See HPI all other Skin color, texture, tugor normal, no rashes or lesions. Neurologic: Alert oriented x3 Assessment: 1. Stage III pressure ulcer right buttocks 2. Nonhealing ulceration right calf Limited to skin breakdown 3. Nonhealing ulceration other site limited to skin breaks Plan: 1. Right buttocks: Apply negative pressure wound VAC in 125 mmHg of continuous pressure with black foam. Right calf abdomen and chest ulcerations: Apply honey gel and bordered foam. Change Friday. Patient would benefit from advanced wound care and wound care setting. Would happy to see her upon discharge. Thank you for the consultation any questions please contact the wound care center DNP note has been reviewed and discussed with Dr. Aguirre and the impression and plan of care has been directed as dictated. Past Medical History Past Medical History: Deep Vein Thrombosis (DVT), Hypertension, Musculoskeletal Disorder, Neurologic Disorder Additional Past Medical History / Comment(s): states has a bicuspid aortic valve, spinabifida, uses wheelchair, able to transfer, states hx (over 6 yrs ago) of "staph infection" that had I&D and a month of antibiotics IV, not sure if MRSA, DVT and pulmonary embolism History of Any Multi-Drug Resistant Organisms: None Reported Past Surgical History: Bariatric Surgery, Orthopedic Surgery Additional Past Surgical History / Comment(s): rt heel cord sx, shunt @ , replaced x2, 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, multiple leg surgeries Past Anesthesia/Blood Transfusion Reactions: No Reported Reaction Past Psychological History: No Psychological Hx Reported Smoking Status: Never smoker Past Alcohol Use History: None Reported Past Drug Use History: Marijuana - Past Family History Mother Family Medical History: No Reported History Medications and Allergies Home Medications Medication Instructions Recorded Confirmed Type Omeprazole Magnesium [PriLOSEC OTC] 20 mg PO DAILY 09/07/24 09/07/24 History Simethicone [Gas-X] 125 mg PO HS 09/07/24 09/07/24 History Allergies Allergy/AdvReac Type Severity Reaction Status Date / Time latex Allergy Rash/Hives Verified 09/07/24 17:41 morphine AdvReac "panic Verified 09/07/24 17:41 attack/paranoia" Physical Exam Vitals: Vital Signs Temp Pulse Pulse Pulse Resp BP BP 09/08/24 07:20 97.9 F 89 16 128/77 09/08/24 02:00 97.9 F 84 18 151/92 09/08/24 00:11 98.3 F 99 16 154/107 09/07/24 23:03 98.7 F 94 18 157/96 09/07/24 21:52 91 18 142/87 09/07/24 18:38 99 19 148/93 09/07/24 13:11 98.9 F 117 H 18 147/88 Pulse Ox 09/08/24 07:20 100 09/08/24 02:00 98 09/08/24 00:11 100 09/07/24 23:03 100 09/07/24 21:52 99 09/07/24 18:38 100 09/07/24 13:11 100 Intake and Output 09/07/24 09/08/24 09/08/24 22:59 06:59 14:59 Intake Total 740 Output Total 650 Balance 90 Intake: Intake, IV Titration 500 Amount Ampicillin-Sulbactam 3 gm 200 In Sodium Chloride 0.9% 100 ml @ 200 mls/hr IVPB Q6HR [facility] Rx#:[id number] Sodium Chloride 0.9% 1, 300 000 ml @ 75 mls/hr IV . [id number] [facility] Rx#:[id number] Oral 240 Output: Urine 650 Other: # Voids 0 Weight 68.039 kg Results CBC & Chem 7: 09/08/24 04:43 09/08/24 04:43 Labs: Abnormal Lab Results - Last 24 Hours (Table) 09/07/24 09/07/24 09/07/24 Range/Units 13:37 13:37 20:06 WBC 18.03 H (4.50-10.00) 10*3/uL RBC 4.05 L (4.10-5.20) 10*6/uL Hgb 9.9 L D (12.0-15.0) g/dL Hct 32.0 L (37.2-46.3) % MCV 79.0 L (80.0-97.0) fL MCH 24.4 L (27.0-32.0) pg MCHC 30.9 L (32.0-37.0) g/dL RDW (11.5-14.5) % Plt Count 483 H (140-440) 10*3/uL Immature Gran # 0.09 H (0.00-0.04) 10*3/uL Neutrophils # 15.59 H (1.80-7.70) 10*3/uL Eosinophils # 0.01 L (0.04-0.35) 10*3/uL Carbon Dioxide 20 L (22-30) mmol/L Glucose 55 L (74-99) mg/dL POC Glucose (mg/dL) 54 L (70-110) mg/dL Alkaline Phosphatase 148 H (38-126) U/L 09/08/24 09/08/24 09/08/24 Range/Units 04:43 04:43 05:35 WBC (4.50-10.00) 10*3/uL RBC 3.32 L (4.10-5.20) 10*6/uL Hgb 8.1 L D (12.0-15.0) g/dL Hct 26.5 L (37.2-46.3) % MCV 79.8 L (80.0-97.0) fL MCH 24.4 L (27.0-32.0) pg MCHC 30.6 L (32.0-37.0) g/dL RDW 18.6 H (11.5-14.5) % Plt Count (140-440) 10*3/uL Immature Gran # (0.00-0.04) 10*3/uL Neutrophils # (1.80-7.70) 10*3/uL Eosinophils # (0.04-0.35) 10*3/uL Carbon Dioxide 21 L (22-30) mmol/L Glucose 47 L* (74-99) mg/dL POC Glucose (mg/dL) 60 L (70-110) mg/dL Alkaline Phosphatase (38-126) U/L Assessment and Plan (1) Non-pressure chronic ulcer of right calf limited to breakdown of skin Current Visit: Yes Status: Acute Code(s): L97.211 - NON-PRS CHRONIC ULCER OF RIGHT CALF LIMITED TO BRKDWN SKIN SNOMED Code(s): 45445791195277515 (2) Non-pressure chronic ulcer of skin of other sites limited to breakdown of skin Current Visit: Yes Status: Acute Code(s): L98.491 - NON-PRS CHRONIC ULCER SKIN/ SITES LIMITED TO BRKDWN SKIN SNOMED Code(s): 59352440 (3) Stage III pressure ulcer of right buttock Current Visit: Yes Status: Acute Code(s): L89.313 - PRESSURE ULCER OF RIGHT BUTTOCK, STAGE 3 SNOMED Code(s): 75493401106531
--- NOTE | 2024-09-08 11:16 | P.PN ---
Subjective Progress Note Date: 09/08/24 Principal diagnosis: Hospital course: Patient is a 28 year old female with past medical history of spina bifida, hypertension, bicuspid aortic valve presented to the ED after a fall. She reports that her right leg just gave out and she fell. She denies hitting her head or losing consciosuness. She reports injuring her right lower extremity during the fall with pain on right hip, knee and ankle.Associated with that she also experienced subjective fever and chills. Patient was recently admitted to this hospital for sepsis secondary to infected right gluteal decubitus ulcer and undergone sharp excisional debridement and was discharged on metronidazole and cephalexin for 14 days. She is currently on oral antibiotics prescribed upon discharge. She has not been followed up with wound care center after her discharge. She states that she has not eaten properly today and she has also had surgery in the past to help with weight loss. Denies shortness of breath, cough, chest pain, palpitations, abdominal pain, nausea, vomiting, hematuria, dysuria, hematochezia, melena, headache, slurred speech, numbness, tingling, dizziness, lightheadedness, blurred vision, double vision. ED documentation reviewed. In the ED patient was treated with Dilaudid and 0.9 normal saline. 09/08/24: Patient is seen and examined at bedside today. She notes improvement in her weakness. She reports itching on her left arm and right cheek going into her hairline. She also states that she has not eaten much in the past couple days as she was in pain and she has had gastric sleeve surgery so she doesn't get hungry a lot. Review of systems: Pertinent positives and negatives as discussed in HPI, a complete review of systems was performed and all other systems are negative. Vitals: Signs Reviewed, and stable Physical examination: General: nontoxic, no distress, appears at stated age Derm: coin shaped pressure sore on right stubbs with slight erythema and swelling, no active drainage. About 5 to 6 cm diameter pressure ulcer on the right buttock with erythema, swelling and pus Head: atraumatic, normocephalic, symmetric Eyes: EOMI, anicteric sclera Mouth: no lip lesion, mucus membranes moist Cardiovascular: S1 S2 reg, no murmur Lungs: CTA bilateral, no rhonchi, no rales, no accessory muscle use Abdominal: soft, non-tender to palpation Extremities: Right knee and ankle tender Neuro: Alert, Oriented, Gross neurological examination did not reveal any focal deficits. Psych: well appearing, appropriate affect Data Reviewed Today: Labs: WBC 9.8, hemoglobin 8.1, MCV 79.8, bicarb 21, glucose 47 Imaging: No new imaging Assessment/Plan: Patient is a 28 year old female with past medical history of spina bifida, hypertension, bicuspid aortic valve presented to the ED after a fall. Patient admitted to internal medicine service. Active: #. SIRS without clear source #. Stage III Right gluteal decubitus ulcer #. S/p Sharp excisional debridement on 08/22/24 Right gluteal pressure ulcer looks Received one dose of Rocephin and Vancomycin in the ED Continue Vancomycin Zosyn discontinued Started on Unasyn to decrease risk of nephrotoxicity Continue 0.9 normal saline at 75 ml/hr Tylenol and Dilaudid for pain management Pending Blood culture Wound care is following Consult ID, recommend obtaining UA with culture and inflammatory markers Consult General surgery #. Hypoglycemia Dextrose PRN Accuchecks Monitor for hypoglycemia Continue telemetry monitoring #. Normocytic anemia Hemoglobin 7.3, MCV 80.3, iron < 6, TIBC 176, percent saturation < 3.41, transferrin 110, ferritin 130, RDW 16.5 Continue home meds ferrous sulfate and ascorbic acid Monitor CBC Transfuse for Hb<7 #. Itching Eucerin cream topical TID PRN Benadryl 25 mg PO TID PRN Chronic: #. Spina bifida #. Hypertension #. Bicuspid aortic valve F: 0.9 normal saline at 75 ml/hr E: Replete as required N: Regular diet A: wheelchair DVT prophylaxis: Lovenox 40 mg SQ daily Code status: Full code Anticipated discharge place: Pending clinical course Anticipated discharge time: Pending clinical course Dictation was produced using [employer] dictation software. please excuse any grammatical, word or spelling errors. Ayana Nunez MD PGY-1 IM I have seen and evaluated the patient today. Discussed with the resident and agree with the residents finding and plan as documented in the resident's note. Changes highlighted in blue font. Objective - Vital Signs Vital signs: Vital Signs Temp 97.9 F 09/08/24 02:00 Pulse 84 09/08/24 02:00 Resp 18 09/08/24 02:00 BP 151/92 09/08/24 02:00 Pulse Ox 98 09/08/24 02:00 FiO2 Intake & Output 09/07/24 09/08/24 09/08/24 18:59 06:59 18:59 Intake Total 740 Output Total 650 Balance 90 Weight 68.039 kg 68.039 kg Intake: Intake, IV Titration 500 Amount Ampicillin-Sulbactam 3 gm 200 In Sodium Chloride 0.9% 100 ml @ 200 mls/hr IVPB Q6HR [facility] Rx#:[id number] Sodium Chloride 0.9% 1, 300 000 ml @ 75 mls/hr IV . [id number] [facility] Rx#:[id number] Oral 240 Output: Urine 650 Other: # Voids 0 - Labs CBC & Chem 7: 09/08/24 04:43 09/08/24 04:43 Labs: Abnormal Lab Results - Last 24 Hours (Table) 09/07/24 09/07/24 09/07/24 Range/Units 13:37 13:37 20:06 WBC 18.03 H (4.50-10.00) 10*3/uL RBC 4.05 L (4.10-5.20) 10*6/uL Hgb 9.9 L D (12.0-15.0) g/dL Hct 32.0 L (37.2-46.3) % MCV 79.0 L (80.0-97.0) fL MCH 24.4 L (27.0-32.0) pg MCHC 30.9 L (32.0-37.0) g/dL RDW (11.5-14.5) % Plt Count 483 H (140-440) 10*3/uL Immature Gran # 0.09 H (0.00-0.04) 10*3/uL Neutrophils # 15.59 H (1.80-7.70) 10*3/uL Eosinophils # 0.01 L (0.04-0.35) 10*3/uL Carbon Dioxide 20 L (22-30) mmol/L Glucose 55 L (74-99) mg/dL POC Glucose (mg/dL) 54 L (70-110) mg/dL Alkaline Phosphatase 148 H (38-126) U/L 06/02/2209/08/24 09/08/24 Range/Units 04:43 04:43 05:35 WBC (4.50-10.00) 10*3/uL RBC 3.32 L (4.10-5.20) 10*6/uL Hgb 8.1 L D (12.0-15.0) g/dL Hct 26.5 L (37.2-46.3) % MCV 79.8 L (80.0-97.0) fL MCH 24.4 L (27.0-32.0) pg MCHC 30.6 L (32.0-37.0) g/dL RDW 18.6 H (11.5-14.5) % Plt Count (140-440) 10*3/uL Immature Gran # (0.00-0.04) 10*3/uL Neutrophils # (1.80-7.70) 10*3/uL Eosinophils # (0.04-0.35) 10*3/uL Carbon Dioxide 21 L (22-30) mmol/L Glucose 47 L* (74-99) mg/dL POC Glucose (mg/dL) 60 L (70-110) mg/dL Alkaline Phosphatase (38-126) U/L
[2024-09-08] MEDS: VANCOMYCIN 1,250 MG in SODIUM CHLORIDE 0.9% 250 ML IVPB SCH (12:20)
[2024-09-08 12:27] LABS: Glucose,Whole Blood 72 mg/dL (70-110)
--- NOTE | 2024-09-08 13:03 | P.GSCN ---
History of Present Illness Consult date: 09/08/24 History of present illness: CHIEF COMPLAINT: Fall HISTORY OF PRESENT ILLNESS: This is a 28-year-old female with spina bifida. She has had a chronic right buttocks ulcer for about 2 months. Patient presented to the ER with fall and right lower extremity injury. Patient does report increased pain in the sacrum. She does note drainage. Surgical service has been consulted for evaluation of the sacral decubitus ulcer. She had a prior bedside debridement in July of the right gluteal decubitus ulcer. PAST MEDICAL HISTORY: See below PAST SURGICAL HISTORY: See below MEDICATIONS: See below ALLERGIES: See below SOCIAL HISTORY: No illicit drug use. REVIEW OF SYSTEMS: CONSTITUTIONAL: Denies fever or chills. HEENT: Denies blurred vision, vision changes, or eye pain. Denies hemoptysis CARDIOVASCULAR: Denies chest pain or pressure. RESPIRATORY: No shortness of breath. GASTROINTESTINAL: See HPI for pertinent findings HEMATOLOGIC: Denies bleeding disorders. GENITOURINARY: Denies any blood in urine or increased urinary frequency. SKIN: Denies pruitis. Denies rash. PHYSICAL EXAM: VITAL SIGNS: Reviewed GENERAL: Well-developed in no acute distress. HEENT: No sclera icterus. Extraocular movements grossly intact. Moist buccal mucosa. Head is atraumatic, normocephalic. No nasal drainage. ABDOMEN: Soft. Nondistended. Nontender NEUROLOGIC: Alert and oriented. Cranial nerves II through XII grossly intact. Skin: Right gluteal decubitus ulcer minimal erythema. Small amount of granulation tissue and sloughing. LABORATORY DATA: IMAGING: ASSESSMENT: 1. Right gluteal decubitus ulcer with recent debridement on 08/22/2024 2. Right lower extremity ulcer PLAN: - No surgical intervention planned - Recommend wound care consult - Continue local wound care - Antibiotics per ID service - Okay for regular diet Physician Office Correspondent note has been reviewed by physician. Signing provider agrees with the documented findings, assessment, and plan of care. Past Medical History Past Medical History: Deep Vein Thrombosis (DVT), Hypertension, Musculoskeletal Disorder, Neurologic Disorder Additional Past Medical History / Comment(s): states has a bicuspid aortic valve, spinabifida, uses wheelchair, able to transfer, states hx (over 6 yrs ago) of "staph infection" that had I&D and a month of antibiotics IV, not sure if MRSA, DVT and pulmonary embolism History of Any Multi-Drug Resistant Organisms: None Reported Past Surgical History: Bariatric Surgery, Orthopedic Surgery Additional Past Surgical History / Comment(s): rt heel cord sx, shunt @ , replaced x2, sleeve gastrectomy 6--20, multiple leg surgeries Past Anesthesia/Blood Transfusion Reactions: No Reported Reaction Past Psychological History: No Psychological Hx Reported Smoking Status: Never smoker Past Alcohol Use History: None Reported Past Drug Use History: Marijuana - Past Family History Mother Family Medical History: No Reported History Medications and Allergies Home Medications Medication Instructions Recorded Confirmed Type Omeprazole Magnesium [PriLOSEC OTC] 20 mg PO DAILY 09/07/24 09/07/24 History Simethicone [Gas-X] 125 mg PO HS 09/07/24 09/07/24 History Allergies Allergy/AdvReac Type Severity Reaction Status Date / Time latex Allergy Rash/Hives Verified 09/07/24 17:41 morphine AdvReac "panic Verified 09/07/24 17:41 attack/paranoia" Surgical - Exam Osteopathic Statement: *. No significant issues noted on an osteopathic structural exam other than those noted in the History and Physical/Consult. Vital Signs Temp Pulse Resp BP Pulse Ox 98.9 F 117 H 18 147/88 100 09/07/24 13:11 09/07/24 13:11 09/07/24 13:11 09/07/24 13:11 09/07/24 13:11 Results - Labs 09/08/24 04:43 09/08/24 04:43 Abnormal Lab Results - Last 24 Hours (Table) 09/07/24 09/07/24 09/07/24 Range/Units 13:37 13:37 20:06 WBC 18.03 H (4.50-10.00) 10*3/uL RBC 4.05 L (4.10-5.20) 10*6/uL Hgb 9.9 L D (12.0-15.0) g/dL Hct 32.0 L (37.2-46.3) % MCV 79.0 L (80.0-97.0) fL MCH 24.4 L (27.0-32.0) pg MCHC 30.9 L (32.0-37.0) g/dL RDW (11.5-14.5) % Plt Count 483 H (140-440) 10*3/uL Immature Gran # 0.09 H (0.00-0.04) 10*3/uL Neutrophils # 15.59 H (1.80-7.70) 10*3/uL Eosinophils # 0.01 L (0.04-0.35) 10*3/uL Carbon Dioxide 20 L (22-30) mmol/L Glucose 55 L (74-99) mg/dL POC Glucose (mg/dL) 54 L (70-110) mg/dL Alkaline Phosphatase 148 H (38-126) U/L 09/08/24 09/08/24 09/08/24 Range/Units 04:43 04:43 05:35 WBC (4.50-10.00) 10*3/uL RBC 3.32 L (4.10-5.20) 10*6/uL Hgb 8.1 L D (12.0-15.0) g/dL Hct 26.5 L (37.2-46.3) % MCV 79.8 L (80.0-97.0) fL MCH 24.4 L (27.0-32.0) pg MCHC 30.6 L (32.0-37.0) g/dL RDW 18.6 H (11.5-14.5) % Plt Count (140-440) 10*3/uL Immature Gran # (0.00-0.04) 10*3/uL Neutrophils # (1.80-7.70) 10*3/uL Eosinophils # (0.04-0.35) 10*3/uL Carbon Dioxide 21 L (22-30) mmol/L Glucose 47 L* (74-99) mg/dL POC Glucose (mg/dL) 60 L (70-110) mg/dL Alkaline Phosphatase (38-126) U/L Diabetes panel 09/07/24 09/08/24 Range/Units 13:37 04:43 Sodium 138 137 (137-145) mmol/L Potassium 3.7 3.7 (3.5-5.1) mmol/L Chloride 100 106 (98-107) mmol/L Carbon Dioxide 20 L 21 L (22-30) mmol/L BUN 14 9 (7-17) mg/dL Creatinine 0.97 0.88 (0.52-1.04) mg/dL Glucose 55 L 47 L* (74-99) mg/dL Calcium 9.2 8.4 (8.4-10.2) mg/dL AST 18 (14-36) U/L ALT 10 (4-34) U/L Alkaline Phosphatase 148 H (38-126) U/L Total Protein 7.3 (6.3-8.2) g/dL Albumin 3.6 (3.5-5.0) g/dL Calcium panel 09/07/24 09/08/24 Range/Units 13:37 04:43 Calcium 9.2 8.4 (8.4-10.2) mg/dL Albumin 3.6 (3.5-5.0) g/dL Pituitary panel 09/07/24 09/08/24 Range/Units 13:37 04:43 Sodium 138 137 (137-145) mmol/L Potassium 3.7 3.7 (3.5-5.1) mmol/L Chloride 100 106 (98-107) mmol/L Carbon Dioxide 20 L 21 L (22-30) mmol/L BUN 14 9 (7-17) mg/dL Creatinine 0.97 0.88 (0.52-1.04) mg/dL Glucose 55 L 47 L* (74-99) mg/dL Calcium 9.2 8.4 (8.4-10.2) mg/dL Adrenal panel 09/07/24 09/08/24 Range/Units 13:37 04:43 Sodium 138 137 (137-145) mmol/L Potassium 3.7 3.7 (3.5-5.1) mmol/L Chloride 100 106 (98-107) mmol/L Carbon Dioxide 20 L 21 L (22-30) mmol/L BUN 14 9 (7-17) mg/dL Creatinine 0.97 0.88 (0.52-1.04) mg/dL Glucose 55 L 47 L* (74-99) mg/dL Calcium 9.2 8.4 (8.4-10.2) mg/dL Total Bilirubin 0.5 (0.2-1.3) mg/dL AST 18 (14-36) U/L ALT 10 (4-34) U/L Alkaline Phosphatase 148 H (38-126) U/L Total Protein 7.3 (6.3-8.2) g/dL Albumin 3.6 (3.5-5.0) g/dL Assessment and Plan Assessment: 28 yo female w/ gluteal pressure ulcer and lower extremity ulcer -recommend wound care nursing -no further debridement necessary Time with Patient: Less than 30
[2024-09-08 13:38] LABS: Appearance,Urine Cloudy (Clear); Bilirubin,Urine Negative (Negative); Blood,Urine Large (Negative); Budding Yeast,Urine Occasional /hpf; Color,Urine Colorless; Glucose,Urine (UA) Negative (Negative); Ketones,Urine Negative (Negative); Leukocyte Esterase,Urine Large (Negative); Mucus,Urine Rare /hpf; Nitrite,Urine Negative (Negative); PH, Urine 6.5 (5.0-8.0); Protein,Urine Trace (Negative); RBC,Urine 5 /hpf (0-5); Specific Gravity,Urine 1.013 (1.001-1.035); Squamous Epithelial Cell,Urine 3 /hpf (0-4); Urobilinogen,Urine <2.0 mg/dL (<2.0); WBC,Urine 55 /hpf (0-5)
[2024-09-08 17:11] LABS: Glucose,Whole Blood 75 mg/dL (70-110)
[2024-09-08 20:16] LABS: Glucose,Whole Blood 77 mg/dL (70-110)
[2024-09-09] MEDS: diphenhydrAMINE 50 MG/ML 1 ML VIAL IVP STA ×2 (02:14→16:58)
[2024-09-09 03:07] LABS: Glucose,Whole Blood 68 mg/dL (70-110)
[2024-09-09 05:07] LABS: HCT 25.1 % (37.2-46.3); HGB 7.5 g/dL (12.0-15.0); MCH 23.8 pg (27.0-32.0); MCHC 29.9 g/dL (32.0-37.0); MCV 79.7 fL (80.0-97.0); Platelet Count 310 10*3/uL (140-440); RBC 3.15 10*6/uL (4.10-5.20); RDW 18.6 % (11.5-14.5); WBC 7.09 10*3/uL (4.50-10.00)
[2024-09-09 05:19] LABS: African American GFR (CKD) >90 (>60 ml/min/1.73 sqM); Anion Gap 8 mmol/L; Blood Urea Nitrogen 5 mg/dL (7-17); Calcium 7.9 mg/dL (8.4-10.2); Carbon Dioxide 21 mmol/L (22-30); Chloride 109 mmol/L (98-107); Glucose 79 mg/dL (74-99); Non-African American GFR(CKD) 84 (>60 ml/min/1.73 sqM); Potassium 3.4 mmol/L (3.5-5.1); Sodium 138 mmol/L (137-145)
[2024-09-09 05:33] LABS: Glucose,Whole Blood 73 mg/dL (70-110)
[2024-09-09 07:18] LABS: Glucose,Whole Blood 79 mg/dL (70-110)
[2024-09-09] MEDS: AMPICILLIN-SULBACTAM 3 GM in SODIUM CHLORIDE 0.9% 100 ML IVPB SCH (08:47)
--- NOTE | 2024-09-09 10:33 | P.PN ---
Subjective Progress Note Date: 09/09/24 SURGICAL PROGRESS NOTE CHIEF COMPLAINT: Right gluteal decubitus ulcer HISTORY OF PRESENT ILLNESS: PHYSICAL EXAM: VITAL SIGNS: Reviewed. GENERAL: Well-developed in no acute distress. ABDOMEN: Soft. Nondistended. Nontender. NEUROLOGIC: Alert and oriented. Cranial nerves II through XII grossly intact. Skin: Right gluteal decubitus ulcer ASSESSMENT: 1. Right gluteal decubitus ulcer with recent debridement on 08/22/2024 2. Right lower extremity ulcer PLAN: - No surgical intervention planned - Wound VAC to be placed today on right gluteal decubitus ulcer - Antibiotics per ID service - Surgical service will sign off. Please call with any questions or concerns. Physician Animal Ecologist note has been reviewed by physician. Signing provider agrees with the documented findings, assessment, and plan of care. Objective - Vital Signs Vital signs: Vital Signs Temp 97.8 F 09/09/24 07:15 Pulse 79 09/09/24 07:15 Resp 18 09/09/24 07:15 BP 153/94 09/09/24 07:15 Pulse Ox 98 09/09/24 07:15 FiO2 Intake & Output 09/08/24 09/09/24 09/09/24 18:59 06:59 18:59 Intake Total 590 Output Total 300 Balance 290 Intake: Oral 590 Output: Urine 300 Other: Voiding Method Self-Catheterization Toilet Self-Catheterization Self-Catheterization # Voids 2 3 # Bowel Movements 1 - Labs CBC & Chem 7: 09/09/24 04:36 09/09/24 04:36 Labs: Abnormal Lab Results - Last 24 Hours (Table) 09/08/24 09/09/24 09/09/24 Range/Units 13:09 03:06 04:36 RBC 3.15 L (4.10-5.20) 10*6/uL Hgb 7.5 L (12.0-15.0) g/dL Hct 25.1 L (37.2-46.3) % MCV 79.7 L (80.0-97.0) fL MCH 23.8 L (27.0-32.0) pg MCHC 29.9 L (32.0-37.0) g/dL RDW 18.6 H (11.5-14.5) % Potassium (3.5-5.1) mmol/L Chloride (98-107) mmol/L Carbon Dioxide (22-30) mmol/L BUN (7-17) mg/dL POC Glucose (mg/dL) 68 L (70-110) mg/dL Calcium (8.4-10.2) mg/dL Urine Appearance Cloudy H (Clear) Urine Protein Trace H (Negative) Urine Blood Large H (Negative) Ur Leukocyte Esterase Large H (Negative) Urine WBC 55 H (0-5) /hpf Urine Mucus Rare H (None) /hpf Urine Yeast (Budding) Occasional H (None) /hpf 09/09/24 Range/Units 04:36 RBC (4.10-5.20) 10*6/uL Hgb (12.0-15.0) g/dL Hct (37.2-46.3) % MCV (80.0-97.0) fL MCH (27.0-32.0) pg MCHC (32.0-37.0) g/dL RDW (11.5-14.5) % Potassium 3.4 L (3.5-5.1) mmol/L Chloride 109 H (98-107) mmol/L Carbon Dioxide 21 L (22-30) mmol/L BUN 5 L (7-17) mg/dL POC Glucose (mg/dL) (70-110) mg/dL Calcium 7.9 L (8.4-10.2) mg/dL Urine Appearance (Clear) Urine Protein (Negative) Urine Blood (Negative) Ur Leukocyte Esterase (Negative) Urine WBC (0-5) /hpf Urine Mucus (None) /hpf Urine Yeast (Budding) (None) /hpf Microbiology - Last 24 Hours (Table) 09/07/24 18:07 Blood Culture - Preliminary Blood Assessment and Plan Assessment: wound care nursing to manage ok for wound vac
[2024-09-09] MEDS: POTASSIUM CHLORIDE ER 20 MEQ TAB.ER PO STA (12:02)
[2024-09-09 12:06] LABS: Glucose,Whole Blood 67 mg/dL (70-110)
--- NOTE | 2024-09-09 12:26 | P.PN ---
Subjective Progress Note Date: 09/09/24 Principal diagnosis: Hospital course: Patient is a 28 year old female with past medical history of spina bifida, hypertension, bicuspid aortic valve presented to the ED after a fall. She reports that her right leg just gave out and she fell. She denies hitting her head or losing consciosuness. She reports injuring her right lower extremity during the fall with pain on right hip, knee and ankle.Associated with that she also experienced subjective fever and chills. Patient was recently admitted to this hospital for sepsis secondary to infected right gluteal decubitus ulcer and undergone sharp excisional debridement and was discharged on metronidazole and cephalexin for 14 days. She is currently on oral antibiotics prescribed upon discharge. She has not been followed up with wound care center after her discharge. She states that she has not eaten properly today and she has also had surgery in the past to help with weight loss. Denies shortness of breath, cough, chest pain, palpitations, abdominal pain, nausea, vomiting, hematuria, dysuria, hematochezia, melena, headache, slurred speech, numbness, tingling, dizziness, lightheadedness, blurred vision, double vision. ED documentation reviewed. In the ED patient was treated with Dilaudid and 0.9 normal saline. 09/08/24: Patient is seen and examined at bedside today. She notes improvement in her weakness. She reports itching on her left arm and right cheek going into her hairline. She also states that she has not eaten much in the past couple days as she was in pain and she has had gastric sleeve surgery so she doesn't get hungry a lot. 09/09/24: Patient evaluated at bedside today. No acute events overnight. Patient reports having to self catheterize and denies any UTI symptoms. And reports that her pain is better. Review of systems: Pertinent positives and negatives as discussed in HPI, a complete review of systems was performed and all other systems are negative. Vitals: Signs Reviewed, and stable Physical examination: General: nontoxic, no distress, appears at stated age Derm: coin shaped pressure sore on right stubbs with slight erythema and swelling, no active drainage. About 5 to 6 cm diameter pressure ulcer on the right buttock with erythema, swelling and pus Head: atraumatic, normocephalic, symmetric Eyes: EOMI, anicteric sclera Mouth: no lip lesion, mucus membranes moist Cardiovascular: S1 S2 reg, no murmur Lungs: CTA bilateral, no rhonchi, no rales, no accessory muscle use Abdominal: soft, non-tender to palpation Extremities: Right knee and ankle tender Neuro: Alert, Oriented, Gross neurological examination did not reveal any focal deficits. Psych: well appearing, appropriate affect Data Reviewed Today: Labs: Hb 7.5, MCV 79.7, RDW 18.6, K 3.4, bicarb 21, glucose 79 UA shows cloudy appearance, large blood, trace protein, large leukocyte est erase, 55 WBC, rare mucus, occassional budding yeast Microbio: Blood culture shows no growth after 24 hours Imaging: No new imaging Assessment/Plan: Patient is a 28 year old female with past medical history of spina bifida, hypertension, bicuspid aortic valve presented to the ED after a fall. Active: #. SIRS without clear source #. Stage III Right gluteal decubitus ulcer #. S/p Sharp excisional debridement on 08/22/24 Right gluteal pressure ulcer looks clean UA shows cloudy appearance, large blood, trace protein, large leukocyte esterase, 55 WBC, rare mucus, occassional budding yeast Blood culture shows no growth after 24 hours Received one dose of Rocephin and Vancomycin in the ED Zosyn discontinued to decrease risk of nephrotoxicity Vancomycin discontinued Continue Unasyn Tylenol and Dilaudid for pain management Pending Blood culture Wound care is following, recommend Wound VAC ID is following General surgery is following, recommend no surgical intervention #. Hypoglycemia, improved Dextrose PRN Accuchecks Monitor for hypoglycemia Continue telemetry monitoring #. Normocytic anemia Iron < 6, TIBC 176, percent saturation < 3.41, transferrin 110, ferritin 130 Continue home meds ferrous sulfate and ascorbic acid Monitor CBC Transfuse for Hb<7 #. Itching Eucerin cream topical TID PRN Benadryl 25 mg PO TID PRN Chronic: #. Spina bifida #. Hypertension #. Bicuspid aortic valve F: 0.9 normal saline at 20 ml/hr E: Replete as required N: Regular diet A: wheelchair DVT prophylaxis: Lovenox 40 mg SQ daily Code status: Full code Anticipated discharge place: Home Anticipated discharge time: Likely tomorrow Dictation was produced using [employer] software. please excuse any grammatical, word or spelling errors. Ayana Nunez MD PGY-1 IM I have seen and evaluated the patient today. Discussed with the resident and agree with the residents finding and plan as documented in the resident's note. Changes highlighted in blue font. Objective - Vital Signs Vital signs: Vital Signs Temp 97.8 F 09/09/24 07:15 Pulse 79 09/09/24 07:15 Resp 18 09/09/24 07:15 BP 153/94 09/09/24 07:15 Pulse Ox 98 09/09/24 07:15 FiO2 Intake & Output 09/08/24 09/09/24 09/09/24 18:59 06:59 18:59 Intake Total 590 Output Total 300 Balance 290 Intake: Oral 590 Output: Urine 300 Other: Voiding Method Self-Catheterization Toilet Self-Catheterization # Voids 2 3 # Bowel Movements 1 - Labs CBC & Chem 7: 09/09/24 04:36 09/09/24 04:36 Labs: Abnormal Lab Results - Last 24 Hours (Table) 09/08/24 09/09/24 09/09/24 Range/Units 13:09 03:06 04:36 RBC 3.15 L (4.10-5.20) 10*6/uL Hgb 7.5 L (12.0-15.0) g/dL Hct 25.1 L (37.2-46.3) % MCV 79.7 L (80.0-97.0) fL MCH 23.8 L (27.0-32.0) pg MCHC 29.9 L (32.0-37.0) g/dL RDW 18.6 H (11.5-14.5) % Potassium (3.5-5.1) mmol/L Chloride (98-107) mmol/L Carbon Dioxide (22-30) mmol/L BUN (7-17) mg/dL POC Glucose (mg/dL) 68 L (70-110) mg/dL Calcium (8.4-10.2) mg/dL Urine Appearance Cloudy H (Clear) Urine Protein Trace H (Negative) Urine Blood Large H (Negative) Ur Leukocyte Esterase Large H (Negative) Urine WBC 55 H (0-5) /hpf Urine Mucus Rare H (None) /hpf Urine Yeast (Budding) Occasional H (None) /hpf 09/09/24 Range/Units 04:36 RBC (4.10-5.20) 10*6/uL Hgb (12.0-15.0) g/dL Hct (37.2-46.3) % MCV (80.0-97.0) fL MCH (27.0-32.0) pg MCHC (32.0-37.0) g/dL RDW (11.5-14.5) % Potassium 3.4 L (3.5-5.1) mmol/L Chloride 109 H (98-107) mmol/L Carbon Dioxide 21 L (22-30) mmol/L BUN 5 L (7-17) mg/dL POC Glucose (mg/dL) (70-110) mg/dL Calcium 7.9 L (8.4-10.2) mg/dL Urine Appearance (Clear) Urine Protein (Negative) Urine Blood (Negative) Ur Leukocyte Esterase (Negative) Urine WBC (0-5) /hpf Urine Mucus (None) /hpf Urine Yeast (Budding) (None) /hpf Microbiology - Last 24 Hours (Table) 09/07/24 18:07 Blood Culture - Preliminary Blood
[2024-09-09 12:41] LABS: Glucose,Whole Blood 134 mg/dL (70-110)
[2024-09-09 14:04] VITALS: BMI 30.2
--- NOTE | 2024-09-09 15:23 | P.PN ---
Subjective Progress Note Date: 09/09/24 Principal diagnosis: Reason for follow-up is leukocytosis/UTI Patient is a 28-year-old female with a past medical history sniffing for spina bifida she was recently admitted at this facility with an infected right gluteal pressure ulcer status post surgical debridement culture at that time were positive for Bacteroides Streptococcus and MSSA presented back to the hospital after repeated her fall complaining of pain to the right knee and ankle area noticed to have tachycardia elevated white count prompting this consultation. On today's evaluation that is 09/09/2024,the patient remains to be afebrile, patient is on room air not requiring supplemental oxygen and denies any shortness of breath no chest pain or cough.Patient denies having any nausea or vomiting, no abdominal pain and no diarrhea has been reported, mention feeling better. Patient white count 7.09 creatinine 0.93 cultures currently pending Objective - Vital Signs Vital signs: Vital Signs Temp 97.8 F 09/09/24 07:15 Pulse 79 09/09/24 07:15 Resp 18 09/09/24 07:15 BP 153/94 09/09/24 07:15 Pulse Ox 98 09/09/24 07:15 FiO2 Intake & Output 09/08/24 09/09/24 09/09/24 18:59 06:59 18:59 Intake Total 590 Output Total 300 Balance 290 Intake: Oral 590 Output: Urine 300 Other: Voiding Method Self-Catheterization Toilet Self-Catheterization Self-Catheterization # Voids 2 3 # Bowel Movements 1 - Exam GENERAL DESCRIPTION: Middle-age female lying in bed in no distress RESPIRATORY SYSTEM: Unlabored breathing , decreased breath sounds at bases HEART: S1 S2 regular rate and rhythm , ABDOMEN: Soft , no tenderness EXTREMITIES: No edema feet - Labs CBC & Chem 7: 09/09/24 04:36 09/09/24 04:36 Labs: Abnormal Lab Results - Last 24 Hours (Table) 09/08/24 09/09/24 09/09/24 Range/Units 13:09 03:06 04:36 RBC 3.15 L (4.10-5.20) 10*6/uL Hgb 7.5 L (12.0-15.0) g/dL Hct 25.1 L (37.2-46.3) % MCV 79.7 L (80.0-97.0) fL MCH 23.8 L (27.0-32.0) pg MCHC 29.9 L (32.0-37.0) g/dL RDW 18.6 H (11.5-14.5) % Potassium (3.5-5.1) mmol/L Chloride (98-107) mmol/L Carbon Dioxide (22-30) mmol/L BUN (7-17) mg/dL POC Glucose (mg/dL) 68 L (70-110) mg/dL Calcium (8.4-10.2) mg/dL Urine Appearance Cloudy H (Clear) Urine Protein Trace H (Negative) Urine Blood Large H (Negative) Ur Leukocyte Esterase Large H (Negative) Urine WBC 55 H (0-5) /hpf Urine Mucus Rare H (None) /hpf Urine Yeast (Budding) Occasional H (None) /hpf 09/09/24 Range/Units 04:36 RBC (4.10-5.20) 10*6/uL Hgb (12.0-15.0) g/dL Hct (37.2-46.3) % MCV (80.0-97.0) fL MCH (27.0-32.0) pg MCHC (32.0-37.0) g/dL RDW (11.5-14.5) % Potassium 3.4 L (3.5-5.1) mmol/L Chloride 109 H (98-107) mmol/L Carbon Dioxide 21 L (22-30) mmol/L BUN 5 L (7-17) mg/dL POC Glucose (mg/dL) (70-110) mg/dL Calcium 7.9 L (8.4-10.2) mg/dL Urine Appearance (Clear) Urine Protein (Negative) Urine Blood (Negative) Ur Leukocyte Esterase (Negative) Urine WBC (0-5) /hpf Urine Mucus (None) /hpf Urine Yeast (Budding) (None) /hpf Microbiology - Last 24 Hours (Table) 09/07/24 18:07 Blood Culture - Preliminary Blood Assessment and Plan (1) Leukocytosis Current Visit: Yes Status: Acute Code(s): D72.829 - ELEVATED WHITE BLOOD CELL COUNT, UNSPECIFIED SNOMED Code(s): 911451362 (2) Stage III pressure ulcer of buttock Current Visit: No Status: Acute Code(s): L89.303 - PRESSURE ULCER OF UNSPEC IFIED BUTTOCK, STAGE 3 SNOMED Code(s): 71136242589632066 (3) UTI (urinary tract infection) Current Visit: No Status: Acute Code(s): N39.0 - URINARY TRACT INFECTION, SITE NOT SPECIFIED SNOMED Code(s): 07154689 Plan: 1patient presented the hospital with a fall injury and pain to the right knee and ankle area x-ray did show some right knee effusion but no abnormality to the right ankle and hip area, patient was recently admitted at this facility with a right total infected pressure ulcer status post surgical debridement culture that was positive for MSSA strep and Bacteroides for the patient has completed her oral antibiotic therapy, currently the right gluteal pressure ulcer base looks clean with no slough tissue surrounding redness 2-patient did have a normalization of the white count and resolution of her tachycardia no fever have been avoided urine is mildly positive with some urinary symptoms question of UTI 3patient to continue with Unasyn discontinue vancomycin if the culture remains to be negative by tomorrow may consider short course of oral Augmentin on discharge this was discussed with the resident physician Dictation was produced using [employer] dictation software. please excuse any grammatical, word or spelling errors.
[2024-09-09 17:21] LABS: Glucose,Whole Blood 70 mg/dL (70-110)
[2024-09-09] MEDS ORDERED: VANCOMYCIN TROUGH DUE 1 EACH MISC MISCELLANE ONE (18:00)
[2024-09-09 19:41] LABS: Glucose,Whole Blood 94 mg/dL (70-110)
[2024-09-10 01:21] LABS: Glucose,Whole Blood 101 mg/dL (70-110)
[2024-09-10 05:51] LABS: HCT 30.6 % (37.2-46.3); MCH 24.1 pg (27.0-32.0); MCHC 29.7 g/dL (32.0-37.0); Mean Platelet Volume 9.7 fL (9.5-12.2); Platelet Count 377 10*3/uL (140-440); RBC 3.78 10*6/uL (4.10-5.20); RDW 18.6 % (11.5-14.5); WBC 7.52 10*3/uL (4.50-10.00)
[2024-09-10 05:54] LABS: HGB 9.1 g/dL (12.0-15.0)
[2024-09-10 06:01] LABS: African American GFR (CKD) >90 (>60 ml/min/1.73 sqM); Anion Gap 6 mmol/L; Blood Urea Nitrogen 3 mg/dL (7-17); Calcium 8.4 mg/dL (8.4-10.2); Carbon Dioxide 25 mmol/L (22-30); Chloride 108 mmol/L (98-107); Glucose 80 mg/dL (74-99); Non-African American GFR(CKD) >90 (>60 ml/min/1.73 sqM); Potassium 3.8 mmol/L (3.5-5.1); Sodium 139 mmol/L (137-145)
[2024-09-10 07:13] LABS: Glucose,Whole Blood 86 mg/dL (70-110)
[2024-09-10 07:42] VITALS: RESP 18
[2024-09-10 12:09] LABS: Glucose,Whole Blood 76 mg/dL (70-110)
[2024-09-10 12:44] VITALS: BP 159/83; PULSE 76; TEMP 98.2
--- NOTE | 2024-09-10 13:06 | P.DS ---
Providers Date of admission: 09/07/24 16:19 Expected date of discharge: 09/10/24 Attending physician: Daryl Farley Consults: 09/07/24 16:12 Consult Physician Routine Consulting Provider: Blanche Alas Consult Reason/Comments: Sacral decub Do you want consulting provider notified?: Yes Primary care physician: Stated None Hospital Course: Discharge diagnosis: SIRS without clear source Stage III Right gluteal decubitus ulcer S/p Sharp excisional debridement on 08/22/24 Hypoglycemia, improved Normocytic anemia Itching Spina bifida Hypertension Bicuspid aortic valve Hospital Course: Patient is a 28 year old female with past medical history of spina bifida, hypertension, bicuspid aortic valve presented to the ED after a fall. She reports that her right leg just gave out and she fell. She denies hitting her head or losing consciosuness. She reports injuring her right lower extremity during the fall with pain on right hip, knee and ankle.Associated with that she also experienced subjective fever and chills. Patient was recently admitted to this hospital for sepsis secondary to infected right gluteal decubitus ulcer and undergone sharp excisional debridement and was discharged on metronidazole and cephalexin for 14 days. She is currently on oral antibiotics prescribed upon discharge. Initial evaluation in the ED showed vitals T 98.9 F, GA 117 bpm, RR 18, BP 147/88, SpO2 100% on room air. Right ankle x-ray shows no acute osseous abnormality. Right hip x-ray shows no acute osseous abnormality. Right knee x- ray shows there may be minimal joint effusion present, moderate degenerative joint changes. Labs showed WBC 18.03,hemoglobin 9.9, glucose 55. At that point patient was started on vancomycin and Zosyn. ID was consulted and Zosyn was changed to Unasyn.Right gluteal pressure ulcer looked clean. UA was obtained that showed cloudy appearance, large blood, trace protein, large leukocyte esterase, 55 WBC, rare mucus, occassional budding yeast. Blood culture shows no growth after 24 hours. Wound care was consulted and wound VAC was placed. Patient to be discharged home on with wound VAC and mattress pads. Patient has been optimized for discharge. Patient seen at bedside today and is feeling good and excited about discharge. Patient will be discharged today and is given a script for Augmentin 875-125 mg PO BID for 7 days. Patient is given a handout for how to prevent pressure injuries, how to choose and use mattress pads,nondiabetic hypoglycemia, what to do if your blood sugar is low, iron deficiency anemia and is advised to be compliant with medications. Patient is advised to follow-up with PCP in 1-2 days, Wound care center, Visiting nurse. Vital signs are reviewed and stable General: nontoxic, no distress, appears at stated age Derm: coin shaped pressure sore on right stubbs with slight erythema and swelling, no active drainage. About 5 to 6 cm diameter pressure ulcer on the right buttock with erythema, swelling and pus. Wound VAC in place Head: atraumatic, normocephalic, symmetric Eyes: EOMI, anicteric sclera Mouth: no lip lesion, mucus membranes moist Cardiovascular: S1 S2 reg, no murmur Lungs: CTA bilateral, no rhonchi, no rales, no accessory muscle use Abdominal: soft, non-tender to palpation Extremities: Right knee and ankle tender Neuro: Alert, Oriented, Gross neurological examination did not reveal any focal deficits. Psych: well appearing, appropriate affect A total of 30 minutes of time were spent preparing this complex discharge summary. Patient was discharged on 09/10/24 at 1003. Dictation was produced using [employer] dictation software. please excuse any grammatical, word or spelling error Ayana Nunez MD PGY-1 IM I saw and evaluated the patient during the richards and critical portions of this encounter, and discussed the case in detail with the resident author of this note, I agree with the Assessment and Plan, and my changes, if any, are highlighted in blue. Patient Condition at Discharge: Stable Plan - Discharge Summary Discharge Rx Participant: No New Discharge Prescriptions: New Ferrous Sulfate [Iron (65 MG Elemental)] 325 mg PO BID-W/MEALS tab Ascorbic Acid [Vitamin C] 500 mg PO DAILY tab Amoxic-Pot Clav 875-125Mg [Augmentin 875-125] 1 tab PO BID 7 Days #14 tab Continue Omeprazole Magnesium [PriLOSEC OTC] 20 mg PO DAILY Simethicone [Gas-X] 125 mg PO HS Discharge Medication List Omeprazole Magnesium [PriLOSEC OTC] 20 mg PO DAILY 09/07/24 [History] Simethicone [Gas-X] 125 mg PO HS 09/07/24 [History] Amoxic-Pot Clav 875-125Mg [Augmentin 875-125] 1 tab PO BID 7 Days #14 tab 09/10/24 [Rx] Ascorbic Acid [Vitamin C] 500 mg PO DAILY tab 09/10/24 [Rx] Ferrous Sulfate [Iron (65 MG Elemental)] 325 mg PO BID-W/MEALS tab 09/10/24 [Rx ] Follow up Appointment(s)/Referral(s): [facility]icine [NON-STAFF] - 1 Week None,Stated [Primary Care Provider] - 1-2 days Wound Center,[facility] [NON-STAFF] - 09/15/24 12:45 pm [facility] Visiting Nurse, [NON-STAFF] - 1 Week Patient Instructions/Handouts: Amoxicillin/Clavulanate Potassium (By mouth), How to Prevent Pressure Injuries (GEN), How to Choose and Use Mattress Pads (GEN), Non-diabetic Hypoglycemia (GEN), Iron Deficiency Anemia (GEN), Negative Pressure Wound Therapy (DC), What to Do if Your Blood Sugar is Low (GEN) Activity/Diet/Wound Care/Special Instructions: Patient advised to follow up with PCP and Wound care center. Discharge Disposition: HOME WITH HOME HEALTH SERVICES
--- NOTE | 2024-09-11 15:03 | P.PN ---
Subjective Progress Note Date: 09/10/24 Principal diagnosis: Reason for follow-up is leukocytosis/UTI Patient is a 28-year-old female with a past medical history sniffing for spina bifida she was recently admitted at this facility with an infected right gluteal pressure ulcer status post surgical debridement culture at that time were positive for Bacteroides Streptococcus and MSSA presented back to the hospital after repeated her fall complaining of pain to the right knee and ankle area noticed to have tachycardia elevated white count prompting this consultation. On today's evaluation that is 09/10/2024, the patient continues to be afebrile, the patient is on room air and breathing comfortably, the Pt denies having any chest pain or cough, the patient denies having any abdominal pain no vomiting or any diarrhea, patient mention feeling better Patient white count 7.52, creatinine 0.84 culture have been negative Objective - Vital Signs Vital signs: Vital Signs Temp 98.3 F 09/10/24 07:07 Pulse 71 09/10/24 07:07 Resp 18 09/10/24 07:07 BP 143/91 09/10/24 07:07 Pulse Ox 99 09/10/24 07:07 FiO2 Intake & Output 09/09/24 09/10/24 09/10/24 18:59 06:59 18:59 Intake Total 720 Output Total 400 Balance 320 Weight 68.039 kg Intake: Oral 720 Output: Urine 400 Other: Voiding Method Self-Catheterization Toilet Bedside Commode Self-Catheterization # Voids 1 - Exam GENERAL DESCRIPTION: Middle-age female lying in bed in no distress RESPIRATORY SYSTEM: Unlabored breathing , decreased breath sounds at bases HEART: S1 S2 regular rate and rhythm , ABDOMEN: Soft , no tenderness EXTREMITIES: No edema feet - Labs CBC & Chem 7: 09/10/24 05:27 09/10/24 05:27 Labs: Abnormal Lab Results - Last 24 Hours (Table) 09/09/24 09/09/24 09/10/24 Range/Units 12:05 12:39 05:27 RBC 3.78 L (4.10-5.20) 10*6/uL Hgb 9.1 L D (12.0-15.0) g/dL Hct 30.6 L (37.2-46.3) % MCH 24.1 L (27.0-32.0) pg MCHC 29.7 L (32.0-37.0) g/dL RDW 18.6 H (11.5-14.5) % Chloride (98-107) mmol/L BUN (7-17) mg/dL POC Glucose (mg/dL) 67 L 134 H (70-110) mg/dL 09/10/24 Range/Units 05:27 RBC (4.10-5.20) 10*6/uL Hgb (12.0-15.0) g/dL Hct (37.2-46.3) % MCH (27.0-32.0) pg MCHC (32.0-37.0) g/dL RDW (11.5-14.5) % Chloride 108 H (98-107) mmol/L BUN 3 L (7-17) mg/dL POC Glucose (mg/dL) (70-110) mg/dL Microbiology - Last 24 Hours (Table) 09/07/24 18:07 Blood Culture - Preliminary Blood 09/08/24 13:09 Urine Culture - Final Urine,Voided Assessment and Plan (1) Leukocytosis Status: Acute Code(s): D72.829 - ELEVATED WHITE BLOOD CELL COUNT, UNSPECIFIED SNOMED Code(s): 098068841 (2) Stage III pressure ulcer of buttock Status: Acute Code(s): L89.303 - PRESSURE ULCER OF UNSPECIFIED BUTTOCK, STAGE 3 SNOMED Code(s): 98227094374026083 (3) UTI (urinary tract infection) Status: Acute Code(s): N39.0 - URINARY TRACT INFECTION, SITE NOT SPECIFIED SNOMED Code(s): 85707560 Plan: 1patient presented the hospital with a fall injury and pain to the right knee and ankle area x-ray did show some right knee effusion but no abnormality to the right ankle and hip area, patient was recently admitted at this facility with a right total infected pressure ulcer status post surgical debridement culture that was positive for MSSA strep and Bacteroides for the patient has completed her oral antibiotic therapy, currently the right gluteal pressure ulcer base looks clean with no slough tissue surrounding redness 2-patient did have a normalization of the white count and resolution of her tachycardia no fever have been avoided urine is mildly positive with some urinary symptoms question of UTI 3patient has shown overall clinical improvement culture have been negative we will consider short course of oral Augmentin at discharge and close outpatient follow-up Dictation was produced using [employer] software. please excuse any grammatical, word or spelling errors. Time with Patient: Less than 30
--- NOTE | 2024-09-11 15:03 | P.PN ---
Subjective Progress Note Date: 09/08/24 Principal diagnosis: Reason for follow-up is leukocytosis/UTI Patient is a 28-year-old female with a past medical history sniffing for spina bifida she was recently admitted at this facility with an infected right gluteal pressure ulcer status post surgical debridement culture at that time were positive for Bacteroides Streptococcus and MSSA presented back to the hospital after repeated her fall complaining of pain to the right knee and ankle area noticed to have tachycardia elevated white count prompting this consultation. On today's evaluation that is 09/08/2024,the patient denies any fever or any chills, patient is breathing comfortably on room air, the patient denies chest pain shortness of breath and no significant cough, patient denies abdominal pain, no nausea vomiting or diarrhea. Patient white count normalized to 9.80 creatinine 0.88 urine is mildly positive Objective - Vital Signs Vital signs: Vital Signs Temp 97.9 F 09/08/24 07:20 Pulse 89 09/08/24 07:20 Resp 16 09/08/24 07:20 BP 128/77 09/08/24 07:20 Pulse Ox 100 09/08/24 07:20 FiO2 Intake & Output 09/07/24 09/08/24 09/08/24 18:59 06:59 18:59 Intake Total 740 Output Total 650 Balance 90 Weight 68.039 kg 68.039 kg Intake: Intake, IV Titration 500 Amount Ampicillin-Sulbactam 3 gm 200 In Sodium Chloride 0.9% 100 ml @ 200 mls/hr IVPB Q6HR [facility]GE Rx#:[id number] Sodium Chloride 0.9% 1, 300 000 ml @ 75 mls/hr IV . [id number] [facility]GE Rx#:[id number] Oral 240 Output: Urine 650 Other: Voiding Method Self-Catheterization # Voids 0 - Exam GENERAL DESCRIPTION: Middle-age female lying in bed in no distress RESPIRATORY SYSTEM: Unlabored breathing , decreased breath sounds at bases HEART: S1 S2 regular rate and rhythm , ABDOMEN: Soft , no tenderness EXTREMITIES: No edema feet - Labs CBC & Chem 7: 09/09/24 04:36 09/09/24 04:36 Labs: Abnormal Lab Results - Last 24 Hours (Table) 09/07/24 09/07/24 09/07/24 Range/Units 13:37 13:37 20:06 WBC 18.03 H (4.50-10.00) 10*3/uL RBC 4.05 L (4.10-5.20) 10*6/uL Hgb 9.9 L D (12.0-15.0) g/dL Hct 32.0 L (37.2-46.3) % MCV 79.0 L (80.0-97.0) fL MCH 24.4 L (27.0-32.0) pg MCHC 30.9 L (32.0-37.0) g/dL RDW (11.5-14.5) % Plt Count 483 H (140-440) 10*3/uL Immature Gran # 0.09 H (0.00-0.04) 10*3/uL Neutrophils # 15.59 H (1.80-7.70) 10*3/uL Eosinophils # 0.01 L (0.04-0.35) 10*3/uL Carbon Dioxide 20 L (22-30) mmol/L Glucose 55 L (74-99) mg/dL POC Glucose (mg/dL) 54 L (70-110) mg/dL Alkaline Phosphatase 148 H (38-126) U/L 09/08/24 09/08/24 09/08/24 Range/Units 04:43 04:43 05:35 WBC (4.50-10.00) 10*3/uL RBC 3.32 L (4.10-5.20) 10*6/uL Hgb 8.1 L D (12.0-15.0) g/dL Hct 26.5 L (37.2-46.3) % MCV 79.8 L (80.0-97.0) fL MCH 24.4 L (27.0-32.0) pg MCHC 30.6 L (32.0-37.0) g/dL RDW 18.6 H (11.5-14.5) % Plt Count (140-440) 10*3/uL Immature Gran # (0.00-0.04) 10*3/uL Neutrophils # (1.80-7.70) 10*3/uL Eosinophils # (0.04-0.35) 10*3/uL Carbon Dioxide 21 L (22-30) mmol/L Glucose 47 L* (74-99) mg/dL POC Glucose (mg/dL) 60 L (70-110) mg/dL Alkaline Phosphatase (38-126) U/L Assessment and Plan (1) Leukocytosis Current Visit: Yes Status: Acute Code(s): D72.829 - ELEVATED WHITE BLOOD CELL COUNT, UNSPECIFIED SNOMED Code(s): 672841465 (2) Stage III pressure ulcer of buttock Current Visit: No Status: Acute Code(s): L89.303 - PRESSURE ULCER OF UNSPECIFIED BUTTOCK, STAGE 3 SNOMED Code(s): 78025578419712203 Plan: 1patient presented the hospital with a fall injury and pain to the right knee and ankle area x-ray did show some right knee effusion but no abnormality to the right ankle and hip area, patient was recently admitted at this facility with a right total infected pressure ulcer status post surgical debridement culture that was positive for MSSA strep and Bacteroides for the patient has completed her oral antibiotic therapy, currently the right gluteal pressure ulcer base looks clean with no slough tissue surrounding redness 2-patient did have a normalization of the white count and resolution of her tachycardia no fever have been avoided urine is mildly positive with some urinary symptoms question of UTI 3patient will be treated with the vancomycin and Unasyn while waiting for the culture to finalize Dictation was produced using [employer] software. please excuse any grammatical, word or spelling errors.
--- NOTE | 2024-09-14 12:22 | CDI ---
Documentation Clarification Form Date: 09/14/2024 11:54:33 AM From: Clarissa Lu RN, CCDS Email: [email or web address] Admit Date: 09/07/2024 04:19:00 PM Patient Name: Ivy Quevedo Visit Number: [id number] Discharge Date: 09/10/2024 03:39:00 PM ATTENTION: The Clinical Documentation Specialists (CDI) and [facility] Coding Staff appreciate your assistance in clarifying documentation. Please respond to the clarification below the line at the bottom and electronically sign. The CDI & [facility] Coding staff will review the response and follow-up if needed. Please note: Queries are made part of the Legal Health Record. If you have any questions, please contact the author of this message via ITS. Doctor Ayana Nunez Sepsis is documented in the ED note and the H&P. Additional clarification is requested. History/Risk Factors: From the H&P: "28-year-old female with past medical history of spina bifida, hypertension, bicuspid aortic valve presented to the ED after a fall. Associated with that she also experienced subjective fever and chills. Patient was recently admitted to this hospital for sepsis secondary to infected right gluteal decubitus ulcer and undergone sharp excisional debridement and was discharged on Metronidazole and Cephalexin for 14 days. She is currently on oral antibiotics prescribed upon discharge." Clinical Indicators: 09/07 ED: "Pressure ulcer of buttock, Sepsis." 09/07 H&P: "Sepsis. Infected right gluteal decubitus ulcer." 09/07 ID consult: "patient did have elevated white count but no fever, did have tachycardia though, meets criteria for SIRS but not very clear focus of infection at this point. As mentioned earlier the right gluteal pressure ulcer looks clean, questionable urine versus other etiology." 09/10 DS: "SIRS without clear source." 09/07 VS: Temp 98.9 HR 117 RR 18 BP 147/88 09/07 Labs: WBC 18.03; lactic acid 1.3; UA cloudy large blood large leukocyte esterase WBC 55 09/07 BC no growth 09/08 UCX: negative Treatment: IV Unasyn 3gm Q6H 09/07-09/10; IV Rocephin 2gm x1 on 09/07; 1L 0.9 NS IV bolus x1 on 09/07; IV Vancomycin 1250mg x1 on 09/07; IV Vancomycin 1250mg Q16H 09/08-09/09 After work up and study, please clarify which diagnosis is most appropriate? [ ] Sepsis ruled out [ ] Sepsis treated prophylactically [ ] Sepsis is a valid diagnosis as evidence by the following: (Please add rationale): [ ] Other, please specify [ ] Unable to determine MTDD
== END 2024-09-10 15:39 | disposition home health service (06) | DRG 380 ==
LOC: EC 13:03 → 4SSUR 16:19 → 5NMEDONC 21:41
PROVIDERS: ADMIT Student in an Organized Health Care Education/Training Program; ATTEND Student in an Organized Health Care Education/Training Program
DX: L89.313 Pressure ulcer of right buttock, stage 3 (principal); L97.211 Non-pressure chronic ulcer of right calf limited to breakdown of skin; R65.10 Systemic inflammatory response syndrome (SIRS) of non-infectious origin without acute organ dysfunction; D64.9 Anemia, unspecified; I10 Essential (primary) hypertension; L89.159 Pressure ulcer of sacral region, unspecified stage; L98.491 Non-pressure chronic ulcer of skin of other sites limited to breakdown of skin; Q05.9 Spina bifida, unspecified; Q23.81 Bicuspid aortic valve; N39.0 Urinary tract infection, site not specified; Z91.81 History of falling; E16.2 Hypoglycemia, unspecified; Z28.310 Unvaccinated for COVID-19; Z28.21 Immunization not carried out because of patient refusal; Z98.84 Bariatric surgery status; Z88.5 Allergy status to narcotic agent; Z91.040 Latex allergy status; Z86.19 Personal history of other infectious and parasitic diseases
CPT/HCPCS: 36415; 73502; 80048; 80053; 81001; 83605; 85025; 85027; 87040; 87086; 96361; 96365; 96366; 96367; 96375; 99285

== ENCOUNTER 2024-10-15 11:42 | Inpatient (IN) | payer OTHER ==
--- NOTE | 2024-10-15 12:19 | ED ---
General Adult HPI - General Chief complaint: Recheck/Abnormal Lab/Rx Stated complaint: Hip, pain and leg Time Seen by Provider: 10/15/24 11:47 Source: patient, RN notes reviewed Mode of arrival: wheelchair Limitations: no limitations - History of Present Illness Initial comments: 28-year-old female presents to the emergency department for evaluation of chronic wounds. Patient states that the wounds have been there for quite some time. She notes that she has a decubitus ulcer with a wound VAC in place. She just finished a course of clindamycin about 3 days ago. She notes that drainage has been malodorous and she also notes chills. Denies any documented fever. She does note that her heart feels like has been racing. - Related Data Home Medications Medication Instructions Recorded Confirmed Omeprazole Magnesium [PriLOSEC OTC] 20 mg PO HS 09/07/24 10/15/24 Simethicone [Gas-X] 125 mg PO HS 09/07/24 10/15/24 Allergies Allergy/AdvReac Type Severity Reaction Status Date / Time latex Allergy Rash/Hives Verified 10/15/24 14:57 morphine AdvReac "panic Verified 10/15/24 14:57 attack/paranoia" "cillins" AdvReac Mom & Uncoded 10/15/24 14:57 Sister severe allergy Review of Systems ROS Statement: Those systems with pertinent positive or pertinent negative responses have been documented in the HPI. ROS Other: All systems not noted in ROS Statement are negative. Past Medical History Past Medical History: Deep Vein Thrombosis (DVT), Hypertension, Musculoskeletal Disorder, Neurologic Disorder Additional Past Medical History / Comment(s): states has a bicuspid aortic valve, spinabifida, uses wheelchair, able to transfer, states hx (over 6 yrs ago) of "staph infection" that had I&D and a month of antibiotics IV, not sure if MRSA, DVT and pulmonary embolism History of Any Multi-Drug Resistant Organisms: None Reported Past Surgical History: Bariatric Surgery, Orthopedic Surgery Additional Past Surgical History / Comment(s): rt heel cord sx, shunt @ , replaced x2, sleeve gastrectomy 20, multiple leg surgeries Past Anesthesia/Blood Transfusion Reactions: No Reported Reaction Past Psychological History: No Psychological Hx Reported Smoking Status: Never smoker Past Alcohol Use History: None Reported Past Drug Use History: Marijuana - Past Family History Mother Family Medical History: No Reported History General Exam Limitations: no limitations General appearance: alert, in no apparent distress Head exam: Present: atraumatic, normocephalic, normal inspection Eye exam: Present: normal appearance, PERRL, EOMI. Absent: scleral icterus, conjunctival injection, periorbital swelling Neck exam: Present: normal inspection. Absent: tenderness, meningismus, lymphadenopathy Respiratory exam: Present: normal lung sounds bilaterally. Absent: respiratory distress, wheezes, rales, rhonchi, stridor Cardiovascular Exam: Present: normal rhythm, tachycardia, normal heart sounds. Absent: systolic murmur, diastolic murmur, rubs, gallop, clicks Extremities exam: Present: full ROM, normal capillary refill. Absent: tendern ess, pedal edema, joint swelling, calf tenderness Neurological exam: Present: alert, oriented X3 Psychiatric exam: Present: normal affect, normal mood Skin exam: Present: warm, dry. Absent: intact, normal color Course Vital Signs 10/15/24 10/15/24 10/15/24 11:44 12:41 13:26 Temperature 99.3 F 98.1 F Pulse Rate 128 H 108 H 95 Respiratory 18 18 18 Rate Blood Pressure 154/116 135/94 132/92 O2 Sat by Pulse 100 100 100 Oximetry 10/15/24 10/15/24 10/15/24 15:08 18:34 20:46 Temperature 98.1 F Pulse Rate 83 86 90 Respiratory 18 18 18 Rate Blood Pressure 154/96 149/90 147/112 O2 Sat by Pulse 98 99 100 Oximetry Medical Decision Making - Medical Decision Making Was pt. sent in by a medical professional or institution (, PA, TECHNOLOGY INSTRUCTOR, urgent care, hospital, or penitentiary...) When possible be specific @ -No Did you speak to anyone other than the patient for history (EMS, parent, family, police, friend...)? What history was obtained from this source @ -No Did you review nursing and triage notes (agree or disagree)? Why? @ -I reviewed and agree with nursing and triage notes Were old charts reviewed (outside hosp., previous admission, EMS record, old EKG, old radiological studies, urgent care reports/EKG's, penitentiary records)? Report findings @ -I reviewed the prior charts and culture results. Differential Diagnosis (chest pain, altered mental status, abdominal pain women, abdominal pain men, vaginal bleeding, weakness, fever, dyspnea, syncope, headach e, dizziness, GI bleed, back pain, seizure, CVA, palpatations, mental health, musculoskeletal)? @ -Differential Fever: Pneumonia, viral URI, endocarditis, myocarditis, pericarditis, otitis, sinusiti s, peritonsillar Abscess, retropharyngeal Abscess, epiglottitis, peritonitis, appendicitis, Annette cystitis, diverticulitis, hepatitis, colitis, UTI, PID, TOA, pyelonephritis, prostatitis, epididymitis, meningitis, encephalitis, pulmonary embolism, CVA, thyroid storm, pancreatitis, adrenal crisis, cavernous sinus thrombosis, this is not meant to be an all-inclusive list. EKG interpreted by me (3pts min.). @ -EKG@1250 shows sinus rhythm rate of 99, RI 132, QRS 90, QTQTc [id number] X-rays interpreted by me (1pt min.). @ -None done CT interpreted by me (1pt min.). @ -None done U/S interpreted by me (1pt. min.). @ -None done What testing was considered but not performed or refused? (CT, X-rays, U/S, labs)? Why? @ -None What meds were considered but not given or refused? Why? @ -None Did you discuss the management of the patient with other professionals (professionals i.e. , PA, TECHNOLOGY INSTRUCTOR, lab, RT, psych nurse, director social welfare, manager implementation, teacher, chief environmental commitment officer, pillowcase folder)? Give summary @ -No Was smoking cessation discussed for >3mins.? @ -No Was critical care preformed (if so, how long)? @ -No Were there social determinants of health that impacted care today? How? (Homelessness, low income, unemployed, alcoholism, drug addiction, transportation, low edu. Level, literacy, decrease access to med. care, residential, rehab)? @ -No Was there de-escalation of care discussed even if they declined (Discuss DNR or withdrawal of care, Hospice)? DNR status @ -No What co-morbidities impacted this encounter? (DM, HTN, Smoking, COPD, CAD, Cancer, CVA, ARF, Chemo, Hep., AIDS, mental health diagnosis, sleep apnea, morbid obesity)? @ -None Was patient admitted / discharged? Hospital course, mention meds given and route, prescriptions, significant lab abnormalities, going to OR and other pertinent info. @ -Admitted. Patient presented to the emergency department for malodorous chronic wounds. She does note chills at home. Laboratory studies obtained revealing WBC of 15, hemoglobin 10.3; CMP is nonactionable UA shows large blood, large leukocyte esterase, greater than 182 WBCs. Urine hCG is negative. Patient was administered 2 L of lactated Ringer's patient was started on cefepime and vancomycin. Patient will be admitted to the hospital. She is un derstanding agreeable with this. Case was discussed with Dr. Roa who was accepting of the admission. Infectious disease consulted. Case discussed with Dr. Yuan. Undiagnosed new problem with uncertain prognosis? @ -No Drug Therapy requiring intensive monitoring for toxicity (Heparin, Nitro, Insulin, Cardizem)? @ -No Were any procedures done? @ -No Diagnosis/symptom? @ -UTI Acute, or Chronic, or Acute on Chronic? @ -Acute Uncomplicated (without systemic symptoms) or Complicated (systemic symptoms)? @ -Complicated Side effects of treatment? @ -No Exacerbation, Progression, or Severe Exacerbation? @ -No Poses a threat to life or bodily function? How? (Chest pain, [place], [place], pneumonia, PE, COPD, DKA, ARF, appy, cholecystitis, CVA, Diverticulitis, Homicidal, Suicidal, threat to staff... and all critical care pts) @ -No - Lab Data Result diagrams: 10/18/24 08:58 10/19/24 02:40 Lab Results 10/15/24 10/15/24 10/15/24 Range/Units 12:28 12:28 12:28 WBC 15.39 H (4.50-10.00) 10*3/uL RBC 4.23 (4.10-5.20) 10*6/uL Hgb 10.3 L (12.0-15.0) g/dL Hct 34.0 L (37.2-46.3) % MCV 80.4 (80.0-97.0) fL MCH 24.3 L (27.0-32.0) pg MCHC 30.3 L (32.0-37.0) g/dL Plt Count 631 H (140-440) 10*3/uL MPV 9.1 L (9.5-12.2) fL Immature Gran % (Auto) 0.6 % Neutrophils % 80.7 % Lymphocytes % 13.5 % Monocytes % 4.8 % Eosinophils % 0.2 % Basophils % 0.2 % Immature Gran # 0.10 H (0.00-0.04) 10*3/uL Neutrophils # 12.42 H (1.80-7.70) 10*3/uL Lymphocytes # 2.07 (0.90-5.00) 10*3/uL Monocytes # 0.74 (0.20-1.00) 10*3/uL Eosinophils # 0.03 L (0.04-0.35) 10*3/uL Basophils # 0.03 (0.00-0.10) 10*3/uL Sodium 140 (137-145) mmol/L Potassium 3.5 (3.5-5.1) mmol/L Chloride 106 (98-107) mmol/L Carbon Dioxide 21 L (22-30) mmol/L Anion Gap 13 mmol/L BUN 13 (7-17) mg/dL Creatinine 0.97 (0.52-1.04) mg/dL Est GFR (CKD-EPI)AfAm >90 (>60 ml/min/1.73 sqM) Est GFR (CKD-EPI)NonAf 80 (>60 ml/min/1.73 sqM) Glucose 88 (74-99) mg/dL Plasma Lactic Acid Ulices 1.6 (0.7-2.0) mmol/L Calcium 9.1 (8.4-10.2) mg/dL Total Bilirubin 0.5 (0.2-1.3) mg/dL AST 23 (14-36) U/L ALT 12 (4-34) U/L Alkaline Phosphatase 145 H (38-126) U/L Total Protein 7.6 (6.3-8.2) g/dL Albumin 3.6 (3.5-5.0) g/dL Urine Color Urine Appearance (Clear) Urine pH (5.0-8.0) Ur Specific [place] (1.001-1.035) Urine Protein (Negative) Urine Glucose (UA) (Negative) Urine Ketones (Negative) Urine Blood (Negative) Urine Nitrite (Negative) Urine Bilirubin (Negative) Urine Urobilinogen (<2.0) mg/dL Ur Leukocyte Esterase (Negative) Urine RBC (0-5) /hpf Urine WBC (0-5) /hpf Ur Squamous Epith Cells (0-4) /hpf Urine Bacteria (None) /hpf Urine Mucus (None) /hpf Urine HCG, Qual (Not Detectd) 10/15/24 10/15/24 Range/Units 12:40 12:40 WBC (4.50-10.00) 10*3/uL RBC (4.10-5.20) 10*6/uL Hgb (12.0-15.0) g/dL Hct (37.2-46.3) % MCV (80.0-97.0) fL MCH (27.0-32.0) pg MCHC (32.0-37.0) g/dL Plt Count (140-440) 10*3/uL MPV (9.5-12.2) fL Immature Gran % (Auto) % Neutrophils % % Lymphocytes % % Monocytes % % Eosinophils % % Basophils % % Immature Gran # (0.00-0.04) 10*3/uL Neutrophils # (1.80-7.70) 10*3/uL Lymphocytes # (0.90-5.00) 10*3/uL Monocytes # (0.20-1.00) 10*3/uL Eosinophils # (0.04-0.35) 10*3/uL Basophils # (0.00-0.10) 10*3/uL Sodium (137-145) mmol/L Potassium (3.5-5.1) mmol/L Chloride (98-107) mmol/L Carbon Dioxide (22-30) mmol/L Anion Gap mmol/L BUN (7-17) mg/dL Creatinine (0.52-1.04) mg/dL Est GFR (CKD-EPI)AfAm (>60 ml/min/1.73 sqM) Est GFR (CKD-EPI)NonAf (>60 ml/min/1.73 sqM) Glucose (74-99) mg/dL Plasma Lactic Acid Ulices (0.7-2.0) mmol/L Calcium (8.4-10.2) mg/dL Total Bilirubin (0.2-1.3) mg/dL AST (14-36) U/L ALT (4-34) U/L Alkaline Phosphatase (38-126) U/L Total Protein (6.3-8.2) g/dL Albumin (3.5-5.0) g/dL Urine Color Yellow Urine Appearance Cloudy H (Clear) Urine pH 6.0 (5.0-8.0) Ur Specific [place] 1.021 (1.001-1.035) Urine Protein 1+ H (Negative) Urine Glucose (UA) Negative (Negative) Urine Ketones Negative (Negative) Urine Blood Large H (Negative) Urine Nitrite Negative (Negative) Urine Bilirubin Negative (Negative) Urine Urobilinogen 2.0 (<2.0) mg/dL Ur Leukocyte Esterase Large H (Negative) Urine RBC 12 H (0-5) /hpf Urine WBC >182 H (0-5) /hpf Ur Squamous Epith Cells 8 H (0-4) /hpf Urine Bacteria Many H (None) /hpf Urine Mucus Many H (None) /hpf Urine HCG, Qual Not Detected (Not Detectd) Disposition Clinical Impression: UTI (urinary tract infection), Pressure ulcer of buttock Disposition: ADMITTED IP TO THIS HOSP Condition: Stable Is patient prescribed a controlled substance at d/c from ED?: No
[2024-10-15 12:37] LABS: Basophils # (A) 0.03 10*3/uL (0.00-0.10); Basophils % (A) 0.2 %; Eosinophils # (A) 0.03 10*3/uL (0.04-0.35); Eosinophils % (A) 0.2 %; HCT 34.0 % (37.2-46.3); HGB 10.3 g/dL (12.0-15.0); Lymphocytes # (A) 2.07 10*3/uL (0.90-5.00); Lymphocytes % (A) 13.5 %; MCH 24.3 pg (27.0-32.0); MCHC 30.3 g/dL (32.0-37.0); MCV 80.4 fL (80.0-97.0); Monocytes # (A) 0.74 10*3/uL (0.20-1.00); Monocytes % (A) 4.8 %; Neutrophils # (A) 12.42 10*3/uL (1.80-7.70); Neutrophils % (A) 80.7 %; Platelet Count 631 10*3/uL (140-440); RBC 4.23 10*6/uL (4.10-5.20); RDW 17.2 % (11.5-14.5); WBC 15.39 10*3/uL (4.50-10.00)
[2024-10-15] MEDS: HYDROmorphone 0.5 MG/0.5 ML SYRINGE IVP STA (12:43)
[2024-10-15] MEDS: LACTATED RINGERS 1,000 ML IV ONE ×2 (12:44→14:13)
[2024-10-15 12:55] LABS: ALT 12 U/L (4-34); AST 23 U/L (14-36); African American GFR (CKD) >90 (>60 ml/min/1.73 sqM); Albumin 3.6 g/dL (3.5-5.0); Alkaline Phosphatase 145 U/L (38-126); Anion Gap 13 mmol/L; Blood Urea Nitrogen 13 mg/dL (7-17); Calcium 9.1 mg/dL (8.4-10.2); Carbon Dioxide 21 mmol/L (22-30); Chloride 106 mmol/L (98-107); Glucose 88 mg/dL (74-99); Non-African American GFR(CKD) 80 (>60 ml/min/1.73 sqM); Potassium 3.5 mmol/L (3.5-5.1); Sodium 140 mmol/L (137-145); Total Protein 7.6 g/dL (6.3-8.2)
[2024-10-15 13:06] LABS: Bacteria,Urine Many /hpf; Bilirubin,Urine Negative (Negative); Blood,Urine Large (Negative); Color,Urine Yellow; Glucose,Urine (UA) Negative (Negative); Ketones,Urine Negative (Negative); Leukocyte Esterase,Urine Large (Negative); Mucus,Urine Many /hpf; Nitrite,Urine Negative (Negative); PH, Urine 6.0 (5.0-8.0); Protein,Urine 1+ (Negative); RBC,Urine 12 /hpf (0-5); Specific Gravity,Urine 1.021 (1.001-1.035); Squamous Epithelial Cell,Urine 8 /hpf (0-4); Urobilinogen,Urine 2.0 mg/dL (<2.0); WBC,Urine >182 /hpf (0-5)
[2024-10-15] MEDS: diphenhydrAMINE 50 MG/ML 1 ML VIAL IVP STA ×2 (14:27→17:59)
[2024-10-15] MEDS ORDERED: VANCOMYCIN IV PER PHARMACY 1 EACH MISC MISCELLANE PRN (14:36)
[2024-10-15] MEDS: CEFEPIME 2 GM in SODIUM CHLORIDE 0.9% 100 ML IVPB STA (15:02)
[2024-10-15] MEDS ORDERED: NALOXONE 0.4 MG/ML 1 ML VIAL IV PRN (15:13)
[2024-10-15] MEDS ORDERED: HYDROmorphone 0.5 MG/0.5 ML SYRINGE IVP PRN (15:13)
[2024-10-15] MEDS: VANCOMYCIN 1,250 MG in SODIUM CHLORIDE 0.9% 250 ML IVPB ONE (15:51)
[2024-10-15] MEDS: HYDROmorphone 1 MG/ML 1 ML SYRINGE IVP PRN (18:02)
--- NOTE | 2024-10-15 22:39 | P.CONS ---
History of Present Illness - Reason for Consult Consult date: 10/15/24 Decub ulcer Requesting physician: Mitali Garcia - Chief Complaint Worsening wound to the right gluteal area x days - History of Present Illness Patient is a 28-year-old female with a past medical history significant for spina bifida hypertension DVT and has been dealing with a nonhealing wound/stage III right gluteal pressure ulcer status post surgical debridement on 08/22/2024 culture at that time were positive for MSSA and bacteroids species for the patient has completed course of antibiotic therapy subsequently readmitted to the hospital in August at that point the patient wound looks pretty clean and there was concern for possible UTI culture were negative and the patient was discharged on a course of oral Augmentin patient now presenting back to the hospital concerning for worsening wound to the right gluteal concern for increasing pain and foul-smelling drainage and recently completed course of clindamycin patient denies having any fever or chills however was complaining of some palpitation patient did have spina bifid and has denies significant pain to the area but more foul-smelling drainage for the time of wound VAC change reported by the family member on presentation the hospital she did have low-grade fever of 99.3 degrees for night patient was tachycardic but not hypotensive or hypoxic no need for supplemental oxygen she did have a white count of 15.39 creatinine 0.97 electrolytes are normal liver enzymes are normal urine has been positive patient received a dose of cefepime continue on vancomycin infectious disease was consulted for further management of antibiotic therapy Review of Systems Positive point and negatives has been mentioned in the HPI, complete review of systems was performed and all other systems are negative Past Medical History Past Medical History: Deep Vein Thrombosis (DVT), Hypertension, Musculoskeletal Disorder, Neurologic Disorder Additional Past Medical History / Comment(s): states has a bicuspid aortic valve, spinabifida, uses wheelchair, able to transfer, states hx (over 6 yrs ago) of "staph infection" that had I&D and a month of antibiotics IV, not sure if MRSA, DVT and pulmonary embolism History of Any Multi-Drug Resistant Organisms: None Reported Past Surgical History: Bariatric Surgery, Orthopedic Surgery Additional Past Surgical History / Comment(s): rt heel cord sx, shunt @ , replaced x2, 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, multiple leg surgeries Past Anesthesia/Blood Transfusion Reactions: No Reported Reaction Past Psychological History: No Psychological Hx Reported Smoking Status: Never smoker Past Alcohol Use History: None Reported Past Drug Use History: Marijuana - Past Family History Mother Family Medical History: No Reported History Medications and Allergies Home Medications Medication Instructions Recorded Confirmed Type Omeprazole Magnesium [PriLOSEC OTC] 20 mg PO HS 09/07/24 10/15/24 History Simethicone [Gas-X] 125 mg PO HS 09/07/24 10/15/24 History Allergies Allergy/AdvReac Type Severity Reaction Status Date / Time latex Allergy Rash/Hives Verified 10/15/24 14:57 morphine AdvReac "panic Verified 10/15/24 14:57 attack/paranoia" "cillins" AdvReac Mom & Uncoded 10/15/24 14:57 Sister severe allergy Physical Exam Vitals: Vital Signs Temp Pulse Resp BP Pulse Ox 10/15/24 15:08 83 18 154/96 98 10/15/24 13:26 98.1 F 95 18 132/92 100 10/15/24 12:41 108 H 18 135/94 100 10/15/24 11:44 99.3 F 128 H 18 154/116 100 Intake and Output 10/15/24 10/15/24 10/15/24 06:59 14:59 22:59 Other: Weight 65.771 kg GENERAL DESCRIPTION: Middle-age female lying in bed, no distress. No tachypnea or accessory muscle of respiration use. HEENT: Shows Pallor , no scleral icterus. Oral mucous membrane is dry. NECK: Trachea central, no thyromegaly. LUNGS: Unlabored breathing. Clear to auscultation anteriorly. No wheeze or crackle. HEART: S1, S2, regular rate and rhythm. No loud murmur ABDOMEN: Soft, no tenderness , guarding or rigidity, no organomegaly EXTREMITIES: No edema of feet. SKIN: Patient did have a stage IV right gluteal pressure ulcer with some slough tissue and foul-smelling drainage NEUROLOGICAL: The patient is awake, alert, oriented x3, mood and affect normal. Results CBC & Chem 7: 10/15/24 12:28 10/15/24 12:28 Labs: Abnormal Lab Results - Last 24 Hours (Table) 10/15/24 10/15/24 10/15/24 Range/Units 12:28 12:28 12:40 WBC 15.39 H (4.50-10.00) 10*3/uL Hgb 10.3 L (12.0-15.0) g/dL Hct 34.0 L (37.2-46.3) % MCH 24.3 L (27.0-32.0) pg MCHC 30.3 L (32.0-37.0) g/dL Plt Count 631 H (140-440) 10*3/uL MPV 9.1 L (9.5-12.2) fL Immature Gran # 0.10 H (0.00-0.04) 10*3/uL Neutrophils # 12.42 H (1.80-7.70) 10*3/uL Eosinophils # 0.03 L (0.04-0.35) 10*3/uL Carbon Dioxide 21 L (22-30) mmol/L Alkaline Phosphatase 145 H (38-126) U/L Urine Appearance Cloudy H (Clear) Urine Protein 1+ H (Negative) Urine Blood Large H (Negative) Ur Leukocyte Esterase Large H (Negative) Urine RBC 12 H (0-5) /hpf Urine WBC >182 H (0-5) /hpf Ur Squamous Epith Cells 8 H (0-4) /hpf Urine Bacteria Many H (None) /hpf Urine Mucus Many H (None) /hpf Assessment and Plan (1) Pressure ulcer of buttock Current Visit: Yes Status: Acute Code(s): L89.309 - PRESSURE ULCER OF UNSPECIFIED BUTTOCK, UNSPECIFIED STAGE SNOMED Code(s): 001201783 (2) Sepsis Current Visit: No Status: Acute Code(s): A41.9 - SEPSIS, UNSPECIFIED ORGANISM SNOMED Code(s): 85279931 Plan: 1patient presented to the hospital with sepsis in this patient who did have a tachycardia elevated white count and low-grade fever meeting currently for SIRS/sepsis source is right gluteal infected pressure ulcer in this patient has been dealing with this ulcer for the last 2 months and noticed to have recent worsening failing outpatient oral clindamycin therapy previous culture positive for MSSA strep and bacteroids 2-local culture-has been obtained that will guide further antibiotic therapy 3-for now local wound care with Medihoney followed by moist dressing change daily 4will empirically treat with the vancomycin pharmacy to dose and Unasyn while waiting for the culture to finalize We will follow on clinical condition and cultures to further adjust medication if needed Thank you for this consultation we will follow the patient along with you Dictation was produced using [employer] dictation software. please excuse any grammatical, word or spelling errors. Time with Patient: Greater than 30
[2024-10-15] MEDS: AMPICILLIN-SULBACTAM 3 GM in SODIUM CHLORIDE 0.9% 100 ML IVPB SCH (23:14)
[2024-10-15] MEDS: hydrOXYzine HCL 25 MG TAB PO PRN (23:20)
--- NOTE | 2024-10-16 00:29 | HP ---
HISTORY AND PHYSICAL HISTORY OF PRESENT ILLNESS: This is a 28-year-old female came in with chronic wounds. They are present for multiple months with previous ulcer with a wound VAC in place. The patient medicines 3 days ago documented fever, has been itching. HOME MEDICINES: Senokot 125 daily, Prozac 20 daily. ALLERGIES: Latex, morphine. REVIEW OF SYSTEMS: A 14-point review of systems otherwise negative. PAST MEDICAL HISTORY: DVT, hypertension, musculoskeletal disorder, neurologic disorder, bicuspid aortic valve, staph infection, pulmonary embolism. PAST SURGICAL HISTORY: Bariatric surgery, orthopedic surgery, gastrectomy, and multiple eye surgeries. SOCIAL HISTORY: Does not smoke or does not drink alcohol. PHYSICAL EXAMINATION: VITAL SIGNS: Temperature 99.3, pulse 95 to 128, respiratory rate 16 to 18. Blood pressure 130s to 150s over 90s to 116. HEENT: Normocephalic, atraumatic. Pupils equal, round, reactive. NEUROLOGIC: Cranial nerves intact. PSYCH: Fair mood and affect. HEMATOLOGY: Negative . LABORATORY DATA: White count 15.39. Sodium 140, potassium 3.5. 1.6. UTI, pressure ulcer buttocks. IV antibiotics. consult wound care, prognosis guarded. MMODL / IJN: [id number] /
[2024-10-16] MEDS: ZOLPIDEM 5 MG TAB PO PRN (00:51)
[2024-10-16] MEDS: VANCOMYCIN 1,250 MG in SODIUM CHLORIDE 0.9% 250 ML IVPB SCH (10:02)
--- NOTE | 2024-10-16 14:31 | P.PN ---
Subjective Progress Note Date: 10/16/24 Principal diagnosis: Reason for follow-up is a right gluteal infected pressure ulcer Patient is a 28-year-old female with a past medical history significant for spina bifida hypertension DVT and has been dealing with a nonhealing wound/stage III right gluteal pressure ulcer status post surgical debridement on 08/22/2024 culture at that time were positive for MSSA and bacteroids species for the patient has completed course of antibiotic therapy now presenting the hospital worsening right gluteal pressure ulcer and foul- smelling drainage. On today's evaluation that is 10/17/2023, patient did have a temperature of 97.5 F this morning and denies having any chills, patient is on room air and breathing comfortably no chest pain or cough, the patient did not have any nausea vomiting abdominal pain or any diarrhea. No new lab has been obtained today, cultures currently pending Objective - Vital Signs Vital signs: Vital Signs Temp 97.5 F L 10/16/24 07:50 Pulse 94 10/16/24 07:50 Resp 16 10/16/24 07:50 BP 152/92 10/16/24 07:50 Pulse Ox 100 10/16/24 07:50 FiO2 Intake & Output 10/15/24 10/16/24 10/16/24 18:59 06:59 18:59 Weight 65.771 kg 65.771 kg Other: Voiding Method Bedside Commode # Voids 1 - Exam Middle-age female lying in bed in no distress Unlabored breathing Wound is currently dressed Awake alert oriented x 3 - Labs CBC & Chem 7: 10/15/24 12:28 10/15/24 12:28 Labs: Microbiology - Last 24 Hours (Table) 10/15/24 16:20 Gram Stain - Preliminary Buttock Assessment and Plan (1) Pressure ulcer of buttock Current Visit: Yes Status: Acute Code(s): L89.309 - PRESSURE ULCER OF UNSPECIFIED BUTTOCK, UNSPECIFIED STAGE SNOMED Code(s): 724797093 (2) Sepsis Current Visit: No Status: Acute Code(s): A41.9 - SEPSIS, UNSPECIFIED ORGANISM SNOMED Code(s): 17825134 Plan: 1patient presented to the hospital with sepsis in this patient who did have a tachycardia elevated white count and low-grade fever meeting currently for SIRS/sepsis source is right gluteal infected pressure ulcer in this patient has been dealing with this ulcer for the last 2 months and noticed to have recent worsening failing outpatient oral clindamycin therapy previous culture positive for MSSA strep and bacteroids 2-local culture-has been obtained which are currently pending 3-local wound care with Medihoney followed by moist dressing change daily will b enefit from surgical evaluation possible debridement and deep culture 4patient to be treated with the vancomycin pharmacy to dose and Unasyn while waiting for the culture to finalize Will likely need PICC line and outpatient IV antibiotic therapy on discharge Dictation was produced using [employer] dictation software. please excuse any grammatical, word or spelling errors.
[2024-10-16] MEDS: SIMETHICONE 80 MG CHEWABLE PO SCH (20:25)
[2024-10-16] MEDS: PANTOPRAZOLE 40 MG TABLET PO SCH (20:25)
[2024-10-17 06:09] LABS: African American GFR (CKD) >90 (>60 ml/min/1.73 sqM); Non-African American GFR(CKD) >90 (>60 ml/min/1.73 sqM)
[2024-10-18] MEDS: VANCOMYCIN TROUGH DUE 1 EACH MISC MISCELLANE ONE (07:22)
[2024-10-18 09:14] LABS: Basophils # (A) 0.02 10*3/uL (0.00-0.10); Basophils % (A) 0.3 %; Eosinophils # (A) 0.19 10*3/uL (0.04-0.35); Eosinophils % (A) 3.1 %; HCT 28.2 % (37.2-46.3); Lymphocytes # (A) 2.13 10*3/uL (0.90-5.00); Lymphocytes % (A) 34.6 %; MCH 24.8 pg (27.0-32.0); MCHC 30.5 g/dL (32.0-37.0); MCV 81.3 fL (80.0-97.0); Monocytes # (A) 0.37 10*3/uL (0.20-1.00); Monocytes % (A) 6.0 %; Neutrophils # (A) 3.42 10*3/uL (1.80-7.70); Neutrophils % (A) 55.5 %; Platelet Count 492 10*3/uL (140-440); RBC 3.47 10*6/uL (4.10-5.20); RDW 17.2 % (11.5-14.5); WBC 6.16 10*3/uL (4.50-10.00)
[2024-10-18 09:29] LABS: African American GFR (CKD) >90 (>60 ml/min/1.73 sqM); Non-African American GFR(CKD) >90 (>60 ml/min/1.73 sqM)
[2024-10-18 09:31] LABS: HGB 8.6 g/dL (12.0-15.0)
[2024-10-18 09:34] LABS: ALT 9 U/L (4-34); AST 17 U/L (14-36); African American GFR (CKD) >90 (>60 ml/min/1.73 sqM); Albumin 2.4 g/dL (3.5-5.0); Albumin/Globulin Ratio 0.8; Alkaline Phosphatase 385 U/L (38-126); Anion Gap 8 mmol/L; Blood Urea Nitrogen 4 mg/dL (7-17); Calcium 8.5 mg/dL (8.4-10.2); Carbon Dioxide 26 mmol/L (22-30); Chloride 107 mmol/L (98-107); Globulin 3.1 g/dL; Glucose 73 mg/dL (74-99); Non-African American GFR(CKD) >90 (>60 ml/min/1.73 sqM); Potassium 3.8 mmol/L (3.5-5.1); Sodium 141 mmol/L (137-145); Total Protein 5.5 g/dL (6.3-8.2)
--- NOTE | 2024-10-18 11:15 | P.GSCN ---
History of Present Illness Consult date: 10/18/24 History of present illness: CHIEF COMPLAINT: Malodorous drainage from sacral decubitus ulcer HISTORY OF PRESENT ILLNESS: This is a 28-year-old female with a known history of spina bifida and a chronic decubitus ulcer. She had bedside debridement in July 2024. Patient returns to the ER with concerns of foul odor drainage from the sacral decubitus ulcer. Surgical service has been consulted for possible debridement. Patient seen by infectious disease and is receiving local wound care with [facility] and is on antibiotics. Patient denies any fever chills or sweats. Denies any increased pain. PAST MEDICAL HISTORY: See below PAST SURGICAL HISTORY: See below MEDICATIONS: See below ALLERGIES: See below SOCIAL HISTORY: No illicit drug use. REVIEW OF SYSTEMS: CONSTITUTIONAL: Denies fever or chills. HEENT: Denies blurred vision, vision changes, or eye pain. Denies hemoptysis CARDIOVASCULAR: Denies chest pain or pressure. RESPIRATORY: No shortness of breath. GASTROINTESTINAL: See HPI for pertinent findings HEMATOLOGIC: Denies bleeding disorders. GENITOURINARY: Denies any blood in urine or increased urinary frequency. SKIN: Denies pruitis. Denies rash. PHYSICAL EXAM: VITAL SIGNS: Reviewed GENERAL: Well-developed in no acute distress. HEENT: No sclera icterus. Extraocular movements grossly intact. Moist buccal mucosa. Head is atraumatic, normocephalic. No nasal drainage. ABDOMEN: Soft. Nondistended. Nontender NEUROLOGIC: Alert and oriented. Cranial nerves II through XII grossly intact. Skin: Stage IV right gluteal pressure ulcer that appears clean. There is some yellowish drainage from the Medihoney. No significant odor noted at this time. LABORATORY DATA: WBC 15.39 down to 6.16 Hgb 8.6 platelets 492 IMAGING: ASSESSMENT: 1. Right gluteal decubitus ulcer PLAN: - No plans for surgical debridement - Continue local wound care Physician [employer] note has been reviewed by physician. Signing provider agrees with the documented findings, assessment, and plan of care. Attestation Patient seen and examined at bedside. She is known to the service secondary to right gluteal decubitus ulcer. She has required debridement in the past. She was complaining of some foul odor from the site, however on evaluation there is appropriate granulation tissue with no evidence of necrotic tissue. The ulcer appears quite clean. At this point I would recommend continued local care with [facility]. Recommend wound care evaluation. No plan for surgical debridement at this time as the wound bed does appear with appropriate granulation tissue. Roque Betancourt, Past Medical History Past Medical History: Deep Vein Thrombosis (DVT), Hypertension, Musculoskeletal Disorder, Neurologic Disorder Additional Past Medical History / Comment(s): states has a bicuspid aortic valve, spinabifida, uses wheelchair, able to transfer, states hx (over 6 yrs ago) of "staph infection" that had I&D and a month of antibiotics IV, not sure if MRSA, DVT and pulmonary embolism History of Any Multi-Drug Resistant Organisms: None Reported Past Surgical History: Bariatric Surgery, Orthopedic Surgery Additional Past Surgical History / Comment(s): rt heel cord sx, shunt @ , replaced x2, 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, multiple leg surgeries Past Anesthesia/Blood Transfusion Reactions: No Reported Reaction Past Psychological History: No Psychological Hx Reported Smoking Status: Never smoker Past Alcohol Use History: None Reported Past Drug Use History: Marijuana - Past Family History Mother Family Medical History: No Reported History Medications and Allergies Home Medications Medication Instructions Recorded Confirmed Type Omeprazole Magnesium [PriLOSEC OTC] 20 mg PO HS 09/07/24 10/15/24 History Simethicone [Gas-X] 125 mg PO HS 09/07/24 10/15/24 History Allergies Allergy/AdvReac Type Severity Reaction Status Date / Time latex Allergy Rash/Hives Verified 10/15/24 14:57 morphine AdvReac "panic Verified 10/15/24 14:57 attack/paranoia" "cillins" AdvReac Mom & Uncoded 10/15/24 14:57 Sister severe allergy Surgical - Exam Osteopathic Statement: *. No significant issues noted on an osteopathic structural exam other than those noted in the History and Physical/Consult. Vital Signs Temp Pulse Resp BP Pulse Ox 99.3 F 128 H 18 154/116 100 10/15/24 11:44 10/15/24 11:44 10/15/24 11:44 10/15/24 11:44 10/15/24 11:44 Results - Labs 10/18/24 08:58 10/18/24 08:58 Abnormal Lab Results - Last 24 Hours (Table) 10/18/24 10/18/24 Range/Units 08:58 08:58 RBC 3.47 L (4.10-5.20) 10*6/uL Hgb 8.6 L D (12.0-15.0) g/dL Hct 28.2 L (37.2-46.3) % MCH 24.8 L (27.0-32.0) pg MCHC 30.5 L (32.0-37.0) g/dL RDW 17.2 H (11.5-14.5) % Plt Count 492 H (140-440) 10*3/uL MPV 9.2 L (9.5-12.2) fL BUN 4 L (7-17) mg/dL Glucose 73 L (74-99) mg/dL Alkaline Phosphatase 385 H (38-126) U/L C-Reactive Protein 15.2 H (<1.0) mg/dL Total Protein 5.5 L (6.3-8.2) g/dL Albumin 2.4 L (3.5-5.0) g/dL Microbiology - Last 24 Hours (Table) 10/15/24 16:20 Anaerobic Culture - Preliminary Buttock Bacteroides thetaiotaomicron Prevotella disiens Atopobium species 10/15/24 12:40 Urine Culture - Final Urine,Voided Klebsiella pneumoniae 10/15/24 16:20 Gram Stain - Preliminary Buttock Wound Culture - Preliminary Staphylococcus aureus Enterococcus faecalis Streptococcus anginosus Beta Hemolytic Streptococcus F 10/15/24 14:20 Blood Culture - Preliminary Blood Diabetes panel 10/18/24 10/18/24 Range/Units 08:58 08:58 Sodium 141 (137-145) mmol/L Potassium 3.8 (3.5-5.1) mmol/L Chloride 107 (98-107) mmol/L Carbon Dioxide 26 (22-30) mmol/L BUN 4 L (7-17) mg/dL Creatinine 0.79 0.73 (0.52-1.04) mg/dL Glucose 73 L (74-99) mg/dL Calcium 8.5 (8.4-10.2) mg/dL AST 17 (14-36) U/L ALT 9 (4-34) U/L Alkaline Phosphatase 385 H (38-126) U/L Total Protein 5.5 L (6.3-8.2) g/dL Albumin 2.4 L (3.5-5.0) g/dL Calcium panel 10/18/24 Range/Units 08:58 Calcium 8.5 (8.4-10.2) mg/dL Albumin 2.4 L (3.5-5.0) g/dL Pituitary panel 10/18/24 10/18/24 Range/Units 08:58 08:58 Sodium 141 (137-145) mmol/L Potassium 3.8 (3.5-5.1) mmol/L Chloride 107 (98-107) mmol/L Carbon Dioxide 26 (22-30) mmol/L BUN 4 L (7-17) mg/dL Creatinine 0.79 0.73 (0.52-1.04) mg/dL Glucose 73 L (74-99) mg/dL Calcium 8.5 (8.4-10.2) mg/dL Adrenal panel 10/18/24 10/18/24 Range/Units 08:58 08:58 Sodium 141 (137-145) mmol/L Potassium 3.8 (3.5-5.1) mmol/L Chloride 107 (98-107) mmol/L Carbon Dioxide 26 (22-30) mmol/L BUN 4 L (7-17) mg/dL Creatinine 0.79 0.73 (0.52-1.04) mg/dL Glucose 73 L (74-99) mg/dL Calcium 8.5 (8.4-10.2) mg/dL Total Bilirubin 0.3 (0.2-1.3) mg/dL AST 17 (14-36) U/L ALT 9 (4-34) U/L Alkaline Phosphatase 385 H (38-126) U/L Total Protein 5.5 L (6.3-8.2) g/dL Albumin 2.4 L (3.5-5.0) g/dL
--- NOTE | 2024-10-18 12:51 | P.PN ---
Subjective Progress Note Date: 10/17/24 Principal diagnosis: Reason for follow-up is a right gluteal infected pressure ulcer Patient is a 28-year-old female with a past medical history significant for spina bifida hypertension DVT and has been dealing with a nonhealing wound/stage III right gluteal pressure ulcer status post surgical debridement on 08/22/2024 culture at that time were positive for MSSA and bacteroids species for the patient has completed course of antibiotic therapy now presenting the hospital worsening right gluteal pressure ulcer and foul- smelling drainage. On today's evaluation that is 10/17/2024, Patient is afebrile patient is currently on room air and denies having any shortness of breath, the patient denies any chest pain or cough, the patient denies any nausea vomiting did not have any abdominal pain and no diarrhea. Did have a creatinine 0.81 local culture currently growing Enterococcus and Staph aureus urine is growing gram-negative Objective - Vital Signs Vital signs: Vital Signs Temp 97.7 F 10/17/24 07:05 Pulse 77 10/17/24 07:05 Resp 16 10/17/24 07:05 BP 113/69 10/17/24 07:05 Pulse Ox 100 10/17/24 07:05 FiO2 Intake & Output 10/16/24 10/17/24 10/17/24 18:59 06:59 18:59 Intake Total 1090 400 Balance 1090 400 Intake: Intake, IV Titration 450 Amount Ampicillin-Sulbactam 3 gm 200 In Sodium Chloride 0.9% 100 ml @ 200 mls/hr IVPB Q6HR [facility] Rx#:[id number] Vancomycin 1,250 mg In 250 Sodium Chloride 0.9% 250 ml @ 125 mls/hr IVPB Q24HR@1000 [facility] Rx#: [id number] Oral 640 400 Other: Voiding Method Bedside Commode Bedside Commode Diaper # Voids 3 # Bowel Movements 1 - Exam Middle-age female lying in bed in no distress Unlabored breathing Wound is currently dressed Awake alert oriented x 3 - Labs CBC & Chem 7: 10/15/24 12:28 10/17/24 05:03 Labs: Microbiology - Last 24 Hours (Table) 10/15/24 12:40 Urine Culture - Preliminary Urine,Voided Gram Neg Bacilli 10/15/24 14:20 Blood Culture - Preliminary Blood 10/15/24 16:20 Gram Stain - Preliminary Buttock Wound Culture - Preliminary Presumptive Staph aureus Enterococcus faecalis Assessment and Plan (1) Pressure ulcer of buttock Current Visit: Yes Status: Acute Code(s): L89.309 - PRESSURE ULCER OF UNSPECIFIED BUTTOCK, UNSPECIFIED STAGE SNOMED Code(s): 938271444 (2) Sepsis Current Visit: No Status: Acute Code(s): A41.9 - SEPSIS, UNSPECIFIED ORGANISM SNOMED Code(s): 02788927 Plan: 1patient presented to the hospital with sepsis in this patient who did have a tachycardia elevated white count and low-grade fever meeting currently for SIRS/sepsis source is right gluteal infected pressure ulcer in this patient has been dealing with this ulcer for the last 2 months and noticed to have recent worsening failing outpatient oral clindamycin therapy previous culture positive for MSSA strep and bacteroids 2-local culture-has been obtained which are currently growing Staph aureus and Enterococcus with sensitivities pending urine is growing gram-negative 3-local wound care with Medihoney followed by moist dressing change daily will benefit from surgical evaluation possible debridement and deep culture and wound care evaluation for possible reapplication of the wound VAC 4patient currently being treated with the vancomycin pharmacy to dose and Unasyn while waiting for the culture to finalize Question concern answered Dictation was produced using [employer] dictation software. please excuse any grammatical, word or spelling errors.
[2024-10-18 17:55] VITALS: BMI 29.2
--- NOTE | 2024-10-18 22:21 | P.PN ---
Subjective Progress Note Date: 10/18/24 Principal diagnosis: Reason for follow-up is a right gluteal infected pressure ulcer Patient is a 28-year-old female with a past medical history significant for spina bifida hypertension DVT and has been dealing with a nonhealing wound/stage III right gluteal pressure ulcer status post surgical debridement on 08/22/2024 culture at that time were positive for MSSA and bacteroids species for the patient has completed course of antibiotic therapy now presenting the hospital worsening right gluteal pressure ulcer and foul- smelling drainage. On today's evaluation that is 10/18/2024, patient has been afebrile, patient is breathing comfortably and is currently on room air, patient denies having any chest pain and cough, patient denies nausea vomiting or diarrhea and no abdominal pain, denies any worsening pain to the right gluteal wound area. Patient white count normalized to 6.16 creatinine 0.73 local culture with MSSA Enterococcus and Streptococcus and anaerobes urine with Klebsiella Objective - Vital Signs Vital signs: Vital Signs Temp 98.6 F 10/18/24 07:15 Pulse 79 10/18/24 10:39 Resp 18 10/18/24 10:39 BP 130/74 10/18/24 07:15 Pulse Ox 99 10/18/24 07:15 FiO2 Intake & Output 10/17/24 10/18/24 10/18/24 18:59 06:59 18:59 Intake Total 400 200 Output Total 1999 1999 Balance -1600 -1800 Intake: Oral 400 200 Output: Urine 1999 1999 Other: Voiding Method Bedside Commode Bedside Commode Bedside Commode Diaper Diaper Diaper # Voids 1 1 # Bowel Movements 1 - Labs CBC & Chem 7: 10/18/24 08:58 10/18/24 08:58 Labs: Abnormal Lab Results - Last 24 Hours (Table) 10/18/24 10/18/24 Range/Units 08:58 08:58 RBC 3.47 L (4.10-5.20) 10*6/uL Hgb 8.6 L D (12.0-15.0) g/dL Hct 28.2 L (37.2-46.3) % MCH 24.8 L (27.0-32.0) pg MCHC 30.5 L (32.0-37.0) g/dL RDW 17.2 H (11.5-14.5) % Plt Count 492 H (140-440) 10*3/uL MPV 9.2 L (9.5-12.2) fL BUN 4 L (7-17) mg/dL Glucose 73 L (74-99) mg/dL Alkaline Phosphatase 385 H (38-126) U/L C-Reactive Protein 15.2 H (<1.0) mg/dL Total Protein 5.5 L (6.3-8.2) g/dL Albumin 2.4 L (3.5-5.0) g/dL Microbiology - Last 24 Hours (Table) 10/15/24 16:20 Anaerobic Culture - Preliminary Buttock Bacteroides thetaiotaomicron Prevotella disiens Atopobium species 10/15/24 12:40 Urine Culture - Final Urine,Voided Klebsiella pneumoniae 10/15/24 16:20 Gram Stain - Preliminary Buttock Wound Culture - Preliminary Staphylococcus aureus Enterococcus faecalis Streptococcus anginosus Beta Hemolytic Streptococcus F 10/15/24 14:20 Blood Culture - Preliminary Blood Assessment and Plan (1) Pressure ulcer of buttock Current Visit: Yes Status: Acute Code(s): L89.309 - PRESSURE ULCER OF UNSPECIFIED BUTTOCK, UNSPECIFIED STAGE SNOMED Code(s): 820456127 (2) Sepsis Current Visit: No Status: Acute Code(s): A41.9 - SEPSIS, UNSPECIFIED ORGANISM SNOMED Code(s): 07298022 Plan: 1patient presented to the hospital with sepsis in this patient who did have a t achycardia elevated white count and low-grade fever meeting currently for SIRS/sepsis source is right gluteal infected pressure ulcer in this patient has been dealing with this ulcer for the last 2 months and noticed to have recent worsening failing outpatient oral clindamycin therapy previous culture positive for MSSA strep and bacteroids 2-local culture-has been obtained which are currently growing Staph aureus and Enterococcus urine is growing Klebsiella 3-local wound care with Medihoney followed by moist dressing change daily 4patient antibiotics adjusted with continuation of Unasyn and discontinue vancomycin as no MRSA will likely need a PICC line for outpatient IV antibiotics Dictation was produced using [employer] dictation software. please excuse any grammatical, word or spelling errors. Time with Patient: Less than 30
--- NOTE | 2024-10-19 00:54 | PN ---
PROGRESS NOTE SUBJECTIVE: A 28-year-old white female, decubitus ulcer . Wait for cultures to come back and IV antibiotics per Dr. Alas. OBJECTIVE: CARDIOVASCULAR: S1, S2. SKIN: Wounds appear to be healing. NEUROLOGIC: Cranial nerves intact. PSYCH: Fair mood and affect. PLAN: Continue current treatment. Decubitus ulcer cultures wound VAC. Prognosis is guarded. Ambulate as tolerated. Please see further orders. MMODL / IJN: [id number] /
--- NOTE | 2024-10-19 01:30 | PN ---
PROGRESS NOTE SUBJECTIVE: This is a 28-year-old white female came with abdominal pain, GERD, gastritis, inflammation of the stomach. Overall feeling better. Hemoglobin is 10.6, white count 6.16, 73. She has really bad breathing. She is noncompliance with outpatient medicines. Creatinine is 0.73 with a BUN of 4, glucose is 73. Sugars are 385 . Prognosis is guarded. Ambulate as tolerated. PT, OT, possibly go home tomorrow if she is tolerating diet better. Check lipase only. MMODL / IJN: [id number] /
[2024-10-19 04:52] LABS: African American GFR (CKD) >90 (>60 ml/min/1.73 sqM); Non-African American GFR(CKD) >90 (>60 ml/min/1.73 sqM)
--- NOTE | 2024-10-19 11:49 | P.PN ---
Subjective Progress Note Date: 10/19/24 SURGICAL PROGRESS NOTE CHIEF COMPLAINT: Sacral decubitus ulcer HISTORY OF PRESENT ILLNESS: Patient receiving local wound care and antibiotics for sacral decubitus ulcer. Afebrile. WBC 6.16 PHYSICAL EXAM: VITAL SIGNS: Reviewed. GENERAL: Well-developed in no acute distress. ASSESSMENT: 1. Right gluteal decubitus ulcer PLAN: - No plans for surgical debridement - Continue local wound care and antibiotics per ID service Physician Principal Law Clerk note has been reviewed by physician. Signing provider agrees with the documented findings, assessment, and plan of care. Objective - Vital Signs Vital signs: Vital Signs Temp 98.4 F 10/19/24 09:03 Pulse 68 10/19/24 09:03 Resp 16 10/19/24 09:03 BP 146/83 10/19/24 09:03 Pulse Ox 98 10/19/24 09:03 FiO2 Intake & Output 10/18/24 10/19/24 10/19/24 18:59 06:59 18:59 Intake Total 350 Output Total 2800 400 Balance -2450 -400 Weight 65.771 kg Intake: Oral 350 Output: Urine 2800 400 Other: Voiding Method Bedside Commode Bedside Commode Bedside Commode Diaper Diaper Diaper # Voids 1 # Bowel Movements 1 - Labs CBC & Chem 7: 10/18/24 08:58 10/19/24 02:40 Labs: Abnormal Lab Results - Last 24 Hours (Table) 10/18/24 Range/Units 08:58 ESR 76 H (0-20) mm/Hr Microbiology - Last 24 Hours (Table) 10/15/24 14:20 Blood Culture - Preliminary Blood 10/15/24 16:20 Gram Stain - Final Buttock Wound Culture - Final Staphylococcus aureus Enterococcus faecalis Streptococcus anginosus Beta Hemolytic Streptococcus F 10/15/24 16:20 Anaerobic Culture - Final Buttock Bacteroides thetaiotaomicron Prevotella disiens Atopobium species
--- NOTE | 2024-10-19 15:12 | P.PN ---
Subjective Progress Note Date: 10/19/24 Principal diagnosis: Reason for follow-up is a right gluteal infected pressure ulcer Patient is a 28-year-old female with a past medical history significant for spina bifida hypertension DVT and has been dealing with a nonhealing wound/stage III right gluteal pressure ulcer status post surgical debridement on 08/22/2024 culture at that time were positive for MSSA and bacteroids species for the patient has completed course of antibiotic therapy now presenting the hospital worsening right gluteal pressure ulcer and foul- smelling drainage. On today's evaluation that is 10/19/2024, Patient is afebrile this morning patient denies having any chest pain shortness of breath or cough, the patient is currently on room air, patient denies any abdominal pain no diarrhea no nausea no vomiting. Patient did have a creatinine 0.78 white count normalized yesterday Objective - Vital Signs Vital signs: Vital Signs Temp 98.0 F 10/19/24 13:40 Pulse 74 10/19/24 13:40 Resp 18 10/19/24 13:40 BP 148/85 10/19/24 13:40 Pulse Ox 100 10/19/24 13:40 FiO2 Intake & Output 10/18/24 10/19/24 10/19/24 18:59 06:59 18:59 Intake Total 350 Output Total 2800 400 Balance -2450 -400 Weight 65.771 kg Intake: Oral 350 Output: Urine 2800 400 Other: Voiding Method Bedside Commode Bedside Commode Bedside Commode Diaper Diaper Diaper # Voids 1 2 # Bowel Movements 1 - Exam Middle-age female lying in bed in no distress Unlabored breathing Wound is currently dressed Awake alert oriented x 3 - Labs CBC & Chem 7: 10/18/24 08:58 10/19/24 02:40 Labs: Abnormal Lab Results - Last 24 Hours (Table) 10/18/24 Range/Units 08:58 ESR 76 H (0-20) mm/Hr Microbiology - Last 24 Hours (Table) 10/15/24 14:20 Blood Culture - Preliminary Blood 10/15/24 16:20 Gram Stain - Final Buttock Wound Culture - Final Staphylococcus aureus Enterococcus faecalis Streptococcus anginosus Beta Hemolytic Streptococcus F 10/15/24 16:20 Anaerobic Culture - Final Buttock Bacteroides thetaiotaomicron Prevotella disiens Atopobium species Assessment and Plan (1) Pressure ulcer of buttock Current Visit: Yes Status: Acute Code(s): L89.309 - PRESSURE ULCER OF UNSPECIFIED BUTTOCK, UNSPECIFIED STAGE SNOMED Code(s): 065121929 (2) Sepsis Current Visit: No Status: Acute Code(s): A41.9 - SEPSIS, UNSPECIFIED ORGANISM SNOMED Code(s): 19121371 Plan: 1patient presented to the hospital with sepsis in this patient who did have a tachycardia elevated white count and low-grade fever meeting currently for SIRS/sepsis source is right gluteal infected pressure ulcer in this patient has been dealing with this ulcer for the last 2 months and noticed to have recent worsening failing outpatient oral clindamycin therapy previous culture positive for MSSA strep and bacteroids 2-local culture-has been obtained which are currently growing Staph aureus and Enterococcus urine is growing Klebsiella 3-local wound care with Medihoney followed by moist dressing change daily 4patient currently being treated with Unasyn will order PICC line for outpatient IV antibiotics Dictation was produced using [employer] dictation software. please excuse any grammatical, word or spelling errors. Time with Patient: Less than 30
[2024-10-20 10:42] LABS: Basophils # (A) 0.03 X 10*3/uL (0.00-0.10); Basophils % (A) 0.3 %; Eosinophils # (A) 0.26 X 10*3/uL (0.04-0.35); Eosinophils % (A) 2.9 %; HCT 29.1 % (37.2-46.3); HGB 8.5 g/dL (12.0-15.0); Immature Grans, Automated 0.70 %; Lymphocytes # (A) 3.49 X 10*3/uL (0.90-5.00); Lymphocytes % (A) 39.0 %; MCH 23.9 pg (27.0-32.0); MCHC 29.2 g/dL (32.0-37.0); MCV 82.0 FL (80.0-97.0); Monocytes # (A) 0.38 X 10*3/uL (0.20-1.00); Monocytes % (A) 4.3 %; NRBC Per 100 WBC 0 X 10*3/uL (0.00-0.01); Neutrophils # (A) 4.72 X 10*3/uL (1.80-7.70); Neutrophils % (A) 52.8 %; Platelet Count 654 X 10*3/uL (140-440); RBC 3.55 X 10*6/uL (4.10-5.20); RDW 17.2 % (11.5-14.5); WBC 8.94 X 10*3/uL (4.50-10.00)
[2024-10-20 11:03] LABS: ALT 9 U/L (8-44); AST 11 U/L (13-35); Albumin 2.7 g/dL (3.8-4.9); Albumin/Globulin Ratio 0.96 Ratio (1.60-3.17); Alkaline Phosphatase 273 U/L (41-126); Anion Gap 9.80 mmol/L (4.00-12.00); BUN/Creat Ratio 5.78 Ratio (12.00-20.00); Blood Urea Nitrogen 5.2 mg/dL (9.0-27.0); Calcium 8.2 mg/dL (8.7-10.3); Carbon Dioxide 25.2 mmol/L (21.6-31.8); Chloride 106 mmol/L (96-109); Globulin 2.8 g/dL (1.6-3.3); Glucose 87 mg/dL (70-110); Potassium 3.3 mmol/L (3.5-5.5); Sodium 141 mmol/L (135-145); Total Protein 5.5 g/dL (6.2-8.2)
--- NOTE | 2024-10-20 16:52 | PN ---
PROGRESS NOTE SUBJECTIVE: She is on Protonix for GERD, Dilaudid for pain and itching, Unasyn for chronic infection. Waiting for Dr. Alas's recommendations to the patient prior to discharge. OBJECTIVE: VITAL SIGNS: Temperature 98, blood pressure 140-160s/90s-100s, O2 is 98-100, pulse 74- 84. CARDIOVASCULAR: S1, S2. LUNGS: Transmitted upper airway sounds. GI: Soft. HEMATOLOGY: Negative Homans. PSYCH: Fair mood and affect. ASSESSMENT AND PLAN: Seen by Infectious Disease. She has a history of spina bifida, hypertension, DVT, stage III wound on right gluteal ulcer, nausea and vomiting. Hemoglobin is 8.6. Pressure ulcer on the buttocks, sepsis, tachycardia, elevated white count, low-grade fever, gluteal infected pressure ulcer for 2 months. She failed outpatient clindamycin. She is positive for MRSA and Klebsiella. Adalberto Hook. PICC line for IV antibiotics and she will go home. Prognosis guarded. MMODL / IJN: [id number] /
--- NOTE | 2024-10-21 01:13 | PN ---
PROGRESS NOTE SUBJECTIVE: A white female, who has a PICC line in. She is going to get IV antibiotics at home per Dr. Alas for sacral ulcer after cultures have come back. She is on Protonix for GERD, IV antibiotics for septic decubitus ulcers. OBJECTIVE: CARDIOVASCULAR: S1, S2. LUNGS: Clear. GI: Soft. ASSESSMENT AND PLAN: PICC line has been placed. Dr. Alas diagnosed pressure ulcer on the buttocks, sepsis, right gluteal infection, pressure over the gluteal region for the last 2 months. Continue antibiotics, await for cultures. Possible discharge home with a PICC line, antibiotics. MMODL / IJN: [id number] /
[2024-10-21 07:58] LABS: Basophils # (A) 0.03 X 10*3/uL (0.00-0.10); Basophils % (A) 0.3 %; Eosinophils # (A) 0.20 X 10*3/uL (0.04-0.35); Eosinophils % (A) 2.2 %; HCT 27.6 % (37.2-46.3); HGB 8.1 g/dL (12.0-15.0); Immature Grans, Automated 0.40 %; Lymphocytes # (A) 2.99 X 10*3/uL (0.90-5.00); Lymphocytes % (A) 33.6 %; MCH 24.3 pg (27.0-32.0); MCHC 29.3 g/dL (32.0-37.0); MCV 82.6 FL (80.0-97.0); Monocytes # (A) 0.38 X 10*3/uL (0.20-1.00); Monocytes % (A) 4.3 %; NRBC Per 100 WBC 0 X 10*3/uL (0.00-0.01); Neutrophils # (A) 5.27 X 10*3/uL (1.80-7.70); Neutrophils % (A) 59.2 %; Platelet Count 556 X 10*3/uL (140-440); RBC 3.34 X 10*6/uL (4.10-5.20); RDW 17.4 % (11.5-14.5); WBC 8.91 X 10*3/uL (4.50-10.00)
[2024-10-21 08:04] LABS: Anion Gap 8.20 mmol/L (4.00-12.00); BUN/Creat Ratio 6.38 Ratio (12.00-20.00); Blood Urea Nitrogen 5.1 mg/dL (9.0-27.0); Carbon Dioxide 25.8 mmol/L (21.6-31.8); Chloride 108 mmol/L (96-109); Glucose 77 mg/dL (70-110); Potassium 3.2 mmol/L (3.5-5.5); Sodium 142 mmol/L (135-145)
[2024-10-21 08:05] LABS: ALT 8 U/L (8-44); AST 11 U/L (13-35); Albumin 2.6 g/dL (3.8-4.9); Albumin/Globulin Ratio 1.00 Ratio (1.60-3.17); Alkaline Phosphatase 229 U/L (41-126); Calcium 8.1 mg/dL (8.7-10.3); Globulin 2.6 g/dL (1.6-3.3); Total Protein 5.2 g/dL (6.2-8.2)
[2024-10-21] MEDS: POTASSIUM CHLORIDE ER 20 MEQ TAB.ER PO STA (10:16)
--- NOTE | 2024-10-21 14:30 | P.PN ---
Subjective Progress Note Date: 10/20/24 Principal diagnosis: Reason for follow-up is a right gluteal infected pressure ulcer Patient is a 28-year-old female with a past medical history significant for spina bifida hypertension DVT and has been dealing with a nonhealing wound/stage III right gluteal pressure ulcer status post surgical debridement on 08/22/2024 culture at that time were positive for MSSA and bacteroids species for the patient has completed course of antibiotic therapy now presenting the hospital worsening right gluteal pressure ulcer and foul- smelling drainage. On today's evaluation that is 10/20/2024,the patient denies any fever or any chills, patient is breathing comfortably on room air, the patient denies chest pain shortness of breath and no significant cough, patient denies abdominal pain, no nausea vomiting or diarrhea. Patient white count is 8.94, creatinine 0.9 Objective - Vital Signs Vital signs: Vital Signs Temp 97.7 F 10/20/24 07:26 Pulse 99 10/20/24 07:26 Resp 16 10/20/24 07:26 BP 144/77 10/20/24 07:26 Pulse Ox 99 10/20/24 07:26 FiO2 Intake & Output 10/19/24 10/20/24 10/20/24 18:59 06:59 18:59 Other: Voiding Method Bedside Commode Bedside Commode Diaper Diaper # Voids 1 2 - Exam Middle-age female lying in bed in no distress Unlabored breathing Wound is currently dressed Awake alert oriented x 3 - Labs CBC & Chem 7: 10/21/24 04:19 10/21/24 04:19 Labs: Abnormal Lab Results - Last 24 Hours (Table) 10/20/24 10/20/24 Range/Units 06:25 06:25 RBC 3.55 L (4.10-5.20) X 10*6/uL Hgb 8.5 L (12.0-15.0) g/dL Hct 29.1 L (37.2-46.3) % MCH 23.9 L (27.0-32.0) pg MCHC 29.2 L (32.0-37.0) g/dL RDW 17.2 H (11.5-14.5) % Plt Count 654 H (140-440) X 10*3/uL MPV 9.3 L (9.5-12.2) FL Immature Gran # 0.06 H (0.00-0.04) X 10*3/uL Potassium 3.3 L (3.5-5.5) mmol/L BUN 5.2 L (9.0-27.0) mg/dL BUN/Creatinine Ratio 5.78 L (12.00-20.00) Ratio Calcium 8.2 L (8.7-10.3) mg/dL Total Bilirubin <0.2 L (0.3-1.2) mg/dL AST 11 L (13-35) U/L Alkaline Phosphatase 273 H (41-126) U/L Total Protein 5.5 L (6.2-8.2) g/dL Albumin 2.7 L (3.8-4.9) g/dL Albumin/Globulin Ratio 0.96 L (1.60-3.17) Ratio Assessment and Plan (1) Pressure ulcer of buttock Current Visit: Yes Status: Acute Code(s): L89.309 - PRESSURE ULCER OF UNSPECIFIED BUTTOCK, UNSPECIFIED STAGE SNOMED Code(s): 769708719 (2) Sepsis Current Visit: No Status: Acute Code(s): A41.9 - SEPSIS, UNSPECIFIED ORGANISM SNOMED Code(s): 50303954 Plan: 1patient presented to the hospital with sepsis in this patient who did have a tachycardia elevated white count and low-grade fever meeting currently for SIRS/sepsis source is right gluteal infected pressure ulcer in this patient has been dealing with this ulcer for the last 2 months and noticed to have recent worsening failing outpatient oral clindamycin therapy previous culture positive for MSSA strep and bacteroids 2-local culture-has been obtained which are currently growing Staph aureus and Enterococcus urine is growing Klebsiella 3-local wound care with Medihoney followed by moist dressing change daily however plan is for wound VAC application on discharge home/care home 4patient did have a PICC line placed plan is for 6-week course of IV Unasyn 3 g every 6 hours Dictation was produced using [employer] dictation software. please excuse any grammatical, word or spelling errors. Time with Patient: Less than 30
--- NOTE | 2024-10-21 14:31 | P.PN ---
Subjective Progress Note Date: 10/21/24 Principal diagnosis: Reason for follow-up is a right gluteal infected pressure ulcer Patient is a 28-year-old female with a past medical history significant for spina bifida hypertension DVT and has been dealing with a nonhealing wound/stage III right gluteal pressure ulcer status post surgical debridement on 08/22/2024 culture at that time were positive for MSSA and bacteroids species for the patient has completed course of antibiotic therapy now presenting the hospital worsening right gluteal pressure ulcer and foul- smelling drainage. On today's evaluation that is 10/21/2024,the patient remains to be afebrile, patient is on room air not requiring supplemental oxygen and mentioned breathing comfortably with no chest pain or cough.Patient denies having any nausea or vomiting, no abdominal pain and no diarrhea has been reported. The patient white count of 8.91, creatinine 0.8 local culture with bacteroids Prevotella MSSA Enterococcus faecalis and strep Objective - Vital Signs Vital signs: Vital Signs Temp 97.9 F 10/21/24 14:00 Pulse 86 10/21/24 14:00 Resp 16 10/21/24 14:00 BP 169/104 10/21/24 14:00 Pulse Ox 100 10/21/24 14:00 FiO2 Intake & Output 10/20/24 10/21/24 10/21/24 18:59 06:59 18:59 Other: Voiding Method Bedside Commode Bedside Commode Diaper Diaper # Voids 6 4 - Exam Middle-age female lying in bed in no distress Unlabored breathing clear to auscultation Abdomen soft no tenderness Wound is currently dressed Awake alert oriented x 3 - Labs CBC & Chem 7: 10/21/24 04:19 10/21/24 04:19 Labs: Abnormal Lab Results - Last 24 Hours (Table) 10/21/24 10/21/24 Range/Units 04:19 04:19 RBC 3.34 L (4.10-5.20) X 10*6/uL Hgb 8.1 L (12.0-15.0) g/dL Hct 27.6 L (37.2-46.3) % MCH 24.3 L (27.0-32.0) pg MCHC 29.3 L (32.0-37.0) g/dL RDW 17.4 H (11.5-14.5) % Plt Count 556 H (140-440) X 10*3/uL Potassium 3.2 L (3.5-5.5) mmol/L BUN 5.1 L (9.0-27.0) mg/dL BUN/Creatinine Ratio 6.38 L (12.00-20.00) Ratio Calcium 8.1 L (8.7-10.3) mg/dL Total Bilirubin <0.2 L (0.3-1.2) mg/dL AST 11 L (13-35) U/L Alkaline Phosphatase 229 H (41-126) U/L Total Protein 5.2 L (6.2-8.2) g/dL Albumin 2.6 L (3.8-4.9) g/dL Albumin/Globulin Ratio 1.00 L (1.60-3.17) Ratio Microbiology - Last 24 Hours (Table) 10/15/24 14:20 Blood Culture - Final Blood Assessment and Plan (1) Pressure ulcer of buttock Current Visit: Yes Status: Acute Code(s): L89.309 - PRESSURE ULCER OF UNSPECIFIED BUTTOCK, UNSPECIFIED STAGE SNOMED Code(s): 241694321 (2) Sepsis Current Visit: No Status: Acute Code(s): A41.9 - SEPSIS, UNSPECIFIED ORGANISM SNOMED Code(s): 83749667 Plan: 1patient presented to the hospital with sepsis in this patient who did have a tachycardia elevated white count and low-grade fever meeting currently for SIRS/ sepsis source is right gluteal infected pressure ulcer in this patient has been dealing with this ulcer for the last 2 months and noticed to have recent worsening failing outpatient oral clindamycin therapy previous culture positive for MSSA strep and bacteroids 2-local culture-has been obtained which are currently growing Staph aureus and Enterococcus urine is growing Klebsiella 3-local wound care with Medihoney followed by moist dressing change daily however plan is for wound VAC application on discharge home/correction 4patient did have a PICC line placed plan is not to go home instead of to the correction prescription has been rewritten and provided to [employer] once arrange she will be able to go home from ID standpoint plan is for total of 6- week course of IV Unasyn with weekly monitoring of CRP and sed rate in the close outpatient follow-up Dictation was produced using [employer] software. please excuse any grammatical, word or spelling errors.
[2024-10-21] MEDS: amLODIPine 5 MG TAB PO STA ×2 (16:31→18:35)
[2024-10-22 08:36] LABS: Basophils # (A) 0.03 10*3/uL (0.00-0.10); Basophils % (A) 0.4 %; Eosinophils # (A) 0.15 10*3/uL (0.04-0.35); Eosinophils % (A) 1.8 %; HCT 31.4 % (37.2-46.3); HGB 8.8 g/dL (12.0-15.0); Lymphocytes # (A) 3.03 10*3/uL (0.90-5.00); Lymphocytes % (A) 37.0 %; MCH 24.0 pg (27.0-32.0); MCHC 28.0 g/dL (32.0-37.0); MCV 85.8 fL (80.0-97.0); Monocytes # (A) 0.40 10*3/uL (0.20-1.00); Monocytes % (A) 4.9 %; Neutrophils # (A) 4.55 10*3/uL (1.80-7.70); Neutrophils % (A) 55.4 %; Platelet Count 465 10*3/uL (140-440); RBC 3.66 10*6/uL (4.10-5.20); RDW 17.9 % (11.5-14.5); WBC 8.20 10*3/uL (4.50-10.00)
[2024-10-22 10:42] LABS: ALT 8 U/L (8-44); AST 12 U/L (13-35); Albumin 2.7 g/dL (3.8-4.9); Albumin/Globulin Ratio 1.04 Ratio (1.60-3.17); Alkaline Phosphatase 205 U/L (41-126); Anion Gap 7.50 mmol/L (4.00-12.00); BUN/Creat Ratio 5.11 Ratio (12.00-20.00); Blood Urea Nitrogen 4.6 mg/dL (9.0-27.0); Calcium 8.1 mg/dL (8.7-10.3); Carbon Dioxide 25.5 mmol/L (21.6-31.8); Chloride 109 mmol/L (96-109); Globulin 2.6 g/dL (1.6-3.3); Glucose 76 mg/dL (70-110); Potassium 3.4 mmol/L (3.5-5.5); Sodium 142 mmol/L (135-145); Total Protein 5.3 g/dL (6.2-8.2)
[2024-10-22] MEDS: POTASSIUM CHLORIDE ER 20 MEQ TAB.ER PO STA (11:06)
[2024-10-22] MEDS: ACETAMINOPHEN TAB 325 MG TAB PO PRN (11:09)
[2024-10-22] MEDS: ONDANSETRON 4 MG/2 ML VIAL IVP PRN (14:29)
--- NOTE | 2024-10-22 15:45 | P.PN ---
Subjective Progress Note Date: 10/22/24 Principal diagnosis: Reason for follow-up is a right gluteal infected pressure ulcer Patient is a 28-year-old female with a past medical history significant for spina bifida hypertension DVT and has been dealing with a nonhealing wound/stage III right gluteal pressure ulcer status post surgical debridement on 08/22/2024 culture at that time were positive for MSSA and bacteroids species for the patient has completed course of antibiotic therapy now presenting the hospital worsening right gluteal pressure ulcer and foul- smelling drainage. On today's evaluation that is 10/22/2024, the patient continues to be afebrile, the patient is on room air and breathing comfortably, the Pt denies having any chest pain or cough, the patient has been complaining of some epigastric discomfort nausea and headache no vomiting or diarrhea has been reported. Patient white count is 8.20, creatinine 0.9 aff Objective - Vital Signs Vital signs: Vital Signs Temp 98.3 F 10/22/24 13:53 Pulse 67 10/22/24 13:53 Resp 16 10/22/24 13:53 BP 147/81 10/22/24 13:53 Pulse Ox 100 10/22/24 13:53 FiO2 Intake & Output 10/21/24 10/22/24 10/22/24 18:59 06:59 18:59 Weight 65.771 kg Other: Voiding Method Bedside Commode Bedside Commode Bedside Commode Diaper Diaper Diaper # Voids 3 4 # Bowel Movements 1 1 - Exam Middle-age female lying in bed in no distress Unlabored breathing clear to auscultation Abdomen soft no tenderness Wound is currently dressed Awake alert oriented x 3 - Labs CBC & Chem 7: 10/22/24 06:42 10/22/24 06:38 Labs: Abnormal Lab Results - Last 24 Hours (Table) 10/22/24 10/22/24 Range/Units 06:38 06:42 RBC 3.66 L (4.10-5.20) 10*6/uL Hgb 8.8 L (12.0-15.0) g/dL Hct 31.4 L (37.2-46.3) % MCH 24.0 L (27.0-32.0) pg MCHC 28.0 L (32.0-37.0) g/dL RDW 17.9 H (11.5-14.5) % Plt Count 465 H (140-440) 10*3/uL MPV 9.1 L (9.5-12.2) fL Potassium 3.4 L (3.5-5.5) mmol/L BUN 4.6 L (9.0-27.0) mg/dL BUN/Creatinine Ratio 5.11 L (12.00-20.00) Ratio Calcium 8.1 L (8.7-10.3) mg/dL Total Bilirubin <0.2 L (0.3-1.2) mg/dL AST 12 L (13-35) U/L Alkaline Phosphatase 205 H (41-126) U/L Total Protein 5.3 L (6.2-8.2) g/dL Albumin 2.7 L (3.8-4.9) g/dL Albumin/Globulin Ratio 1.04 L (1.60-3.17) Ratio Assessment and Plan (1) Pressure ulcer of buttock Current Visit: Yes Status: Acute Code(s): L89.309 - PRESSURE ULCER OF UNSPECIFIED BUTTOCK, UNSPECIFIED STAGE SNOMED Code(s): 941571775 (2) Sepsis Current Visit: No Status: Acute Code(s): A41.9 - SEPSIS, UNSPECIFIED ORGANISM SNOMED Code(s): 39242242 Plan: 1patient presented to the hospital with sepsis in this patient who did have a tachycardia elevated white count and low-grade fever meeting currently for SIRS/sepsis source is right gluteal infected pressure ulcer in this patient has been dealing with this ulcer for the last 2 months and noticed to have recent worsening failing outpatient oral clindamycin therapy previous culture positive for MSSA strep and bacteroids 2-local culture-has been obtained which are currently growing Staph aureus and Enterococcus urine is growing Klebsiella 3-local wound care with Medihoney followed by moist dressing change daily however plan is for wound VAC application on discharge home/halfway 4patient did have a PICC line placed currently waiting for outpatient IV antibiotic arrangement for now continue with Unasyn and monitor clinical course closely Dictation was produced using [employer] dictation software. please excuse any grammatical, word or spelling errors.
--- NOTE | 2024-10-23 02:01 | PN ---
PROGRESS NOTE SUBJECTIVE: This is a 28-year-old white female with decubitus ulcer, leukocytosis. She had hypertension acceleration, severe anxiety about going home. Discussed with her IV antibiotics at home and told her Dr. Alas will follow up and make sure her antibiotics are working prior to stopping them. OBJECTIVE: VITAL SIGNS: Stable, afebrile. CARDIOVASCULAR: S1, S2. LUNGS: Transmitted upper sounds. GI: Soft. Discharging home. Prognosis is guarded. Continue current treatment. IV antibiotics with PICC line. Discharge home tomorrow. MMODL / IJN: [id number] /
--- NOTE | 2024-10-23 16:11 | P.PN ---
Subjective Progress Note Date: 10/23/24 Principal diagnosis: Reason for follow-up is a right gluteal infected pressure ulcer Patient is a 28-year-old female with a past medical history significant for spina bifida hypertension DVT and has been dealing with a nonhealing wound/stage III right gluteal pressure ulcer status post surgical debridement on 08/22/2024 culture at that time were positive for MSSA and bacteroids species for the patient has completed course of antibiotic therapy now presenting the hospital worsening right gluteal pressure ulcer and foul- smelling drainage. On today's evaluation that is 10/23/2024, patient did have a temperature of 98 F this morning and denies having any chills, patient is on room air and breathing comfortably no chest pain or cough, the patient has been complaining of mostly burning pain to the face area however currently do not have any redness. The patient white count is 8.20 as of yesterday no CBC was done today Objective - Vital Signs Vital signs: Vital Signs Temp 97.5 F L 10/23/24 13:20 Pulse 54 L 10/23/24 13:20 Resp 18 10/23/24 13:20 BP 155/83 10/23/24 13:20 Pulse Ox 99 10/23/24 13:20 FiO2 Intake & Output 10/22/24 10/23/24 10/23/24 18:59 06:59 18:59 Intake Total 1160 Balance 1160 Intake: Oral 1160 Other: Voiding Method Bedside Commode Bedside Commode Bedside Commode Diaper Diaper # Voids 3 6 - Labs CBC & Chem 7: 10/22/24 06:42 10/22/24 06:38 Assessment and Plan (1) Pressure ulcer of buttock Current Visit: Yes Status: Acute Code(s): L89.309 - PRESSURE ULCER OF UNSPECIFIED BUTTOCK, UNSPECIFIED STAGE SNOMED Code(s): 450320913 (2) Sepsis Current Visit: No Status: Acute Code(s): A41.9 - SEPSIS, UNSPECIFIED ORGANISM SNOMED Code(s): 17759703 Plan: 1patient presented to the hospital with sepsis in this patient who did have a tachycardia elevated white count and low-grade fever meeting currently for SIRS/sepsis source is right gluteal infected pressure ulcer in this patient has been dealing with this ulcer for the last 2 months and noticed to have recent worsening failing outpatient oral clindamycin therapy previous culture positive for MSSA strep and bacteroids 2-local culture-has been obtained which are currently growing Staph aureus and Enterococcus urine is growing Klebsiella 3-local wound care with Medihoney followed by moist dressing change daily h owever plan is for wound VAC application on discharge home/jail 4patient did have a PICC line placed currently waiting for outpatient IV antibiotic arrangement 5plan is for total of 6-week course of IV Unasyn and local wound care with a wound VAC Dictation was produced using [employer] dictation software. please excuse any grammatical, word or spelling errors. Time with Patient: Less than 30
[2024-10-24] MEDS: PREGABALIN 75 MG CAP PO SCH (08:26)
[2024-10-24 09:20] LABS: Basophils # (A) 0.04 10*3/uL (0.00-0.10); Basophils % (A) 0.4 %; Eosinophils # (A) 0.16 10*3/uL (0.04-0.35); Eosinophils % (A) 1.6 %; HCT 32.5 % (37.2-46.3); HGB 9.7 g/dL (12.0-15.0); Lymphocytes # (A) 4.49 10*3/uL (0.90-5.00); Lymphocytes % (A) 45.1 %; MCH 24.9 pg (27.0-32.0); MCHC 29.8 g/dL (32.0-37.0); MCV 83.5 fL (80.0-97.0); Monocytes # (A) 0.36 10*3/uL (0.20-1.00); Monocytes % (A) 3.6 %; Neutrophils # (A) 4.87 10*3/uL (1.80-7.70); Neutrophils % (A) 49.0 %; Platelet Count 514 10*3/uL (140-440); RBC 3.89 10*6/uL (4.10-5.20); RDW 17.6 % (11.5-14.5); WBC 9.95 10*3/uL (4.50-10.00)
[2024-10-24 09:28] LABS: ALT 8 U/L (4-34); AST 14 U/L (14-36); African American GFR (CKD) 86 (>60 ml/min/1.73 sqM); Albumin 2.8 g/dL (3.5-5.0); Albumin/Globulin Ratio 0.9; Alkaline Phosphatase 183 U/L (38-126); Anion Gap 7 mmol/L; Blood Urea Nitrogen 9 mg/dL (7-17); Calcium 8.9 mg/dL (8.4-10.2); Carbon Dioxide 26 mmol/L (22-30); Chloride 108 mmol/L (98-107); Globulin 3.1 g/dL; Glucose 98 mg/dL (74-99); Non-African American GFR(CKD) 75 (>60 ml/min/1.73 sqM); Potassium 4.0 mmol/L (3.5-5.1); Sodium 141 mmol/L (137-145); Total Protein 5.9 g/dL (6.3-8.2)
--- NOTE | 2024-10-24 15:50 | P.PN ---
Subjective Progress Note Date: 10/24/24 Principal diagnosis: Reason for follow-up is a right gluteal infected pressure ulcer Patient is a 28-year-old female with a past medical history significant for spina bifida hypertension DVT and has been dealing with a nonhealing wound/stage III right gluteal pressure ulcer status post surgical debridement on 08/22/2024 culture at that time were positive for MSSA and bacteroids species for the patient has completed course of antibiotic therapy now presenting the hospital worsening right gluteal pressure ulcer and foul- smelling drainage. On today's evaluation that is 10/24/2024, Patient is afebrile patient is currently on room air and denies having any shortness of breath, the patient denies any chest pain or cough, the patient denies any nausea vomiting did not have any abdominal pain and no diarrhea. Patient white count 9.95, creatinine 1.02 Objective - Vital Signs Vital signs: Vital Signs Temp 97.4 F L 10/24/24 13:43 Pulse 60 10/24/24 13:43 Resp 16 10/24/24 13:43 BP 171/91 10/24/24 13:43 Pulse Ox 100 10/24/24 13:43 FiO2 Intake & Output 10/23/24 10/24/24 10/24/24 18:59 06:59 18:59 Other: Voiding Method Bedside Commode Bedside Commode Bedside Commode # Voids 3 1 # Bowel Movements 2 - Exam Middle-age female lying in bed in no distress Unlabored breathing clear to auscultation Abdomen soft no tenderness Wound is currently dressed Awake alert oriented x 3 - Labs CBC & Chem 7: 10/24/24 08:45 10/24/24 08:45 Labs: Abnormal Lab Results - Last 24 Hours (Table) 10/24/24 10/24/24 Range/Units 08:45 08:45 RBC 3.89 L (4.10-5.20) 10*6/uL Hgb 9.7 L (12.0-15.0) g/dL Hct 32.5 L (37.2-46.3) % MCH 24.9 L (27.0-32.0) pg MCHC 29.8 L (32.0-37.0) g/dL RDW 17.6 H (11.5-14.5) % Plt Count 514 H (140-440) 10*3/uL MPV 9.2 L (9.5-12.2) fL Chloride 108 H (98-107) mmol/L Alkaline Phosphatase 183 H (38-126) U/L Total Protein 5.9 L (6.3-8.2) g/dL Albumin 2.8 L (3.5-5.0) g/dL Assessment and Plan (1) Pressure ulcer of buttock Current Visit: Yes Status: Acute Code(s): L89.309 - PRESSURE ULCER OF UNSPECIFIED BUTTOCK, UNSPECIFIED STAGE SNOMED Code(s): 253545719 (2) Sepsis Current Visit: No Status: Acute Code(s): A41.9 - SEPSIS, UNSPECIFIED ORGANISM SNOMED Code(s): 53757765 Plan: 1patient presented to the hospital with sepsis in this patient who did have a tachycardia elevated white count and low-grade fever meeting currently for SIRS/sepsis source is right gluteal infected pressure ulcer in this patient has been dealing with this ulcer for the last 2 months and noticed to have recent worsening failing outpatient oral clindamycin therapy previous culture positive for MSSA strep and bacteroids 2-local culture-has been obtained which are currently growing Staph aureus and Enterococcus urine is growing Klebsiella 3-local wound care with Medihoney followed by moist dressing change daily however plan is for wound VAC application on discharge home/[facility] 4patient did have a PICC line placed currently waiting for outpatient IV antibiotic arrangement continue with Unasyn if ended up staying here by tomorrow we will place wound VAC Dictation was produced using [employer] dictation software. please excuse any grammatical, word or spelling errors. Time with Patient: Less than 30
[2024-10-24] MEDS: MAGNESIUM OXIDE 400 MG TAB PO SCH (18:39)
--- NOTE | 2024-10-25 03:43 | PN ---
PROGRESS NOTE SUBJECTIVE: 28-year-old white female who was supposed to go home with IV antibiotics of Unasyn for 10-20 days due to chronic wound infections. The patient has been having numbness and prickling in her face. She is afraid to go home as she is afraid to come back with her Lyrica for the neuropathy and possibly her face and her back. OBJECTIVE: CARDIOVASCULAR: S1, S2. LUNGS: Transmitted upper sounds. HEMATOLOGY: Negative Homans. Patches throughout her body with some sores. VITAL SIGNS: Blood pressure is high at 150s to 170s over 90s. Pulse is 70 to 73, temperature 97.4. PSYCH: Fair mood and affect. ASSESSMENT AND PLAN: Acute on chronic anemia. Hemoglobin is up to 9.7 from 8.8. Sodium and potassium are good. Kidney functions over 90. Prognosis is guarded. Ambulate as tolerated. Possibly start her on magnesium and vitamin. Also PT, OT. Possibly go home tomorrow. MMODL / IJN: [id number] /
--- NOTE | 2024-10-25 22:28 | P.PN ---
Subjective Progress Note Date: 10/25/24 Principal diagnosis: Reason for follow-up is a right gluteal infected pressure ulcer Patient is a 28-year-old female with a past medical history significant for spina bifida hypertension DVT and has been dealing with a nonhealing wound/stage III right gluteal pressure ulcer status post surgical debridement on 08/22/2024 culture at that time were positive for MSSA and bacteroids species for the patient has completed course of antibiotic therapy now presenting the hospital worsening right gluteal pressure ulcer and foul- smelling drainage. On today's evaluation that is 10/25/2024, patient has been afebrile, patient is breathing comfortably and is currently on room air, patient denies having any chest pain and cough, patient denies nausea vomiting or diarrhea has been complaining of some pain to the right we will pressure ulcer and not comfortable going home with the wound VAC. No new lab has been obtained today Objective - Vital Signs Vital signs: Vital Signs Temp 98.2 F 10/25/24 13:52 Pulse 60 10/25/24 13:52 Resp 17 10/25/24 13:52 BP 116/75 10/25/24 13:52 Pulse Ox 99 10/25/24 13:52 FiO2 Intake & Output 10/24/24 10/25/24 10/25/24 18:59 06:59 18:59 Intake Total 650 Balance 650 Intake: Oral 650 Other: Voiding Method Bedside Commode Bedside Commode Bedside Commode # Voids 4 3 # Bowel Movements 1 - Exam Middle-age female lying in bed in no distress Unlabored breathing clear to auscultation Abdomen soft no tenderness Wound is currently dressed Awake alert oriented x 3 - Labs CBC & Chem 7: 10/24/24 08:45 10/24/24 08:45 Assessment and Plan (1) Pressure ulcer of buttock Current Visit: Yes Status: Acute Code(s): L89.309 - PRESSURE ULCER OF UNSPECIFIED BUTTOCK, UNSPECIFIED STAGE SNOMED Code(s): 282224199 (2) Sepsis Current Visit: No Status: Acute Code(s): A41.9 - SEPSIS, UNSPECIFIED ORGANISM SNOMED Code(s): 25493927 Plan: 1patient presented to the hospital with sepsis in this patient who did have a tachycardia elevated white count and low-grade fever meeting currently for SIRS/sepsis source is right gluteal infected pressure ulcer in this patient has been dealing with this ulcer for the last 2 months and noticed to have recent worsening failing outpatient oral clindamycin therapy previous culture positive for MSSA strep and bacteroids 2-local culture-has been obtained which are currently growing Staph aureus and Enterococcus urine is growing Klebsiella 3-local wound care with Medihoney followed by moist dressing change daily h owever patient needs to have a wound VAC on discharge along with IV Unasyn and better go to the rehab instead of going home with the patient would not be able to take care of both the antibiotic as well as a wound VAC Dictation was produced using [employer] dictation software. please excuse any grammatical, word or spelling errors. Time with Patient: Less than 30
[2024-10-26 07:45] VITALS: BP 130/79; PULSE 63; RESP 16; TEMP 98.5
--- NOTE | 2024-10-26 12:49 | DS ---
DISCHARGE SUMMARY DISPOSITION: Discharged home. DISCHARGE MEDICINES: 1. Unasyn 3 g IV piggyback q.6 hours for a month. 2. Atarax 25 mg q.8 hours p.r.n. for itching and anxiety. 3. Tenormin 25 mg b.i.d. 4. Prilosec 20 mg daily. 5. Simethicone (Gas-X) 125 mg at night. 6. Omeprazole as mentioned above. CONDITION: Stable. PROGNOSIS: Guarded. Ambulate as tolerated. HOSPITAL COURSE: The patient came in with a pressure ulcer in the buttocks, UTI, bacteremia, and cellulitis. Antibiotics were given per Dr. Alas. He thought the infection was mostly from wound culture done on the right buttock. Please get antibiotics from him and wound care from him. Follow up as an outpatient. Please see further orders. MMODL / IJN: [id number] /
== END 2024-10-26 10:32 | disposition home or self-care (01) | DRG 720 ==
LOC: EC 11:42 → 4SSUR 18:33
PROVIDERS: ADMIT Family Medicine; ATTEND Family Medicine
PROC: 05H933Z Insertion of Infusion Device into Right Brachial Vein, Percutaneous Approach (ICD-10-PCS; principal; 2024-10-20 11:10)
DX: A41.81 Sepsis due to Enterococcus (principal); D64.9 Anemia, unspecified; F41.9 Anxiety disorder, unspecified; G62.9 Polyneuropathy, unspecified; I10 Essential (primary) hypertension; K21.9 Gastro-esophageal reflux disease without esophagitis; K29.70 Gastritis, unspecified, without bleeding; L03.90 Cellulitis, unspecified; Q23.81 Bicuspid aortic valve; L89.159 Pressure ulcer of sacral region, unspecified stage; L89.313 Pressure ulcer of right buttock, stage 3; N39.0 Urinary tract infection, site not specified; Q05.9 Spina bifida, unspecified; Z86.711 Personal history of pulmonary embolism; Z91.199 Patient's noncompliance with other medical treatment and regimen due to unspecified reason; Z86.718 Personal history of other venous thrombosis and embolism; Z98.84 Bariatric surgery status; Z28.310 Unvaccinated for COVID-19; Z28.21 Immunization not carried out because of patient refusal; Z88.5 Allergy status to narcotic agent; Z88.0 Allergy status to penicillin; Z91.040 Latex allergy status; Z79.899 Other long term (current) drug therapy
CPT/HCPCS: 36415; 36573; 80053; 80202; 81001; 81025; 82565; 83605; 85025; 85652; 86140; 87040; 87070; 87075; 87077; 87086; 87186; 87205; 93005; 96361; 96365; 96366; 96375; 96376; 99285